=== PATIENT | female | born 1945 | race Caucasian/White ===

== ENCOUNTER → 2017-12-06 12:39 | Outpatient (CLI) | payer MEDICARE, SELFPAY ==
--- NOTE | 2017-12-06 | IMM_PTH ---
PATIENT: JIMMIE WEATHERS LOC: [facility] U#:[id number] AGE/SX: 79/F ROOM: RE12/06/[address]: Dr. Jean-Paul Perea MD : 1945 BED: DIS: SPEC #: [id number] RECD: 12/09/17 16:28 STATUS: RALPH REFlip #: [id number] ROYA: 12/06/17 00:[address]: Jean-Paul Perea DEPT: IMMUNOHISTOCHEMISTRY RECD BY: Ijeoma Robb ENTERED: 12/12/17 16:30 SP TYPE: IMMUNO OTHR DR: Dr. Magaly Jimenez MD Tissues: A - Right breast, NOS Procedures: CALPONIN-1 (add) CK5-6 (add) E-CAD (add) HER2 JAZZ (add) P53 (add) OR (add) IN SITU HYBRIDIZATION P40 (add) ER (initial) PHYSICIAN & INSTITUTION [place] [id number] SPECIMEN INFORMATION: Tissue Source: A ? Right breast biopsy Clinical Info: Abnormal mammogram Specimen Number: [id number] CPT code: 09550, 19975 x6, 09759 x3 METHODOLOGY: Deparaffinized sections of prefer/formalin-fixed tissue or PAP/DQ stained slides are incubated with monoclonal/polyclonal antibodies/oligonucleotide probes. Localization is made via biotin free immunoperoxidase method. Appropriate controls are performed and reacted as expected. Results on target cell population are indicated in the following table: RESULTS: ANTIBODY / CLONE RESULT Block A P53 (DO-7) negative Ki-67 (30-9) positive, low CK8 (52zllzB71) positive CK5-6 (D5 & 1684) negative Calponin-1 (FG951C) negative P40 (BC28) negative E-Cad (ECH-6) positive MORPHOMETRIC ANALYSIS ER (clone 6F11) >95% OR (clone 16/1E2) >95% Her-2Neu (clone CB11) 1-2+ The prognostic test for HER2 is performed on formalin-fixed paraffin embedded tissue. A 3+ (positive) staining pattern is defined as intense, homogeneous, complete, circumferential membranous staining in >10% of contiguous tumor cells. A similar weak (2+) staining pattern is interpreted as equivocal. LENY follow-up testing is recommended for all equivocal cases. Positivity/negativity for ER/OR is reported if > or < 1% of the tumor cells are immuno- reactive, respectively. The ASCO/CAP criteria is used for scoring. Reference: Journal of Clinical Oncology, 2013; 31:0676-4181 & 2010; 16:4818-0570. Duration of fixation: 58 Hrs; Sample Adequate: Yes. These assays have not been validated on decalcified tissues. Results should be interpreted with caution given the likelihood of false negativity on decalcified specimens. These tests were developed and their performance characteristics determined by [facility]. They may not have been cleared or approved by the U.S. Food and Drug Administration. The FDA has determined that such clearance or approval is not necessary. INTERPRETATION: Right breast, ultrasound-guided needle core biopsy: Invasive ductal carcinoma. Positive for estrogen receptors (favorable prognostic indicator). Positive for progesterone receptors (favorable prognostic indicator). Equivocal for overexpression of AVW6smf. AM:bernard 12/14/17 Case has been reviewed in consultation with Dr. Hernandez who concurs with the above diagnosis. IDC:SJ ADDENDUM ADDENDUM ADDENDUM ADDENDUM ADDENDUM ADDENDUM ADDENDUM ADDENDUM ADDENDUM ADDENDUM ADDENDUM ADDENDUM ADDENDUM ADDENDUM ADDENDUM ADDENDUM ADDENDUM ADDENDUM ADDENDUM ADDENDUM ADDENDUM 12/18/2017 13:26 ADDENDUM 12/18/2017 13:26 ADDENDUM 12/18/2017 13:26 ADDENDUM 12/18/2017 13:26 ADDENDUM 12/18/2017 13:26 IN SITU HYBRIDIZATION (LENY) FOR HER2 Interpretation: Not Amplified HER2 : CEP-17 Ratio: 1.13 Average HER2 Signal: 2.05 Average CEP-17 Signal: 1.8 Number of Tumor Cells Scanned: 50 Interpretative Information: The INFORM HER2 Dual LENY DNA Probe Cocktail assay is performed on formalin-fixed paraffin embedded tissue and determines HER2 gene status by detecting HER2 copies via silver in situ hybridization (SISH) and Chromosome 17 copies via chromogenic red in situ hybridization on tumor cells. A minimum of 20 cells representing > 10% of contiguous and homogeneous invasive tumor cells were analyzed. HER2 gene status is classified as Non-amplified (HER2/Chr17 ratio < 2.0) or Amplified (HER2/Chr17 ratio greater than or equal to 2.0). If the resulting HER2/Chr17 ratio falls within 1.8 - 2.2 (Borderline), retesting by FISH is recommended. Reference: Eleuterio AC, Tito REYNOSO, Martinez DG, et al: Recommendations for Human Epidermal Growth Factor Receptor 2 Testing in Breast Cancer: [place] [employer] of Clinical Oncology / College of [place] [employer] Clinical Practice Guideline Update. J Clin Oncol 31:3759-1970, 2013. / AM:bernard 12/18/17
--- NOTE | 2017-12-06 09:30 | BRBX_PTH ---
PATIENT: JIMMIE WEATHERS LOC: [facility] U#:[id number] AGE/SX: 79/F ROOM: RE12/06/[address]: Dr. Jean-Paul Perea MD : 1945 BED: DIS: SPEC #: [id number] RECD: 12/06/17 12:33 STATUS: RALPH YESSICA #: [id number] ROYA: 12/06/17 09:[address]: Jean-Paul Perea DEPT: SURGICAL PATHOLOGY RECD BY: Patrick Le ENTERED: 12/06/17 14:16 SP TYPE: BREAST BX OTHR DR: Dr. Magaly Jimenez MD Tissues: A - Right breast, NOS B - Skin of leg, NOS Procedures: Surgery Specimen Level IV HEADER OPERATION: Ultrasound-guided needle core biopsy right breast and punch biopsy skin lesion left leg PRE-OP DIAGNOSIS: Abnormal mammogram, skin lesion LLE TISSUE SUBMITTED: A ? Right breast biopsy, B ? Punch biopsy skin lesion left lower extremity ISCHEMIC TIME: <30 seconds FIXATION TIME: 58 hours MICROSCOPIC DIAGNOSIS A. Right breast, core biopsy: Invasive carcinoma: Nuclear grade ? /3 Maximal length ? 4.5 mm B. Skin of left lower extremity, punch biopsy: No evidence of malignancy. AM:bernard 12/13/17 COMMENT The findings were discussed with Dr. Perea at 9:30 a.m. on 12/09/[address] Golden. MICROSCOPIC DESCRIPTION Slides are reviewed. GROSS DESCRIPTION A - Received in fixative is one container labeled with the patient's name and designated right breast biopsy. The specimen consists of two cores of yellow-white soft tissue. Each core has an average length of 1 cm and a maximal diameter of 0.1 cm. The specimen is totally submitted in one cassette. B - Received in fixative is one container labeled with the patient's name and designated punch biopsy. The specimen consists of a cylindrical fragment of light ontiveros soft tissue measuring 0.8 cm in length and 0.1 cm in average diameter. The specimen is totally submitted in one cassette. / AM:bernard 12/06/17 TC:0 CPT: 20305 x2 ADDENDUM ADDENDUM ADDENDUM ADDENDUM ADDENDUM ADDENDUM ADDENDUM 12/17/2017 14:06 ADDENDUM 12/17/2017 14:06 ADDENDUM 12/17/2017 14:06 ADDENDUM 12/17/2017 14:06 ADDENDUM 12/17/2017 14:06 B ? Comment ? Specimen B consists of an unremarkable skin punch biopsy. The squamous epithelium does not contain any dysplasia or inflammation. The reticular dermis, mid dermis and deep dermis show no pathologic change. The subcutaneous tissue contains occasional benign blood vessels and rare nerves and adnexal glandular epithelium. AM:bernard 12/17/17
== END ==
PROVIDERS: Family Provider Family Medicine; PCP Family Medicine; Visit Provider Surgery
DX: R92.8 Other abnormal and inconclusive findings on diagnostic imaging of breast (principal); L98.9 Disorder of the skin and subcutaneous tissue, unspecified
CPT/HCPCS: 88305; 88341; 88342; 88368

== ENCOUNTER → 2017-12-20 06:19 | Outpatient (CLI) | payer MEDICARE, SELFPAY ==
--- NOTE | 2017-12-20 06:33 | MRI_ITS ---
STUDY: BILATERAL BREAST MR WITHOUT AND WITH CONTRAST REASON FOR EXAM: Female, 72 years old. Newly diagnosed right breast cancer from biopsy performed November 05, 2017. Presurgical workup. TECHNIQUE: Multi-sequence multi-echo imaging of both breasts was performed with a dedicated breast coil. T1-weighted and T2-weighted images were performed before the administration of contrast. T1-weighted images were also performed after the administration of 6 mL of Gadavist contrast intravenously without complications. COMPARISON: Bilateral mammograms dated June 15, 2010 and unilateral left mammogram dated July 10, 2010. Bilateral screening mammograms dated November 19, 2017 and right breast ultrasound dated November 21, 2017. FINDINGS: RIGHT BREAST: The breast tissue is fatty with no background enhancement. There is an irregular enhancing mass measuring 2.3 cm x 9 mm x 7 mm at the 11:00 to 12:00 position of the right breast. There is a tissue clip artifact within the right breast anterior to the mass. LEFT BREAST: The breast tissue is fatty with no background enhancement. There are no abnormal enhancing masses or areas of non-mass enhancement in the left breast. There are no enlarged or abnormal lymph nodes. There is no abnormality in the visualized regions of the chest or liver. MRI/Breast w/o and/or W Cont Bilat IMPRESSION: Irregular enhancing mass at the 11:00 to 12:00 position of the right breast measuring 2.3 cm x 9 mm x 7 mm representing the index lesion. No other significant abnormality identified. CATEGORY: BIRADS Category 6: Known Biopsy-Proven Malignancy - Appropriate Action Should Be Taken. A letter regarding these results will be sent to the patient by the facility within 30 days. Electronically Signed: Isaiah Nguyen MD at 10:28 EDT , Service support ,
[2017-12-20 07:31] LABS: CREATININE FINGERSTICK 0.7 mg/dL (0.55-1.02); EGFR FINGERSTICK > 60.0000 mL/min (>60)
== END ==
PROVIDERS: Family Provider Family Medicine; PCP Family Medicine; Visit Provider Surgery
DX: C50.411 Malignant neoplasm of upper-outer quadrant of right female breast (principal)
CPT/HCPCS: 77059; A9585; A4216; C8908

== ENCOUNTER 2017-12-25 08:17 | Day surgery (SDC) | payer MEDICARE, SELFPAY ==
--- NOTE | 2017-12-25 | IMM_PTH ---
PATIENT: JIMMIE WEATHERS LOC: [facility] [place] U#:[id number] AGE/SX: 72/F ROOM: RE12/25/[address]: Dr. Mp Hernandez MD : 1945 BED: DIS: 12/25/2017 SPEC #: [id number] RECD: 12/30/17 13:33 STATUS: RALPH REQ #: [id number] ROYA: 12/25/17 00:[address]: Mp Hernandez DEPT: IMMUNOHISTOCHEMISTRY RECD BY: Ijeoma Robb ENTERED: 12/30/17 13:34 SP TYPE: IMMUNO OTHR DR: Dr. Mp Argueta MD Tissues: A - Axillary lymph node, NOS Procedures: CK7 (add) Pankeratin (initial) Pankeratin (add) PHYSICIAN & INSTITUTION [place] [id number] SPECIMEN INFORMATION: Tissue Source: A ? Right axillary sentinel lymph node tissue Clinical Info: Malignant neoplasm upper outer quadrant right breast Specimen Number: [id number] A1-A4 CPT code: 70650, 37924 x7 METHODOLOGY: Deparaffinized sections of prefer/formalin-fixed tissue or PAP/DQ stained slides are incubated with monoclonal/polyclonal antibodies/oligonucleotide probes. Localization is made via biotin free immunoperoxidase method. Appropriate controls are performed and reacted as expected. Results on target cell population are indicated in the following table: RESULTS: ANTIBODY / CLONE RESULT Block A1 AE1-3 (AE1/AE3/PCK26) negative CK7 (OV-TL12/30) negative Block A2 AE1-3 (AE1/AE3/PCK26) negative CK7 (OV-TL12/30) negative Block A3 AE1-3 (AE1/AE3/PCK26) negative CK7 (OV-TL12/30) negative Block A4 AE1-3 (AE1/AE3/PCK26) negative CK7 (OV-TL12/30) negative These tests were developed and their performance characteristics determined by [facility]. They may not have been cleared or approved by the U.S. Food and Drug Administration. The FDA has determined that such clearance or approval is not necessary. INTERPRETATION: A. Right axillary sentinel lymph node tissue, biopsy: Six out of six lymph nodes negative for metastatic carcinoma SJ:vibha 12/31/17
--- NOTE | 2017-12-25 | AXNB_PTH ---
PATIENT: JIMMIE WEATHERS LOC: [facility] [place] U#:[id number] AGE/SX: 72/F ROOM: RE12/25/[address]: Dr. Mp Hernandez MD : 1945 BED: DIS: 12/25/2017 SPEC #: [id number] RECD: 12/25/17 11:18 STATUS: RALPH YESSICA #: [id number] ROYA: 12/25/17 00:[address]: Mp Hernandez DEPT: SURGICAL PATHOLOGY RECD BY: Ijeoma Robb ENTERED: 12/25/17 12:31 SP TYPE: AX NODE BX OTHR DR: Dr. Mp Argueta MD Tissues: A - Axillary lymph node, NOS B - Right breast, NOS Procedures: Frozen Section (charge) Frozen Section Add'l ([facility]) Surgery Specimen Level V Frozen (no charge) HEADER OPERATION: Wire localized lumpectomy and blue dye right axillary sentinel lymph node PRE-OP DIAGNOSIS: Malignant neoplasm upper outer quadrant right breast; ER positive TISSUE SUBMITTED: A ? Right axillary sentinel lymph node tissue to lab at 1115 for FS, B ? Right breast lumpectomy tissue to mammo at 1132, short suture ? superior, long suture ? lateral, single suture ? anterior FROZEN SECTION DIAGNOSIS A. Right axillary sentinel lymph node tissue, biopsy: Six out of six lymph nodes, negative for metastatic carcinoma. SJ:bernard 12/25/17 MICROSCOPIC DIAGNOSIS A. Right axillary sentinel lymph node tissue, biopsy: Six out of six lymph nodes, negative for metastatic carcinoma. See comment. B. Right breast, lumpectomy with needle localization: Invasive ductal carcinoma. Focal ductal carcinoma in situ. See cancer summary below. INVASIVE BREAST CANCER SUMMARY: Specimen ? partial breast Procedure ? excision with wire-guided localization Lymph node sampling ? sentinel lymph nodes Specimen integrity ? single, intact specimen Specimen size ? 6 x 6 x 3.5 cm Specimen laterality - right Tumor site ? upper outer quadrant, as per clinical information Tumor size ? 0.5 x 0.5 cm. See comment. Tumor focality ? single focus of invasive carcinoma Macroscopic and Microscopic extent of tumor: Skin ? skin is not present. Nipple ? not applicable Skeletal muscle ? no skeletal muscle present. 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 Extensive intraductal component (EIC) - negative Estimated size (extent) of DCIS - Ductal carcinoma in situ comprise about <5% of the tumor volume. Number of blocks with DCIS - 1 Number of blocks examined - 12 Architectural patterns ? cribriform Nuclear grade ? grade 2 (intermediate) Necrosis ? not identified Lobular carcinoma in situ (LCIS) ? not identified Histologic type of invasive carcinoma ? invasive ductal carcinoma with focal cribriform features. Histologic Grade (Duc grade): Glandular/tubular differentiation - score 3 Nuclear pleomorphism - score 2 Mitotic count ? score 1 Overall grade - 2 (score of 6) Margins - Margins uninvolved by invasive carcinoma and ductal carcinoma in situ. The invasive carcinoma and ductal carcinoma in situ are 0.7 cm away from the superior and posterior margins of the specimen. Treatment effect: Response to presurgical (neoadjuvant) therapy - no known presurgical therapy. Lymph-Vascular invasion ? not identified Dermal lymph-vascular invasion ? not applicable Lymph nodes: Number of sentinel lymph nodes examined - 6 Total number of lymph nodes examined (sentinel and nonsentinel) - 6 Number of lymph nodes with macrometastases, micrometastases and isolated tumor cells - 0 Method of evaluation of sentinel lymph nodes - H & E, multiple levels and IHC. Distance metastasis ? not applicable Additional pathologic findings ? changes consistent with previous biopsy site. - Fibrocystic changes. - Vascular calcification. Ancillary studies - previously performed on section of tumor ([id number] / [id number]). ER ? positive (>95%) IL - positive (>95%) Her2 ramón ? equivocal (1-2+) Her2 by dual LENY ? negative/not amplified HER2:CEP-17 ratio ? 1.13 Average HER2 signal ? 2.05 Average CEP-17 signal ? 1.8 Microcalcifications ? present both in carcinoma and non-neoplastic tissue Clinical history - Please make reference to previous specimen ([id number]) right breast, core biopsy with diagnosis of invasive carcinoma. PATHOLOGIC STAGE: pT1a pN0 Mx The above summary is in compliance with [employer] of [place] [employer] (CAP) Cancer Protocols Checklist and [place] [employer] Committee on Cancer (AJCC), Staging Manual, 8th Ed. SJ:rg 12/30/17 COMMENT A. The lymph nodes are negative for metastatic carcinoma on multiple H & E levels and immuno-histochemical stains for cytokeratins ([id number]). B. The tumor is measured microscopically, it is smaller than grossly measured size. Most of the grossly measured tumor consists of changes consistent with previous biopsy site. Case has been reviewed in consultation with Dr. Golden who concurs with the above diagnosis. IDC:AM MICROSCOPIC DESCRIPTION Slides are reviewed. GROSS DESCRIPTION A - Received fresh for frozen section diagnosis labeled with the patient's name is a specimen designated right axillary sentinel lymph node tissue. The specimen consists of a piece of yellow adipose tissue containing multiple nodules consistent with lymph nodes measuring 4 x 4.5 x 1 cm. Six lymph nodes are identified and submitted entirely for frozen section diagnosis. Dental Professional tissue is submitted in four cassettes as follows: 1 ? frozen section, one bisected lymph node, 2 - frozen section, one lymph node, 3? frozen section, two lymph nodes, one lymph node inked black, 4 - frozen section, two lymph nodes, one lymph node inked black. / SJ:rg 12/25/17 B - Received fresh for intraoperative consultation labeled with the patient's name is a specimen designated right breast lumpectomy tissue. The specimen consists of a piece of yellow adipose tissue with wire localization x2 and measures 6 x 6 x 3.5 cm. The specimen is oriented as follows: short suture ? superior, long suture ? lateral, single suture ? anterior. The specimen is inked as follows: anterior ? yellow, posterior ? black, superior ? blue, inferior ? green, medial ? red and lateral ? orange. Serial sections reveal a ontiveros, indurated mass measuring 1.5 x 1 x 1cm. This mass is 0.5 cm away from the closest posterior and superior margin of the specimen. This information is conveyed to the surgeon intraoperatively. Sections of the rest of the specimen reveal ontiveros-yellow adipose cut surfaces mixed with ontiveros-white fibrous area. Dental Professional sections are submitted in 12 cassettes as follows: 1 ? medial and lateral margins, 2 ? inferior and anterior margins, 3 & 4 ? tumor with closest posterior and superior margin, 5 & 6 ? rest of the tumor, 7 & 8 - solar sales representative and assessor sections adjacent to the tumor, 9-12 - solar sales representative and assessor sections away from the tumor. Sections will be submitted after infusion cycle. / SJ:rg 12/26/17 TC:0 CPT: 47395 x2, 82814, 48304 x3, 57970
--- NOTE | 2017-12-25 08:30 | RAD_ITS ---
STUDY: X-RAY CHEST REASON FOR EXAM: Female, 72 years old. History of breast cancer. TECHNIQUE: PA and lateral views of the chest. COMPARISON: None. FINDINGS: Hyperinflation. The lungs are clear. There is no demonstrated pleural abnormality. Normal size heart. Normal mediastinum and alvarado. Normal visualized pulmonary arteries. Normal visualized aortic arch and descending thoracic aorta. There is a levoscoliosis of the thoracic spine. Normal visualized ribs, clavicles, and shoulders. There is no demonstrated abnormality of the visualized soft tissue structures of the upper abdomen. RAD/Chest PA and Lateral IMPRESSION: Hyperinflation. The lungs are clear. Electronically Signed: Rafael Barry MD at 9:47 EDT Tel [phone], Service support ,
--- NOTE | 2017-12-25 08:42 | EKG12_ITS ---
Test Reason : PREOP Blood Pressure : / mmHG Vent. Rate : 058 BPM Atrial Rate : 058 BPM P-R Int : 154 ms QRS Dur : 074 ms QT Int : 456 ms P-R-T Axes : 054 047 037 degrees QTc Int : 447 ms Sinus bradycardia Otherwise normal ECG No previous ECGs available Confirmed by ROBE LYN, BEN ([id number]), non linear editor ELDER DOWNEY ([id number]) on 12/26/2017 11:17:32 AM Referred By: Mp Hernandez Confirmed By:BEN NAGEL MD
[2017-12-25 08:58] LABS: Hematocrit 43.3 % (37-47); Hemoglobin 14.4 g/dl (12.0-15.0); Mean Corp Hgb Conc 33.3 g/gl (32-36); Mean Corpuscular Hgb 31.2 pg (27.0-32.0); Mean Corpuscular Volume 93.9 fL (81-99); Mean Platelet Vol. 10.2 fl (6.2-12.0); Platelet Count 167 K/mm3 (150-450); RBC Distribution Width CV 12.3 % (11.6-14.6); Red Blood Count 4.61 M/mm3 (4.2-5.4); White Blood Count 6.6 K/mm3 (4.4-11.0)
[2017-12-25 08:59] VITALS: BP 118/69; PULSE 57; RESP 16; TEMP 36.5; O2SAT 100; BMI 22.1
[2017-12-25 08:59] LABS: Scan Indicated on CBC? Y/N NO
[2017-12-25 09:09] LABS: Anion Gap 6 (5-15); BUN 20 mg/dL (7-18); BUN/Creat Ratio 21.3 RATIO (10-20); Calcium,Total 9.6 mg/dL (8.5-10.1); Chloride 103 mmol/L (98-107); Creatinine, Serum 0.94 mg/dL (0.55-1.02); EST Glomerular Filtration Rate 63 mL/min (>60); Est Glom Filt Rate - Afr Amer 76 mL/min (>60); Glucose 90 mg/dL (74-106); Potassium 3.9 mmol/L (3.5-5.1); Sodium Level 139 mmol/L (136-145)
--- NOTE | 2017-12-25 09:12 | BI_ITS ---
SURGICAL BREAST SPECIMEN RADIOGRAPH CLINICAL: Document presence of tissue clip marker in biopsy specimen. FINDINGS: Specimen shows presence of tissue clip marker. Electronically Signed: Rafael Barry MD at 15:03 EDT Tel [phone], Service support , BI/Breast Biopsy Specimen
--- NOTE | 2017-12-25 10:23 | OP.PCM_ITS ---
Problem List (1) Breast cancer Status: Acute Qualifiers: Breast location: upper outer quadrant of breast Estrogen receptor status: positive Patient sex: female Laterality: right Qualified Code(s): C50.411 - Malignant neoplasm of upper-outer quadrant of right female breast; Z17.0 - Estrogen receptor positive status [ER+] Report of Operation Date of Procedure: 12/25/17 Pre-Operative Diagnosis: Upper outer quadrant right breast cancer Post-Operative Diagnosis: Same Surgery/Procedure Performed:: Stereotactic wire localization upper outer quadrant right breast. Right axillary blue dye sentinel lymph node biopsy with wire localized upper outer quadrant right breast lumpectomy Description of Surgical Findings:: Timeout and informed consent was obtained. 72-year-old female was taken to the stereotactic unit. She was placed prone on the table. The right breast was placed in the cc view. The marking clip in question was identified. Stereotactic images were obtained. Digital information was obtained on a single target site. The breast was prepped with Betadine. 1% lidocaine was used as a local anesthetic. A total of 1/2 cc was used. A 20-gauge Kopans needle was advanced to depth +15 mm. The wire was displaced. On fast view demonstrated good localization. She tolerated the procedure well sterile dressings were applied and she was subsequently taken to the operating for definitive resection. The patient was subsequently taken to the operating room. Placed upon the table. She underwent general anesthesia. The right arm was carefully wrapped with soft roll and placed to right angles to the table. The right breast was prepped with alcohol. 2 cc of 1% isosulfan blue dye was injected in the upper outer right retroareolar breast. Massage was performed for 3 minutes. Then the right breast and axilla were sterilely prepped and draped. Under ultrasound guidance I reinspected the lesion and I added a secondary Kopan's needle to the area of density. Under ultrasound guidance I inserted the needle to place the wire. Then I made a oblique incision of the right axilla sharp and blunt dissection was instituted down through the subcutaneous tissue the blue dye lymphatic tracking was identified to a conglomerate this was dissected free hemostasis obtained with electrocautery 3-0 Vicryl suture ligatures and hemoclips were indicated. Specimen was submitted. Hemostasis was further assured with FloSeal. The wound is then closed with a deep layer of interrupted 3-0 Vicryl and then running septic or 4 Monocryl. The graft a curvilinear incision was made in the upper outer quadrant right breast. Sharp dissection carried down through the substance tissue circumferential dissection was performed. Based upon the stereotactic wire localization as well as the ultrasound-guided wire localization mass lesion was identified circumferential dissection was achieved. The mass was subsequently completely excised. A short suture was placed superiorly at long suture laterally and a single suture anteriorly. Inspection failed to reveal any residual suspicious tissue. Hemostasis was assured. The cavity was irrigated. 0.5% Marcaine was used as local anesthetic and 30 cc was instilled in both the axilla and the breast lumpectomy site. The breast site was closed with a deep layer of interrupted 3- 0 Vicryl and then a running septic or 4-0 Monocryl. Strips Telfa OpSite bulky dry dressings were applied. Sponge and instrument and needle counts were reported to the surgeon to be correct. Blood loss was minimal. She tolerated the procedure well was taken to the recovery area in satisfactory condition without apparent complication. Pathology reported 6 sentinel nodes negative. Pathology reported the mass lesion with the closest margin 0.5 cm. Drains none. Blood loss minimal. Mp Hernandez M.D., F.A.C.S. Type of Anesthesia:: General Anesthesiologist: Helio Strickland
--- NOTE | 2017-12-25 10:24 | PCM.DC.BS ---
Discharge Diet: No Restrictions Discharge Activity: May Not Drive - for 2-3 days or while taking narcotic pain meds. May shower in (days): 1 Lifting Restrictions: 10 pounds for 1 week. Call your doctor if your incision/area has: Continuous Slow Oozing, Sudden Increased Bleeding Call your doctor if you observe: Fever of 101 or Higher Suture Line Care: Avoid Pulling/Pushing, Avoid Pinching/Bending Remove Dressing in (days):: 1 - Remove bulky dressing tomorrow. May leave any opsite dressing for 3-4 days. Keep dressing in place until your follow-up appointment. Additional Dressing/Incision Instructions:: Remove bulky dressing tomorrow. May leave any opsite dressing for 3-4 days. Steri-Strips may be left in place for 1 week Allergies/Adverse Reactions: Allergies No Known Allergies Allergy (Verified 12/17/17 14:35) Medications to take at Discharge cholecalciferol (vitamin D3) 2,000 unit capsule 2,000 unit PO QDAY 12/03/17 hydrochlorothiazide 25 mg tablet 25 mg PO QDAY 12/03/17 levothyroxine 88 mcg tablet 50 mcg PO QDAY 12/03/17 multivitamin tablet 1 tab PO QDAY 12/03/17 sennosides 8.6 mg tablet 8.6 mg PO BID PRN 12/03/17 Calcium Carb/Vitamin D3/Vit K1 [Viactiv Soft Chew Tablet] 1 each PO DAILY 12/24/17 Lansoprazole [Prevacid] 15 mg PO DAILY 12/24/17 Primary Care Physician: Mp Argueta MD [Primary Care Provider] - Please Follow Up With: Mp Hernandez MD When: Office appt. in approximately 7-10 days please [phone]
[2017-12-25] MEDS: Bupivacaine Mpf 0.5% 30 ML VIAL (11:47)
[2017-12-25 12:01] VITALS: BP 118/69; BP 138/72; PULSE 63; RESP 18; TEMP 36.3; O2SAT 95
[2017-12-25 12:15] VITALS: BP 118/69; BP 137/69; PULSE 55; RESP 18; O2SAT 98
[2017-12-25 12:30] VITALS: BP 118/69; BP 127/80; PULSE 54; RESP 18; TEMP 36.1; O2SAT 98
[2017-12-25] MEDS: HYDROcodone Bitartrate/Apap 5/325 Tablet PO (13:12)
[2017-12-25 14:27] VITALS: BP 118/69; BP 127/65; PULSE 64; RESP 16; TEMP 36.4; O2SAT 100
== END 2017-12-25 14:37 | disposition home or self-care (01) ==
LOC: SDC 08:18 → AC 08:19
PROVIDERS: Specialist; Family Provider Family Medicine; PCP Family Medicine; Visit Provider Surgery
PROC: (CPT 19301; principal; 2017-12-25 10:15)
DX: C50.411 Malignant neoplasm of upper-outer quadrant of right female breast (principal); Z17.0 Estrogen receptor positive status [ER+]; I10 Essential (primary) hypertension; E03.9 Hypothyroidism, unspecified; M19.90 Unspecified osteoarthritis, unspecified site; K21.9 Gastro-esophageal reflux disease without esophagitis; Z78.0 Asymptomatic menopausal state; Z79.899 Other long term (current) drug therapy
CPT/HCPCS: 19301; 38525; 38900; 19281; 36415; 71046; 76098; 80048; 85027; 88305; 88307; 88331; 88332; 88341; 88342; 93005; J7120; A4216; Q9968

== ENCOUNTER → 2018-01-14 10:49 | Outpatient (CLI) | payer MEDICARE, SELFPAY ==
--- NOTE | 2018-01-14 10:55 | BD_ITS ---
STUDY: DUAL ENERGY X-RAY ABSORPTIOMETRY / DXA REASON FOR EXAM: Female, 72 years old. The patient is postmenopausal. Loss of height. History of breast cancer. TECHNIQUE: Bone Mineral Density (BMD) measurements of lumbar spine and right forearm were obtained. The patient is status post bilateral hip replacement. COMPARISON: None. FINDINGS: Lumbar Spine (L1-L4): g/cm2 (0.943) / T-score (-2.0) / Z-score (-0.3) Findings are suggestive of osteopenia with a moderate fracture risk. Right Forearm: g/cm2 (0.642) / T-score (-2.7) / Z-score (-0.7) BD/Dexa Bone Density Study IMPRESSION: The patient is considered osteoporotic as outlined below according to World [place] Organization (WHO) criteria with a high fracture risk. Reference Information: The T-score is the number of standard deviations above or below the standard which is normal for young adults at their peak bone mineral density. The World Health Organization (WHO) interprets the T-scores as follows: Above -1 Normal bone density Between -1 and -2.5 Osteopenia Equal to / or below -2.5 Osteoporosis As a practical clinical guideline, osteopenia may be graded as follows: Mild -1 through -1.5 Moderate -1.6 through -2.0 Severe -2.1 through -2.4 The Z-score is the number of standard deviations above or below age-matched controls. A Z-score of less than -1.5 would be considered abnormal. References: 1. NIH Osteoporosis and Related Bone Diseases http://www.osteo.org 2. International Society for Clinical Densitometry http://www.iscd.org 3. National Osteoporosis Foundation http://www.nof.org Electronically Signed: Rafael Barry MD at 9:21 EDT Tel [phone], Service support ,
== END ==
PROVIDERS: Family Provider Family Medicine; PCP Family Medicine; Visit Provider Internal Medicine Hematology & Oncology
DX: Z78.0 Asymptomatic menopausal state (principal); M81.0 Age-related osteoporosis without current pathological fracture; Z85.3 Personal history of malignant neoplasm of breast
CPT/HCPCS: 77080

== ENCOUNTER 2018-01-22 15:57 | Outpatient (RCR) | payer MEDICARE, SELFPAY ==
[2018-01-20 10:17] VITALS: BMI 22.6
--- NOTE | 2018-01-23 07:27 | HP.OTEVAL_ITS ---
Patient's Visit Information JIMMIE WEATHERS is a 72 year old F, referred to Occupational Therapy by Bisi Manley, with a diagnosis of malignant neoplasma of unspec. site. Date of Evaluation: 01/22/18 Occupational Therapist: Cassandra Bernal, OTR/L, CHT - Subjective Subjective: pt states she was dx. with left breast cancer and had sx on December 25. pt states she will be undergoing 16 radiation tx. pt states she is feeling better sorness under her right arm is getting less- sx only about 4 weeks ago. pt states she is doing all her BADLS and IADLS as her is having back sx next week. pt states she feels good right now but is worried how her next treatment path will make her feel. - ROM ROM Comments: pt demo full ROM of bilateral UE - Strength Shoulder: R/L 4+/5 Elbow: R/L 4+/5 Forearm: R/L 4+/5 Autom[employer] Teacher: right 65# left 60# - Lymphedema (Circumferential Measure) MCP: right 18cm left 18cm Wrist: right 15cm left 15cm Lower forearm: right 15.5cm left 15cm Largest forearm: right 22cm left 22cm Elbow: right 24cm left 24cm Largest humerus: right 25.5cm left 25cm Axcillary: right 29.5cm left 27.5cm - DASH-Disabilities of Arm, Shoulder& Hand DASH Sum: 36 - Goals Demonstrate adequate knowledge of self-massage by 2nd week: Yes Demonstrate adequate knowledge skin care/prec by 2nd week: Yes Demonstrate adequate knowledge therapeutic exercises by d/c: Yes Goal:: pt demo understanding of using compression garment with flights-no blood draw/BP from right UE. - Rehabilitation General Assessment: Pt s/p lump ectomy of right breast with 6 lyph nodes removed all neg. pt to undergo radiation for 16 sessions. pt currently demo full functional ROM of bilateral UE. no edema. touch tenderness at axillary of right side- but states it is feeling better- Today pt ed. on ROM ex., lymph system and manual lymph drainage. pt ed on skin care and scar mtg along with use of compression garment with flights as precaution. Pt demo understanding of todays ed. on HEP. Pt states she will initiate a silver sneakers program to assist in her general health. At this time pt is to call with questions/ concerns otherwise pt to cont with HEP. no further OT sessions needed unless swelling or scar adhesions arise. Pt agrees with POC. Rehabilitation Potential: Excellent - Anticipated Interventions Anticipated Interventions: Education re Diagnosis, Education re Skin Care and Precautions, Education re Self Massage Techniques, Home Program Other Interventions: lymphedmea signs.symptoms. Exercise - Visit Plan TEXT: Thank you for the opportunity to evaluate your patient. For Medicare and Medicare HMO plans, please review the plan of care and approve it. It will need to be FAXED BACK to us at [phone] for Medicare purposes. Please let me know if there are questions or concerns regarding this plan of care. Physician Signature: Date:
--- NOTE | 2018-03-05 16:09 | HP.OT.NRP ---
HP - Discharge Summary - Patient Information JIMMIE WEATHERS was seen in my office for initial evaluation on 01/22/18. The following Plan of Care was established for this patient: - Anticipated Interventions Anticipated Interventions: Education re Diagnosis, Education re Skin Care and Precautions, Education re Self Massage Techniques, Home Program Other Interventions: lymphedmea signs.symptoms. Exercise This patient was last seen in our office 01/22/18. Pertinent comments regarding their Occupational therapy will appear below: PT was seen for inital OT eval and given HEP. pt was to call if she had questions or concerns. pt has not done so at this time. pt d/c due to lapse in tx time. At this point I will be discontinuing this patient from occupational therapy. I would be happy to see this patient again in the future if found appropriate by the physician. Thank you! Cassandra Bernal, OTR/L, CHT
== END 2018-01-22 19:00 | disposition home or self-care (01) ==
LOC: OT 15:57
PROVIDERS: Family Provider Family Medicine; PCP Family Medicine; Visit Provider Nurse Practitioner Family
DX: C50.919 Malignant neoplasm of unspecified site of unspecified female breast (principal); Z98.890 Other specified postprocedural states
CPT/HCPCS: 97166

== ENCOUNTER → 2018-01-24 10:41 | Outpatient (CLI) | payer MEDICARE, SELFPAY ==
[2018-01-20 10:17] VITALS: BMI 22.6
[2018-01-24 10:47] LABS: Bacteria 0 SEEN /hpf (None Seen); Mucous, Urine 0 SEEN /hpf (<or=2+)
[2018-01-24 12:06] LABS: Absolute Lymphocyte Count 1.35 X10^3/ul (0.83-4.51); Absolute Neutrophil Count 3.4 X10^3/uL (2.0-7.7); Basophil# 0.02 X10^3/uL; Basophil% 0.4 % (0-1); Eosinophil# 0.16 X10^3/uL; Eosinophils% 2.9 % (0-5); Hematocrit 42.2 % (37-47); Hemoglobin 13.8 g/dl (12.0-15.0); Lymphocyte # 1.35 X10^3/ul (4.0); Lymphocyte % 24.7 % (19-41); Mean Corp Hgb Conc 32.7 g/gl (32-36); Mean Corpuscular Hgb 31.1 pg (27.0-32.0); Mean Platelet Vol. 10.6 fl (6.2-12.0); Monocyte# 0.58 X10^3/uL; Monocyte% 10.6 % (0-10); Neutrophil # 3.35 X10^3/uL (2.7-7.7); Neutrophil % 61.2 % (47-70); Platelet Count 152 K/mm3 (150-450); RBC Distribution Width CV 12.2 % (11.6-14.6); Red Blood Count 4.44 M/mm3 (4.2-5.4); White Blood Count 5.5 K/mm3 (4.4-11.0)
[2018-01-24 12:07] LABS: POSITIVE COUNT NO; POSITIVE DIFFERENTIAL NO; POSITIVE MORPHOLOGY NO
[2018-01-24 12:22] LABS: Color, Urine Straw (Yellow); Glucose, Dipstick Normal (Normal); Ketone-Dipstick Negative (Negative); Leukocyte Esterase-Dipstick 25 /ul (Negative); Nitrite-Dipstick Negative (Negative); Occult Blood-Urine Negative /ul (Negative); Protein-Dipstick Negative (Negative); Specific Gravity, Urine 1.005 (1.002-1.030); Urine Bilirubin Dipstick Negative (Negative); Urine Clarity Clear (Clear); Urine Urobilinogen Normal (Normal); Urine pH 6.5 (5.0 - 8.0)
[2018-01-24 12:26] LABS: Hemoglobin A1c 5.2 % (4.2-6.3)
[2018-01-24 12:33] LABS: Red Blood Cells-Urine 0-5 SEEN /hpf (0-5); Squamous Epithelial Cells - UA 0-5 SEEN /hpf (5-10); White Blood Cells 0-5 SEEN /hpf (0-5)
[2018-01-24 12:44] LABS: Anion Gap 8 (5-15); BUN 14 mg/dL (7-18); BUN/Creat Ratio 17.1 RATIO (10-20); Calcium,Total 9.1 mg/dL (8.5-10.1); Chloride 101 mmol/L (98-107); Cholesterol 222 mg/dL (200); Creatinine, Serum 0.82 mg/dL (0.55-1.02); EST Glomerular Filtration Rate 73 mL/min (>60); Est Glom Filt Rate - Afr Amer 88 mL/min (>60); Glucose 75 mg/dL (74-106); High Density Lipoprotein 51 mg/dL; Phosphorus 2.9 mg/dL (2.5-4.9); Potassium 2.9 mmol/L (3.5-5.1); Sodium Level 139 mmol/L (136-145); T4 Free Direct 1.25 ng/dL (0.76-1.46); Thyroid Stim Hormone (TSH) 1.33 uIU/mL (0.358-3.74); Triglycerides 232 mg/dL; Very Low Density Lipoprotein 46 mg/dL (5-40)
[2018-01-28 15:27] LABS: Anti-Thyroglobulin AB < 1.0 IU/mL (0.0-0.9); Thyroglobulin, Serum Qt. 5.3 ng/mL (1.5-38.5); Thyroid Peroxidase AB 17 IU/mL (0-34)
== END ==
PROVIDERS: Family Provider Family Medicine; PCP Family Medicine; Visit Provider Family Medicine
DX: E03.9 Hypothyroidism, unspecified (principal); I10 Essential (primary) hypertension; R73.09 Other abnormal glucose; M81.0 Age-related osteoporosis without current pathological fracture
CPT/HCPCS: 36415; 80048; 80061; 81001; 82306; 83036; 84100; 84432; 84439; 84443; 85025; 86376; 86800

== ENCOUNTER → 2018-02-26 12:26 | Outpatient (CLI) | payer MEDICARE, SELFPAY ==
[2018-01-20 10:17] VITALS: BMI 22.6
[2018-02-26 14:25] LABS: Potassium 3.4 mmol/L (3.5-5.1)
== END ==
PROVIDERS: Family Provider Family Medicine; PCP Family Medicine; Visit Provider Family Medicine
DX: E87.6 Hypokalemia (principal)
CPT/HCPCS: 36415; 84132

== ENCOUNTER 2018-03-20 14:00 | Outpatient (RCR) | payer MEDICARE, SELFPAY ==
[2018-01-20 10:17] VITALS: BMI 22.6
--- NOTE | 2018-03-12 08:49 | HP.OTEVAL ---
Patient's Visit Information JIMMIE WEATHERS is a 72 year old F, referred to Occupational Therapy by Mp Hernandez, with a diagnosis of Breast cancer. Date of Evaluation: 03/11/18 Occupational Therapist: Cassandra Bernal, IVONE/Jessica, CHT - Subjective Subjective: This pt was seen for inital OT eval following 16 radiation tx to left breast. HX pt underwent lumpectomy on 12-25-17 with sentinel node biopsy 6 removed with all negative. pt states she is feeling tired, but more concerned with tight band under her arm. pt states band is better but she contines to worry about senior living limitations. - Pain left Axilary 2 Pain Intensity Range: 0, 2 - ROM ROM Comments: pt demo ROM WNL - DASH-Disabilities of Arm, Shoulder& Hand DASH Sum: 34 - Goals Demonstrate adequate knowledge skin care/prec by 2nd week: Yes Demonstrate adequate knowledge therapeutic exercises by d/c: Yes Goal:: pt will demo full ROM of left UE with no C/O of pain greater than 1/10 duirng task by d/c. Goal:: pt will demo understanding of scar desensitization by end of 3rd session. Goal:: pt asya demo understanding of Axillary node syndrom and mtg by d/c - Rehabilitation General Assessment: pt is now S/p 11 weeks following left lumpectomy, and sentinel node biopsy, post radiation. pt demo with UB ROM WNL, but inital cording under left axillary.Positive for axillary node syndrom. This has made her axilary region more tender at times. pt ed. to cont with ROM of left UE to stretch, manual Lymph drainage and sink/scar care. Pt would benefit from skilled OT services 1x week for 4 weeks to address the above limitations and ed. pt on HEP Rehabilitation Potential: Good - Anticipated Interventions Anticipated Interventions: Triggerpoint Release, Desensitization, Education re Diagnosis, Education re Self Massage Techniques - Visit Plan Frequency: 1x/Week Duration: 4 Weeks TEXT: Thank you for the opportunity to evaluate your patient. For Medicare and Medicare HMO plans, please review the plan of care and approve it. It will need to be FAXED BACK to us at [phone] for Medicare purposes. Please let me know if there are questions or concerns regarding this plan of care. Physician Signature: Date:
--- NOTE | 2018-05-06 11:37 | HP.OT.NRP ---
HP - Discharge Summary - Patient Information JIMMIE WEATHERS was seen in my office for initial evaluation on 03/11/18. The following Plan of Care was established for this patient: Initial Frequency: 1x/Week Initial Duration: 4 Weeks Plan: pt to follow up in APR - Anticipated Interventions Anticipated Interventions: Triggerpoint Release, Desensitization, Education re Diagnosis, Education re Self Massage Techniques This patient was last seen in our office 04/03/18. Pertinent comments regarding their Occupational therapy will appear below: Pt was seen for 2 visits with two cancellations- pt has not rescheduled apts and is D/C due to timelapse in therapy services. At this point I will be discontinuing this patient from occupational therapy. I would be happy to see this patient again in the future if found appropriate by the physician. Thank you! Cassandra Bernal, OTR/L, CHT
== END 2018-03-20 19:00 | disposition home or self-care (01) ==
LOC: OT 14:00
PROVIDERS: Family Provider Family Medicine; PCP Family Medicine; Visit Provider Surgery
DX: I89.0 Lymphedema, not elsewhere classified (principal)
CPT/HCPCS: 97140; 97166

== ENCOUNTER → 2018-05-09 12:51 | Outpatient (CLI) | payer MEDICARE, SELFPAY ==
[2018-01-20 10:17] VITALS: BMI 22.6
[2018-05-09 16:16] LABS: Absolute Lymphocyte Count 0.93 X10^3/ul (0.83-4.51); Absolute Neutrophil Count 4.2 X10^3/uL (2.0-7.7); Basophil# 0.04 X10^3/uL; Basophil% 0.7 % (0-1); Eosinophil# 0.13 X10^3/uL; Eosinophils% 2.2 % (0-5); Hematocrit 41.3 % (37-47); Hemoglobin 13.6 g/dl (12.0-15.0); Lymphocyte # 0.93 X10^3/ul (4.0); Lymphocyte % 15.5 % (19-41); Mean Corp Hgb Conc 32.9 g/gl (32-36); Mean Corpuscular Hgb 31.2 pg (27.0-32.0); Mean Corpuscular Volume 94.7 fL (81-99); Mean Platelet Vol. 10.5 fl (6.2-12.0); Monocyte# 0.65 X10^3/uL; Monocyte% 10.9 % (0-10); Neutrophil # 4.23 X10^3/uL (2.7-7.7); Neutrophil % 70.5 % (47-70); Platelet Count 152 K/mm3 (150-450); RBC Distribution Width CV 12.3 % (11.6-14.6); RBC Distribution Width SD 41.5 fl (35.1-43.9); Red Blood Count 4.36 M/mm3 (4.2-5.4)
[2018-05-09 16:17] LABS: POSITIVE COUNT NO; POSITIVE DIFFERENTIAL NO; POSITIVE MORPHOLOGY NO
[2018-05-09 16:42] LABS: AST(SGOT) 24 U/L (15-37); Alanine Aminotransfer ALT/SGPT 25 U/L (13-56); Albumin, Serum 3.7 g/dL (3.2-5.0); Alkaline Phosphatase 83 U/L (45-117); Anion Gap 7 (5-15); BUN 13 mg/dL (7-18); BUN/Creat Ratio 15.6 RATIO (10-20); Calcium,Total 8.2 mg/dL (8.5-10.1); Chloride 99 mmol/L (98-107); Cholesterol 222 mg/dL (200); Creatinine, Serum 0.84 mg/dL (0.55-1.02); EST Glomerular Filtration Rate 71 mL/min (>60); Est Glom Filt Rate - Afr Amer 86 mL/min (>60); Globulin 3.7 g/dL (2.2-4.2); Glucose 77 mg/dL (74-106); High Density Lipoprotein 45 mg/dL; Potassium 3.7 mmol/L (3.5-5.1); Protein, Total 7.4 g/dL (6.4-8.2); Sodium Level 136 mmol/L (136-145); Thyroid Stim Hormone (TSH) 1.61 uIU/mL (0.358-3.74); Triglycerides 258 mg/dL; Very Low Density Lipoprotein 52 mg/dL (5-40)
== END ==
PROVIDERS: Family Provider Family Medicine; PCP Family Medicine; Referring Provider Family Medicine; Visit Provider Family Medicine
DX: I10 Essential (primary) hypertension (principal); E03.9 Hypothyroidism, unspecified; E78.5 Hyperlipidemia, unspecified
CPT/HCPCS: 36415; 80053; 80061; 84443; 85025

== ENCOUNTER 2018-06-03 05:25 | Day surgery (SDC) | payer MEDICARE, SELFPAY ==
[2018-01-20 10:17] VITALS: BMI 22.6
[2018-05-26 13:42] VITALS: BMI 23.1
--- NOTE | 2018-06-03 | IMM_PTH ---
PATIENT: JIMMIE WEATHERS LOC: EN U#:[id number] AGE/SX: 72/F ROOM: RE06/03/[address]: Dr. Mp Hernandez MD : 1945 BED: DIS: 06/03/2018 SPEC #: [id number] RECD: 06/04/18 13:10 STATUS: RALPH REFlip #: [id number] ROYA: 06/03/18 00:[address]: Mp Hernandez DEPT: IMMUNOHISTOCHEMISTRY RECD BY: Ijeoma Robb ENTERED: 06/04/18 13:10 SP TYPE: IMMUNO OTHR DR: Dr. Kan Vargas MD Tissues: B - Stomach, NOS Procedures: H Pylori (initial) PHYSICIAN & INSTITUTION [place] [id number] SPECIMEN INFORMATION: Tissue Source: B - Antral biopsy Clinical Info: GERD Specimen Number: [id number] CPT code: 71145 METHODOLOGY: Deparaffinized sections of prefer/formalin-fixed tissue or PAP/DQ stained slides are incubated with monoclonal/polyclonal antibodies/oligonucleotide probes. Localization is made via biotin free immunoperoxidase method. Appropriate controls are performed and reacted as expected. Results on target cell population are indicated in the following table: RESULTS: ANTIBODY / CLONE RESULT Block B H Pylori (polyclonal) negative These tests were developed and their performance characteristics determined by [facility]. They may not have been cleared or approved by the U.S. Food and Drug Administration. The FDA has determined that such clearance or approval is not necessary. INTERPRETATION: B. Antral biopsy: Negative for Helicobacter pylori organisms. SJ:bernard 06/05/18
[2018-06-03 05:45] VITALS: BP 133/75; PULSE 62; RESP 16; TEMP 36.5; O2SAT 99; BMI 23.6
--- NOTE | 2018-06-03 06:30 | EGD_PTH ---
PATIENT: JIMMIE WEATHERS LOC: [facility] U#:[id number] AGE/SX: 72/F ROOM: RE06/03/[address]: Dr. Mp Hernandez MD : 1945 BED: DIS: 06/03/2018 SPEC #: [id number] RECD: 06/03/18 09:40 STATUS: RALPH YESSICA #: [id number] ROYA: 06/03/18 06:[address]: Mp Hernandez DEPT: SURGICAL PATHOLOGY RECD BY: Tea Gusman ENTERED: 06/03/18 11:29 SP TYPE: EGD BIOPSY OT DR: Dr. Kan Vargas MD Tissues: A - Duodenum, NOS B - Gastric mucous membrane C - Esophagus, NOS Procedures: Special Stain Group II Special Stain Group I Surgery Specimen Level IV GMS Stain (control) Alcian Blue/PAS (control) HEADER OPERATION: EGD ([facility]) PRE-OP DIAGNOSIS: GERD TISSUE SUBMITTED: A. Duodenal biopsy, B. Antral biopsy, C. Distal esophageal biopsy MICROSCOPIC DIAGNOSIS A. 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 B. Antral biopsy: Mild gastritis. Focal Intestinal metaplasia (goblet cell metaplasia) is present. See microscopic description and comment. C. Distal esophagus, biopsy: Fragments of squamous mucosa with focal ulceration, associated acute and chronic inflammation and changes consistent with gastroesophageal reflux disease. Special stain for fungi is negative for organisms; matched control is appropriate. SJ:bernard 06/04/18 COMMENT B. The results of immunohistochemistry for Helicobacter pylori will be reported separately ([id number]). Alcian blue/PAS stain with matched control is used in the evaluation of the specimen. MICROSCOPIC DESCRIPTION Slides are reviewed. A. The specimen shows fragments of gastric mucosa with chronic inflammatory cell infiltrates in the lamina propria consisting of lymphocytes and plasma cells, consistent with mild chronic gastritis. GROSS DESCRIPTION A - Received in fixative is one container labeled with the patient's name and designated biopsy duodenum. The specimen consists of one irregular fragment of light ontiveros soft tissue that measures 0.3 x 0.2 x 0.1 cm. The specimen is totally submitted in one cassette. B - Received in fixative is one container labeled with the patient's name and designated antral biopsy. The specimen consists of one irregular fragment of light ontiveros soft tissue that measures 0.3 x 0.2 x 0.1 cm. The specimen is totally submitted in one cassette. C - Received in fixative is one container labeled with the patient's name and designated distal esophagus biopsy. The specimen consists of multiple irregular fragments of light ontiveros soft tissue that in aggregate measure 1.5 x 0.5 x 0.1 cm. The specimen is totally submitted in one cassette. / SJ:rg 06/03/18 TC:3 CPT: 73598 x3, 59806, 78668
[2018-06-03 06:54] VITALS: BP 124/73; BP 133/75; PULSE 68; RESP 16; TEMP 36; O2SAT 96
--- NOTE | 2018-06-03 06:58 | OP.ENDO_ITS ---
Patient Name: Brielle Wood Procedure Date: 06/03/2018 6:10 AM Date of : 1945 Age: 72 Procedure: Upper GI endoscopy Indications: Heartburn Providers: Mp Hernandez MD Referring MD: Mp Hernandez MD Medicines: See the Anesthesia note for documentation of the administered medications Complications: No immediate complications. Procedure: Pre-Anesthesia Assessment: - Prior to the procedure, a History and Physical was performed, and patient medications and allergies were reviewed. The patient's tolerance of previous anesthesia was also reviewed. The risks and benefits of the procedure and the sedation options and risks were discussed with the patient. All questions were answered, and informed consent was obtained. Prior Anticoagulants: The patient has taken Eliquis (apixaban), last dose was day of procedure. ASA Grade Assessment: II - A patient with mild systemic disease. After reviewing the risks and benefits, the patient was deemed in satisfactory condition to undergo the procedure. After obtaining informed consent, the endoscope was passed under direct vision. Throughout the procedure, the patient's blood pressure, pulse, and oxygen saturations were monitored continuously. The gastroscope was introduced through the mouth, and advanced to the second part of duodenum. The upper GI endoscopy was accomplished without difficulty. The patient tolerated the procedure well. 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 Mucosa was biopsied with a cold forceps for histology. A total of 5 specimen bottles were sent to pathology. The Z-line was irregular and was found 35 cm from the incisors. A large hiatal hernia was present. Diffuse mildly erythematous mucosa without bleeding was found in the gastric antrum. Biopsies were taken with a cold forceps for histology. Diffuse mildly erythematous mucosa without active bleeding and with no stigmata of bleeding was found in the first portion of the duodenum. Biopsies were taken with a cold forceps for histology. A large hiatal hernia was present. The PHILLIPS capsule with delivery system was introduced through the mouth and advanced into the esophagus, such that the PHILLIPS pH capsule was positioned 29 cm from the incisors, which was 6 cm proximal to the GE junction. The PHILLIPS pH capsule was then deployed and attached to the esophageal mucosa. The delivery system was then withdrawn. Endoscopy was utilized for probe placement and diagnostic evaluation. The scope was reinserted to evaluate placement of the PHILLIPS capsule. Visualization showed the PHILLIPS capsule to be close to the EG junction. Pt had significant coughing during MAC. 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 Biopsied. - Z-line irregular, 35 cm from the incisors. - Large hiatal hernia. - Erythematous mucosa in the antrum. Biopsied. - Erythematous duodenopathy. Biopsied. Recommendation: - Discharge patient to home. - Resume previous diet. - Resume Eliquis (apixaban) at prior dose today. - Return to my office in 1 week. Procedure Code(s): --- Professional --- 00385, Esophagogastroduodenoscopy, flexible, transoral; with biopsy, single or multiple Diagnosis Code(s): --- Professional --- K22.8, Other specified diseases of esophagus K44.9, Diaphragmatic hernia without obstruction or gangrene K31.89, Other diseases of stomach and duodenum R12, Heartburn CPT copyright 2017 [employer]. All rights reserved. The codes documented in this report are preliminary and upon sea foam kiss maker review may be revised to meet current compliance requirements. Mp Hernandez MD 06/03/2018 6:57:51 AM This report has been signed electronically. Number of Addenda: 0 Note Initiated On: 06/03/2018 6:10 AM
[2018-06-03 06:59] VITALS: BP 126/73; BP 133/75; PULSE 66; RESP 16; O2SAT 97
[2018-06-03 07:04] VITALS: BP 133/75; BP 142/83; PULSE 64; RESP 16; O2SAT 99
[2018-06-03 07:09] VITALS: BP 133/75; BP 136/85; PULSE 67; RESP 16; TEMP 35.8; O2SAT 100
[2018-06-03 07:27] VITALS: BP 133/75
--- OUTSIDE RECORDS SUMMARY | 2018-07-15 19:08 | XMS RPT_ITS ---
:1945 Author Organization OHIP Support Name Relationship Address Phone R Unavailable Unavailable Unavailable CATHIE WEATHERS Unavailable [address] + [place] [address] R Unavailable Unavailable Unavailable CATHIE WEATHERS Unavailable [address] + [place] [address] R Unavailable Unavailable Unavailable CATHIE WEATHERS Unavailable [address] + [place] [address] R Unavailable Unavailable Unavailable CATHIE WEATHERS Unavailable [address] + [place] [address] R Unavailable Unavailable Unavailable CATHIE WEATHERS Unavailable [address] + [place] [address] R Unavailable Unavailable Unavailable CATHIE WEATHERS Unavailable [address] + [place] [address] R Unavailable Unavailable Unavailable CATHIE WEATHERS Unavailable [address] + [place] [address] R Unavailable Unavailable Unavailable CATHIE WEATHERS Unavailable [address] + [place] [address] R Unavailable Unavailable Unavailable CATHIE WEATHERS Unavailable [address] + [place] [address] R Unavailable Unavailable Unavailable CATHIE WEATHERS Unavailable [address] + [place] [address] R Unavailable Unavailable Unavailable CATHIE WEATHERS Unavailable [address] + [place] [address] R Unavailable Unavailable Unavailable CATHIE WEATHERS Unavailable [address] + [place] [address] R Unavailable Unavailable Unavailable CATHIE WEATHERS Unavailable [address] + [place] [address] R Unavailable Unavailable Unavailable CATHIE WEATHERS Unavailable [address] + [place] [address] R Unavailable Unavailable Unavailable CATHIE WEATHERS Unavailable [address] + [place] [address] R Unavailable Unavailable Unavailable CATHIE WEATHERS Unavailable [address] + [place] [address] R Unavailable Unavailable Unavailable CATHIE WEATHERS Unavailable [address] + [place] [address] R Unavailable Unavailable Unavailable CATHIE WEATHERS Unavailable [address] + [place] [address] R Unavailable Unavailable Unavailable CATHIE WEATHERS Unavailable [address] + [place] [address] R Unavailable Unavailable Unavailable CATHIE WEATHERS Unavailable [address] + [place] [address] R Unavailable Unavailable Unavailable CATHIE WEATHERS Unavailable [address] + [place] [address] R Unavailable Unavailable Unavailable CATHIE WEATHERS Unavailable [address] + [place] [address] R Unavailable Unavailable Unavailable CATHIE WEATHERS Unavailable [address] + [place] [address] R Unavailable Unavailable Unavailable CATHIE WEATHERS Unavailable [address] + [place] [address] R Unavailable Unavailable Unavailable CATHIE WEATHERS Unavailable [address] + [place] [address] R Unavailable Unavailable Unavailable CATHIE WEATHERS Unavailable [address] + [place] [address] R Unavailable Unavailable Unavailable CATHIE WEATHERS Unavailable [address] [phone] [place] [address] R Unavailable Unavailable Unavailable CATHIE WEATHERS Unavailable [address] [phone] [place] [address] R Unavailable Unavailable Unavailable CATHIE WEATHERS Unavailable [address] [phone] [place] [address] R Unavailable Unavailable Unavailable CATHIE WEATHERS Unavailable [address] + [place] [address] R Unavailable Unavailable Unavailable ELVISJessica CATHIE Unavailable [address] [phone] [place] [address] R Unavailable Unavailable Unavailable SARAHY CATHIE Unavailable [address] [phone] [place] [address] R Unavailable Unavailable Unavailable SARAHY CATHIE Unavailable [address] [phone] [place] [address] NOT GIVEN Unavailable Unavailable Unavailable ELVISJessica CATHIE Unavailable [address] + [place], [place] [phone] RAYCATHIE Torres Unavailable [address] Unavailable [place], [place] [phone] NOT GIVEN Unavailable Unavailable Unavailable ELVISJessica CATHIE Unavailable [address] + [place], [place] [phone] SARAHYCATHIE Unavailable [address] Unavailable [place], [place] [phone] NOT GIVEN Unavailable Unavailable Unavailable SARAHY CATHIE Unavailable [address] + [place], [place] [phone] CATHIE WEATHERS Unavailable [address] Unavailable [place], [place] [phone] Care Team Providers Name Role Phone SKYE AMARILIS A Admitting Unavailable CHEUNG AMARILIS A Attending Unavailable CHEUNG, AMARILIS A Primary Care Unavailable CHEUNG, AMARILIS A Consulting Unavailable PROVIDER, UNKNOWN Consulting Unavailable PROVIDER, UNKNOWN Consulting Unavailable PROVIDER, UNKNOWN Consulting Unavailable URRUTIANOREEN J Admitting Unavailable URRUTIA, NOREEN J Attending Unavailable URRUTIA, NOREEN J Primary Care Unavailable CHEUNG, AMARILIS A Consulting Unavailable PROVIDER, UNKNOWN Consulting Unavailable PROVIDER, UNKNOWN Consulting Unavailable PROVIDER, UNKNOWN Consulting Unavailable CHEUNG, AMARILIS A Consulting Unavailable URRUTIA, NOREEN J Admitting Unavailable URRUTIA, NOREEN J Attending Unavailable URRUTIA, NOREEN J Primary Care Unavailable PROVIDER, UNKNOWN Consulting Unavailable PROVIDER, UNKNOWN Consulting Unavailable PROVIDER, UNKNOWN Consulting Unavailable Jean-Paul Perea Attending Unavailable URRUTIA, NOREEN Referring Unavailable Jimenez, Magaly Primary Care Unavailable Jean-Paul Perea Attending Unavailable Jimenez, Magaly Referring Unavailable Jimenez, Magaly Primary Care Unavailable Jean-Paul Perea Attending Unavailable Jimenez, Magaly Primary Care Unavailable Jean-Paul Perea Referring Unavailable Amarilis Hernandez Attending Unavailable Jimenez, Magaly Referring Unavailable Jimenez, Magaly Primary Care Unavailable Aleksandra Mcelroy Attending Unavailable Cebul, Amarilis Attending Unavailable Cebul, Amarilis Referring Unavailable Cheung, Amarilis Primary Care Unavailable Cebul, Amarilis Attending Unavailable Cebul, Amarilis Referring Unavailable Cheung, Amarilis Primary Care Unavailable Ann John PA-C Attending Unavailable Magaly Jimenez Referring Unavailable Cheung, Amarilis Primary Care Unavailable Cebul, Amarilis Attending Unavailable Cheung, Amarilis Referring Unavailable Cheung, Amarilis Primary Care Unavailable Isckarus, Cherelle Attending Unavailable Cebul, Amarilis Referring Unavailable Cheung, Amarilis Primary Care Unavailable Isckarus, Bryantour Attending Unavailable Cebul, Amarilis Referring Unavailable Cheung, Amarilis Primary Care Unavailable Isckarus, Mansour Consulting Unavailable Isckarus, Mansour Attending Unavailable Cheung, Amarilis Primary Care Unavailable Sindhu, Bisi Attending Unavailable Cebul, Amarilis Referring Unavailable Cheung, Amarilis Primary Care Unavailable Isckarus, Mansour Consulting Unavailable Sindhu, Bisi Attending Unavailable Sindhu, Tyra Referring Unavailable Kan Vargas Primary Care Unavailable Man Morgan Attending Unavailable Cebul, Amarilis Referring Unavailable Cheung, Amarilis Primary Care Unavailable Isckarus, Mansour Consulting Unavailable Kan Vargas Attending Unavailable Kan Vargas Primary Care Unavailable Cebul, Amarilis Attending Unavailable Troy Bernardo Attending Unavailable Cebul, Amarilis Referring Unavailable Cebul, Amarilis Attending Unavailable Cheung, Amarilis Referring Unavailable Cheung, Amarilis Primary Care Unavailable Man Morgan Attending Unavailable Cebul, Amarilis Referring Unavailable Cheung, Amarilis Primary Care Unavailable Isckarus, Mansour Consulting Unavailable Kan Vargas Attending Unavailable Kan Vargas Referring Unavailable Kan Vargas Primary Care Unavailable Man Morgan Attending Unavailable Cebul, Amarilis Referring Unavailable Cheung, Amarilis Primary Care Unavailable Isckarus, Mansour Consulting Unavailable Man Morgan Attending Unavailable Man Morgan Referring Unavailable Man Morgan Attending Unavailable Man Morgan Referring Unavailable Man Morgan Attending Unavailable Man Morgan Referring Unavailable Man Morgan Attending Unavailable Cebul, Amarilis Referring Unavailable Cheung, Amarilis Primary Care Unavailable Isckarus, Mansour Consulting Unavailable Cebul, Amarilis Attending Unavailable Cebul, Amarilis Referring Unavailable Kan Vargas Primary Care Unavailable Man Morgan Attending Unavailable Cebul, Amarilis Referring Unavailable Cheung, Amarilis Primary Care Unavailable Isckarus, Mansour Consulting Unavailable Isckarus, Bryantour Attending Unavailable Cebul, Amarilis Referring Unavailable Cheung, Amarilis Primary Care Unavailable Isckarus, Mansour Consulting Unavailable Kan Vargas Attending Unavailable Kan Vargas Referring Unavailable Kan Vargas Primary Care Unavailable Amarilis Hernandez Attending Unavailable Kan Vargas Referring Unavailable Amarilis Hernandez Attending Unavailable Amarilis Hernandez Referring Unavailable Kan Vargas Primary Care Unavailable David, Amarilis Attending Unavailable Kan Vargas Referring Unavailable PROBLEMS PROBLEMS DATE TYPE CONDITION / CODE ATTENDING STATUS SOURCE 06/11/2018 Unknown K21.9 - Amarilis Hernandez Active [facility] reflux disease Hospital without esophagitis Repository / K21.9(ICD-10) 06/11/2018 Unknown K44.9 - Amarilis Hernandez Active [facility] Diaphragmatic hernia Community without obstruction Hospital or gangrene / Repository K44.9(ICD-10) 06/11/2018 Unknown K21.0 - HayAmarilis torres Active [facility] reflux disease with Hospital esophagitis / Repository K21.0(ICD-10) 06/17/2018 Unknown C50.919 - Malignant Isckarus, Active [facility] neoplasm of [facility] unspecified site of Hospital unspecified female Repository breast / C50.919(ICD-10) 06/17/2018 Unknown C50.411 - Malignant Isckarus, Active [facility] neoplasm of [facility] upper-outer quadrant Hospital of right female Repository breast / C50.411(ICD-10) 06/17/2018 Unknown Z17.0 - Estrogen Isckarus, Active [facility] receptor positive [facility] status [ER+] / Hospital Z17.0(ICD-10) Repository 05/06/2018 Unknown I89.0 - Lymphedema, Amarilis Hernandez Active [facility] not elsewhere Community classified / Hospital I89.0(ICD-10) Repository 02/26/2018 Unknown E87.6 - Hypokalemia Kan Vargas / E87.6(ICD-10) E [facility] Hospital Repository 02/18/2018 Unknown Z12.31 - Encounter HayAmarilis torres Active [facility] for screening Community mammogram for Hospital malignant neoplasm Repository of breast / Z12.31(ICD-10) 01/14/2018 Unknown Z98.890 - Other Sindhu, Bisi Active [facility] specified Community postprocedural Hospital states / Repository Z98.890(ICD-10) 01/27/2018 Unknown C50.911 - Malignant Amarilis Hernandez Active [facility] neoplasm of Community unspecified site of Hospital right female breast Repository / C50.911(ICD-10) 02/12/2018 Unknown R00.1 - Bradycardia, AzNik sextonril Active [facility] unspecified / Community R00.1(ICD-10) Hospital Repository 02/12/2018 Unknown I10 - Essential Az, Troy Active [facility] (primary) Community hypertension / Hospital I10(ICD-10) Repository 12/07/2017 Unknown R92.8 - Other KinderhookJean-Paul Active [facility] abnormal and Community inconclusive Hospital findings on Repository diagnostic imaging of breast / R92.8(ICD-10) PROCEDURES PROCEDURES No Procedure Records FoundRESULTS RESULTS SURGERY VISIT REPORT Observed: 06/10/2018 Status: F Source: [facility] 4:35 PM [facility] HOSPITAL REPOSITORY [facility] [address] [place] [address]. [address] [place] [address] OFFICE VISIT Date of Service: 06/10/18 MR#: [id number] Acct: [id number] Name: JIMMIE WEATHERS Rep #: [id number] : 1945 Provider: Amarilis Hernandez MD Age/Sex: 72/F Location: [facility] Status: Signed Intake Intake Visit Reasons: F/U EGD 06/03/18 Chief Complaint: Breast cancer follow-up Soubrette Required: No Is patient in pain?: No Allergies No Known Allergies Allergy (Verified 06/10/18 14:57) Medications cholecalciferol (vitamin D3) 2,000 unit capsule 2,000 unit PO QDAY 12/03/17 [History Confirmed 06/10/18] hydrochlorothiazide 25 mg tablet 25 mg PO QDAY 12/03/17 [History Confirmed 06/10/18] levothyroxine 88 mcg tablet 50 mcg PO QDAY 12/03/17 [History Confirmed 06/10/18] multivitamin tablet 1 tab PO QDAY 12/03/17 [History Confirmed 06/10/18] sennosides 8.6 mg tablet 8.6 mg PO BID PRN 12/03/17 [History Confirmed 06/10/18] Calcium Carb/Vitamin D3/Vit K1 [Viactiv Soft Chew] 1 ea PO DAILY 12/24/17 [History Confirmed 06/10/18] Lansoprazole [Prevacid] 15 mg PO QHS 12/24/17 [History Confirmed 06/10/18] Inulin/Chromium Picolinate [Fiber Gummies] 1 ea PO DAILY 04/03/18 [History Confirmed 06/10/18] Anastrozole [Arimidex] 1 mg PO DAILY 90 Days #90 tab 04/10/18 [Rx Confirmed 06/10/18] Subjective Details: 72-year-old female. She recently underwent a esophagogastroduodenoscopy with biopsy and Newman pH probe placement. She returns to discuss those results. My previous findings detected the following. MR#:[id number]:[id number] Name: JIMMIE WEATHERS [facility] #:[id number] : 1945 Provider:Amarilis Hernandez MD Age/Sex: 72/F Location:[facility] Status:Signed Intake Vital Signs 05/26/18 Height 5 ft 4 in 05/26/18 Weight: 135 lb 05/26/18 Body Mass Index (BMI) 23.1 05/26/18 Blood Pressure 153/83 H 05/26/18 Blood Pressure Location Lt brachial 05/26/18 Blood Pressure Position Sitting 05/26/18 Respiratory Rate 14 05/26/18 Pulse Rate 60 05/26/18 Pulse Source Monitor 05/26/18 Temperature 98.2 F 05/26/18 Temperature Source Oral 05/26/18 Pulse Ox 99 05/26/18 Oxygen Delivery Method room air Intake Visit Reasons: GERD - Upper Scope consult Chief Complaint: Breast cancer follow-up Soubrette Required: No Is patient in pain?: No Allergies No Known Allergies Allergy (Verified 05/26/18 13:42) Medications cholecalciferol (vitamin D3) 2,000 unit capsule 2,000 unit PO QDAY 12/03/17 [History Confirmed 05/26/18] hydrochlorothiazide 25 mg tablet 25 mg PO QDAY 12/03/17 [History Confirmed 05/26/18] levothyroxine 88 mcg tablet 50 mcg PO QDAY 12/03/17 [History Confirmed 05/26/18] multivitamin tablet 1 tab PO QDAY 12/03/17 [History Confirmed 05/26/18] sennosides 8.6 mg tablet 8.6 mg PO BID PRN 12/03/17 [History Confirmed 05/26/18] Calcium Carb/Vitamin D3/Vit K1 [Viactiv Soft Chew] 1 ea PO DAILY 12/24/17 [History Confirmed 05/26/18] Lansoprazole [Prevacid] 15 mg PO DAILY 12/24/17 [History Confirmed 05/26/18] Inulin/Chromium Picolinate [Fiber Gummies] 1 ea PO DAILY 04/03/18 [History Confirmed 05/26/18] Anastrozole [Arimidex] 1 mg PO DAILY 90 Days #90 tab 04/10/18 [Rx Confirmed 05/26/18] PFSH Medical History Breast cancer in female (Acute) Breast cancer (Acute 12/2017) GERD (gastroesophageal reflux disease) (Acute) Hemorrhoids (Acute) Hypothyroidism (Acute) Osteoarthritis (Acute) S/P tubal ligation (Acute) HTN (hypertension) (Chronic) Surgical History History of lumpectomy (Acute) S/P breast biopsy (Acute) S/P breast biopsy (Acute) S/P colonoscopy (Acute) S/P dilation and curettage (Acute) Status post left hip replacement (Acute) Status post right hip replacement (Acute) Family History Father CAD (coronary artery disease) Hypertension Mother Bleeding disorder Sister Bleeding disorder Social History Smoking Status: Never smoker HPI HPI HPI: JIMMIE WEATHERS, is a 72 F who presents to the office today for surgical consultation regarding severe heartburn. Symptoms started multiple years ago dating back to at least 2009. At that point she took Tums on such a frequent basis that she increased her serum calcium level. Since that time she has been on lansoprazole. She intermittently tries to stop but has recurrent burning sensation. Recently I have assisted her with upper outer quadrant right breast cancer for which we perform breast conservation surgery December 25, 2017. On May 09, 2018 her white blood cell count was 6 with a hemoglobin of 13.6 hematocrit 41.3 and a platelet count of 152,000. BUN is 13 and creatinine 0.84. Liver function tests were normal. Cholesterol 222. She is being referred by Dr Kan Vargas for surgical consultation regarding her gastroesophageal reflux disease and a written copy of my surgical consult and recommendations will be returned to him. The patient also shared that she has increased stress in her life. Her is currently undergoing evaluation for hematuria and the diagnosis may be 1 of malignancy. ROS General General: No weight change HEENT HEENT: No difficulty swallowing, eye injury, eye surgery, swollen glands or hoarseness Endo Endocrine: Yes thyroid disease Skin Skin: Yes changing moles Additional Details: Left medial calf Breast Additional Details: No palpable breast masses except after right breast biopsy Musc Musculoskeletal: No back problems Cardio Cardiovascular: No murmur, pacemaker, heart disease, atrial fibrillation, high blood pressure, heart attack, heart stent, palpitations, shortness of breat with exertion or chest pain Psych Psychiatric: No depression, anxiety or hearing voices Resp Respiratory: No shortness of breath, No sleep apnea, No cough, No COPD, No asthma, No emphysema, No wheezing Gastro Gastrointestinal: Yes acid reflux, No abdominal pain, No nausea or vomiting, No diarrhea, No constipation, No blood in stool, No hemorrhoids, No ulcers, No gallbladder problem, No black,tarry stools Eyad Hematologic: No blood thinners, No blood disorders, No bleeding, No anemia, No blood clots Neuro Neurologic: No system reviewed and no additional complaints, except as docu Exam Const General: cooperative, healthy appearing, comfortable, no acute distress Nutritional Appearance: average body habitus Orientation: alert, awake, oriented x3 HENMT Head: normal to inspection Chest Chest palpation AND inspection: normal inspection of the chest Resp Effort AND Inspection: normal respiratory effort Auscultation: clear to auscultation bilaterally Cardio Rate: regular rate Rhythm: regular rhythm Heart Sounds: no murmurs GI Palpation: soft, no hepatosplenomegaly Auscultation: normal bowel sounds Neuro Cranial Nerves: CN's II-XI intact bilaterally Extrem General: no clubbing, cyanosis or edema Psych Affect: normal affect Assessment AND Plan Problems 1. Gastroesophageal reflux disease, esophagitis presence not specified K21.9 Plan 72-year-old female with a very long history of gastroesophageal reflux disease without endoscopic inspection. She is currently being treated with proton pump inhibitor. I had an extensive discussion with the patient. She has the recent history of breast cancer diagnosis on the right. I believe that it is very much in her interest to undergo a esophagogastroduodenoscopy with possible biopsy. Upon further discussion with the patient I also believe that at least initiating a potential surgical workup would be of value by placing a pH probe. The patient states that she knows a neighbor who went to [place] to have similar surgery and has had nothing but a bad outcome. I tried to encourage her that that would less likely occur locally. After extensive discussion the patient is interested in pursuing at least EGD with pH probe placement. Pending the ongoing care and treatment of her in the pending the patient's ongoing findings and symptoms she might make further considerations. At this time she is not interested in definitive surgery if it can be avoided. I very much appreciate the ongoing opportunity of assisting with her surgical care CC: Dr Kan Hernandez M.D., F.A.C.S. Assessment AND Plan Problems 1. Gastroesophageal reflux disease, esophagitis presence not specified K21.9 2. Hiatal hernia with gastroesophageal reflux disease and esophagitis K44.9; K21.0 Plan Today's appointment was a 25-minute unwo-ne-ursn consultative appointment with the patient and her . On June 03, 2018 I performed a esophagogastroduodenoscopy with biopsy and Newman pH probe placement. At that time findings were consistent with a large hiatal hernia reflux esophagitis and erythematous antrum and duodenum. Biopsies were negative for H. pylori. Fragments of the distal esophagus showed focal ulceration associated with acute chronic inflammation consistent with gastroesophageal reflux disease. Fungal stains were negative. Mild gastritis was present. Unremarkable duodenal mucosa. The pH probe study was quite remarkable with a average DeMeester score of 54.0 with day 1 score of 52.6 and day 2 score 53.4. Both were quite abnormal. The patient has had the following recent history as well: Patient is a 72-year-old female who presented after an abnormal screening mammogram and a biopsy confirming an invasive ductal cancer of the left breast. On December 25, 2017 she underwent a left partial mastectomy with sentinel lymph node sampling. Pathologic examination revealed a single focus of invasive ductal cancer 0.5 cm in maximum diameter with an overall grade 2 (score of 6), no lymphovascular invasion was identified, DCIS was present compromising less than 5% of tumor volume and margin was -0.7 cm. Tumor is ER positive (95%), HI positive (95%) and HER-2 equivocal by IHC, negative by FISH. Patient has recovered well from her recent surgery I have discussed the current clinical findings with the patient. The patient is present with her today. He has a recent diagnosis of prostate cancer which is weighing on her mind. I do believe however that she would be a good surgical candidate. She has significant reflux symptoms. She is chronically medicine dependent. I have discussed the technical aspects of a laparoscopic Erika fundoplication and the benefits risk complications and alternatives. She has had an opportunity to ask and have questions answered. I definitively recommended the patient that we pursue esophageal manometry to see if surgical treatment option would be viable. We will then have her return to the office to further discuss how she might like to proceed. CC: Dr Kan Vargas and Dr. Miguel Hernandez M.D., F.A.C.S. Coding Level of Care Code Off vis,est,level 2 Diagnoses Gastroesophageal reflux disease, esophagitis presence not specified K21.9 Esophagitis presence: esophagitis presence not specified Hiatal hernia with gastroesophageal reflux disease and esophagitis K44.9; K21.0 06/10/18 1635 <Electronically signed by Amarilis Hernandez MD> Date Amarilis Hernandez MD Cosigner Signature: Date (if applicable) CC: Kan Vargas MD; Miguel Ruiz DO OPERATIVE REPORT - Observed: 06/03/2018 Status: F Source: [facility] 6:58 AM [facility] REPOSITORY [facility] Medical Records Department [address] [place] [address] Operative Report - Endoscopy MR#: [id number] Acct: [id number] Name: JIMMIE WEATHERS Rep #: [id number] : 1945 72 From: Amarilis Hernandez MD PCP: Kan Vargas MD Status: [facility] Patient Name: Jimmie Weathers Procedure Date: 06/03/2018 6:10 AM Date of : 1945 Age: 72 Procedure: Upper GI endoscopy Indications: Heartburn Providers: Amarilis Hernandez MD Referring MD: Amarilis Hernandez MD Medicines: See the Anesthesia note for documentation of the administered medications Complications: No immediate complications. Procedure: Pre-Anesthesia Assessment: - Prior to the procedure, a History and Physical was performed, and patient medications and allergies were reviewed. The patient's tolerance of previous anesthesia was also reviewed. The risks and benefits of the procedure and the sedation options and risks were discussed with the patient. All questions were answered, and informed consent was obtained. Prior Anticoagulants: The patient has taken Eliquis (apixaban), last dose was day of procedure. ASA Grade Assessment: II - A patient with mild systemic disease. After reviewing the risks and benefits, the patient was deemed in satisfactory condition to undergo the procedure. After obtaining informed consent, the endoscope was passed under direct vision. Throughout the procedure, the patient's blood pressure, pulse, and oxygen saturations were monitored continuously. The gastroscope was introduced through the mouth, and advanced to the second part of duodenum. The upper GI endoscopy was accomplished without difficulty. The patient tolerated the procedure well. 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 Mucosa was biopsied with a cold forceps for histology. A total of 5 specimen bottles were sent to pathology. The Z-line was irregular and was found 35 cm from the incisors. A large hiatal hernia was present. Diffuse mildly erythematous mucosa without bleeding was found in the gastric antrum. Biopsies were taken with a cold forceps for histology. Diffuse mildly erythematous mucosa without active bleeding and with no stigmata of bleeding was found in the first portion of the duodenum. Biopsies were taken with a cold forceps for histology. A large hiatal hernia was present. The NEWMAN capsule with delivery system was introduced through the mouth and advanced into the esophagus, such that the NEWMAN pH capsule was positioned 29 cm from the incisors, which was 6 cm proximal to the GE junction. The NEWMAN pH capsule was then deployed and attached to the esophageal mucosa. The delivery system was then withdrawn. Endoscopy was utilized for probe placement and diagnostic evaluation. The scope was reinserted to evaluate placement of the NEWMAN capsule. Visualization showed the NEWMAN capsule to be close to the EG junction. Pt had significant coughing during MAC. 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 Biopsied. - Z-line irregular, 35 cm from the incisors. - Large hiatal hernia. - Erythematous mucosa in the antrum. Biopsied. - Erythematous duodenopathy. Biopsied. Recommendation: - Discharge patient to home. - Resume previous diet. - Resume Eliquis (apixaban) at prior dose today. - Return to my office in 1 week. Procedure Code(s): --- Professional --- 71302, Esophagogastroduodenoscopy, flexible, transoral; with biopsy, single or multiple Diagnosis Code(s): --- Professional --- K22.8, Other specified diseases of esophagus K44.9, Diaphragmatic hernia without obstruction or gangrene K31.89, Other diseases of stomach and duodenum R12, Heartburn CPT copyright 2017 [employer]. All rights reserved. The codes documented in this report are preliminary and upon wig dresser review may be revised to meet current compliance requirements. Amarilis Hernandez MD 06/03/2018 6:57:51 AM This report has been signed electronically. Number of Addenda: 0 Note Initiated On: 06/03/2018 6:10 AM 06/03/18 0658 Date Amarilis Hernandez MD Cosigner Signature: Date (if indicated) CC: Kan Vargas MD; Amarilis Hernandez MD Date Dictated: 06/03/18 0610 Date Transcribed: Certified Legal Secretary Specialist: YOLETTE Signed EGD (PICK SITE) Observed: 06/03/2018 Status: F Source: [place] 6:30 AM [facility] REPOSITORY Patient: JIMMIE WEATHERS : 1945 (72/F) Acct Num: [id number] Phys: David LNY,Amarilis Unit Num: [id number] Loc: EN Specimen: [id number] Received: 06/03/18 - 0940 Spec Type: EGD BIOPSY TISSUES 1 TISSUES: A. Duodenum, NOS B. Gastric mucous membrane C. Esophagus, NOS COMMENT B. The results of immunohistochemistry for Helicobacter pylori will be reported separately ([id number]). Alcian blue/PAS stain with matched control is used in the evaluation of the specimen. GROSS DESCRIPTION A - Received in fixative is one container labeled with the patient's name and designated biopsy duodenum. The specimen consists of one irregular fragment of light ontiveros soft tissue that measures 0.3 x 0.2 x 0.1 cm. The specimen is totally submitted in one cassette. B - Received in fixative is one container labeled with the patient's name and designated antral biopsy. The specimen consists of one irregular fragment of light ontiveros soft tissue that measures 0.3 x 0.2 x 0.1 cm. The specimen is totally submitted in one cassette. C - Received in fixative is one container labeled with the patient's name and designated distal esophagus biopsy. The specimen consists of multiple irregular fragments of light ontiveros soft tissue that in aggregate measure 1.5 x 0.5 x 0.1 cm. The specimen is totally submitted in one cassette. / Earl 06/03/18 TC:3 CPT: 85539 x3, 81143, 47751 HEADER OPERATION: EGD ([facility]) PRE-OP DIAGNOSIS: GERD TISSUE SUBMITTED: A. Duodenal biopsy, B. Antral biopsy, C. Distal esophageal biopsy MICROSCOPIC DESCRIPTION Slides are reviewed. A. The specimen shows fragments of gastric mucosa with chronic inflammatory cell infiltrates in the lamina propria consisting of lymphocytes and plasma cells, consistent with mild chronic gastritis. MICROSCOPIC DIAGNOSIS A. 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 B. Antral biopsy: Mild gastritis. Focal Intestinal metaplasia (goblet cell metaplasia) is present. See microscopic description and comment. C. Distal esophagus, biopsy: Fragments of squamous mucosa with focal ulceration, associated acute and chronic inflammation and changes consistent with gastroesophageal reflux disease. Special stain for fungi is negative for organisms; matched control is appropriate. SJ:bernard 06/04/18 Signed Ciro Hernandez 06/04/18 <signature on file> Performed By: #### PEGD #### [facility] [address] [place] [address]. [place], [address] IMMUNOHISTOCHEMISTRY Observed: 06/03/2018 Status: F Source: [place] 12:00 AM [facility] REPOSITORY Patient: JIMMIE WEATHERS : 1945 (72/F) Acct Num: [id number] Phys: David LYN,Amarilis Unit Num: [id number] Loc: EN Specimen: [id number] Received: 06/04/18 - 0 Spec Type: IMMUNO TISSUES 1 TISSUES: B. Stomach, NOS SPECIMEN INFORMATION: Tissue Source: B - Antral biopsy Clinical Info: GERD Specimen Number: [id number] CPT code: 25322 METHODOLOGY: Deparaffinized sections of prefer/formalin-fixed tissue or PAP/DQ stained slides are incubated with monoclonal/polyclonal antibodies/oligonucleotide probes. Localization is made via biotin free immunoperoxidase method. Appropriate controls are performed and reacted as expected. Results on target cell population are indicated in the following table: RESULTS: ANTIBODY / CLONE RESULT Block B H Pylori (polyclonal) negative These tests were developed and their performance characteristics determined by [facility]. They may not have been cleared or approved by the U.S. Food and Drug Administration. The FDA has determined that such clearance or approval is not necessary. INTERPRETATION: B. Antral biopsy: Negative for Helicobacter pylori organisms. SJ:bernard 06/05/18 PHYS[facility]IAN [facility]STIT[facility] [address] [address] Signed Ciro Hernandez 06/05/18 <signature on file> Performed By: #### PIMM #### [facility] [address] [place] [address]. [place], [place], [phone] SURGERY VISIT REPORT Observed: 05/26/2018 Status: F Source: [place] 5:48 PM [facility] REPOSITORY [facility] [address] [place] [address] OFFICE VISIT Date of Service: 05/26/18 MR#: [id number] Acct: [id number] Name: JIMMIE WEATHERS Rep #: [id number] : 1945 Provider: Amarilis Hernandez MD Age/Sex: 72/F Location: [facility] Status: Signed Intake Vital Signs05/26/18 Height 5 ft 4 in 05/26/18 Weight: 135 lb Intake Visit Reasons: GERD - Upper Scope consult Chief Complaint: Breast cancer follow-up Soubrette Required: No Is patient in pain?: No Allergies No Known Allergies Allergy (Verified 05/26/18 13:42) Medications cholecalciferol (vitamin D3) 2,000 unit capsule 2,000 unit PO QDAY 12/03/17 [History Confirmed 05/26/18] hydrochlorothiazide 25 mg tablet 25 mg PO QDAY 12/03/17 [History Confirmed 05/26/18] levothyroxine 88 mcg tablet 50 mcg PO QDAY 12/03/17 [History Confirmed 05/26/18] multivitamin tablet 1 tab PO QDAY 12/03/17 [History Confirmed 05/26/18] sennosides 8.6 mg tablet 8.6 mg PO BID PRN 12/03/17 [History Confirmed 05/26/18] Calcium Carb/Vitamin D3/Vit K1 [Viactiv Soft Chew] 1 ea PO DAILY 12/24/17 [History Confirmed 05/26/18] Lansoprazole [Prevacid] 15 mg PO DAILY 12/24/17 [History Confirmed 05/26/18] Inulin/Chromium Picolinate [Fiber Gummies] 1 ea PO DAILY 04/03/18 [History Confirmed 05/26/18] Anastrozole [Arimidex] 1 mg PO DAILY 90 Days #90 tab 04/10/18 [Rx Confirmed 05/26/18] PFSH Medical History Breast cancer in female (Acute) Breast cancer (Acute 12/2017) GERD (gastroesophageal reflux disease) (Acute) Hemorrhoids (Acute) Hypothyroidism (Acute) Osteoarthritis (Acute) S/P tubal ligation (Acute) HTN (hypertension) (Chronic) Surgical History History of lumpectomy (Acute) S/P breast biopsy (Acute) S/P breast biopsy (Acute) S/P colonoscopy (Acute) S/P dilation and curettage (Acute) Status post left hip replacement (Acute) Status post right hip replacement (Acute) Family History Father CAD (coronary artery disease) Hypertension Mother Bleeding disorder Sister Bleeding disorder Social History Smoking Status: Never smoker HPI HPI HPI: JIMMIE WEATHERS, is a 72 F who presents to the office today for surgical consultation regarding severe heartburn. Symptoms started multiple years ago dating back to at least 2009. At that point she took Tums on such a frequent basis that she increased her serum calcium level. Since that time she has been on lansoprazole. She intermittently tries to stop but has recurrent burning sensation. Recently I have assisted her with upper outer quadrant right breast cancer for which we perform breast conservation surgery December 25, 2017. On May 09, 2018 her white blood cell count was 6 with a hemoglobin of 13.6 hematocrit 41.3 and a platelet count of 152,000. BUN is 13 and creatinine 0.84. Liver function tests were normal. Cholesterol 222. She is being referred by Dr Kan Vargas for surgical consultation regarding her gastroesophageal reflux disease and a written copy of my surgical consult and recommendations will be returned to him. The patient also shared that she has increased stress in her life. Her is currently undergoing evaluation for hematuria and the diagnosis may be 1 of malignancy. ROS General General: No weight change HEENT HEENT: No difficulty swallowing, eye injury, eye surgery, swollen glands or hoarseness Endo Endocrine: Yes thyroid disease Skin Skin: Yes changing moles Additional Details: Left medial calf Breast Additional Details: No palpable breast masses except after right breast biopsy Musc Musculoskeletal: No back problems Cardio Cardiovascular: No murmur, pacemaker, heart disease, atrial fibrillation, high blood pressure, heart attack, heart stent, palpitations, shortness of breat with exertion or chest pain Psych Psychiatric: No depression, anxiety or hearing voices Resp Respiratory: No shortness of breath, No sleep apnea, No cough, No COPD, No asthma, No emphysema, No wheezing Gastro Gastrointestinal: Yes acid reflux, No abdominal pain, No nausea or vomiting, No diarrhea, No constipation, No blood in stool, No hemorrhoids, No ulcers, No gallbladder problem, No black,tarry stools Eyad Hematologic: No blood thinners, No blood disorders, No bleeding, No anemia, No blood clots Neuro Neurologic: No system reviewed and no additional complaints, except as docu Exam Const General: cooperative, healthy appearing, comfortable, no acute distress Nutritional Appearance: average body habitus Orientation: alert, awake, oriented x3 HENMT Head: normal to inspection Chest Chest palpation AND inspection: normal inspection of the chest Resp Effort AND Inspection: normal respiratory effort Auscultation: clear to auscultation bilaterally Cardio Rate: regular rate Rhythm: regular rhythm Heart Sounds: no murmurs GI Palpation: soft, no hepatosplenomegaly Auscultation: normal bowel sounds Neuro Cranial Nerves: CN's II-XI intact bilaterally Extrem General: no clubbing, cyanosis or edema Psych Affect: normal affect Assessment AND Plan Problems 1. Gastroesophageal reflux disease, esophagitis presence not specified K21.9 Plan 72-year-old female with a very long history of gastroesophageal reflux disease without endoscopic inspection. She is currently being treated with proton pump inhibitor. I had an extensive discussion with the patient. She has the recent history of breast cancer diagnosis on the right. I believe that it is very much in her interest to undergo a esophagogastroduodenoscopy with possible biopsy. Upon further discussion with the patient I also believe that at least initiating a potential surgical workup would be of value by placing a pH probe. The patient states that she knows a neighbor who went to [place] to have similar surgery and has had nothing but a bad outcome. I tried to encourage her that that would less likely occur locally. After extensive discussion the patient is interested in pursuing at least EGD with pH probe placement. Pending the ongoing care and treatment of her in the pending the patient's ongoing findings and symptoms she might make further considerations. At this time she is not interested in definitive surgery if it can be avoided. I very much appreciate the ongoing opportunity of assisting with her surgical care CC: Dr Kan Hernandez M.D., F.A.C.S. Coding Level of Care Code Exp prob focused,strt fwd Diagnoses Gastroesophageal reflux disease, esophagitis presence not specified K21.9 Esophagitis presence: esophagitis presence not specified 05/26/18 7838 <Electronically signed by Amarilis Hernandez MD> Date Amarilis Hernandez MD Cosigner Signature: Date (if applicable) CC: Kan Vargas MD CBC W/DIFF, AUTOMATED Collected: 05/09/2018 Status: F Source: [place] 1:00 PM [facility] REPOSITORY TYPE CODE TESTS RESULT OUT OF RANGE REFERENCE UNITS LAB L100.1000 4.4-11.0 K/mm3 Normal WBC 6.0 LAB L100.1200 4.2-5.4 M/mm3 Normal RBC 4.36 LAB L100.1300 12.0-15.0 g/dl Normal HGB 13.6 LAB L100.1400 37-47 % Normal HCT 41.3 LAB L100.1500 81-99 fL Normal MCV 94.7 LAB L100.1600 27.0-32.0 pg Normal MCH 31.2 LAB L100.1700 32-36 g/gl Normal MCHC 32.9 LAB L100.1810 11.6-14.6 % Normal RDW CV 12.3 LAB L100.1820 35.1-43.9 fl Normal RDW SD 41.5 LAB L100.1900 150-450 K/mm3 Normal PLT 152 LAB L100.2000 6.2-12.0 fl Normal MPV 10.5 LAB L100.2100 47-70 % High NEUT% 70.5 LAB L100.2200 19-41 % Low LY% 15.5 LAB L100.2300 0-10 % High MONO% 10.9 LAB L100.2400 0-5 % Normal EO% 2.2 LAB L100.2500 0-1 % Normal BASO% 0.7 LAB L100.2550 0.0-0.9 % Normal IM GRAN % 0.200 Result Comment: IG% - Immature Granulocytes (promyelocytes, myelocytes and metamyelocytes) > 1% indicates that a LEFT SHIFT is Present. LAB L100.2620 2.0-7.7 X10 3/uL Normal Absolute Neut 4.2 LAB L100.2720 0.83-4.51 X10 3/ul Normal Absolute Lymph 0.93 Performed By: #### L100.0100 #### [facility] [address] [place], [address] COMPREHENSIVE METABOLIC Collected: 05/09/2018 Status: F Source: [facility] 1:00 PM [facility] REPOSITORY TYPE CODE TESTS RESULT OUT OF RANGE REFERENCE UNITS LAB L501.0100 74-106 mg/dL Normal GLU 77 Result Comment: Please note revised GLUCOSE reference range effective 2017. LAB L501.1000 7-18 mg/dL Normal BUN 13 LAB L501.1100 0.55-1.02 mg/dL Normal CREAT,SERUM 0.84 Result Comment: The validity of the calculated GFR AND GFRAA in patients over 70 years has not been determined. Clinical correlation is essential. LAB L501.1110 >60 mL/min Normal EST GFR 71 Result Comment: Non- GFR Calc LAB L501.1115 >60 mL/min Normal EST GFR - AA 86 Result Comment: GFR Calc LAB L501.1300 10-20 RATIO Normal BUN/CRE 15.6 LAB L501.1500 6.4-8.2 g/dL T Normal PROT 7.4 LAB L501.1800 3.2-5.0 g/dL Normal ALB 3.7 LAB L501.1950 2.2-4.2 g/dL Normal GLOB 3.7 LAB L501.2000 0.9-2.4 RATIO Normal A/G 1.0 LAB L501.2200 8.5-10.1 mg/dL Low CA 8.2 LAB L501.4100 15-37 U/L Normal AST 24 LAB L501.4305 45-117 U/L Normal ALK P 83 LAB L501.4405 13-56 U/L Normal ALT 25 LAB L501.4600 0.20-1.00 mg/dL T Normal BILI 0.50 LAB L501.5300 136-145 mmol/L NA Normal 136 LAB L501.5600 3.5-5.1 mmol/L K Normal 3.7 LAB L501.5900 98-107 mmol/L CL Normal 99 LAB L501.6100 21.0-32.0 mmol/L Normal CO2 30.0 LAB L501.6200 5-15 Normal GAP 7 Performed By: #### L500.4050, L500.4100, L501.9520 #### [facility] [address] [place], [place], [id number] LIPID PROFILE Collected: 05/09/2018 Status: F Source: [place] 1:00 PM [facility] REPOSITORY TYPE CODE TESTS RESULT OUT OF RANGE REFERENCE UNITS LAB L501.4900 200 mg/dL High CHOL 222 Result Comment: <200 mg/dL Desirable 200-240 mg/dL Borderline >240 mg/dL High Risk LAB L501.5000 mg/dL High TRIG 258 Result Comment: The drugs N-Acetylcysteine and Metamizole may falsely depress this assay. Serum Triglycerides Reference Interval Normal <150 mg/dL Borderline high 150 - 199 mg/dL High 200 - 499 mg/dL Very High > or = 500 mg/dL LAB L501.6400 mg/dL Normal HDL 45 Result Comment: The drugs N-Acetylcysteine and Metamizole may falsely depress this assay. Reference Range HDL <40 mg/dL Low HDL Cholesterol HDL >or= 60 mg/dL High HDL Cholesterol LAB L501.6500 0-130 mg/dL Normal LDL 125 LAB L501.6600 5-40 mg/dL High VLDL 52 Performed By: #### L500.4050, L500.4100, L501.9520 #### [facility] [address] [place], [place], [id number] THYROID STIM HORMONE Collected: 05/09/2018 Status: F Source: [place] (T[facility]) 1:00 PM [facility] REPOSITORY TYPE CODE TESTS RESULT OUT OF RANGE REFERENCE UNITS LAB L501.9520 0.358-3.74 uIU/mL Normal TSH 1.61 Performed By: #### L500.4050, L500.4100, L501.9520 #### [facility] [address] [place], [address] OT D/C OF NON Observed: 05/06/2018 Status: F Source: [place] RETURNING PT 11:41 AM [facility] REPOSITORY [facility] [address] [place] [address] Fax REHABILITATION SERVICES DISCHARGE SUMMARY MR#: [id number] Acct: [id number] Name: JIMMIE WEATHERS Rep #: [id number] : 1945 72 From: Cassandra Bernal OTR/Jessica, CHT Referring Dr.: Amarilis Hernandez MD Status: REG RCR Eval Date: Discharge Date: HP - Discharge Summary - Patient Information JIMMIE WEATHERS was seen in my office for initial evaluation on 03/11/18. The following Plan of Care was established for this patient: Initial Frequency: 1x/Week Initial Duration: 4 Weeks Plan: pt to follow up in APR - Anticipated Interventions Anticipated Interventions: Triggerpoint Release, Desensitization, Education re Diagnosis, Education re Self Massage Techniques This patient was last seen in our office 04/03/18. Pertinent comments regarding their Occupational therapy will appear below: Pt was seen for 2 visits with two cancellations- pt has not rescheduled apts and is D/C due to timelapse in therapy services. At this point I will be discontinuing this patient from occupational therapy. I would be happy to see this patient again in the future if found appropriate by the physician. Thank you! IVONE Waddell/Jessica, CHT <Electronically signed by Cassandra WISEMAN/Jessica, CHT> 05/06/18 1141 CC: Kan Vargas MD; Amarilis Hernandez MD MK Signed ONCOLOGY VISIT REPORT Observed: 04/08/2018 Status: F Source: [place] 1:33 PM [facility] REPOSITORY [facility] [address] [place] [address] OFFICE VISIT Date of Service: 04/08/18 1309 MR#: [id number] Acct: [id number] Name: JIMMIE WEATHERS Rep #: [id number] : 1945 From: Cherelle Patton MD Age/Sex: 72/F Location: OMD Status: Signed - Problem List (1) Breast cancer in female Status: Acute Qualifiers: Breast location: upper outer quadrant of breast Estrogen receptor status: positive Laterality: right Qualified Code(s): C50.411 - Malignant neoplasm of upper-outer quadrant of right female breast; Z17.0 - Estrogen receptor positive status [ER+] - Date of Service Date of Service:: 04/08/18 - Chief Complaint Breast cancer follow-up - History of Present Illness Patient is a 72-year-old female who presented after an abnormal screening mammogram and a biopsy confirming an invasive ductal cancer of the left breast. On December 25, 2017 she underwent a left partial mastectomy with sentinel lymph node sampling. Pathologic examination revealed a single focus of invasive ductal cancer 0.5 cm in maximum diameter with an overall grade 2 (score of 6), no lymphovascular invasion was identified, DCIS was present compromising less than 5% of tumor volume and margin was -0.7 cm. Tumor is ER positive (95%), HI positive (95%) and HER-2 equivocal by IHC, negative by FISH. Treatment: left partial mastectomy with sentinel lymph node sampling December 25, 2017 Arimidex January 2018 02/13/18 - 03/06/18: Received adjuvant radiation therapy to the right breast consisting of 4256 cGy in 16 fractions. - Past Medical/Social History Past Medical History Cancer: Breast cancer Social History Social History: No changes Smoking Status Never smoker Review of Systems Constitutional:: Reports: - - Infrequent tolerable hot flashes. Denies: Fever, Sweats, Weight loss, Appetite change, Chills Cardiovascular:: Denies: Chest pain, Palpitations, Dyspnea on exertion, Orthopnea, PND, Shortness of breath Respiratory: Denies: Cough, Hemoptysis, Shortness of Breath, Wheezing Gastrointestinal:: Denies: Abdominal pain, Nausea, Vomiting, Diarrhea, Constipation, Hematochezia Genitourinary: Denies: Dysuria, Hematuria, 15, Flank pain Musculoskeletal:: Reports: - - Height loss of approximately 2 inches over the past few years. Denies: Back pain, Myalgia, Arthralgia Skin: Denies: Rash, Skin Changes, Wounds Neurological:: Denies: Headache, Dizziness, Visual changes, Tinnitus, Hearing loss Psychiatric: Denies: Anxiety, Depression, Homicidal Ideations, Suicidal Ideations Vital Signs Height 5 ft 4 in Weight: 61.054 kg Weight in Pounds 134.6 lbs BMI 22.6 Pulse Ox 98 - Physical Exam General: Alert, Oriented x3, No apparent distress, - - Kyphosis HEENT: Atraumatic, PERRLA, EOMI, Normocephalic Oropharynx:: Dry mucosa Neck:: Supple, Trachea midline. Negative for: JVD, bilateral Cardiac:: Regular rate, Regular rhythm, Normal S1, Normal S2. Negative for: Murmur Lungs: Clear to auscultation, Excusion symmetrical. Negative for: Rhonchi, Wheezes Abdomen:: Soft, Non-tender, Non-distended. Negative for: Hepatosplenomegaly Extremities:: Negative for: Cyanosis, Edema Neurological: Neuro grossly intact Skin:: Negative for: Lesions, Rash, Petechiae, Ecchymosis Psychiatric:: Appropriate affect, Euthymic Lymphatics:: Negative for: Cervical lymphadenopathy, Supraclavicular lymphadenopathy, Axillary lymphadenopathy Diagnostic Data: Bone density January 2018: IMPRESSION: The patient is considered osteoporotic as outlined below according to [employer] (WHO) criteria with a high fracture risk. Assessment and Plan 72-year-old female with stage I (T1a, N0, M0) invasive ductal cancer of the left breast, primary tumor 0.5 cm, overall grade 2, ER positive, HI positive, HER-2 not amplified. Patient is status post partial mastectomy and sentinel lymph node biopsy December 25, 2017. Started systemic adjuvant hormonal therapy with an aromatase inhibitor January 2018 for at least 5 years. Completed adjuvant radiation therapy March 2018. Patient has progressive postmenopausal bone loss with osteoporosis by bone scan January 2018 despite calcium and vitamin D supplementation. She also reports height loss of 2 inches over the course of the past few years. 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 She was instructed to continue with her vitamin D and calcium supplements. Comorbid conditions: Osteoporosis, dyslipidemia, hypertension, hypothyroidism and DJD Medications: Prescriptions This Visit Medication Instructions Recorded Anastrozole [Arimidex] 1 mg PO DAILY 90 Days #90 tab 01/14/18 Inulin/Chromium Picolinate [Fiber 1 each PO DAILY 04/03/18 [facility]] Primary Care Provider: Amarilis Cheung Referring Provider: Amarilis Hernandez 04/08/18 1333 <Electronically signed by Cherelle Patton MD> Date Cherelle Patton MD Cosigner Signature: Date (if applicable) CC: Amarilis Cheung MD ONCOLOGY FOLLOW-UP Observed: 04/03/2018 Status: F Source: [place] VISIT 4:32 PM [facility] REPOSITORY [facility] Medical Records Department [address] [place] [address] Oncology Follow-Up Visit 04/03/18 1623 MR#: [id number] Acct: [id number] Name: JIMMIE WEATHERS Rep #: [id number] : 1945 72 From: Man Morgan DO PCP: Amarilis Cheung MD Status: REG RCR Y Location: [facility] Date of Service: 04/03/18 Last Clinic Visit: 03/06/18 Diagnosis: Jimmie Weathers is a 72-year-old postmenopausal female diagnosed with pathologic stage I (pT1a pN0 (sn) M0) 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 From 02/13/18 - 03/06/18: Received adjuvant radiation therapy to the right breast consisting of 4256 cGy in 16 fractions. History of Present Illness: 11/19/2017: Patient underwent bilateral screening mammography which demonstrated a focal asymmetry in the upper outer quadrant of the right breast measuring 0.6 x 0.7 x 0.7 cm, this appears unchanged in size however the margins appear to have spiculations. A biopsy marker is noted in the right upper outer quadrant. No significant suspicious findings are noted in the left breast. BI-RADS Category 0 recommend ultrasound. 11/21/2017: Ultrasound of the right breast was performed which demonstrated a solid-appearing mass with likely benign morphology at the mid breast depth 11 o'clock position measuring 5.5 mm. Possible spiculations noted on the mammogram are not present on the ultrasound, there is mild shadowing which is not present on the prior study and there is a biopsy marker that is separate from the lesion. BI-RADS Category 2. 12/06/2017: Ultrasound-guided needle core biopsy of the right breast and punch biopsy of skin lesion on the left leg were performed. Right breast core biopsy showed evidence for grade 1 invasive carcinoma (ER >95%, HI >95%, Her2 1-2+ not amplified on FISH). 12/20/2017: MRI breast was performed. Within the right breast there is an irregular enhancing mass measuring 2.3 x 9 x 7 millimeters at the 11 to 12 o'clock position. There is a tissue clip artifact within the right breast anterior to this mass. There are no abnormal enhancing masses or areas of non-mass enhancement in the left breast and there are no enlarged or abnormal lymph nodes noted. BI-RADS Category 6 12/25/2017: Patient underwent right breast lumpectomy with sentinel lymph node biopsy. Pathology demonstrated 0.5 x 0.5 cm grade 2 invasive ductal carcinoma with focal cribriform features (ER >95%, HI >95%, Her2 1-2+ not amplified on FISH), LVSI not identified, margins negative (closest is 0.7 cm from superior and posterior margin, 0/6 sentinel LNs contained metastatic carcinoma. pT1a pN0 (sn). From 02/13/18 - 03/06/18: Received adjuvant radiation therapy to the right breast consisting of 4256 cGy in 16 fractions. Radiation Treatment History: 1) From 02/13/18 - 03/06/18: Received adjuvant radiation therapy to the right breast consisting of 4256 cGy in 16 fractions. Interval History: Patient returns for a one-month follow-up after completing adjuvant radiation therapy to the right breast. She reports that her skin became more erythematous and did have some peeling after radiation completed but this has completely healed at this time. She continues to use lotion once per day. She also reports having some itchiness around the nipple area which is also resolved, she used hydrocortisone for help with itchiness. She has occasional soreness in the right breast which is very mild. During radiation therapy she developed 2 areas of cording under her arm and through stretching and massage this has resolved at this time. She reports normal energy level. She initiated hormone therapy and is getting occasional hot flashes with increasing emotional lability but otherwise denies other toxicities. She denies having chest pain, shortness of breath, cough, hemoptysis, headache, vision changes, nausea/vomiting, bone pain, or unexpected weight loss/change in appetite. She denies having other problems or concerns this time. I have reviewed the medical, surgical, and other pertinent history in details and have updated medication and allergy information in the electronic medical record. Review of Systems: A 12-point review of systems was completed and was negative except for what is noted in the HPI/Interval History and by the nurse. Height/Weight/BMI: Height: 5 ft 4 in Weight: 60.963 kg BMI: 22.6 Vital Signs Temperature 97.9 F 04/03/18 14:39 Temperature Source Oral 04/03/18 14:39 Physical Exam: ECO KARNOFSKY SCORE: 100% CONSTITUTIONAL: Well-developed, well-nourished, and in no apparent distress. HEENT: Mucous membranes moist. No evidence of thrush or lesions within the visualized oropharynx or oral cavity. No trismus. Pupils are equal, round, and reactive to light and accommodation. Extraocular movements are intact. Sclerae are anicteric. NECK: Supple,with no thyromegaly, and non-tender. Trachea midline. No cervical or supraclavicular adenopathy noted. CARDIAC: Regular rate and rhythm. Normal S1, S2. No murmurs, rubs, or gallops. PULMONARY/CHEST: Lungs are clear to auscultation and percussion bilaterally. No wheezes, rhonchi, or crackles noted. No increased work of breathing. ABDOMINAL: Abdomen soft, non-tender, non-distended. No hepatomegaly. Normoactive bowel sounds in all four quadrants. No guarding, rebound. BREAST: The bilateral breasts are examined in the seated and supine position. Right breast appears very well-healed without evidence of any skin erythema or desquamation. Scars well-healed and intact. There is no evidence of any lesions or masses in either breast or axilla. BACK: Straight and aligned. No CVA tenderness. Axial skeleton non-tender to percussion. EXTREMITIES: Full range of motion in all four extremities, with normal strength equally and symmetrically. No evidence of edema. No clubbing. NEUROLOGICAL EXAM: Alert and oriented x 3. Cranial nerves II through XII are grossly intact. No focal neurological deficit. Speech is fluent. There is no upper or lower extremity sensory deficit or motor deficit. Muscle strength is 5/5 in all muscle groups. Gait and posture are steady. PSYCHIATRIC: Appropriate mood and affect for the clinical situation. Imaging: As per HPI Laboratory Data: No new labs to review. 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 From 02/13/18 - 03/06/18: Received adjuvant radiation therapy to the right breast consisting of 4256 cGy in 16 fractions. Clinically the patient is doing very well and is healed from radiation associated toxicities. She is tolerating hormone therapy fairly well. There is no evidence for disease recurrence on exam. Plan: I reviewed with the patient my recommendations for disease follow-up which would include breast exam every 3-4 months during the first year and mammography one year from her previous mammography which would be November 2018. She is planning to see her surgeon 1 year from her surgery. I discussed my recommendation for continuing hormone therapy for 5-10 years. I recommended pursuing a healthy well-balanced plant based diet as well as persistent cardiovascular exercise program to maintain healthy weight and maximally reduce risk of disease recurrence. I will have her return to clinic in 3 months and I recommend that she follow-up with her PCP for other medical conditions. She was instructed to call with any further questions or concerns in the interim. Man Morgan DO, Mottle Lay Up Operator, Department of Radiation Oncology [facility] 04/03/18 3069 <Electronically signed by Man Morgan DO> Date Man Morgan DO CC: Cherelle Patton MD; Amarilis Hernandez MD Signed OT GENERAL EVALUATION Observed: 03/12/2018 Status: F Source: [place] 9:21 AM [facility] Occupational Therapy [facility] [address] [place] [address] Fax REHABILITATION SERVICES INITIAL EVALUATION MR#: [id number] Acct: [id number] Name: JIMMIE WEATHERS Rep #: [id number] : 1945 72 From: Cassandra WISEMAN/Jessica, CHT Referring Dr.: Amarilis Hernandez MD Status: REG RCR Insurance: [employer] MEDICARE PPO Eval Date: SELF PAY INSURANCE Patient's Visit Information JIMMIE WEATHERS is a 72 year old F, referred to Occupational Therapy by Amarilis Hernandez, with a diagnosis of Breast cancer. Date of Evaluation: 03/11/18 Occupational Therapist: IVONE Waddell/Jessica, CHT - Subjective Subjective: This pt was seen for inital OT eval following 16 radiation tx to left breast. HX pt underwent lumpectomy on 12-25-17 with sentinel node biopsy 6 removed with all negative. pt states she is feeling tired, but more concerned with tight band under her arm. 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 - Pain left Axilary 2 Pain Intensity Range: 0, 2 - ROM ROM Comments: pt demo ROM WNL - DASH-Disabilities of Arm, Shoulder AND Hand DASH Sum: 34 - Goals Demonstrate adequate knowledge skin care/prec by 2nd week: Yes Demonstrate adequate knowledge therapeutic exercises by d/c: Yes Goal:: pt will demo full ROM of left UE with no C/O of pain greater than 1/10 duirng task by d/c. Goal:: pt will demo understanding of scar desensitization by end of 3rd session. Goal:: pt asya demo understanding of Axillary node syndrom and mtg by d/c - Rehabilitation General Assessment: pt is now S/p 11 weeks following left lumpectomy, and sentinel node biopsy, post radiation. pt demo with UB ROM WNL, but inital cording under left axillary.Positive for axillary node syndrom. This has made her axilary region more tender at times. pt ed. to cont with ROM of left UE to stretch, manual Lymph drainage and sink/scar care. Pt would benefit from skilled OT services 1x week for 4 weeks to address the above limitations and ed. pt on HEP Rehabilitation Potential: Good - Anticipated Interventions Anticipated Interventions: Triggerpoint Release, Desensitization, Education re Diagnosis, Education re Self Massage Techniques - Visit Plan Frequency: 1x/Week Duration: 4 Weeks TEXT: Thank you for the opportunity to evaluate your patient. For Medicare and Medicare HMO plans, please review the plan of care and approve it. It will need to be FAXED BACK to us at [phone] for Medicare purposes. Please let me know if there are questions or concerns regarding this plan of care. Physician Signature: Date: <Electronically signed by Cassandra WISEMAN/GUCCI TorresT> 03/12/18 0921 CC: Kan Vargas MD; Amarilis Hernandez MD MK Signed For Medicare only, by signing this I certify the plan of care. Physicians Signature Date END OF TREATMENT Observed: 03/11/2018 Status: F Source: [place] SUMMARY 2:41 PM [facility] REPOSITORY [facility] [address] [place] [address] End of Treatment Summary Date of Service: 03/11/18 1434 MR#: [id number] Acct: [id number] Name: JIMMIE WEATHERS Rep #: [id number] : 1945 From: Man Morgan DO Age/Sex: 72/F Location: [facility] Status: Signed End of Treatment Summary: Diagnosis: Jimmie Weathers is a 72-year-old postmenopausal female diagnosed with pathologic stage I (pT1a pN0 (sn) M0) 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 Oncologic History: 11/19/2017: Patient underwent bilateral screening mammography which demonstrated a focal asymmetry in the upper outer quadrant of the right breast measuring 0.6 x 0.7 x 0.7 cm, this appears unchanged in size however the margins appear to have spiculations. A biopsy marker is noted in the right upper outer quadrant. No significant suspicious findings are noted in the left breast. BI-RADS Category 0 recommend ultrasound. 11/21/2017: Ultrasound of the right breast was performed which demonstrated a solid-appearing mass with likely benign morphology at the mid breast depth 11 o'clock position measuring 5.5 mm. Possible spiculations noted on the mammogram are not present on the ultrasound, there is mild shadowing which is not present on the prior study and there is a biopsy marker that is separate from the lesion. BI-RADS Category 2. 12/06/2017: Ultrasound-guided needle core biopsy of the right breast and punch biopsy of skin lesion on the left leg were performed. Right breast core biopsy showed evidence for grade 1 invasive carcinoma (ER >95%, HI >95%, Her2 1-2+ not amplified on FISH). 12/20/2017: MRI breast was performed. Within the right breast there is an irregular enhancing mass measuring 2.3 x 9 x 7 millimeters at the 11 to 12 o'clock position. There is a tissue clip artifact within the right breast anterior to this mass. There are no abnormal enhancing masses or areas of non-mass enhancement in the left breast and there are no enlarged or abnormal lymph nodes noted. BI-RADS Category 6 12/25/2017: Patient underwent right breast lumpectomy with sentinel lymph node biopsy. Pathology demonstrated 0.5 x 0.5 cm grade 2 invasive ductal carcinoma with focal cribriform features (ER >95%, HI >95%, Her2 1-2+ not amplified on FISH), LVSI not identified, margins negative (closest is 0.7 cm from superior and posterior margin, 0/6 sentinel LNs contained metastatic carcinoma. pT1a pN0 (sn). The patient completed a course of external beam radiotherapy in our department. This treatment was delivered for curative intent. Treatment was given according to the following parameters: JIMMIE WEATHERS received 4256 cGy of mixed 10 and 15 MV photons in 16 fractions to the right breast with a 3D conformal technique consisting of ST HELENIAN and RPO vazquez and field in field for improved dose homogeneity. The patient did not receive concurrent chemotherapy. Date of First Treatment: 02/13/18 Date of Last Treatment: 03/06/18 Total Elapsed Days (including weekend and holidays): 21 Missed Treatments: 0 Response and Tolerance: The patient tolerated this course of radiotherapy well overall. The following radiation related toxicities developed during the course of radiation therapy: * Grade 1 skin erythema without desquamation which was treated with Remedy * Grade 1 fatigue Disposition: The patient tolerated the planned course of radiation therapy well without unexpected toxicity in an appropriate time course. I will have the patient follow- up in 4 weeks for a routine visit to assess resolution of radiation toxicity. The patient will maintain scheduled follow-up visits with the other providers. If we can provide any further information on this patient's course of care, please do not hesitate to ask. We would like to thank you very much for allowing us to participate in the care of this patient. Sincerely, Man Morgan DO, MS Mottle Lay Up Operator, Department of Radiation Oncology [facility] 03/11/18 1786 <Electronically signed by Man Morgan DO> Date Man Morgan DO Cosigner Signature: Date (if applicable) CC: Cherelle Patton MD; Amarilis Hernandez MD; Amarilis Cheung MD OT D/C OF NON Observed: 03/06/2018 Status: F Source: [place] RETURNING PT 8:42 AM [facility] Occupational Therapy [address] [place] [address] Fax REHABILITATION SERVICES DISCHARGE SUMMARY MR#: [id number] Acct: [id number] Name: JIMMIE WEATHERS Rep #: [id number] : 1945 72 From: Cassandra WISEMAN/Jessica, GUCCIT Referring Dr.: Bisi Manley AEROSPACE STRESS ENGINEER Status: REG RCR Eval Date: Discharge Date: HP - Discharge Summary - Patient Information JIMMIE WEATHERS was seen in my office for initial evaluation on 01/22/18. The following Plan of Care was established for this patient: - Anticipated Interventions Anticipated Interventions: Education re Diagnosis, Education re Skin Care and Precautions, Education re Self Massage Techniques, Home Program Other Interventions: lymphedmea signs.symptoms. Exercise This patient was last seen in our office 01/22/18. Pertinent comments regarding their Occupational therapy will appear below: PT was seen for inital OT eval and given HEP. pt was to call if she had questions or concerns. pt has not done so at this time. pt d/c due to lapse in tx time. At this point I will be discontinuing this patient from occupational therapy. I would be happy to see this patient again in the future if found appropriate by the physician. Thank you! IVONE Waddell/Jessica, GUCCIT <Electronically signed by Cassanrda REYNAGA CHT> 03/06/18 0842 CC: Kan Vargas MD; Bisi Manley AEROSPACE STRESS ENGINEER MK Signed RADIATION ONCOLOGY Observed: 03/05/2018 Status: F Source: [place] VISIT 3:03 PM [facility] REPOSITORY [facility] [address] [place] [address] OFFICE VISIT Date of Service: 03/05/18 1500 MR#: [id number] Acct: [id number] Name: JIMMIE WEATHERS Rep #: [id number] : 1945 From: Man Morgan DO Age/Sex: 72/F Location: [facility] Status: Signed Date of Service: 03/05/18 Diagnosis: Jimmie Weathers is a 72-year-old postmenopausal female diagnosed with pathologic stage I (pT1a pN0 (sn) M0) 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 Plan was made to complete adjuvant radiation therapy consisting of 4256 cGy in 16 fractions to the right breast. Treatment Data: Treatment Site: Right Breast Current total dose/Total dose planned: 3990 cGy / 4256 cGy Fraction number: Chemotherapy: None Subjective: Doing well overall. Cording much improved with massage and stretching. Pain: 0/10 Skin: grade 1 erythema. no rash Breast: no heaviness or swelling, occasional twinges Energy: normal Vital Signs Temperature 98.5 F 02/26/18 14:47 Temperature Source Oral 02/26/18 14:47 Objective: Gen: NAD Skin: erythema present, no rash or desquamation. Cording present in the axilla in two distinct areas is much improved Assessment: Tolerating therapy well overall. All treatment imaging reviewed and approved. grade 1 skin erythema Cording Plan: Reviewed potential toxicity and timing Reviewed skin care and avoidance of UV exposure Will have patient continue stretches for cording. Continue treatment as planned Follow up in one month or sooner if needed. Thank you for allowing me to participate in the management and care of your patient. If I may answer any questions in the interim, please do not hesitate to contact me at any time. Man Morgan DO, MS Mottle Lay Up Operator, Department of Radiation Oncology [facility] 03/05/18 3155 <Electronically signed by Man Morgan DO> Date Man Morgan DO Cosigner Signature: Date (if applicable) CC: RADIATION ONCOLOGY Observed: 02/26/2018 Status: F Source: [place] VISIT 3:26 PM [facility] REPOSIT[facility] [place] [address] OFFICE VISIT Date of Service: 02/26/18 1523 MR#: [id number] Acct: [id number] Name: JIMMIE WEATHERS Rep #: [id number] : 1945 From: Man Morgan DO Age/Sex: 72/F Location: [facility] Status: Signed Date of Service: 02/26/18 Diagnosis: Jimmie Weathers is a 72-year-old postmenopausal female diagnosed with pathologic stage I (pT1a pN0 (sn) M0) 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 Plan was made to complete adjuvant radiation therapy consisting of 4256 cGy in 16 fractions to the right breast. Treatment Data: Treatment Site: Right Breast Current total dose/Total dose planned: 2660 cGy / 4256 cGy Fraction number: Chemotherapy: None Subjective: Doing well overall. Did develop cording in the axilla 2 days ago, mild tenderness Pain: 0/10 Skin: faint erythema. no rash Breast: no heaviness or swelling, occasional twinges Energy: normal Vital Signs Temperature 98.5 F 02/26/18 14:47 Temperature Source Oral 02/26/18 14:47 Objective: Gen: NAD Skin: faint erythema, no rash or desquamation. Cording present in the axilla in two distinct areas Assessment: Tolerating therapy well overall. All treatment imaging reviewed and approved. grade 1 skin erythema Cording Plan: Reviewed potential toxicity and timing Reviewed skin care and avoidance of UV exposure Will have patient begin stretches for cording, may have PT, will discuss with her surgeon. Continue treatment as planned Follow up next week or sooner if needed. Thank you for allowing me to participate in the management and care of your patient. If I may answer any questions in the interim, please do not hesitate to contact me at any time. Man Morgan DO, MS Mottle Lay Up Operator, Department of Radiation Oncology [facility] 02/26/18 0464 <Electronically signed by Man Morgan DO> Date Man Cathy STANTON Cosigner Signature: Date (if applicable) CC: POTASSIUM Collected: 02/26/2018 Status: F Source: [place] 12:38 PM [facility] REPOSITORY Order Comment: Order Date: 02/26/18 Order Info: 2823-3 - K TYPE CODE TESTS RESULT OUT OF RANGE REFERENCE UNITS LAB L501.5600 3.5-5.1 mmol/L Low K 3.4 Performed By: #### [id number] #### [facility] [address] [place], [address] RADIATION ONCOLOGY Observed: 02/19/2018 Status: F Source: [place] VISIT 1:53 PM [facility] REPOSITORY [facility] [address] [facility] [place] [address] OFFICE VISIT Date of Service: 02/19/18 1348 MR#: [id number] Acct: [id number] Name: JIMMIE WEATHERS Rep #: [id number] : 1945 From: Man Morgan DO Age/Sex: 72/F Location: [facility] Status: Signed Date of Service: 02/19/18 Diagnosis: Jimmie Weathers is a 72-year-old postmenopausal female diagnosed with pathologic stage I (pT1a pN0 (sn) M0) 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 Plan was made to complete adjuvant radiation therapy consisting of 4256 cGy in 16 fractions to the right breast. Treatment Data: Treatment Site: Right Breast Current total dose/Total dose planned: 1330 cGy / 4256 cGy Fraction number: Chemotherapy: None Subjective: Doing well overall. Pain: 0/10 Skin: no erythema or rash Breast: no heaviness or swelling, occasional twinges Energy: normal Height/Weight/BMI: Height: 5 ft 4 in Weight: 60.146 kg Previous/Normal Weight: BMI: 22.6 % Weight Gain/Loss: Vital Signs Temperature 97.7 F L 02/19/18 13:15 Temperature Source Oral 02/19/18 13:15 Objective: Gen: NAD Skin: no erythema Assessment: Tolerating therapy well overall. All treatment imaging reviewed and approved. No radiation toxicity at this time. Plan: Reviewed potential toxicity and timing Reviewed skin care and avoidance of UV exposure Continue treatment as planned Follow up next week or sooner if needed. Thank you for allowing me to participate in the management and care of your patient. If I may answer any questions in the interim, please do not hesitate to contact me at any time. Man Morgan DO, MS Mottle Lay Up Operator, Department of Radiation Oncology [facility] 02/19/18 1355 <Electronically signed by Man Morgan DO> Date Man Morgan DO Cosigner Signature: Date (if applicable) CC: SURGERY VISIT REPORT Observed: 02/18/2018 Status: F Source: [place] 4:04 PM [facility] REPOSITORY [facility] [address] [place] [address]. [address] [place] [address] OFFICE VISIT Date of Service: 02/18/18 MR#: [id number] Acct: [id number] Name: JIMMIE WEATHERS Rep #: [id number] : 1945 Provider: Amarilis Hernandez MD Age/Sex: 72/F Location: [facility] Status: Signed Intake Intake Visit Reasons: Lumpectomy 12/26 Chief Complaint: Endocrine therapy education Soubrette Required: No Is patient in pain?: No Allergies No Known Allergies Allergy (Verified 01/20/18 10:17) Medications cholecalciferol (vitamin D3) 2,000 unit capsule 2,000 unit PO QDAY 12/03/17 [History Confirmed 01/20/18] hydrochlorothiazide 25 mg tablet 25 mg PO QDAY 12/03/17 [History Confirmed 01/20/18] levothyroxine 88 mcg tablet 50 mcg PO QDAY 12/03/17 [History Confirmed 01/20/18] multivitamin tablet 1 tab PO QDAY 12/03/17 [History Confirmed 01/20/18] sennosides 8.6 mg tablet 8.6 mg PO BID PRN 12/03/17 [History Confirmed 01/20/18] Calcium Carb/Vitamin D3/Vit K1 [Viactiv Soft Chew] 1 ea PO DAILY 12/24/17 [History Confirmed 01/20/18] Lansoprazole [Prevacid] 15 mg PO DAILY 12/24/17 [History Confirmed 01/20/18] Acetaminophen [Tylenol Extra Strength] 500 mg PO BID 01/07/18 [History Confirmed 01/20/18] Anastrozole [Arimidex] 1 mg PO DAILY 90 Days #90 tab 01/14/18 [Rx] PFS Medical History Breast cancer in female (Acute) Breast cancer (Acute 12/2017) GERD (gastroesophageal reflux disease) (Acute) Hemorrhoids (Acute) Hypothyroidism (Acute) Osteoarthritis (Acute) HTN (hypertension) (Chronic) Surgical History History of lumpectomy (Acute) S/P breast biopsy (Acute) S/P breast biopsy (Acute) S/P colonoscopy (Acute) S/P dilation and curettage (Acute) S/P tubal ligation (Acute) Status post left hip replacement (Acute) Status post right hip replacement (Acute) Family History Father CAD (coronary artery disease) Hypertension Mother Bleeding disorder Sister Bleeding disorder Social History Smoking Status: Never smoker HPI HPI HPI: JIMMIE WEATHERS, is a 72 F who presents to the office today for surgical follow-up status post breast conservation surgery upper outer quadrant right breast. 72-year-old female. Postmenopausal. Stage I. PT 1 a pN0 (SN) M0. Grade 2 invasive ductal carcinoma with focal cribriform features. Estrogen receptor greater than 95%. Progesterone receptor greater than 95%. HER-2/ramón 1-2+ not amplified on FISH. Breast conservation surgery with lumpectomy and blue dye sentinel lymph node biopsy performed on December 25. Today the patient is having less concerns about her surgical site. She had concerns that there was numbness and tingling the triceps area of her right upper arm. She still notes some tenderness in the right breast. Her primary concern today is feeling of wooziness. She has just initiated her radiation treatment and wonders whether it correlates. Exam Chest Other: Right breast: Nicely healing incision curvilinear upper outer right breast and right axilla. No focal mass. No nipple discharge. No axillary or clavicular adenopathy. No edema no seroma. Not detecting any particular focal tenderness of the upper arm. Assessment AND Plan Problems 1. Malignant neoplasm of upper-outer quadrant of right breast in female, estrogen receptor positive C50.411; Z17.0 Plan I reassured the patient that her current postoperative findings really appear to be quite unremarkable. She is aware where that fatigue is certainly a potential postradiation problem. Regarding wooziness that is less clear. The patient does have some chronic anxiety which I think is contributing. She has had an opportunity to ask and have questions answered. She will follow-up with Dr. Morgan. I anticipate seeing the patient after her bilateral mammograms December 2018. Amarilis Hernandez M.D., F.A.C.S. Orders Orders: Coding Level of Care Code Global Post Op Diagnoses Malignant neoplasm of upper-outer quadrant of right breast in female, estrogen receptor positive C50.411; Z17.0 Breast location: upper outer quadrant of breast Estrogen receptor status: positive Laterality: right 02/18/18 2144 <Electronically signed by Amarilis Hernandez MD> Date Amarilis Hernandez MD Cosigner Signature: Date (if applicable) CC: Cherelle Patton MD; Amarilis Cheung MD; Man Morgan DO URINALYSIS, COMPLETE Collected: 01/24/2018 Status: F Source: [place] 10:45 AM [facility] REPOSITORY Order Comment: How was Urine Obtained? CLEAN CATCH TYPE CODE TESTS RESULT OUT OF RANGE REFERENCE UNITS LAB L400.3000 Yellow COLOR Normal Straw LAB L400.3050 Clear Normal CLARITY Clear LAB L400.3200 Normal mg/dl Normal GLUCOSE, UR Normal LAB L400.3300 Negative mg/dL Normal BILIRUBIN URINE Negative LAB L400.3400 Negative mg/dl Normal KETONE UR Negative LAB L400.3465 1.002-1.030 Normal SP.GR. DIPSTX 1.005 LAB L400.3550 5.0 - 8.0 pH UR Normal 6.5 LAB L400.3600 Negative mg/dl PROT Normal DIPSTX Negative LAB L400.3700 Normal mg/dl Normal UROBILI Normal LAB L400.3750 Negative Normal NITRITE UR Negative LAB L400.3780 Negative /ul Normal OCCULT BLOOD-UR Negative LAB L400.3800 Negative /ul High LEUK 25 ESTERASE LAB L400.4050 0-5 /hpf WBC Normal 0-5 SEEN LAB L400.4100 0-5 /hpf Normal RBC-UA 0-5 SEEN LAB L400.4150 5-10 /hpf SQUAM Normal EPI 0-5 SEEN LAB L400.4300 None Seen /hpf 0 Normal BACTERIA SEEN LAB L400.4350 <or=2+ /hpf 0 Normal MUCUS, URINE SEEN Performed By: #### L400.0001 #### [facility] [address] [place], [address] THYROGLOBULIN W/ANTI-TG Collected: 01/24/2018 Status: F Source: MAL[place]SA AB 10:45 AM [facility] REPOSITORY TYPE CODE TESTS RESULT OUT OF RANGE REFERENCE UNITS LAB L3300.7025 0.0-0.9 IU/mL Normal ANTI-TG < 1.0 AB Result Comment: Thyroglobulin Antibody measured by Erika Trin[facility] [employer] LAB L3400.1030 1.5-38.5 ng/mL Normal THYROGLOB 5.3 Result Comment: According to the National Academy of Clinical Biochemistry, the reference interval for Thyroglobulin (TG) should be related to euthyroid patients and not for patients who underwent thyroidectomy. TG reference intervals for these patients depend on the residual mass of the thyroid tissue left after surgery. Establishing a post-operative baseline is recommended. The assay limit of quantitation is 0.1 ng/mL Thyroglobulin measured by Erika Trinidad Immunometric Assay Performed By: #### L3300.6820, L3300.6900 #### [facility] (refer to report for specific site) refer to report for address and phone number THYROID PEROXIDASE AB Collected: 01/24/2018 Status: F Source: [place] 10:45 AM [facility] REPOSITORY TYPE CODE TESTS RESULT OUT OF RANGE REFERENCE UNITS LAB L3300.6900 0-34 IU/mL Normal TPO AB 17 [id number] Result Comment: Performed at: [address] [id number] [place]: Paul Soni PhD, Phone: [phone] Performed By: #### L3300.6820, L3300.6900 #### [facility] (refer to report for specific site) refer to report for address and phone number CBC W/DIFF, AUTOMATED Collected: 01/24/2018 Status: F Source: [place] 10:42 AM [facility] REPOSITORY Order Comment: Order Date: 01/24/18 Order Info: [id number] - CBCD TYPE CODE TESTS RESULT OUT OF RANGE REFERENCE UNITS LAB L100.1000 4.4-11.0 K/mm3 Normal WBC 5.5 LAB L100.1200 4.2-5.4 M/mm3 Normal RBC 4.44 LAB L100.1300 12.0-15.0 g/dl Normal HGB 13.8 LAB L100.1400 37-47 % Normal HCT 42.2 LAB L100.1500 81-99 fL Normal MCV 95.0 LAB L100.1600 27.0-32.0 pg Normal MCH 31.1 LAB L100.1700 32-36 g/gl Normal MCHC 32.7 LAB L100.1810 11.6-14.6 % Normal RDW CV 12.2 LAB L100.1820 35.1-43.9 fl Normal RDW SD 42.0 LAB L100.1900 150-450 K/mm3 Normal PLT 152 LAB L100.2000 6.2-12.0 fl Normal MPV 10.6 LAB L100.2100 47-70 % Normal NEUT% 61.2 LAB L100.2200 19-41 % Normal LY% 24.7 LAB L100.2300 0-10 % High MONO% 10.6 LAB L100.2400 0-5 % Normal EO% 2.9 LAB L100.2500 0-1 % Normal BASO% 0.4 LAB L100.2550 0.0-0.9 % Normal IM GRAN % 0.200 Result Comment: IG% - Immature Granulocytes (promyelocytes, myelocytes and metamyelocytes) > 1% indicates that a LEFT SHIFT is Present. LAB L100.2620 2.0-7.7 X10 3/uL Normal Absolute Neut 3.4 LAB L100.2720 0.83-4.51 X10 3/ul Normal Absolute Lymph 1.35 Performed By: #### L100.0100, L501.9985, L506.1000, L500.2500, L500.4100, L501.2300, L501.9520, L506.0400 #### [facility] [address] [place], [place], [address] HEMOGLOBIN A1C Collected: 01/24/2018 Status: F Source: [place] 10:42 [facility] REPOSITORY Order Comment: Order Date: 01/24/18 Order Info: [id number] - A1C TYPE CODE TESTS RESULT OUT OF RANGE REFERENCE UNITS LAB L501.9985 4.2-6.3 % Normal HGB A1C 5.2 Performed By: #### L100.0100, L501.9985, L506.1000, L500.2500, L500.4100, L501.2300, L501.9520, L506.0400 #### [facility] [address] [place], [place], [address] VITAMIN D,25 HYDROXY Collected: 01/24/2018 Status: F Source: [place] 10:42 AM [facility] REPOSITORY Order Comment: Order Date: 01/24/18 Order Info: [id number] - VITD25 TYPE CODE TESTS RESULT OUT OF RANGE REFERENCE UNITS LAB L506.1000 29.95-100.01 ng/mL Normal Vitamin D 45.0 25-OH Result Comment: Vitamin D 25(OH) Status Range Deficiency <20 ng/mL (50nmol/L) Insuffciency 20 - 30 ng/mL (50 - 75 nmol/L) Sufficiency 30 - 100 ng/mL (75 - 250 nmol/L) Toxicity >100 ng/mL (>250 nmol/L) Performed By: #### L100.0100, L501.9985, L506.1000, L500.2500, L500.4100, L501.2300, L501.9520, L506.0400 #### [facility] [address] [place], [address] BASIC METABOLIC Collected: 01/24/2018 Status: F Source: [place] PROFILE (BMP) 10:42 AM [facility] REPOSITORY Order Comment: Order Date: 01/24/18 Order Info: [id number] - BMP Order Info: [id number] - LIPID Order Info: [id number] - PHOS Order Info: 3016-3 - TSH Order Info: 3024-7 - T4F TYPE CODE TESTS RESULT OUT OF RANGE REFERENCE UNITS LAB L501.0100 74-106 mg/dL Normal GLU 75 Result Comment: Please note revised GLUCOSE reference range effective 2017. LAB L501.1000 7-18 mg/dL Normal BUN 14 LAB L501.1100 0.55-1.02 mg/dL Normal CREAT,SERUM 0.82 Result Comment: The validity of the calculated GFR AND GFRAA in patients over 70 years has not been determined. Clinical correlation is essential. LAB L501.1110 >60 mL/min Normal EST GFR 73 Result Comment: Non- GFR Calc LAB L501.1115 >60 mL/min Normal EST GFR - AA 88 Result Comment: GFR Calc LAB L501.1300 10-20 RATIO Normal BUN/CRE 17.1 LAB L501.2200 8.5-10.1 mg/dL CA Normal 9.1 LAB L501.5300 136-145 mmol/L NA Normal 139 LAB L501.5600 3.5-5.1 mmol/L Low K 2.9 LAB L501.5900 98-107 mmol/L CL Normal 101 LAB L501.6100 21.0-32.0 mmol/L Normal CO2 30.0 LAB L501.6200 5-15 Normal GAP 8 Performed By: #### L100.0100, L501.9985, L506.1000, L500.2500, L500.4100, L501.2300, L501.9520, L506.0400 #### [facility] [address] [place], [place], [address] LIPID PROFILE Collected: 01/24/2018 Status: F Source: [place] 10:42 AM [facility] REPOSITORY Order Comment: Order Date: 01/24/18 Order Info: [id number] - BMP Order Info: [id number] - LIPID Order Info: [id number] - PHOS Order Info: 3016-3 - TSH Order Info: 3024-7 - T4F TYPE CODE TESTS RESULT OUT OF RANGE REFERENCE UNITS LAB L501.4900 200 mg/dL High CHOL 222 Result Comment: <200 mg/dL Desirable 200-240 mg/dL Borderline >240 mg/dL High Risk LAB L501.5000 mg/dL High TRIG 232 Result Comment: The drugs N-Acetylcysteine and Metamizole may falsely depress this assay. Serum Triglycerides Reference Interval Normal <150 mg/dL Borderline high 150 - 199 mg/dL High 200 - 499 mg/dL Very High > or = 500 mg/dL LAB L501.6400 mg/dL Normal HDL 51 Result Comment: The drugs N-Acetylcysteine and Metamizole may falsely depress this assay. Reference Range HDL <40 mg/dL Low HDL Cholesterol HDL >or= 60 mg/dL High HDL Cholesterol LAB L501.6500 0-130 mg/dL Normal LDL 125 LAB L501.6600 5-40 mg/dL High VLDL 46 Performed By: #### L100.0100, L501.9985, L506.1000, L500.2500, L500.4100, L501.2300, L501.9520, L506.0400 #### [facility] [address] [place], [address] PHOSPHORUS Collected: 01/24/2018 Status: F Source: [place] 10:42 AM [facility] REPOSITORY Order Comment: Order Date: 01/24/18 Order Info: [id number] - BMP Order Info: - LIPID Order Info: [id number] - PHOS Order Info: 3 - TSH Order Info: 3023-7 - T4F TYPE CODE TESTS RESULT OUT OF RANGE REFERENCE UNITS LAB L501.2300 2.5-4.9 mg/dL Normal PHOS 2.9 Performed By: #### L100.0100, L501.9985, L506.1000, L500.2500, L500.4100, L501.2300, L501.9520, L506.0400 #### [facility] [address] [place], [address] THYROID STIM HORMONE Collected: 01/24/2018 Status: F Source: MAL[place] (TSH) 10:42 AM [facility] REPOSITORY Order Comment: Order Date: 01/24/18 Order Info: [id number] - BMP Order Info: - LIPID Order Info: [id number] - PHOS Order Info: 3 - TSH Order Info: 7 - T4F TYPE CODE TESTS RESULT OUT OF RANGE REFERENCE UNITS LAB L501.9520 0.358-3.74 uIU/mL Normal TSH 1.33 Performed By: #### L100.0100, L501.9985, L506.1000, L500.2500, L500.4100, L501.2300, L501.9520, L506.0400 #### [facility] [address] [place], [address] T4 FREE DIRECT Collected: 01/24/2018 Status: F Source: [place] 10:42 AM [facility] REPOSITORY Order Comment: Order Date: 01/24/18 Order Info: [id number] - BMP Order Info: - LIPID Order Info: [id number] - PHOS Order Info: 3 - TSH Order Info: 302-7 - T4F TYPE CODE TESTS RESULT OUT OF RANGE REFERENCE UNITS LAB L506.0400 0.76-1.46 ng/dL Normal T4 FREE 1.25 DIRECT Performed By: #### L100.0100, L501.9985, L506.1000, L500.2500, L500.4100, L501.2300, L501.9520, L506.0400 #### [facility] [address] [place], [address] OT GENERAL EVALUATION Observed: 01/23/2018 Status: F Source: [place] 2:59 PM [facility] REPOSITORY [facility] Occupational Therapy [facility] [address] [place] [address] Fax REHABILITATION SERVICES INITIAL EVALUATION MR#: [id number] Acct: [id number] Name: JIMMIE WEATHERS Rep #: [id number] : 1945 72 From: Cassandra REYNAGA, GUCCIT Referring Dr.: Bisi Manley AEROSPACE STRESS ENGINEER Status: REG RCR Insurance: [employer] MEDICARE PPO Eval Date: SELF PAY INSURANCE Patient's Visit Information JIMMIE WEATHERS is a 72 year old F, referred to Occupational Therapy by Bisi Manley, with a diagnosis of malignant neoplasma of unspec. site. Date of Evaluation: 01/22/18 Occupational Therapist: IVONE Waddell/Jessica, CHT - Subjective Subjective: pt states she was dx. with left breast cancer and had sx on December 25. pt states she will be undergoing 16 radiation tx. pt states she is feeling better sorness under her right arm is getting less- sx only about 4 weeks ago. pt states she is doing all her BADLS and IADLS as her is having back sx next week. pt states she feels good right now but is worried how her next treatment path will make her feel. - ROM ROM Comments: pt demo full ROM of bilateral UE - Strength Shoulder: R/L 4+/5 Elbow: R/L 4+/5 Forearm: R/L 4+/5 Interventional Neuroradiologist: right 65# left 60# - Lymphedema (Circumferential Measure) MCP: right 18cm left 18cm Wrist: right 15cm left 15cm Lower forearm: right 15.5cm left 15cm Largest forearm: right 22cm left 22cm Elbow: right 24cm left 24cm Largest humerus: right 25.5cm left 25cm Axcillary: right 29.5cm left 27.5cm - DASH-Disabilities of Arm, Shoulder AND Hand DASH Sum: 36 - Goals Demonstrate adequate knowledge of self-massage by 2nd week: Yes Demonstrate adequate knowledge skin care/prec by 2nd week: Yes Demonstrate adequate knowledge therapeutic exercises by d/c: Yes Goal:: pt demo understanding of using compression garment with flights-no blood draw/BP from right UE. - Rehabilitation General Assessment: Pt s/p lump ectomy of right breast with 6 lyph nodes removed all neg. pt to undergo radiation for 16 sessions. pt currently demo full functional ROM of bilateral UE. no edema. touch tenderness at axillary of right side- but states it is feeling better- Today pt ed. on ROM ex., lymph system and manual lymph drainage. pt ed on skin care and scar mtg along with use of compression garment with flights as precaution. Pt demo understanding of todays ed. on HEP. Pt states she will initiate a silver sneakers program to assist in her general health. At this time pt is to call with questions/concerns otherwise pt to cont with HEP. no further OT sessions needed unless swelling or scar adhesions arise. Pt agrees with POC. Rehabilitation Potential: Excellent - Anticipated Interventions Anticipated Interventions: Education re Diagnosis, Education re Skin Care and Precautions, Education re Self Massage Techniques, Home Program Other Interventions: lymphedmea signs.symptoms. Exercise - Visit Plan TEXT: Thank you for the opportunity to evaluate your patient. For Medicare and Medicare HMO plans, please review the plan of care and approve it. It will need to be FAXED BACK to us at [phone] for Medicare purposes. Please let me know if there are questions or concerns regarding this plan of care. Physician Signature: Date: <Electronically signed by Cassandra WISEMAN/Jessica, CHT> 01/23/18 6568 CC: Kan Vargas MD; Bisi Manley NP MK Signed For Medicare only, by signing this I certify the plan of care. Physicians Signature Date CONSULTATION Observed: 01/20/2018 Status: F Source: [place] 2:00 PM [facility] REPOSITORY [facility] Medical Records Department [address] [place] [address] Consultation 01/20/18 1344 MR#: [id number] Acct: [id number] Name: JIMMIE WEATHERS Rep #: [id number] : 1945 72 From: Man Morgan DO PCP: Amarilis Cheung MD Status: REG RCR Y Location: [facility] Date of Service: 01/20/18 Referring Provider: Amarilis Hernandez Diagnosis: Jimmie Weathers is a 72-year-old postmenopausal female diagnosed with pathologic stage I (pT1a pN0 (sn) M0) 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 History of Present Illness: Breast biopsy 2015, fibrocystic change with no evidence of malignancy. Screening mammography in 2017 was not completed. 11/19/2017: Patient underwent bilateral screening mammography which demonstrated a focal asymmetry in the upper outer quadrant of the right breast measuring 0.6 x 0.7 x 0.7 cm, this appears unchanged in size however the margins appear to have spiculations. A biopsy marker is noted in the right upper outer quadrant. No significant suspicious findings are noted in the left breast. BI-RADS Category 0 recommend ultrasound. 11/21/2017: Ultrasound of the right breast was performed which demonstrated a solid-appearing mass with likely benign morphology at the mid breast depth 11 o'clock position measuring 5.5 mm. Possible spiculations noted on the mammogram are not present on the ultrasound, there is mild shadowing which is not present on the prior study and there is a biopsy marker that is separate from the lesion. BI-RADS Category 2. 12/06/2017: Ultrasound-guided needle core biopsy of the right breast and punch biopsy of skin lesion on the left leg were performed. Right breast core biopsy showed evidence for grade 1 invasive carcinoma (ER >95%, HI >95%, Her2 1-2+ not amplified on FISH). 12/20/2017: MRI breast was performed. Within the right breast there is an irregular enhancing mass measuring 2.3 x 9 x 7 millimeters at the 11 to 12 o'clock position. There is a tissue clip artifact within the right breast anterior to this mass. There are no abnormal enhancing masses or areas of non-mass enhancement in the left breast and there are no enlarged or abnormal lymph nodes noted. BI-RADS Category 6 12/25/2017: Patient underwent right breast lumpectomy with sentinel lymph node biopsy. Pathology demonstrated 0.5 x 0.5 cm grade 2 invasive ductal carcinoma with focal cribriform features (ER >95%, HI >95%, Her2 1-2+ not amplified on FISH), LVSI not identified, margins negative (closest is 0.7 cm from superior and posterior margin, 0/6 sentinel LNs contained metastatic carcinoma. pT1a pN0 (sn). Radiation Treatment History: None. Denies history of collagen vascular disease. Does not have a pacemaker. Interval History: Patient presents for initial consultation. She reports that she did not have any notable symptoms prior to completing screening mammography in November. In particular she denies having any skin irritation/redness, palpable masses/lesions, nipple inversion/discharge, or other changes to her breast. She also denies having any unexpected weight loss or increase in fatigue. She reports healing well from surgery but does still have some occasional tenderness involving the right breast lumpectomy region as well as the right underarm. She also complains of some pulling/tightness when she raises her arm over her head but does report having full range of motion. She denies any swelling in her breast or arm. She remains active and has no problems with completing activities of daily living. She denies any shortness of breath, chest pain, cough, bone pain, headaches, vision changes, or other problems at this time. Family History (Last Reviewed 01/20/18 @ 10:16 by Crystal Singh) Father CAD (coronary artery disease) Hypertension Mother Bleeding disorder Sister Bleeding disorder Medical History (Last Reviewed 01/20/18 @ 10:15 by Crystal Singh) Breast cancer in female (Acute) Breast cancer (Acute 12/2017) GERD (gastroesophageal reflux disease) (Acute) Hemorrhoids (Acute) Hypothyroidism (Acute) Osteoarthritis (Acute) HTN (hypertension) (Chronic) Surgical History (Last Reviewed 01/20/18 @ 10:15 by Crystal Singh) History of lumpectomy (Acute) S/P breast biopsy (Acute) S/P breast biopsy (Acute) S/P colonoscopy (Acute) S/P dilation and curettage (Acute) S/P tubal ligation (Acute) Status post left hip replacement (Acute) Status post right hip replacement (Acute) Social History - Tobacco Smoking Status Never smoker Smokeless tobacco usage: Never Passive smoke exposure: No Social History - Substance Drug use: No Caffeine use [drinks/day]: 0 Alcohol use: No Social History - Living Arrangements Patients Living Arrangements With Significant Other Gynecological History Age at first period: 15 Hx Age of Menopause 42 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 Hx Control Yes: briefly Hx Hormone Therapy Yes Obstetrical History Number of pregnancies: 3 Number of children: 3 Have you ever breastfed in the No past? Breast Health Monthly breast self-exams No performed? Do you have regular clinical Yes breast examinations? Date of last mammogram: 10/21/17 Have you ever had an abnormal Yes, biopsy 2016 was benign. reports screening annually for many years, missed 2017. mammogram? Home Medications Medication Instructions Recorded cholecalciferol (vitamin D3) 2,000 2,000 unit PO QDAY 12/03/17 unit capsule hydrochlorothiazide 25 mg tablet 25 mg PO QDAY 12/03/17 levothyroxine 88 mcg tablet 50 mcg PO QDAY 12/03/17 Allergy/AdvReac Type Severity Reaction Status Date / Time No Known Allergies Allergy Verified 01/20/18 10:17 Health Maintenance Do you regularly see your Yes primary care physician? Have you ever had a Yes colonoscopy? Date of last colonoscopy: 07/08/15 I have reviewed the medical, surgical, and other pertinent history in details and have updated medication and allergy information in the electronic medical record. Review of Systems: A 12-point review of systems was completed and was negative except for what is noted in the HPI/Interval History and by the nurse. Height/Weight/BMI: Height: 5 ft 4 in Weight: 59.874 kg BMI: 22.6 Vital Signs Temperature 97.9 F 01/20/18 10:17 Temperature Source Oral 01/20/18 10:17 Physical Exam: ECO KARNOFSKY SCORE: 100% CONSTITUTIONAL: Well-developed, well-nourished, and in no apparent distress. HEENT: Mucous membranes moist. No evidence of thrush or lesions within the visualized oropharynx or oral cavity. No trismus. Pupils are equal, round, and reactive to light and accommodation. Extraocular movements are intact. Sclerae are anicteric. NECK: Supple,with no thyromegaly, and non-tender. Trachea midline. No cervical or supraclavicular adenopathy noted. CARDIAC: Regular rate and rhythm. Normal S1, S2. No murmurs, rubs, or gallops. PULMONARY/CHEST: Lungs are clear to auscultation and percussion bilaterally. No wheezes, rhonchi, or crackles noted. No increased work of breathing. BREAST: The bilateral breasts are examined in the seated and supine position. Breasts appear symmetrical. There is a 3-4 cm upper outer quadrant right breast lumpectomy incision that is well-healed without evidence of dehiscence or oozing. There is also a small incision involving the right axilla which is well-healed. There are no palpable masses in either breast or axilla. ABDOMINAL: Abdomen soft, non-tender, non-distended. No hepatomegaly. Normoactive bowel sounds in all four quadrants. No guarding, rebound. BACK: Straight and aligned. No CVA tenderness. Axial skeleton non-tender to percussion. EXTREMITIES: Full range of motion in all four extremities, with normal strength equally and symmetrically. No evidence of edema. No clubbing. NEUROLOGICAL EXAM: Alert and oriented x 3. Cranial nerves II through XII are grossly intact. No focal neurological deficit. Speech is fluent. There is no upper or lower extremity sensory deficit or motor deficit. Imaging: As per HPI Laboratory Data: CBC completed 12/25/2017 and CMP completed 01/07/2018 are unremarkable. 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 Plan: I had a detailed discussion with the patient regarding diagnosis and treatment options for stage I breast cancer. I discussed with her multiple randomized trials that demonstrate that the addition of radiation therapy after lumpectomy can reduce the risk of local recurrence within the breast by 60% and can provide improvement in overall survival. I explained to her that in general, based on meta-analysis data, the general 5-yr risk of a local recurrence is on the order of 26% and that radiation reduces this risk to around 7%. I also explained to her that the magnitude of this risk reduction translates into an overall survival benefit at 15 yrs. I discussed that while these benefits were shown in higher risk patient populations with outdated chemotherapy, that the relative benefit from radiation therapy in terms of improvement of disease control same even if the effect on absolute benefit is lower. I discussed with her that there have been attempts to limit radiation in more elderly low risk patients. The CALGB 9343 study randomized women 70 yrs or older with clinical T1 tumors and clinically negative axilla to lumpectomy alone versus lumpectomy+radiation (the majority of women received anti-endocrine therapy in that group). Risks of local recurrence at 10 yrs were approximately 2% in the radiation group and 8% in the lumpectomy alone group. More recently, the (PRIME-2) examined the exact same question in women that were 65 years or older with pathologic stage I-II (up to 3 cm), ER+, pathologically node negative (on SLNBx) invasive breast cancers. This study has shorter follow-up (5 yrs), but shows that the risk of local recurrence is 1.3% with radiation and 4.1% with lumpectomy alone this data is very similar to the 5 yr data from the CALGB 9343 study. In both studies, there was no difference in overall survival between the two groups. Therefore, while radiation significantly reduces the risk of a local recurrence, the absolute risk of recurrence in this population of women (older women, smaller tumors, ER+) is much lower than the general risk for younger women or those with higher risk features, and there is no survival advantage. I believe that because she is a 72-year-old female with very low risk disease that hypofractionated radiation therapy with hormone therapy or hormone therapy alone would both be reasonable options depending on the patient's comfort with excepting a higher risk of recurrence within the ipsilateral breast. However, because she is a very healthy an active 72-year-old, I do believe she may derive benefit from radiation therapy and I have recommended this treatment for her. I also explained that some patients may find that they do not tolerate hormone therapy well several months after starting it, for radiation therapy we will want to initiate treatment no later than 12 weeks postop. She is planning to start hormone therapy and has diagnosis of mild osteoporosis, she is taking VitD/Calcium and is being cleared by her dentist in the near future for Prolia injections. I explained what a course of breast radiation entails. Radiation proceeds over several week times and is delivered Saturday through Saturday, 5 days per week. The process for planning a radiation course including the need for CT simulation, placement of tattoos, generation of a virtual 3D conformal radiation therapy plan from the acquired CT images, and the need for verification of the computer generated plan prior to beginning treatment was explained. I discussed the rationale, risks and benefits of radiation therapy with the patient. The acute risks include, but are not limited to: Fatigue, skin irritation including desquamation particularly along skin folds, breast pain or discomfort, and breast swelling. The long-term risks include, but are not limited to: residual hyperpigmentation or hypopigmentation (10%); skin telangectasias; radiation pneumonitis (<0.5%); lung scarring/fibrosis; breast fibrosis and change in breast contour with a 15-20% risk of poor cosmetic outcome; radiation-induced heart disease, particularly for left-sided breast cancers; shoulder stiffness or reduced ROM; lymphedema (1-2% increased risk above surgical risk); rib fracture (<1%); remote-risk of radiation-induced malignancy. At the end of the discussion, the patient had many questions all of which were thoroughly answered. I explained that with or without radiation therapy I would strongly recommend that she pursue hormone therapy and continue vigilant screening with mammography in the future. Patient is tentatively planning to return for CT simulation for treatment planning on 02/03/2018 and will call in the interim if she has any questions or concerns. Thank you for allowing me to participate in the management and care of your patient. If I may answer any questions in the interim, please do not hesitate to contact me at any time. Man Morgan DO, MS Mottle Lay Up Operator, Department of Radiation Oncology [facility] 01/20/18 1400 <Electronically signed by Man Morgan DO> Date Man Morgan DO Cosigner Signature (if applicable): Date CC: Cherelle Patton MD; Amarilis Hernandez MD; Amarilis Cheung MD Signed ONCOLOGY VISIT REPORT Observed: 01/14/2018 Status: F Source: [place] 2:54 PM [facility] [address] [place] [id number] OFFICE VISIT Date of Service: 01/14/18 1313 MR#: [id number] Acct: [id number] Name: JIMMIE WEATHERS Devon Rep #: [id number] : 1945 From: Bisi MYERS Age/Sex: 72/F Location: [facility] Status: Signed Subjective - Date of Service Date of Service:: 01/14/18 - Chief Complaint Endocrine therapy education - History of Present Illness Patient is a 72-year-old female who presented after an abnormal screening mammogram and a biopsy confirming an invasive ductal cancer of the right breast. On December 25, 2017 she underwent a right partial mastectomy with sentinel lymph node sampling. Pathologic examination revealed a single focus of invasive ductal cancer 0.5 cm in maximum diameter with an overall grade 2 (score of 6), no lymphovascular invasion was identified, DCIS was present compromising less than 5% of tumor volume and margin was -0.7 cm. Tumor is ER positive (95%), HI positive (95%) and HER-2 equivocal by IHC, negative by FISH. Post operative course uncomplicated. - Interval History The patient is presenting to clinic accompanied by spouse for endocrine therapy education. Although she reports she is adjusting well to her ca diagnosis, she voices concern about the fear of recurrence stating everyone she's known diagnosed with breast cancer in her life has now passed. Denies debilitating fear or interference with her ADLs. Reports improving ROM of RUE, although some limitation d/t tightness and discomfort. C/o vaginal dryness at baseline, utilizing water based lubricant with modest improvement. Underwent DEXA scan today. Has an appointment with dental provider next week. - Past Medical/Social History Past Medical History Cancer: Breast cancer Social History Smoking Status Never smoker Review of Systems Constitutional:: Denies: Fever, Sweats, Weight loss, Appetite change, Chills Cardiovascular:: Denies: Chest pain, Palpitations, Dyspnea on exertion, Orthopnea, PND, Shortness of breath Respiratory: Denies: Cough, Hemoptysis, Shortness of Breath, Wheezing Gastrointestinal:: Denies: Abdominal pain, Nausea, Vomiting, Diarrhea, Constipation, Hematochezia Genitourinary: Denies: Dysuria, Hematuria, 15, Flank pain Musculoskeletal:: Denies: Back pain, Myalgia, Arthralgia Skin: Denies: Rash, Skin Changes, Wounds Neurological:: Denies: Headache, Dizziness, Numbness, Tingling, Visual changes, Tinnitus, Hearing loss Psychiatric: Denies: Anxiety, Depression, Homicidal Ideations, Suicidal Ideations Vital Signs Height 5 ft 4 in Weight: 130 lb 9.6 oz Weight in Pounds 130.6 lbs Pulse Ox 99 - Physical Exam General: Alert, Oriented x3, No apparent distress HEENT: Atraumatic, Normocephalic Psychiatric:: Appropriate affect, Euthymic Breast:: - - Deferred today Assessment and Plan 72-year-old female with stage I (T1a, N0, M0) invasive ductal cancer of the right breast, primary tumor 0.5 cm, overall grade 2, ER positive, HI positive, HER-2 not amplified. Patient is status post partial mastectomy and sentinel lymph node biopsy December 25, 2017. 1. Stage I breast ca- Systemic adjuvant hormonal therapy with an aromatase inhibitor for at least 5 years has been proposed. A formal radiation oncology consultation to discuss the pros and cons of adjuvant radiation therapy has been scheduled with Dr. Morgan 01/20/18. The patient has been thoroughly educated to risks/benefits associated with anastrozole. Specifically, she has been educated to potential side effects, recommendations for symptom management, and circumstances in which she should contact provider prior to planned follow up, such as myalgias, hot flashes causing interference with ADLs. She has been provided written educational information regarding aromatase inhibitor therapy and lists of estrogenic herbs/supplements to avoid. I reviewed recommendations for calcium and vitamin D supplementation and the importance of weight bearing activity. A significant amount of time was allotted for questions. All the patient's concerns were addressed to her satisfaction and she is agreeable to proceed. Rx for anastrozole provided. Referral placed to occupational therapy for post lumpectomy stretching and ?lymphedema massage education. 2. Osteopenia- Patient has a history of osteopenia and reported that left her last bone density study was over 2 years ago. 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 She was instructed to continue with her vitamin D and calcium supplements. Bisi Manley, MSN, NARROW FABRIC CALENDERER, AOCNP Medications: Prescriptions This Visit Medication Instructions Recorded Acetaminophen [Tylenol Extra 500 mg PO BID 01/07/18 Strength] Primary Care Provider: Amarilis Cheung Referring Provider: Amarilis Hernandez - Problem List (1) Breast cancer in female Status: Acute Qualifiers: Estrogen receptor status: positive Laterality: right (2) Educational circumstance Status: Acute 01/14/18 1454 <Electronically signed by Bisi MYERS> Date Bisi MYERS Cosigner Signature: Date (if applicable) CC: DEXA BONE DENSITY Observed: 01/14/2018 Status: F Source: [place] STUDY 10:52 AM [facility] REPOSIT[facility] Imaging Services [address] [place] [address] Dexa Bone Density Study MR#: [id number] Acct: [id number] Name: JIMMIE WEATHERS #: [id number] : 1945 F 72 From: Rafael Barry MD PCP: Amarilis Cheung MD Status: REG CLI Study: Dexa Bone Density Study Date of Exam: 01/14/18 Exam# [id number] Ordering Dr: Cherelle Patton MD STUDY: DUAL ENERGY X-RAY ABSORPTIOMETRY / DXA REASON FOR EXAM: Female, 72 years old. The patient is postmenopausal. Loss of height. History of breast cancer. TECHNIQUE: Bone Mineral Density (BMD) measurements of lumbar spine and right forearm were obtained. The patient is status post bilateral hip replacement. COMPARISON: None. FINDINGS: Lumbar Spine (L1-L4): g/cm2 (0.943) / T-score (-2.0) / Z-score (-0.3) Findings are suggestive of osteopenia with a moderate fracture risk. Right Forearm: g/cm2 (0.642) / T-score (-2.7) / Z-score (-0.7) BD/Dexa Bone Density Study IMPRESSION: The patient is considered osteoporotic as outlined below according to World Yassine Organization (WHO) criteria with a high fracture risk. Reference Information: The T-score is the number of standard deviations above or below the standard which is normal for young adults at their peak bone mineral density. The World Health Organization (WHO) interprets the T-scores as follows: Above -1 Normal bone density Between -1 and -2.5 Osteopenia Equal to / or below -2.5 Osteoporosis As a practical clinical guideline, osteopenia may be graded as follows: Mild -1 through -1.5 Moderate -1.6 through -2.0 Severe -2.1 through -2.4 The Z-score is the number of standard deviations above or below age-matched controls. A Z-score of less than -1.5 would be considered abnormal. References: 1. NIH Osteoporosis and Related Bone Diseases http://www.osteo.org 2. International Society for Clinical Densitometry http://www.iscd.org 3. National Osteoporosis Foundation http://www.nof.org Electronically Signed: Rafael Barry MD at 9:21 EDT Tel [phone], Service support , CC: Cherelle Patton MD; Amarilis Cheung MD Certified Legal Secretary Specialist: Signed SURGERY VISIT REPORT Observed: 01/13/2018 Status: F Source: [place] 11:51 AM [facility] REPOS[facility] [address] [place] [address] [address] [place] [address] OFFICE VISIT Date of Service: 12/03/17 MR#: [id number] Acct: [id number] Name: ELVISANISHA TorresENA Osorio Rep #: [id number] : 1945 Provider: Jean-Paul Perea MD Age/Sex: 72/F Location: [facility] Status: Signed Intake Vital Signs12/03/17 Height 5 ft 3.5 in 12/03/17 Weight: 128 lb 2 oz 12/03/17 Body Mass Index (BMI) 22.3 12/03/17 Blood Pressure 134/73 Intake Visit Reasons: ABN MAMMO RIGHT BREAST Chief Complaint: abn mammo right--hx biopsy Soubrette Required: No Is patient in pain?: No Allergies No Known Allergies Allergy (Verified 01/07/18 13:28) Medications cholecalciferol (vitamin D3) 2,000 unit capsule 2,000 unit PO QDAY 12/03/17 [History Confirmed 01/07/18] hydrochlorothiazide 25 mg tablet 25 mg PO QDAY 12/03/17 [History Confirmed 01/07/18] levothyroxine 88 mcg tablet 50 mcg PO QDAY 12/03/17 [History Confirmed 01/07/18] multivitamin tablet 1 tab PO QDAY 12/03/17 [History Confirmed 01/07/18] sennosides 8.6 mg tablet 8.6 mg PO BID PRN 12/03/17 [History Confirmed 01/07/18] Calcium Carb/Vitamin D3/Vit K1 [Viactiv Soft Chew] 1 ea PO DAILY 12/24/17 [History Confirmed 01/07/18] Lansoprazole [Prevacid] 15 mg PO DAILY 12/24/17 [History Confirmed 01/07/18] Acetaminophen [Tylenol Extra Strength] 500 mg PO BID 01/07/18 [History Confirmed 01/07/18] Is last menstrual period known: No Post menopausal: Yes Patient : No PFSH Medical History Breast cancer in female (Acute) Breast cancer (Acute 12/2017) GERD (gastroesophageal reflux disease) (Acute) Hemorrhoids (Acute) Hypothyroidism (Acute) Osteoarthritis (Acute) HTN (hypertension) (Chronic) Surgical History History of lumpectomy (Acute) S/P breast biopsy (Acute) S/P breast biopsy (Acute) S/P colonoscopy (Acute) S/P dilation and curettage (Acute) S/P tubal ligation (Acute) Status post left hip replacement (Acute) Status post right hip replacement (Acute) Family History Father CAD (coronary artery disease) Hypertension Mother Bleeding disorder Social History Smoking Status: Never smoker HPI HPI HPI: JIMMIE WEATHERS, is a 72 F who presents to the office today for evaluation of an abnormal mammogram and ultrasound to her right breast. Her mammogram and ultrasound were completed in [facility] on 11/19/2017 and 11/21/2017. The ultrasound showed a solid-appearing mass with likely benign morphology and hypoechoic echotexture mid depth at the 11 o'clock position approximately 5 x 5 mm in size on her mammogram there was a focal asymmetry in the upper outer quadrant measuring 7 mm in greatest diameter the margins they thought might have spiculations and I gave her a BI-RADS Category 2 benign findings. ROS General General: No weight change, appetite, fatigue, colon cancer, breast cancer or weakness HEENT HEENT: No difficulty swallowing, eye injury, eye surgery, swollen glands or hoarseness Endo Endocrine: Yes thyroid disease; no diabetes mellitus, thyroid cancer, Hair loss, heat intolerance or cold intolerance Breast Breast: Yes abnormal US; no left breast lump, right breast lump, nipple discharge, breast pain, abnormal mammogram or breast enlargement Musc Musculoskeletal: Yes arthritis; no back problems, rheumatoid arthritis, gout or joint pain Cardio Cardiovascular: Yes high blood pressure; no murmur, pacemaker, heart disease, atrial fibrillation, heart attack, heart stent, palpitations, shortness of breat with exertion or chest pain Psych Psychiatric: No depression, anxiety or hearing voices Resp Respiratory: No shortness of breath, No sleep apnea, No cough, No COPD, No asthma, No emphysema, No wheezing Gastro Gastrointestinal: No abdominal pain, No nausea or vomiting, No diarrhea, Yes constipation, No blood in stool, Yes acid reflux, Yes hemorrhoids, No ulcers, No gallbladder problem, No black,tarry stools Eyad Hematologic: No blood thinners, No blood disorders, No bleeding, No anemia, No blood clots Neuro Neurologic: No weakness Exam [facility] Head: normal to inspection, normocephalic, atraumatic Mouth: moist mucous membranes, oropharynx normal Eyes General: appearance normal, both eyes and all related structures Sclera: sclerae normal Neck Neck: no lymphadenopathy noted, trachea midline Neck mass: No Thyroid: thyroid normal Lymphatic: no lymphadenopathy noted Chest Breast inspection: normal inspection of the breasts Breast Palpation: No nipple discharge Resp Other: Respiratory Exam: Deferred Cardio Heart Sounds: no murmurs Other: Cardiac Exam: Deferred GI Other: GI Exam: Deferred Other: Rectal Exam: Deferred Extrem Other: Extremity Exam: Deferred Assessment AND Plan Problems 1. Abnormal mammogram of right breast R92.8 Plan I have discussed above with the patient. I have recommended ultrasound guided needle core breast biopsy with vacuum assistance. I have described the procedure to the patient. I have discussed with the patient that sometimes the ultrasound lesion may be artifact and is user dependent and therefore prior to undergoing the procedure, the patient will have a definitive US to ensure that the lesion is truly present and is not artifact. A marker clip will be placed to identify the location. Patient has been counseled to the risks/benefits of the procedure. I have explained the risks of the surgery, including but not limited to: infection, bleeding, injury to any blood vessels/nerves, scar tissue, missing the lesion, further surgery, etc. - the patient understands and agrees to proceed. I have answered all of the patient's questions to her satisfaction and she has no further questions. Coding Level of Care Code Off vis,new,level 3 Diagnoses Abnormal mammogram of right breast R92.8 01/13/18 1151 <Electronically signed by Jean-Paul Perea MD> Date Jean-Paul Perea MD Cosigner Signature: Date (if applicable) CC: HANNA URRUTIA CBC W/DIFF, AUTOMATED Collected: 01/07/2018 Status: F Source: [place] 3:14 PM [facility] REPOSITORY Order Comment: Reason for Laboratory Test . TYPE CODE TESTS RESULT OUT OF RANGE REFERENCE UNITS LAB L100.1000 4.4-11.0 K/mm3 Normal WBC 7.8 LAB L100.1200 4.2-5.4 M/mm3 Normal RBC 4.52 LAB L100.1300 12.0-15.0 g/dl Normal HGB 14.0 LAB L100.1400 37-47 % Normal HCT 42.5 LAB L100.1500 81-99 fL Normal MCV 94.0 LAB L100.1600 27.0-32.0 pg Normal MCH 31.0 LAB L100.1700 32-36 g/gl Normal MCHC 32.9 LAB L100.1810 11.6-14.6 % Normal RDW CV 12.1 LAB L100.1820 35.1-43.9 fl Normal RDW SD 41.0 LAB L100.1900 150-450 K/mm3 Normal PLT 215 LAB L100.2000 6.2-12.0 fl Normal MPV 10.2 LAB L100.2100 47-70 % Normal NEUT% 68.9 LAB L100.2200 19-41 % Normal LY% 20.7 LAB L100.2300 0-10 % Normal MONO% 7.3 LAB L100.2400 0-5 % Normal EO% 2.2 LAB L100.2500 0-1 % Normal BASO% 0.8 LAB L100.2550 0.0-0.9 % Normal IM GRAN % 0.100 Result Comment: IG% - Immature Granulocytes (promyelocytes, myelocytes and metamyelocytes) > 1% indicates that a LEFT SHIFT is Present. LAB L100.2620 2.0-7.7 X10 3/uL Normal Absolute Neut 5.4 LAB L100.2720 0.83-4.51 X10 3/ul Normal Absolute Lymph 1.62 Performed By: #### L100.0100 #### [facility] [address] [place], [address] COMPREHENSIVE METABOLIC Collected: 01/07/2018 Status: F Source: MAL[place]SA IBARRA 3:14 PM [facility] REPOSITORY Order Comment: Reason for Laboratory Test . TYPE CODE TESTS RESULT OUT OF RANGE REFERENCE UNITS LAB L501.0100 74-106 mg/dL High GLU 112 Result Comment: Fasting Glucose result from 100 to 125 mg/dL suggests IMPAIRED HOMEOSTASIS per A.D.A. criteria. Please note revised GLUCOSE reference range effective 2017. LAB L501.1000 7-18 mg/dL Normal BUN 14 LAB L501.1100 0.55-1.02 mg/dL Normal CREAT,SERUM 0.95 Result Comment: The validity of the calculated GFR AND GFRAA in patients over 70 years has not been determined. Clinical correlation is essential. LAB L501.1110 >60 mL/min Normal EST GFR 62 Result Comment: Non- GFR Calc LAB L501.1115 >60 mL/min Normal EST GFR - AA 75 Result Comment: GFR Calc LAB L501.1255 ml/min Normal Estimated CRCL 46.90 LAB L501.1300 10-20 RATIO Normal BUN/CRE 14.8 LAB L501.1500 6.4-8. g/dL Normal 2 T PROT 7.7 LAB L501.1800 3.2-5. g/dL Normal 0 ALB 3.9 LAB L501.1950 2.2-4. g/dL Normal 2 GLOB 3.8 LAB L501.2000 0.9-2. RATIO Normal 4 A/G 1.0 LAB L501.2200 8.5-10 mg/dL Normal .1 CA 8.9 LAB L501.4100 15-37 U/L Normal AST 25 Result Comment: Slight Hemolysis, Result may be falsely increased. LAB L501.4305 45-117 U/L Normal ALK P 88 LAB L501.4405 13-56 U/L Normal ALT 33 LAB L501.4600 0.20-1.00 mg/dL Normal T BILI 0.40 LAB L501.5300 136-145 mmol/L Normal NA 141 LAB L501.5600 3.5-5.1 mmol/L Normal K 3.7 Result Comment: Slight Hemolysis, Result may be falsely increased. LAB L501.5900 98-107 mmol/L Normal CL 102 LAB L501.6100 21.0-32.0 mmol/L High CO2 33.0 LAB L501.6200 5-15 Normal 6 GAP Performed By: #### L500.4050 #### [facility] [address] [place], [address] ONCOLOGY HISTORY AND Observed: 01/07/2018 Status: F Source: [place] PHYSICAL 2:38 PM [facility] REPOSITORY [facility] Medical Records Department [address] [place] [address] History and Physical 01/07/18 1424 MR#: [id number] Acct: [id number] Name: JIMMIE WEATHERS Rep #: [id number] : 1945 72 From: Cherelle Patton MD PCP: Amarilis Cheung MD Status: REG RCR Y Location: OMD - Problem List (1) Breast cancer in female Status: Acute Qualifiers: Subjective Date of Service:: 01/07/18 Chief Complaint: Breast cancer History of Present Illness: Patient is a 72-year-old female who presented after an abnormal screening mammogram and a biopsy confirming an invasive ductal cancer of the left breast. On December 25, 2017 she underwent a left partial mastectomy with sentinel lymph node sampling. Pathologic examination revealed a single focus of invasive ductal cancer 0.5 cm in maximum diameter with an overall grade 2 (score of 6), no lymphovascular invasion was identified, DCIS was present compromising less than 5% of tumor volume and margin was -0.7 cm. Tumor is ER positive (95%), HI positive (95%) and HER-2 equivocal by IHC, negative by FISH. Patient has recovered well from her recent surgery Health History: Past Medical History Cancer: Breast cancer Past Medical History (Last Reviewed 01/07/18 @ 13:47 by Olesya Donis) Breast cancer in female (Acute) Breast cancer (Acute 12/2017) GERD (gastroesophageal reflux disease) (Acute) Hemorrhoids (Acute) Hypothyroidism (Acute) Osteoarthritis (Acute) HTN (hypertension) (Chronic) Past Surgical History (Last Reviewed 01/07/18 @ 13:27 by Olesya Donis) History of lumpectomy (Acute) S/P breast biopsy (Acute) S/P breast biopsy (Acute) S/P colonoscopy (Acute) S/P dilation and curettage (Acute) S/P tubal ligation (Acute) Status post left hip replacement (Acute) Status post right hip replacement (Acute) Family History (Last Updated 01/07/18 @ 13:27 by Olesya Donis) Father CAD (coronary artery disease) Hypertension Mother Bleeding disorder Sister Bleeding disorder Allergies/Adverse Reactions: Allergy/AdvReac Type Severity Reaction Status Date / Time No Known Allergies Allergy Verified 01/07/18 13:28 Risk Factors Social History Smoking Status Never smoker Tobacco Risk Data: Tobacco Risk Smoking Status Never smoker Type of tobacco: Smokeless tobacco usage: Items/Day: Year started: Years used: Counseled to quit/cut down: Reason for no counseling performed: Reason for no pharmacotherapy: Tobacco use comments: Passive smoke exposure: No Substance Risk Drug use: No Caffeine use [drinks/day]: 0 Alcohol use: No Type of alcohol: Drinks per day: Has patient felt the need to cut down: Has the patient been annoyed by complaints: Has the patient felt guilty about drinking: Has the patient needed an eye group insurance specialist in the mornings: Comments: Date of last colonoscopy:: 07/08/15 Date of last mammogram:: 10/21/17 Review of Systems Constitutional:: Denies: Fever, Sweats, Weight loss, Appetite change, Chills Cardiovascular:: Denies: Chest pain, Palpitations, Dyspnea on exertion, Orthopnea, PND, Shortness of breath Respiratory: Denies: Cough, Hemoptysis, Shortness of Breath, Wheezing Gastrointestinal:: Denies: Abdominal pain, Nausea, Vomiting, Diarrhea, Constipation, Hematochezia Genitourinary: Denies: Dysuria, Hematuria, 15, Flank pain Musculoskeletal:: Reports: Arthritis - Degenerative joint disease, Arthralgia. Denies: Back pain, Myalgia Skin: Denies: Rash, Skin Changes, Wounds Neurological:: Denies: Headache, Dizziness, Visual changes, Tinnitus, Hearing loss Psychiatric: Denies: Anxiety, Depression, Homicidal Ideations, Suicidal Ideations Vital Signs Height 5 ft 4 in Weight: 60.6 kg Weight in Pounds 133.6 lbs Pulse Ox 100 - Physical Exam General: Alert, Oriented x3, No apparent distress, - HEENT: Atraumatic, PERRLA, EOMI, Normocephalic Oropharynx:: Dry mucosa Neck:: Supple, Trachea midline. Negative for: JVD, bilateral Cardiac:: Regular rate, Regular rhythm, Normal S1, Normal S2. Negative for: Murmur Lungs: Clear to auscultation, Excusion symmetrical. Negative for: Rhonchi, Wheezes Abdomen:: Soft, Non-tender, Non-distended. Negative for: Hepatosplenomegaly Extremities:: Varicosities - DJD. Negative for: Cyanosis, Edema Neurological: Neuro grossly intact Skin:: Negative for: Lesions, Rash, Petechiae, Ecchymosis Psychiatric:: Appropriate affect, Euthymic Lymphatics:: Negative for: Cervical lymphadenopathy, Supraclavicular lymphadenopathy, Axillary lymphadenopathy Assessment and Plan 72-year-old female with stage I (T1a, N0, M0) invasive ductal cancer of the left breast, primary tumor 0.5 cm, overall grade 2, ER positive, HI positive, HER-2 not amplified. Patient is status post partial mastectomy and sentinel lymph node biopsy December 25, 2017. I reviewed the most recent NCCN guidelines for adjuvant therapy and recommend: 1. Systemic adjuvant hormonal therapy with an aromatase inhibitor for at least 5 years. Pros and cons of therapy discussed with patient and a formal teaching session with AEROSPACE STRESS ENGINEER to be scheduled. 2. A formal radiation oncology consultation to discuss the pros and cons of adjuvant radiation therapy. For women 65 years old with node-negative, hormone receptor-positive primary tumors up to 3 cm for whom endocrine therapy is planned, RT may reasonably be excluded. 3. Patient has a history of osteopenia and reported that left her last bone density study was over 2 years ago. 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 She was instructed to continue with her vitamin D and calcium supplements. Comorbid conditions: Osteopenia, dyslipidemia, hypertension, hypothyroidism and DJD Medications: Prescriptions This Visit Medication Instructions Recorded Acetaminophen [Tylenol Extra 500 mg PO BID 01/07/18 Strength] Primary Care Provider: Amarilis Cheung Referring Provider: Amarilis Hernandez 01/07/18 1438 <Electronically signed by Cherelle Patton MD> Date Cherelle Patton MD Cosigner Signature: Date (if applicable) CC: Cherelle Patton MD; Amarilis Hernandez MD; Amarilis Cheung MD Signed SURGERY VISIT REPORT Observed: 01/02/2018 Status: F Source: [place] 1:21 PM [facility] REPOSITORY [facility] [address] [place] [address] [address] [place] [address] OFFICE VISIT Date of Service: 01/02/18 MR#: [id number] Acct: [id number] Name: JIMMIE WEATHERS Rep #: [id number] : 1945 Provider: Amarilis Hernandez MD Age/Sex: 72/F Location: [facility] Status: Signed Intake Intake Visit Reasons: Lumpectomy 12/26 Chief Complaint: abn mammo right--hx biopsy Soubrette Required: No Is patient in pain?: No Allergies No Known Allergies Allergy (Verified 01/02/18 13:13) Medications cholecalciferol (vitamin D3) 2,000 unit capsule 2,000 unit PO QDAY 12/03/17 [History Confirmed 01/02/18] hydrochlorothiazide 25 mg tablet 25 mg PO QDAY 12/03/17 [History Confirmed 01/02/18] levothyroxine 88 mcg tablet 50 mcg PO QDAY 12/03/17 [History Confirmed 01/02/18] multivitamin tablet 1 tab PO QDAY 12/03/17 [History Confirmed 01/02/18] sennosides 8.6 mg tablet 8.6 mg PO BID PRN 12/03/17 [History Confirmed 01/02/18] Calcium Carb/Vitamin D3/Vit K1 [Viactiv Soft Chew] 1 ea PO DAILY 12/24/17 [History Confirmed 01/02/18] Lansoprazole [Prevacid] 15 mg PO DAILY 12/24/17 [History Confirmed 01/02/18] Hydrocodone Bitart/Apap 5-325 [[place] 5MG-325MG] 1 tab PO Q6H PRN PRN 3 Days #8 tab 12/25/17 [Rx Confirmed 01/02/18] PFSH Medical History Breast cancer (Acute 12/2017) GERD (gastroesophageal reflux disease) (Acute) Hemorrhoids (Acute) Hypothyroidism (Acute) Osteoarthritis (Acute) HTN (hypertension) (Chronic) Surgical History S/P breast biopsy (Acute) S/P breast biopsy (Acute) S/P colonoscopy (Acute) S/P dilation and curettage (Acute) S/P tubal ligation (Acute) Status post left hip replacement (Acute) Status post right hip replacement (Acute) Family History Father CAD (coronary artery disease) Hypertension Mother Bleeding disorder Social History Smoking Status: Never smoker HPI HPI HPI: JIMMIE WEATHERS, is a 72 F who presents to the office today for surgical follow-up status post upper outer right breast lumpectomy. December 25, 2017 I perform breast conservation surgery utilizing isosulfan due blue dye. Her final pathology demonstrates invasive ductal carcinoma with a less than 5% focus of ductal carcinoma in situ. Tumor size was 0.5 x 0.5 cm. Margins were 0.7 cm. 6 sentinel lymph nodes were negative. Nuclear grade 2. Lymph vascular invasion was not identified. Estrogen receptor was positive at greater than 95%. Progesterone receptor was positive at greater than 95%. HER-2/ramón was equivocal. HER-2/ramón by dual LENY was negative pT1a pN0 Mx She notes some pruritus of the right breast. She notes some soreness in the triceps area of the right upper arm. Exam Chest Other: Right breast: Nicely healing incision upper outer right breast and right axilla. Minimal amount of ecchymosis. No significant fluid. No particular tenderness. No discoloration. No seroma Assessment AND Plan Problems 1. Malignant neoplasm of upper-outer quadrant of right breast in female, estrogen receptor positive C50.411; Z17.0 Plan 72-year-old female with favorable pathology on breast conservation surgery upper outer quadrant right breast. She has had an opportunity to ask and have questions answered. We will arrange for hematology oncology consultation. The patient is also aware that she will need future radiation oncology treatment. We discussed gentle stretching exercises. We discussed activity limitations. At this point she is very pleased with her progress. I anticipate seeing her back at 6 weeks to assure ongoing resolution. I appreciate the ongoing opportunity to assist with her surgical care Cc: Dr. Amarilis Hernandez M.D., F.A.C.S. Orders Referrals: Coding Level of Care Code Global Post Op Diagnoses Malignant neoplasm of upper-outer quadrant of right breast in female, estrogen receptor positive C50.411; Z17.0 Breast location: upper outer quadrant of breast Estrogen receptor status: positive Laterality: right 01/02/18 1321 <Electronically signed by Amarilis Hernandez MD> Date Amarilis Hernandez MD Cosigner Signature: Date (if applicable) CC: Amarilis Cheung MD OPERATIVE REPORT Observed: 12/26/2017 Status: F Source: [place] 1:03 PM [facility] REPOSITORY [facility] Medical Records Department [address] [place] [address] Operative Report 12/25/17 1021 MR#: [id number] Acct: [id number] Name: JIMMIE WEATHERS Rep #: [id number] : 1945 72 From: Amarilis Hernandez MD PCP: Amarilis Cheung MD Status: [facility] Y Location: [facility] Problem List (1) Breast cancer Status: Acute Qualifiers: Breast location: upper outer quadrant of breast Estrogen receptor status: positive Patient sex: female Laterality: right Qualified Code(s): C50.411 - Malignant neoplasm of upper-outer quadrant of right female breast; Z17.0 - Estrogen receptor positive status [ER+] Report of Operation Date of Procedure: 12/25/17 Pre-Operative Diagnosis: Upper outer quadrant right breast cancer Post-Operative Diagnosis: Same Surgery/Procedure Performed:: Stereotactic wire localization upper outer quadrant right breast. Right axillary blue dye sentinel lymph node biopsy with wire localized upper outer quadrant right breast lumpectomy Description of Surgical Findings:: Timeout and informed consent was obtained. 72-year-old female was taken to the stereotactic unit. She was placed prone on the table. The right breast was placed in the cc view. The marking clip in question was identified. Stereotactic images were obtained. Digital information was obtained on a single target site. The breast was prepped with Betadine. 1% lidocaine was used as a local anesthetic. A total of 1/2 cc was used. A 20-gauge Kopans needle was advanced to depth +15 mm. The wire was displaced. On fast view demonstrated good localization. She tolerated the procedure well sterile dressings were applied and she was subsequently taken to the operating for definitive resection. The patient was subsequently taken to the operating room. Placed upon the table. She underwent general anesthesia. The right arm was carefully wrapped with soft roll and placed to right angles to the table. The right breast was prepped with alcohol. 2 cc of 1% isosulfan blue dye was injected in the upper outer right retroareolar breast. Massage was performed for 3 minutes. Then the right breast and axilla were sterilely prepped and draped. Under ultrasound guidance I reinspected the lesion and I added a secondary Kopan's needle to the area of density. Under ultrasound guidance I inserted the needle to place the wire. Then I made a oblique incision of the right axilla sharp and blunt dissection was instituted down through the subcutaneous tissue the blue dye lymphatic tracking was identified to a conglomerate this was dissected free hemostasis obtained with electrocautery 3-0 Vicryl suture ligatures and hemoclips were indicated. Specimen was submitted. Hemostasis was further assured with FloSeal. The wound is then closed with a deep layer of interrupted 3-0 Vicryl and then running septic or 4 Monocryl. The graft a curvilinear incision was made in the upper outer quadrant right breast. Sharp dissection carried down through the substance tissue circumferential dissection was performed. Based upon the stereotactic wire localization as well as the ultrasound-guided wire localization mass lesion was identified circumferential dissection was achieved. The mass was subsequently completely excised. A short suture was placed superiorly at long suture laterally and a single suture anteriorly. Inspection failed to reveal any residual suspicious tissue. Hemostasis was assured. The cavity was irrigated. 0.5% Marcaine was used as local anesthetic and 30 cc was instilled in both the axilla and the breast lumpectomy site. The breast site was closed with a deep layer of interrupted 3-0 Vicryl and then a running septic or 4-0 Monocryl. Strips Telfa OpSite bulky dry dressings were applied. Sponge and instrument and needle counts were reported to the surgeon to be correct. Blood loss was minimal. She tolerated the procedure well was taken to the recovery area in satisfactory condition without apparent complication. Pathology reported 6 sentinel nodes negative. Pathology reported the mass lesion with the closest margin 0.5 cm. Drains none. Blood loss minimal. Amarilis Hernandez M.D., F.A.C.S. Type of Anesthesia:: General Anesthesiologist: Helio Strickland 12/26/17 1303 <Electronically signed by Amarilis Hernandez MD> Date Amarilis Hernandez MD CC: Amarilis Hernandez MD; Amarilis Cheung MD Signed DISCHARGE INSTRUCTION Observed: 12/26/2017 Status: F Source: [place] 1:03 PM [facility] REPOSITORY [facility] Medical Records Department [address] [place] [address] Instructions for Home/Discharge Instructions 12/25/17 1024 MR#: [id number] Acct: [id number] Name: JIMMIE WEATHERS Rep #: [id number] : 1945 72 From: Amarilis Hernandez MD PCP: Amarilis Cheung MD Status: DEP [facility] Discharge Diet: No Restrictions Discharge Activity: May Not Drive - for 2-3 days or while taking narcotic pain meds. May shower in (days): 1 Lifting Restrictions: 10 pounds for 1 week. Call your doctor if your incision/area has: Continuous Slow Oozing, Sudden Increased Bleeding Call your doctor if you observe: Fever of 101 or Higher Suture Line Care: Avoid Pulling/Pushing, Avoid Pinching/Bending Remove Dressing in (days):: 1 - Remove bulky dressing tomorrow. May leave any opsite dressing for 3-4 days. Keep dressing in place until your follow-up appointment. Additional Dressing/Incision Instructions:: Remove bulky dressing tomorrow. May leave any opsite dressing for 3-4 days. Steri-Strips may be left in place for 1 week Allergies/Adverse Reactions: Allergies No Known Allergies Allergy (Verified 12/17/17 14:35) Medications to take at Discharge cholecalciferol (vitamin D3) 2,000 unit capsule 2,000 unit PO QDAY 12/03/17 hydrochlorothiazide 25 mg tablet 25 mg PO QDAY 12/03/17 levothyroxine 88 mcg tablet 50 mcg PO QDAY 12/03/17 multivitamin tablet 1 tab PO QDAY 12/03/17 sennosides 8.6 mg tablet 8.6 mg PO BID PRN 12/03/17 Calcium Carb/Vitamin D3/Vit K1 [Viactiv Soft Chew Tablet] 1 each PO DAILY 12/24/17 Lansoprazole [Prevacid] 15 mg PO DAILY 12/24/17 Primary Care Physician: Amarilis Cheung MD [Primary Care Provider] - Please Follow Up With: Amarilis Hernandez MD When: Office appt. in approximately 7-10 days please [phone] 12/26/17 1303 <Electronically signed by Amarilis Hernandez MD> Date Amarilis Hernandez MD CC: Amarilis Cheung MD 12 LEAD ELECTROCARDIOGRAM Observed: 12/26/2017 Status: F Source: [place] 11:18 AM [facility] REPOSITORY [facility] Cardiovascular Services [address] [place] [address] 12 Lead EKG 12/25/17 0853 MR#: [id number] Acct: [id number] Name: JIMMIE WEATHERS Devon Rep #: [id number] : 1945 72 From: Troy Bernardo MD Attending Dr: Amarilis Hernandez MD Status: DEP SDC Ordering Dr: Fox Hermosillo MD Date: 12/25/17 Location: [facility] Sex: F C Admitted: Test Reason : PREOP Blood Pressure : / mmHG Vent. Rate : 058 BPM Atrial Rate : 058 BPM P-R Int : 154 ms QRS Dur : 074 ms QT Int : 456 ms P-R-T Axes : 054 047 037 degrees QTc Int : 447 ms Sinus bradycardia Otherwise normal ECG No previous ECGs available Confirmed by TROY BERNARDO MD ([id number]), editorial project manager ELDER DOWNEY ([id number]) on 12/26/2017 11:17:32 AM Referred By: Amarilis Hernandez Confirmed By:TROY BERNARDO MD 12/26/17 1117 Date Troy Bernardo MD CC: Fox Hermosillo; Amarilis Hernandez MD; Amarilis Cheung MD Signed BREAST BIOPSY Observed: 12/25/2017 Status: F Source: [place] SPECIMEN 9:12 AM [facility] REPOSITORY [facility] Imaging Services [address] [place] [address] Breast Biopsy Specimen MR#: [id number] Acct: [id number] Name: JIMMIE WEATHERS Rep #: [id number] : 1945 F 72 From: Rafael Barry MD PCP: Amarilis Cheung MD Status: [facility] Study: Breast Biopsy Specimen Date of Exam: 12/25/17 Exam# [id number] Ordering Dr: Amarilis Hernandez MD SURGICAL BREAST SPECIMEN RADIOGRAPH CLINICAL: Document presence of tissue clip marker in biopsy specimen. FINDINGS: Specimen shows presence of tissue clip marker. Electronically Signed: Rafael Barry MD at 15:03 EDT Tel [phone], Service support , BI/Breast Biopsy Specimen CC: Amarilis Hernandez MD; Amarilis Cheung MD Certified Legal Secretary Specialist: Signed CBC-COMPLETE BLOOD CNT Collected: 12/25/2017 Status: F Source: [place] NO DIFF 8:50 AM [facility] REPOSITORY TYPE CODE TESTS RESULT OUT OF RANGE REFERENCE UNITS LAB L100.1000 4.4-11.0 K/mm3 Normal WBC 6.6 LAB L100.1200 4.2-5.4 M/mm3 Normal RBC 4.61 LAB L100.1300 12.0-15.0 g/dl Normal HGB 14.4 LAB L100.1400 37-47 % Normal HCT 43.3 LAB L100.1500 81-99 fL Normal MCV 93.9 LAB L100.1600 27.0-32.0 pg Normal MCH 31.2 LAB L100.1700 32-36 g/gl Normal MCHC 33.3 LAB L100.1810 11.6-14.6 % Normal RDW CV 12.3 LAB L100.1820 35.1-43.9 fl Normal RDW SD 42.0 LAB L100.1900 150-450 K/mm3 Normal PLT 167 LAB L100.2000 6.2-12.0 fl Normal MPV 10.2 Performed By: #### L100.0500 #### [facility] [place], [address] BASIC METABOLIC Collected: 12/25/2017 Status: F Source: [place] PROFILE (BMP) 8:50 AM [facility] REPOSITORY TYPE CODE TESTS RESULT OUT OF RANGE REFERENCE UNITS LAB L501.0100 74-106 mg/dL Normal GLU 90 Result Comment: Please note revised GLUCOSE reference range effective 2017. LAB L501.1000 7-18 mg/dL High BUN 20 LAB L501.1100 0.55-1.02 mg/dL Normal CREAT,SERUM 0.94 Result Comment: The validity of the calculated GFR AND GFRAA in patients over 70 years has not been determined. Clinical correlation is essential. LAB L501.1110 >60 mL/min Normal EST GFR 63 Result Comment: Non- GFR Calc LAB L501.1115 >60 mL/min Normal EST GFR - AA 76 Result Comment: GFR Calc LAB L501.1300 10-20 RATIO High BUN/CRE 21.3 LAB L501.2200 8.5-10.1 mg/dL CA Normal 9.6 LAB L501.5300 136-145 mmol/L NA Normal 139 LAB L501.5600 3.5-5.1 mmol/L K Normal 3.9 LAB L501.5900 98-107 mmol/L CL Normal 103 LAB L501.6100 21.0-32.0 mmol/L Normal CO2 30.0 LAB L501.6200 5-15 Normal GAP 6 Performed By: #### L500.2500 #### [facility] [address] [place], [address] CHEST PA AND LATERAL Observed: 12/25/2017 Status: F Source: [place] 12:00 AM [facility] REPOSITORY [facility] Imaging Services [address] [place] [address] Chest PA and Lateral MR#: [id number] Acct: [id number] Name: JIMMIE WEATHERS Rep #: [id number] : 1945 F 72 From: Rafael Barry MD PCP: Amarilis Cheung MD Status: REG [facility] Study: Chest PA and Lateral Date of Exam: 12/25/17 Exam# [id number] Ordering Dr: Amarilis Hernandez MD STUDY: X-RAY CHEST REASON FOR EXAM: Female, 72 years old. History of breast cancer. TECHNIQUE: PA and lateral views of the chest. COMPARISON: None. FINDINGS: Hyperinflation. The lungs are clear. There is no demonstrated pleural abnormality. Normal size heart. Normal mediastinum and alvarado. Normal visualized pulmonary arteries. Normal visualized aortic arch and descending thoracic aorta. There is a levoscoliosis of the thoracic spine. Normal visualized ribs, clavicles, and shoulders. There is no demonstrated abnormality of the visualized soft tissue structures of the upper abdomen. RAD/Chest PA and Lateral IMPRESSION: Hyperinflation. The lungs are clear. Electronically Signed: Rafael Barry MD at 9:47 EDT Tel [phone], Service support , CC: Amarilis Hernandez MD; Amarilis Cheung MD Certified Legal Secretary Specialist: Signed IMMUNOHISTOCHEMISTRY Observed: 12/25/2017 Status: F Source: [place] 12:00 AM [facility] REPOSITORY Patient: JIMMIE WEATHERS : 1945 (72/F) Acct Num: [id number] Phys: David LYN,Amarilis Unit Num: [id number] Loc: [facility] Specimen: [id number] Received: 12/30/171332 Spec Type: IMMUNO TISSUES TISSUES: A. Axillary lymph node, NOS - A1-4 SPECIMEN INFORMATION: Tissue Source: A Right axillary sentinel lymph node tissue Clinical Info: Malignant neoplasm upper outer quadrant right breast Specimen Number: [id number] A1-A4 CPT code: 37810, 15334 x7 METHODOLOGY: Deparaffinized sections of prefer/formalin-fixed tissue or PAP/DQ stained slides are incubated with monoclonal/polyclonal antibodies/oligonucleotide probes. Localization is made via biotin free immunoperoxidase method. Appropriate controls are performed and reacted as expected. Results on target cell population are indicated in the following table: RESULTS: ANTIBODY / CLONE RESULT Block A1 AE1-3 (AE1/AE3/PCK26) negative CK7 (OV-TL12/30) negative Block A2 AE1-3 (AE1/AE3/PCK26) negative CK7 (OV-TL12/30) negative Block A3 AE1-3 (AE1/AE3/PCK26) negative CK7 (OV-TL12/30) negative Block A4 AE1-3 (AE1/AE3/PCK26) negative CK7 (OV-TL12/30) negative These tests were developed and their performance characteristics determined by [facility]. They may not have been cleared or approved by the U.S. Food and Drug Administration. The FDA has determined that such clearance or approval is not necessary. INTERPRETATION: A. Right axillary sentinel lymph node tissue, biopsy: Six out of six lymph nodes negative for metastatic carcinoma SJ:vibha 12/31/17 PHYSICIAN AND INSTITUTION [place] [address] Signed Ciro Hernandez 12/31/17 <signature on file> Performed By: #### PIMM #### [facility] [place], [address] AXILLARY NODE BIOPSY Observed: 12/25/2017 Status: F Source: [place] 12:00 AM [facility] REPOSITORY Patient: JIMMIE WEATHERS : 1945 (72/F) Acct Num: [id number] Phys: David LYN,Amarilis Unit Num: [id number] Loc: [facility] Specimen: [id number] Received: 12/25/17 - 1118 Spec Type: AX NODE BX TISSUES TISSUES: A. Axillary lymph node, NOS B. Right breast, NOS COMMENT A. The lymph nodes are negative for metastatic carcinoma on multiple H AND E levels and immuno-histochemical stains for cytokeratins ([id number]). B. The tumor is measured microscopically, it is smaller than grossly measured size. Most of the grossly measured tumor consists of changes consistent with previous biopsy site. Case has been reviewed in consultation with Dr. Golden who concurs with the above diagnosis. IDC:AM FROZEN SECTION DIAGNOSIS A. Right axillary sentinel lymph node tissue, biopsy: Six out of six lymph nodes, negative for metastatic carcinoma. SJ:bernard 12/25/17 GROSS DESCRIPTION A - Received fresh for frozen section diagnosis labeled with the patient's name is a specimen designated right axillary sentinel lymph node tissue. The specimen consists of a piece of yellow adipose tissue containing multiple nodules consistent with lymph nodes measuring 4 x 4.5 x 1 cm. Six lymph nodes are identified and submitted entirely for frozen section diagnosis. Dot Net [employer] tissue is submitted in four cassettes as follows: 1 frozen section, one bisected lymph node, 2 - frozen section, one lymph node, 3 frozen section, two lymph nodes, one lymph node inked black, 4 - frozen section, two lymph nodes, one lymph node inked black. / JUAN MANUEL:bernard 12/25/17 B - Received fresh for intraoperative consultation labeled with the patient's name is a specimen designated right breast lumpectomy tissue. The specimen consists of a piece of yellow adipose tissue with wire localization x2 and measures 6 x 6 x 3.5 cm. The specimen is oriented as follows: short suture superior, long suture lateral, single suture anterior. The specimen is inked as follows: anterior yellow, posterior black, superior blue, inferior green, medial red and lateral orange. Serial sections reveal a ontiveros, indurated mass measuring 1.5 x 1 x 1cm. This mass is 0.5 cm away from the closest posterior and superior margin of the specimen. This information is conveyed to the surgeon intraoperatively. Sections of the rest of the specimen reveal ontiveros-yellow adipose cut surfaces mixed with ontiveros-white fibrous area. Dot Net Architect sections are submitted in 12 cassettes as follows: 1 medial and lateral margins, 2 inferior and anterior margins, 3 AND 4 tumor with closest posterior and superior margin, 5 AND 6 rest of the tumor, 7 AND 8 - motor vehicle field representative sections adjacent to the tumor, 9-12 - motor vehicle field representative sections away from the tumor. Sections will be submitted after infusion cycle. / SJ:rg 12/26/17 TC:0 CPT: 78982 x2, 13218, 60595 x3, 70041 HEADER OPERATION: Wire localized lumpectomy and blue dye right axillary sentinel lymph node PRE-OP DIAGNOSIS: Malignant neoplasm upper outer quadrant right breast; ER positive TISSUE SUBMITTED: A Right axillary sentinel lymph node tissue to lab at 1115 for FS, B Right breast lumpectomy tissue to mammo at 1132, short suture superior, long suture lateral, single suture anterior MICROSCOPIC DESCRIPTION Slides are reviewed. MICROSCOPIC DIAGNOSIS A. Right axillary sentinel lymph node tissue, biopsy: Six out of six lymph nodes, negative for metastatic carcinoma. See comment. B. Right breast, lumpectomy with needle localization: Invasive ductal carcinoma. Focal ductal carcinoma in situ. See cancer summary below. INVASIVE BREAST CANCER SUMMARY: Specimen partial breast Procedure excision with wire-guided localization Lymph node sampling sentinel lymph nodes Specimen integrity single, intact specimen Specimen size 6 x 6 x 3.5 cm Specimen laterality - right Tumor site upper outer quadrant, as per clinical information Tumor size 0.5 x 0.5 cm. See comment. Tumor focality single focus of invasive carcinoma Macroscopic and Microscopic extent of tumor: Skin skin is not present. Nipple not applicable Skeletal muscle no skeletal muscle present. 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 Extensive intraductal component (EIC) - negative Estimated size (extent) of DCIS - Ductal carcinoma in situ comprise about <5% of the tumor volume. Number of blocks with DCIS - 1 Number of blocks examined - 12 Architectural patterns cribriform Nuclear grade grade 2 (intermediate) Necrosis not identified Lobular carcinoma in situ (LCIS) not identified Histologic type of invasive carcinoma invasive ductal carcinoma with focal cribriform features. Histologic Grade (Duc grade): Glandular/tubular differentiation - score 3 Nuclear pleomorphism - score 2 Mitotic count score 1 Overall grade - 2 (score of 6) Margins - Margins uninvolved by invasive carcinoma and ductal carcinoma in situ. The invasive carcinoma and ductal carcinoma in situ are 0.7 cm away from the superior and posterior margins of the specimen. Treatment effect: Response to presurgical (neoadjuvant) therapy - no known presurgical therapy. Lymph-Vascular invasion not identified Dermal lymph-vascular invasion not applicable Lymph nodes: Number of sentinel lymph nodes examined - 6 Total number of lymph nodes examined (sentinel and nonsentinel) - 6 Number of lymph nodes with macrometastases, micrometastases and isolated tumor cells - 0 Method of evaluation of sentinel lymph nodes - H AND E, multiple levels and IHC. Distance metastasis not applicable Additional pathologic findings changes consistent with previous biopsy site. - Fibrocystic changes. - Vascular calcification. Ancillary studies - previously performed on section of tumor ([id number] / [id number]). ER positive (>95%) HI - positive (>95%) Her2 ramón equivocal (1-2+) Her2 by dual LENY negative/not amplified HER2:CEP-17 ratio 1.13 Average HER2 signal 2.05 Average CEP-17 signal 1.8 Microcalcifications present both in carcinoma and non- neoplastic tissue Clinical history - Please make reference to previous specimen ([id number]) right breast, core biopsy with diagnosis of invasive carcinoma. PATHOLOGIC STAGE: pT1a pN0 Mx The above summary is in compliance with [employer] (CAP) Cancer Protocols Checklist and [place] Joint Committee on Cancer (AJCC), Staging Manual, 8th Ed. JUAN MANUEL:bernard 12/30/17 Signed Ciro Hernandez 12/31/17 <signature on file> Performed By: #### PAXNB #### [facility] [address] [place], [address] CREATININE FINGERSTICK Collected: 12/20/2017 Status: F Source: [place] 6:54 AM [facility] REPOSITORY TYPE CODE TESTS RESULT OUT OF RANGE REFERENCE UNITS LAB L9100.0210 0.55-1.02 mg/dL Normal CREATININE WB 0.7 LAB L9100.0220 >60 mL/min EGFR WB Normal > 60.0000 Performed By: #### L9100.0200 #### [facility] Point of Care [address] [place] [address] BREAST W/O AND/OR W Observed: 12/20/2017 Status: F Source: [place] CONT BILAT 6:36 AM [facility] REPOSITORY [facility] Imaging Services [address] [place] [address] Breast w/o and/or W Cont Bilat MR#: [id number] Acct: [id number] Name: JIMMIE WEATHERS Rep #: [id number] : 1945 F 72 From: Isaiah Nguyen MD PCP: Amarilis Cheung MD Status: REG CLI Study: Breast w/o and/or W Cont Bilat Date of Exam: 12/20/17 Exam# [id number] Ordering Dr: Amarilis Hernandez MD STUDY: BILATERAL BREAST MR WITHOUT AND WITH CONTRAST REASON FOR EXAM: Female, 72 years old. Newly diagnosed right breast cancer from biopsy performed November 05, 2017. Presurgical workup. TECHNIQUE: Multi-sequence multi-echo imaging of both breasts was performed with a dedicated breast coil. T1-weighted and T2- weighted images were performed before the administration of contrast. T1- weighted images were also performed after the administration of 6 mL of Gadavist contrast intravenously without complications. COMPARISON: Bilateral mammograms dated June 15, 2010 and unilateral left mammogram dated July 10, 2010. Bilateral screening mammograms dated November 19, 2017 and right breast ultrasound dated November 21, 2017. FINDINGS: RIGHT BREAST: The breast tissue is fatty with no background enhancement. There is an irregular enhancing mass measuring 2.3 cm x 9 mm x 7 mm at the 11:00 to 12:00 position of the right breast. There is a tissue clip artifact within the right breast anterior to the mass. LEFT BREAST: The breast tissue is fatty with no background enhancement. There are no abnormal enhancing masses or areas of non-mass enhancement in the left breast. There are no enlarged or abnormal lymph nodes. There is no abnormality in the visualized regions of the chest or liver. MRI/Breast w/o and/or W Cont Bilat IMPRESSION: Irregular enhancing mass at the 11:00 to 12:00 position of the right breast measuring 2.3 cm x 9 mm x 7 mm representing the index lesion. No other significant abnormality identified. CATEGORY: BIRADS Category 6: Known Biopsy-Proven Malignancy - Appropriate Action Should Be Taken. A letter regarding these results will be sent to the patient by the facility within 30 days. Electronically Signed: Isaiah Nguyen MD at 10:28 EDT , Service support , CC: Amarilis Hernandez MD; Amarilis Cheung MD Certified Legal Secretary Specialist: Signed SURGERY VISIT REPORT Observed: 12/18/2017 Status: F Source: [place] 1:11 PM [facility] REPOSITORY [facility] [address] [place] [address] [address] [place] [address] OFFICE VISIT Date of Service: 12/17/17 MR#: [id number] Acct: [id number] Name: JIMMIE WEATHERS Devon Rep #: [id number] : 1945 Provider: Amarilis Hernandez MD Age/Sex: 72/F Location: [facility] Status: Signed with Addenda ADDENDUM by Amarilis Hernandez MD on 12/18/17 at 1311 Addendum entered and electronically signed by Amarilis Hernandez MD 06/13/18 13:11: It is of note that I have obtained records from December 30, 2015. Dr. Perea in the department of radiology performed an ultrasound-guided mammotome biopsy upper outer quadrant right breast 11 o'clock position. Final pathology was nonproliferative fibrocystic change no evidence of malignancy. At that time a small titanium clip was placed. My understanding is that the more recent biopsy was performed in the office with a Monopty needle. Either a ribbon or a coil was placed Amarilis Hernandez M.D., F.A.C.S. Intake Chief Complaint: abn mammo right--hx biopsy Allergies No Known Allergies Allergy (Verified 12/17/17 14:35) Medications calcium-vitamin D3-vitamin K 500 mg-500 unit-40 mcg chewable tablet tab PO 12/03/17 [History Confirmed 12/17/17] cholecalciferol (vitamin D3) 2,000 unit capsule 2,000 unit PO QDAY 12/03/17 [History Confirmed 12/17/17] hydrochlorothiazide 25 mg tablet 25 mg PO QDAY 12/03/17 [History Confirmed 12/17/17] levothyroxine 88 mcg tablet 88 mcg PO QDAY 12/03/17 [History Confirmed 12/17/17] multivitamin tablet 1 tab PO QDAY 12/03/17 [History Confirmed 12/17/17] sennosides 8.6 mg tablet 8.6 mg PO BID PRN 12/03/17 [History Confirmed 12/17/17] Assessment AND Plan Problems 1. Malignant neoplasm of upper-outer quadrant of right breast in female, estrogen receptor positive C50.411; Z17.0 Plan - Amarilis Hernandez MD Upper outer quadrant right breast cancer in the as of carcinoma nuclear grade 1-3. Estrogen receptors greater than 95%. Progesterone receptor greater than 95%. HER-2/ramón is 1-2+. Today's appointment was a 60 minute appointment. In detail I discussed treatment options. She does have a small hematoma in the upper outer quadrant right breast. I will want to assure as she has had a previous biopsy of the right breast that correct localization is achieved. I am proposing for her breast conservation surgery right breast. I would propose a stereotactic wire localization upper quadrant right breast with subsequent wire localized lumpectomy and right axillary blue dye sentinel lymph node biopsy. In great detail I discussed the technique, benefits, risks, alternatives and contrasted this with mastectomy. I am recommending a bilateral breast MRI preintervention. The patient is aware that we will want to involve medical oncology and radiation oncology. She has had an extensive opportunity to ask and have questions answered. We will request of pathology a more detailed review of the pathology of the skin lesion punch biopsy of left lower extremity. If there is additional change in this lesion in the future then consideration for complete elliptical excision will be entertained. Currently it has a benign appearance. I very much appreciate the kind opportunity of assisting with her surgical care. 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 We will notify Dr. Amarilis Cheung of our surgical plans and look toward assistance in maximizing her 's care to remedy his situation. I very much appreciate the kind opportunity of assisting with her surgical care. Cc: Dr. Amarilis Cheung and Dr Baltazar Hernandez M.D., F.A.C.S. 12/18/17 1311 <Electronically signed by Amarilis Hernandez MD> Date Amarilis Hernandez MD cc: Jean-Paul Perea MD; Amarilis Cheung MD * Signed Intake Intake Visit Reasons: breast cancer Chief Complaint: abn mammo right--hx biopsy Allergies No Known Allergies Allergy (Verified 12/17/17 14:35) Medications calcium-vitamin D3-vitamin K 500 mg-500 unit-40 mcg chewable tablet tab PO 12/03/17 [History Confirmed 12/17/17] cholecalciferol (vitamin D3) 2,000 unit capsule 2,000 unit PO QDAY 12/03/17 [History Confirmed 12/17/17] hydrochlorothiazide 25 mg tablet 25 mg PO QDAY 12/03/17 [History Confirmed 12/17/17] levothyroxine 88 mcg tablet 88 mcg PO QDAY 12/03/17 [History Confirmed 12/17/17] multivitamin tablet 1 tab PO QDAY 12/03/17 [History Confirmed 12/17/17] sennosides 8.6 mg tablet 8.6 mg PO BID PRN 12/03/17 [History Confirmed 12/17/17] [facility] Medical History Breast cancer (Acute 12/2017) GERD (gastroesophageal reflux disease) (Acute) Hemorrhoids (Acute) Hypothyroidism (Acute) Osteoarthritis (Acute) HTN (hypertension) (Chronic) Surgical History S/P breast biopsy (Acute) S/P breast biopsy (Acute) S/P colonoscopy (Acute) S/P dilation and curettage (Acute) S/P tubal ligation (Acute) Status post left hip replacement (Acute) Status post right hip replacement (Acute) Family History Father CAD (coronary artery disease) Hypertension Mother Bleeding disorder Social History Smoking Status: Never smoker HPI HPI HPI: JIMMIE WEATHERS, is a 72 F who presents to the office today for ongoing surgical consultation. This patient was seen by Dr. Jean-Paul Perea on December 06, 2017 and he performed an ultrasound-guided needle core right breast biopsy. Dr. Perea is currently out and I will be assuming care. 72-year-old female. A0. Menarche at age 15. First child was born when she was 20. She did not breast-feed. Menopause occurred at age 43. Because of some vaginal bleeding she had a D AND C and tubal ligation at age 44. She has not been on any estrogen replacement. Family history is negative for breast cancer. The patient reports that [address] Perea had performed an ultrasound-guided biopsy of the right breast with material being benign. It is of additional note on the patient's office visit that she had a right breast abnormality as well as a unusual skin lesion of the left distal medial calf. A punch biopsy was performed the skin lesion and ultrasound-guided biopsy of the right breast. Information reviewed demonstrates that at [facility] in [facility] on November 19 the patient had bilateral digital mammography. There was a focal asymmetry in the upper outer quadrant of the right breast measuring 0.6 x 0.7 x 0.7 cm. Unchanged in size however margins appear to have spiculations. A biopsy marker is noted in the right upper outer quadrant. An ultrasound was performed. This demonstrates a solid-appearing mass with likely benign morphology. 11 o'clock position mid depth. 5 x 5 mm. The lesion is similar in contour prior. Spiculations are not identified currently. A biopsy marker is separate from this lesion. On the patient's current right breast core biopsy pathology shows invasive carcinoma nuclear grade 1 of 3. Maximal length 4.5 mm. The skin biopsy of the left lower extremity is simply described as no evidence of malignancy The patient's past medical history is most pertinent for hypothyroidism hypertension. Only previous surgeries been wisdom teeth extraction. It is of additional note that in August after course of antibiotics her developed C. difficile colitis. This was treated apparently with several courses of metronidazole without result. The patient eventually had to be placed on vancomycin. That did help resolve the diarrhea. Then the patient had recurrent dental surgery was replaced on antibiotics and just as of yesterday has developed recurrent C. difficile colitis. He has been initially started on metronidazole. Primary care physician Dr. Cheung. The patient herself does not describe any diarrheal symptoms or abdominal pain. He generally feels to be in stable health ROS General General: No weight change HEENT HEENT: No difficulty swallowing Endo Endocrine: Yes thyroid disease Skin Skin: Yes changing moles Additional Details: Left medial calf Breast Additional Details: No palpable breast masses except after right breast biopsy Musc Musculoskeletal: No back problems Cardio Cardiovascular: No murmur Psych Psychiatric: No depression Resp Respiratory: No shortness of breath Gastro Gastrointestinal: No abdominal pain Eyad Hematologic: No blood thinners Neuro Neurologic: No system reviewed and no additional complaints, except as docu Exam Const General: healthy appearing, comfortable, no acute distress, cooperative [facility] Head: normal to inspection Eyes General: appearance normal, both eyes and all related structures Neck Neck: normal visual inspection Neck mass: No Carotids: normal carotid upstroke, no bruits Lymphatic: no lymphadenopathy noted Chest Chest palpation AND inspection: normal inspection of the chest Other: Ecchymosis upper outer quadrant right breast 11 o'clock position with palpable hematoma. Clean incision. No right axillary or clavicular adenopathy. Mild diffuse fibrous change left breast. No focal mass. Discharge. No axillary or clavicular adenopathy Resp Effort AND Inspection: normal respiratory effort Auscultation: clear to auscultation bilaterally Cardio Rate: regular rate Rhythm: regular rhythm Heart Sounds: no murmurs GI Inspection: normal to inspection Palpation: soft, no hepatosplenomegaly Musc Cervical Spine: normal cervical lordosis Skin Other: Suture in the left medial calf at the site of a 8 mm area of slight erythema slightly palpable Neuro General: CN's II-XI intact bilaterally Extrem Other: No adenopathy bilateral axilla or clavicular Psych Affect: normal affect Assessment AND Plan Problems 1. Malignant neoplasm of upper-outer quadrant of right breast in female, estrogen receptor positive C50.411; Z17.0 Plan Upper outer quadrant right breast cancer in the as of carcinoma nuclear grade 1-3. Estrogen receptors greater than 95%. Progesterone receptor greater than 95%. HER-2/ramón is 1-2+. Today's appointment was a 60 minute appointment. In detail I discussed treatment options. She does have a small hematoma in the upper outer quadrant right breast. I will want to assure as she has had a previous biopsy of the right breast that correct localization is achieved. I am proposing for her breast conservation surgery right breast. I would propose a stereotactic wire localization upper quadrant right breast with subsequent wire localized lumpectomy and right axillary blue dye sentinel lymph node biopsy. In great detail I discussed the technique, benefits, risks, alternatives and contrasted this with mastectomy. I am recommending a bilateral breast MRI preintervention. The patient is aware that we will want to involve medical oncology and radiation oncology. She has had an extensive opportunity to ask and have questions answered. We will request of pathology a more detailed review of the pathology of the skin lesion punch biopsy of left lower extremity. If there is additional change in this lesion in the future then consideration for complete elliptical excision will be entertained. Currently it has a benign appearance. I very much appreciate the kind opportunity of assisting with her surgical care. 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 We will notify Dr. Amarilis Cheung of our surgical plans and look toward assistance in maximizing her 's care to remedy his situation. I very much appreciate the kind opportunity of assisting with her surgical care. Cc: Dr. Amarilis Cheung and Dr Baltazar Hernandez M.D., F.A.C.S. Coding Level of Care Code Off vis,est,level 4 Diagnoses Malignant neoplasm of upper-outer quadrant of right breast in female, estrogen receptor positive C50.411; Z17.0 Breast location: upper outer quadrant of breast Estrogen receptor status: positive Patient sex: female Time Spent (min) 60 12/17/171919 <Electronically signed by Amarilis Hernandez MD> Date Amarilis Hernandez MD [facility] Signature: Date (if applicable) CC: Jean-Paul Perea MD; Amarilis Cheung MD SURGERY VISIT REPORT Observed: 12/08/2017 Status: F Source: [place] 11:04 AM [facility] REPOSITORY [facility] [address] [place] [address] OFFICE VISIT Date of Service: 12/06/17 MR#: [id number] Acct: [id number] Name: JIMMIE WEATHERS Rep #: [id number] : 1945 Provider: Jean-Paul Perea MD Age/Sex: 72/F Location: [facility] Status: Signed Intake Intake Visit Reasons: R Breast core biopsy AND L leg 3mm punch bx Chief Complaint: abn mammo right--hx biopsy Allergies No Known Allergies Allergy (Verified 12/03/17 08:57) Medications calcium-vitamin D3-vitamin K 500 mg-500 unit-40 mcg chewable tablet tab PO 12/03/17 [History Confirmed 12/03/17] cholecalciferol (vitamin D3) 2,000 unit capsule 2,000 unit PO QDAY 12/03/17 [History Confirmed 12/03/17] hydrochlorothiazide 25 mg tablet 25 mg PO QDAY 12/03/17 [History Confirmed 12/03/17] levothyroxine 88 mcg tablet 88 mcg PO QDAY 12/03/17 [History Confirmed 12/03/17] multivitamin tablet 1 tab PO QDAY 12/03/17 [History Confirmed 12/03/17] sennosides 8.6 mg tablet 8.6 mg PO BID PRN 12/03/17 [History Confirmed 12/03/17] PFSH Medical History GERD (gastroesophageal reflux disease) (Acute) Hemorrhoids (Acute) Osteoarthritis (Acute) HTN (hypertension) (Chronic) Surgical History S/P breast biopsy (Acute) S/P colonoscopy (Acute) S/P dilation and curettage (Acute) S/P tubal ligation (Acute) Status post left hip replacement (Acute) Status post right hip replacement (Acute) Family History Father CAD (coronary artery disease) Hypertension Mother Bleeding disorder Social History Smoking Status: Never smoker HPI HPI HPI: JIMMIE WEATHERS, is a 72 F who presents to the office today for Office Procedures Biopsy Provider Documentation Preoperative diagnosis: Abnormal lesion to right breast on mammogram/ultrasound Postoperative diagnosis: The same Procedure: Ultrasound-guided needle core biopsy of abnormal mammogram to right breast Surgeon: Eliazar Procedure: Ultrasound of the right breast revealed the lesion in question. It was at 11 o'clock position. I prepped the skin with Betadine. 1% lidocaine plain was injected. Using ultrasound I injected local down to the lesion. A skin alan was made. Under ultrasound guidance 3 needle core biopsies were obtained. Under ultrasound guidance I placed a small titanium clip in the biopsy cavity. Steri-Strips are applied sterile dressings were applied and the patient tolerated the procedure well. Alert Alisia Yes Biopsy Breast Biopsy: [id number] [place] Guidance [facility] [place] Procedure Performed By: Procedure performed by: Jean-Paul Perea Details Preoperative diagnosis: Abnormal skin lesion to right lower leg Postoperative diagnosis: The same Procedure: 3 mm punch biopsy of abnormal skin lesion to right lower leg Surgical Eliazar Procedure: Right lower leg was sterilely prepped and draped in usual fashion. 1% lidocaine plain was injected. 3 mm punch biopsy was obtained of both the lesion and normal tissue. I used a 5-0 nylon I brought the skin together. Sterile dressings were applied. Patient tolerated the [place] well[place] [address] Assessment AND Plan Orders Orders: Coding Level of Care Code No Charge Additional Codes Biopsy - Breast Biopsy: 88648 US Guidance (16549) Comment Please code for the ultrasound-guided biopsy [place] [address] 12/08/17 1104 <Electronically signed by Jean-Paul Perea MD> Date Jean-Paul Perea MD Cosigner Signature: Date (if applicable) CC: BREAST BIOPSY Observed: 12/06/2017 Status: F Source: [place] (CHOOSE SITE) 9:30 AM [facility] REPOSITORY Patient: JIMMIE WEATHERS : 1945 (72/F) Acct Num: [id number] Phys: Eliazar LYN,Jean-Paul Unit Num: [id number] Loc: LABSPEC Specimen: [id number] Received: 12/06/17 - 1233 Spec Type: BREAST BX TISSUES TISSUES: A. Right breast, NOS B. Skin of leg, NOS COMMENT The findings were discussed with Dr. Perea at 9:30 a.m. on 12/09/[address] Golden. GROSS DESCRIPTION A - Received in fixative is one container labeled with the patient's name and designated right breast biopsy. The specimen consists of two cores of yellow- white soft tissue. Each core has an average length of 1 cm and a maximal diameter of 0.1 cm. The specimen is totally submitted in one cassette. B - Received in fixative is one container labeled with the patient's name and designated punch biopsy. The specimen consists of a cylindrical fragment of light ontiveros soft tissue measuring 0.8 cm in length and 0.1 cm in average diameter. The specimen is totally submitted in one cassette. / AM:bernard 12/06/17 TC:0 CPT: 66506 x2 HEADER OPERATION: Ultrasound-guided needle core biopsy right breast and punch biopsy skin lesion left leg PRE-OP DIAGNOSIS: Abnormal mammogram, skin lesion LLE TISSUE SUBMITTED: A Right breast biopsy, B Punch biopsy skin lesion left lower extremity ISCHEMIC TIME: <30 seconds FIXATION TIME: 58 hours MICROSCOPIC DESCRIPTION Slides are reviewed. MICROSCOPIC DIAGNOSIS A. Right breast, core biopsy: Invasive carcinoma: Nuclear grade 1/3 Maximal length 4.5 mm B. Skin of left lower extremity, punch biopsy: No evidence of malignancy. AM:bernard 12/13/17 Signed Asaf Golden 12/15/17 <signature on file> Performed By: #### PBRBX #### [facility] [place], [address] IMMUNOHISTOCHEMISTRY Observed: 12/06/2017 Status: F Source: [place] 12:00 AM [facility] REPOSITORY Patient: JIMMIE WEATHERS : 1945 (72/F) Acct Num: [id number] Phys: Eliazar LYN,Jean-Paul Unit Num: [id number] Loc: LABSPEC Specimen: [id number] Received: 12/09/171627 Spec Type: IMMUNO TISSUES TISSUES: A. Right breast, NOS SPECIMEN INFORMATION: Tissue Source: A Right breast biopsy Clinical Info: Abnormal mammogram Specimen Number: [id number] CPT code: 51871, 77514 x6, 76265 x3 METHODOLOGY: Deparaffinized sections of prefer/formalin-fixed tissue or PAP/DQ stained slides are incubated with monoclonal/polyclonal antibodies/oligonucleotide probes. Localization is made via biotin free immunoperoxidase method. Appropriate controls are performed and reacted as expected. Results on target cell population are indicated in the following table: RESULTS: ANTIBODY / CLONE RESULT Block A P53 (DO-7) negative Ki-67 (30-9) positive, low CK8 (85cdfiL20) positive CK5-6 (D5 AND 1684) negative Calponin-1 (ZB647E) negative P40 (BC28) negative E-Cad (ECH-6) positive MORPHOMETRIC ANALYSIS ER (clone 6F11) >95% HI (clone 16/1E2) >95% Her-2Neu (clone CB11) 1-2+ The prognostic test for HER2 is performed on formalin-fixed paraffin embedded tissue. A 3+ (positive) staining pattern is defined as intense, homogeneous, complete, circumferential membranous staining in >10% of contiguous tumor cells. A similar weak (2+) staining pattern is interpreted as equivocal. LENY follow- up testing is recommended for all equivocal cases. Positivity/negativity for ER/ HI is reported if > or < 1% of the tumor cells are immuno- reactive, respectively. The ASCO/CAP criteria is used for scoring. Reference: Journal of Clinical Oncology, 2013; 31:7368-6556 AND 2009; 16:2784- 2795. Duration of fixation : 58 Hrs; Sample Adequate: Yes. These assays have not been validated on decalcified tissues. Results should be interpreted with caution given the likelihood of false negativity on decalcified specimens. These tests were developed and their performance characteristics determined by [facility]. They may not have been cleared or approved by the U.S. Food and Drug Administration. The FDA has determined that such clearance or approval is not necessary. INTERPRETATION: Right breast, ultrasound-guided needle core biopsy: Invasive ductal carcinoma. Positive for estrogen receptors (favorable prognostic indicator). Positive for progesterone receptors (favorable prognostic indicator). Equivocal for overexpression of HZG1udz. AM:bernard 12/14/17 Case has been reviewed in consultation with Dr. Hernandez who concurs with the above diagnosis. IDC:[facility] [place] [address] Signed Asaf [place] 12/15/17 <signature on file> Performed By: #### PIMM #### [facility] [address] [place] [address]. [place], [place], [id number] US BREAST RT Observed: 11/21/2017 Status: F Source: [facility] UNILATERAL COMPLETE 9:55 AM [place] [address] Patient: JIMMIE WEATHERS Phone#: : 1945 Age: 72 Gender: F Pt. Type: Out Account: [id number] Location: [facility] Ordering: NOREEN URRUTIA Exam Date: 11/21/2017/9:20 Family Phys: AMARILIS CHEUNG Charge Code: 957846 Physician: Sharkey Order #: [id number] DLP Dose#: PROCEDURE: ULTRASOUND BREAST RT COMPARISON: [facility], BREAST RT COMPLETE, 12/09/2015, 11:57. INDICATIONS: Right Breast Lesion TECHNIQUE: Breast ultrasound was performed, with evaluation focusing on all four quadrants. FINDINGS: DIAGNOSTIC CATEGORY 2--BENIGN FINDING: RIGHT BREAST: Solid appearing mass with likely benign morphology, hypoechoic echotexture, mid-breast depth, 11 o'clock position, and 5x5 mm size. The lesion is similar in contour prior. The possible spiculations noted on the mammogram are not present on the ultrasound. There is mild shadowing which is not present on the prior study. Biopsy marker in separate from the lesion. RECOMMENDATIONS: ROUTINE MAMMOGRAM AND CLINICAL EVALUATION. PLEASE NOTE: A NORMAL MAMMOGRAM DOES NOT EXCLUDE THE POSSIBILITY OF BREAST CANCER. A CLINICALLY SUSPICIOUS PALPABLE LUMP SHOULD BE BIOPSIED. Dictated by: Piper Eli MD on 11/21/2017 at 18:08 Approved by: Piper Eli MD on 11/21/2017 at 18:08 MAMM DIGITAL BILAT Observed: 11/19/2017 Status: F Source: [facility] SCREEN 2:18 PM [place] [address] Patient: JIMMIE WEATHERS Phone#: : 1945 Age: 72 Gender: F Pt. Type: Out Account: [id number] Location: [facility] Ordering: NOREEN URRUTIA Exam Date: 11/19/2017/14:17 Family Phys: AMARILIS CHEUNG Charge Code: [id number] Physician: Sharkey Order #: [id number] DLP Dose#: PROCEDURE: MAMM BILAT DIGITAL SCREENING WITH CAD COMPARISON: [facility], BREAST RT COMPLETE, 12/09/2015, 11:57. [facility], BILAT SCREENING, 10/20/2013, 11:46. [facility], BILAT SCREENING, 11/02/2014, 13:56. [facility], BILAT SCREENING, 12/09/2015, 11:05. [facility], RT SPOT/MAG DIGITAL, 12/09/2015, 11:44. INDICATIONS: Screening BREAST COMPOSITION: Scattered fibroglandular densities (25-50% glandular). FINDINGS: DIAGNOSTIC CATEGORY 0--INCOMPLETE ASSESSMENT: NEED ADDITIONAL IMAGING EVALUATION. RIGHT BREAST: Focal asymmetry in the upper-outer quadrant measuring 0.6 x 0.7 x 0.7 cm, unchanged in size however the margins appear to have spiculations. Biopsy marker is noted in the right upper outer quadrant. No significant change has occurred. LEFT BREAST: No significant suspicious finding. No significant change has occurred. RECOMMENDATIONS: ULTRASOUND: RIGHT BREAST. We will call the patient back for an ultrasound and provide an additional report. PLEASE NOTE: A NORMAL MAMMOGRAM DOES NOT EXCLUDE THE POSSIBILITY OF BREAST CANCER. A CLINICALLY SUSPICIOUS PALPABLE LUMP SHOULD BE BIOPSIED. THIS FACILITY UTILIZES A REMINDER SYSTEM TO ENSURE THAT ALL PATIENTS RECEIVE REMINDER LETTERS FOR APPOINTMENTS. THIS INCLUDES REMINDERS FOR ROUTINE MAMMOGRAMS, DIAGNOSITC MAMMOGRAMS, OR OTHER BREAST IMAGING INTERVENTIONS WHEN APPROPRIATE. THIS PATIENT WILL BE PLACED IN THE APPROPRIATE REMINDER SYSTEM. Continued Report - Page 2 of 2 Patient: JIMMIE WEATHERS Phone#: : 1945 Age: 72 Gender: F Pt. Type: Out Account: [id number] Location: 052 Ordering: [facility] Exam Date: 11/19/2017/14:17 Family Phys: AMARILIS CHEUNG Charge Code: [id number] Physician: Sharkey Order #: [id number] DLP Dose#: Dictated by: Piper Eli MD on 11/19/2017 at 14:41 Approved by: Piper Eli MD on 11/19/2017 at 14:41 BONE DENSITY STUDY Observed: 07/04/2017 Status: F [facility] [place] [address] Patient: JIMMIE WEATHERS Phone#: : 1945 Age: 71 Gender: F Pt. Type: Out Account: [id number] Location: 052 Ordering: AMARILIS CHEUNG Exam Date: 07/04/2017/13:30 Family Phys: Charge Code: [id number] Physician: Sharkey Order #: [id number] DLP Dose#: PROCEDURE: BONE DENSITY STUDY TECHNIQUE: Lumbar vertebral and wrist dual-energy X-ray absorptiometry (DXA) was performed on a central Staples device. SPINE ANALYSIS RESULTS: Average lumbar bone mineral density (BMD) (g/cm2): 0.932 Lumbar T-score (standard deviation relative to young adult mean BMD): -2.1 Lumbar Z-score (standard deviation relative to age matched control group): -0.1 SPINE CLASSIFICATION: Osteopenia (T-score -1.0 to -2.5). WRIST ANALYSIS RESULTS: Average wrist bone mineral density (BMD) (g/cm2): 0.667 Wrist T-score (standard deviation relative to young adult mean BMD): -2.5 Wrist Z-score (standard deviation relative to age matched control group): Measures 0.5 WRIST CLASSIFICATION: Note: The 2007 International Society for Clinical Densitometry (ISCD) Official Positions state that osteoporosis in reyna-menopausal and post-menopausal women and in men age 50 and older may be diagnosed if the T-score of the lumbar spine, total hip, or femoral neck is -2.5 or less. Hip BMD is reported from the femoral neck or total proximal femur whichever is lowest. In pre-menopausal women and in men younger than age 50, T-scores may be used but Z-scores are preferred. In this patient group, a Z-score of -2.0 or lower is defined as below the expected range for age. FRAX is a computer-based algorithm which uses easily obtained clinical risk factors combined with femoral neck BMD or T-score to estimate an individual 10-year fracture probability. FRAX with BMD predicts fracture risk better than clinical risk factors or BMD alone. It is not appropriate to use FRAX to monitor treatment response. Continued Report - Page 2 of 2 Patient: JIMMIE WEATHERS Phone#: : 1945 Age: 71 Gender: F Pt. Type: Out Account: [id number] Location: 052 Ordering: AMARILIS CHEUNG Exam Date: 07/04/2017/13:30 Family Phys: Charge Code: [id number] Physician: Sharkey Order #: [id number] DLP Dose#: ADDITIONAL FINDINGS: No significant additional findings. Dictated by: Ananya Hogan MD on 07/04/2017 at 10:56 Approved by: Ananya Hogan MD on 07/04/2017 at 10:56 ALLERGIES ALLERGIES DATE TYPE / CODE NAME / CODE REACTION SEVERITY SOURCE 06/10/2018 Drug No Known Unknown [facility] Allergy/4160 Allergies/F00 Hospital 28067(SNOMED 8404929(RXNOR Repository CT) M) Drug NKA - NO Moderate Dontae Pomerene Allergy/4160 KNOWN ([facility] 44941(SNOMED ALLERGIES/000 Modifier) Repository CT) 25603(RXNORM) (Qualifier Value) ENCOUNTERS ENCOUNTERS ADMIT/DISCHARGE ACCOUNT ADMITTING ENCOUNTER LOCATION SOURCE NUMBER CLASS 06/10/2018/ [id number] Ambulatory BMSBuilding:B [place] 8 9 [facility] Repository 06/03/2018/ [id number] Ambulatory [place] [address] [facility] ing:ENRoom: Repository AC10 05/26/2018/ [id number] Ambulatory BMSBuilding:B [place] 8 1 [facility] Repository 05/09/2018 [id number] Amb[place] [facility] ing:MTLAB Repository 04/15/2018 [id number] Ambulatory [place] 6 [facility] Hospital ing:ONC Repository 04/08/2018 [id number] Ambulatory BMSBuilding:B [place] 5 MS.[facility] Repository 04/03/2018 [id number] Ambulatory BMSBuilding:B [place] 7 [facility] Repository 03/20/2018/ [id number] Ambulatory [place] 8 5 [facility] Hospital ing:OT Repository 03/05/2018 [id number] Ambulatory BMSBuilding:B [place] 2 [facility] Repository 02/26/2018 [id number] Ambulatory BMSBuilding:B [place] 8 [facility] Repository 02/26/2018 [id number] Ambulatory [place] 3 [facility] Hospital ing:MTLAB Repository 02/19/2018 [id number] Ambulatory BMSBuilding:B [place] 9 MS.CF.[facility] Repository 02/18/2018/ [id number] Ambulatory BMSBuilding:B [place] 8 5 [facility] Repository 02/12/2018 [id number] Ambulatory BMSBuilding:W [place] 6 [facility] Repository 02/04/2018 [id number] Ambulatory BMSBuilding:W [place] 2 [facility] Repository 02/03/2018 [id number] Ambulatory BMSBuilding:W [place] 6 [facility] Repository 01/24/2018 [id number] Ambulatory [place] 9 [facility] ing:MFPLAB Repository 01/22/2018/ [id number] Ambulatory [place] 8 4 [facility] Hospital ing:OT Repository 01/20/2018 [id number] Ambulatory BMSBuilding:B [place] 9 MS.[facility] Repository 01/14/2018 [id number] Ambulatory BMSBuilding:B [place] 7 [facility] Repository 01/14/2018 [id number] Ambulatory [place] 3 [facility]OPBD Repository 01/07/2018 [id number] Ambulatory BMSBuilding:B [place] 2 [facility] Repository 01/02/2018/ [id number] Ambulatory BMSBuilding:B [place] 8 0 MS.[facility] Repository 12/25/2017/ [id number] Ambulatory [place] 8 3 [facility] ing:SDC Repository 12/25/2017 [id number] Ambulatory BMSBuilding:B [place] 3 MS.[facility] Repository 12/25/2017 [id number] Ambulatory BMSBuilding:W [place] 0 [facility] Repository 12/20/2017 [id number] Ambulatory [place] 7 [facility] ing:MRI Repository 12/17/2017 [id number] Ambulatory BMSBuilding:B [place] 3 [facility] Repository 12/17/2017/ [id number] Ambulatory BMSBuilding:B [place] 8 7 [facility] Hospital Repository 12/17/2017/ [id number] Ambulatory BMSBuilding:B [place] 8 0 MS.[facility] Hospital Repository 12/06/2017 [id number] Ambulatory [place] 8 [facility] ing:LABSPEC Repository 12/06/2017/ [id number] Ambulatory BMSBuilding:B [place] 8 2 [facility] Repository 12/03/2017/ [id number] Ambulatory BMSBuilding:Jamey Leonardo 8 1 MS.[facility] Repository 11/21/2017/ [id number] URRUTIA, Ambulatory Dontae Pomerene 8 [facility] Repository 11/19/2017/ [id number] URRUTIA, Ambulatory Dontae Pomerene 8 [facility] Repository 07/04/2017/ [id number] AMARILIS CHEUNG Ambulatory Dontae Pome[place] 7 [facility] Repository PAYERS PAYERS ENCOUNTER GUARANTOR PAYER SUBSCRIBER SOURCE 06/10/2018 JIMMIE WEATHERS7665 Primary JIMMIE CARROB: [place] Insurance:[facility] [id number] [place] [facility] [place] [id number]: Number: Repository [id number] (HP) Date:6431-97-96YD [address] [address]MF: 06/10/2018 Secondary NOT GIVENUNK [place] Insurance:SELF PAY [facility] Number: Effective Repository Date:2018-06-10 06/03/2018 JIMMIE LEALL7665 Primary JIMMIE CARROB: [place] Insurance:[facility] [id number] [place] [facility] [place] [address]Oss: Number: Repository [id number] (HP) Date:1203-69-36EY [address]WW, [place] [address]AM: 06/03/2018 Secondary NOT GIVENUNK [place] Insurance:SELF PAY [facility] Number: Effective Repository Date:2018-05-26 05/26/2018 JIMMIE LEALL7665 Primary JIMMIE Devon BRUNOOB: [place] Insurance:[facility] [id number] Community [place] [place] [address]Dfg: Number: Repository [id number] (HP) Date:1269-54-71FP [address]LJBKQSQ, [place] [address]YN: 05/26/2018 Secondary NOT GIVENUNK [place] Insurance:SELF PAY [facility] Number: Effective Repository Date:2018-05-26 05/09/2018 JIMMIE LEALL7665 Primary JIMMIE CARROB: [place] Insurance:[employer] [id number] Community [place] [address]Xnl: Number: Repository [id number] (HP) Date:2798-89-09DM [address] [place] [address]NR: 05/09/2018 Secondary NOT GIVENUNK [place] Insurance:SELF PAY [facility] Number: Effective Repository Date:2018-05-09 04/15/2018 JIMMIE LEALL7665 Primary JIMMIE LEALMANUELOB: [place] Insurance:[employer] [id number] Community [place] [place] [address]Spz: Number: Repository [id number] (HP) Date:1313-05-72AG [address] [place] [address]CS: 04/15/2018 Secondary NOT GIVENUNK [place] Insurance:SELF PAY [facility] Number: Effective Repository Date:2018-01-07 04/08/2018 JIMMIE [id number] Primary JIMMIE LEALMANUELOB: [place] Insurance:[employer] [id number] Community [place] [place] [address]Qcj: Number: Repository [id number] (HP) Date:1886-03-36PS [address] [place] [address]HA: 04/08/2018 Secondary NOT GIVENUNK [place] Insurance:SELF PAY [facility] Number: Effective Repository Date:2018-04-08 04/03/2018 JIMMIE LEALL7665 Primary JIMMIE LEALMANUELOB: [place] Insurance:[employer] [id number] Community [place] [facility] [place] [address]Gbe: Number: Repository [id number] (HP) Date:2961-77-06MJ [address]ONRBLDY, [place] [address]UP: 04/03/2018 Secondary NOT GIVENUNK [place] Insurance:SELF PAY [facility] Number: Effective Repository Date:2018-04-03 03/20/2018 JIMMIE [id number] Primary JIMMIE Osorio BRUNOOB: [place] Insurance:[employer] [id number] Community [place] [place] [address]Rsa: Number: Repository [id number] (HP) Date:8936-83-54CS [address]IMQGLRP, [place] [address]QQ: 03/20/2018 Secondary NOT GIVENUNK [place] Insurance:SELF PAY [facility] Number: Effective Repository Date:2018-03-07 03/05/2018 JIMMIE [id number] Primary JIMMIE M BRUNOOB: [place] Insurance:[employer] [id number] Community [place] [facility] [place] [address]Bsz: Number: Repository [id number] (HP) Date:3751-40-83LH [address]YWXEYBK [place] [address]RH: 03/05/2018 Secondary NOT GIVENUNK [place] Insurance:SELF PAY [facility] Number: Effective Repository Date:2018-03-05 02/26/2018 JIMMIE LEALL7665 Primary JIMMIE M BRUNOOB: [place] Insurance:[employer] [id number] Community [address] [place] [address]Uyg: Number: Repository [id number] (HP) Date:4690-81-50DB [address]JHVYMR, [place] [address]ZS: 02/26/2018 Secondary NOT GIVENUNK [place] Insurance:SELF PAY [facility] Number: Effective Repository Date:2018-02-26 02/26/2018 JIMMIE LEALL7665 Primary JIMMIE CARROB: [place] Insurance:[employer] [id number] Community [address] [facility] [place] [address]Hxv: Number: Repository [id number] (HP) Date:2760-52-14XN [address] [place] [address]J: 02/26/2018 Secondary NOT GIVENUNK [place] Insurance:SELF PAY [facility] Number: Effective Repository Date:2018-02-26 02/19/2018 JIMMIE LEALL7665 Primary JIMMIE LEALMANUELOB: [place] Insurance:ANTH [id number] Community [address] [place] [address]Zah: Number: Repository [id number] (HP) Date:3666-39-05KR [address] [place] [address]YI: 02/19/2018 Secondary NOT GIVENUNK [place] Insurance:SELF PAY [facility] Number: Effective Repository Date:2018-02-19 02/18/2018 JIMMIE LEALL7665 Primary JIMMIE LEALMANUELOB: [place] Insurance:[employer] [id number] Community [address] [place] [address]Gpc: Number: Repository [id number] (HP) Date:6544-64-17YS [address] [place] [address]AJ: 02/18/2018 Secondary NOT GIVENUNK [place] Insurance:SELF PAY [facility] Number: Effective Repository Date:2018-01-02 02/12/2018 JIMMIE LEALL7665 Primary IJMMIE LEALMANUELOB: [place] Insurance:[employer] [id number] Community [address] [place] [address]Zco: Number: Repository [id number] (HP) Date:5781-63-24MM [address]LZVLLTF [place] [address]EE: 02/12/2018 Secondary NOT GIVENUNK [place] Insurance:SELF PAY [facility] Number: Effective Repository Date:2018-02-12 02/04/2018 JIMMIE LEALL7665 Primary JIMMIE CARROB: [place] Insurance:[employer] [id number] Community [address] [facility] [place] [address]Tel: Number: Repository [id number] (HP) Date:0480-01-52WV [address]VPHQGAO, [place] [address]DU: 02/04/2018 Secondary NOT GIVENUNK [place] Insurance:SELF PAY [facility] Number: Effective Repository Date:2018-02-04 02/03/2018 JIMMIE LEALL7665 Primary JIMMIE CARROB: [place] Insurance:[employer] [id number] Community [address] [facility] [place] [address]Tel: Number: Repository [id number] (HP) Date:5365-31-07LK [address]CRQHDKX, [place] [address]BN: 02/03/2018 Secondary NOT GIVENUNK [place] Insurance:SELF PAY [facility] Number: Effective Repository Date:2018-02-03 01/24/2018 JIMMIE LEALL7665 Primary JIMMIE CARROB: [place] Insurance:[employer] [id number] Community [address] [facility] [place] [address]Tel: Number: Repository [id number] (HP) Date:8241-83-61SV [address]CCCHQXW, [place] [address]FJ: 01/24/2018 Secondary NOT GIVENUNK [place] Insurance:SELF PAY [facility] Number: Effective Repository Date:2018-01-24 01/22/2018 JIMMIE LEALL7665 Primary JIMMIE LEALMANUELOB: [place] Insurance:[employer] [id number] Community [address] [facility] [place] [address]Tek: Number: Repository [id number] (HP) Date:9989-94-10GD [address]QZRXFVM, [place] [address]XB: 01/22/2018 Secondary NOT GIVENUNK [place] Insurance:SELF PAY [facility] Number: Effective Repository Date:2018-01-16 01/20/2018 JIMMIE M [id number] Primary JIMMIE LEALLDOB: [place] Insurance:ANTH [id number] [place] [address] [place] [address]Crm: Number: Repository [id number] (HP) Date:3798-94-01UE [address]PZQXJXA, [place] [address]LB: 01/20/2018 Secondary NOT GIVENUNK [place] Insurance:SELF PAY [facility] Number: Effective Repository Date:2018-01-20 01/14/2018 JIMMIE LEALL7665 Primary JIMMIE LEALLDOB: [place] Insurance:ANTH [id number] Community [address] [facility] [place] [id number]: Number: Repository [id number] (HP) Date:9762-34-71MI [address]FTQXVUR, [place] [address]GP: 01/14/2018 Secondary NOT GIVENUNK [place] Insurance:SELF PAY [facility] Number: Effective Repository Date:2018-01-14 01/14/2018 JIMMIE [id number] Primary JIMMIE LEALMANUELOB: [place] TR Insurance:ANTH [id number] [place] [facility] [place] [address]Hnj: Number: Repository [id number] (HP) Date:7576-85-09FX [address]GIWPGKH, [place] [address]ZP: 01/14/2018 Secondary NOT GIVENUNK [place] Insurance:SELF PAY [facility] Number: Effective Repository Date:2018-01-07 01/07/2018 JIMMIE [id number] Primary JIMMIE CARROB: [place] TR Insurance:ANTHEM [id number] [place] [address] [facility] [place] [address]Vgu: Number: Repository [id number] (HP) Date:5135-83-32CJ [address] [place] [address]FH: 01/07/2018 Secondary NOT GIVENUNK [place] Insurance:SELF PAY [facility] Number: Effective Repository Date:2018-01-07 01/02/2018 JIMMIE [id number] Primary JIMMIE CARROB: [place] TR Insurance:ANTHEM [id number] [place] [address] [facility] [place] [id number]: Number: Repository [id number] (HP) Date:2902-69-75WX [id number] [place] [address]QX: 01/02/2018 Secondary NOT GIVENUNK [place] Insurance:SELF PAY [facility] Number: Effective Repository Date:2017-12-27 12/25/2017 JIMMIE [id number] Primary JIMMIE CARROB: [place] Insurance:ANTHEM [id number] [place] [address] [facility] [place] [id number]: Number: Repository [id number] (HP) Date:7851-58-15JQ [address]DBMXFLF, [place] [address]TR: 12/25/2017 Secondary NOT GIVENUNK [place] Insurance:SELF PAY [facility] Number: Effective Repository Date:2017-12-18 12/25/2017 JIMMIE [id number] Primary JIMMIE CARROB: [place] Insurance:ANTHEM [id number] [place] [address] [facility] [place] [id number]: Number: Repository [id number] (HP) Date:6575-81-36VJ [id number] [place] [address] 24493LT: 12/25/2017 Secondary NOT GIVENUNK [place] Insurance:SELF PAY [facility] Number: Effective Repository Date:2017-12-25 12/25/2017 JIMMIE Osorio [id number] Primary JIMMIE CARROB: [place] TR Insurance:ANTHEM [id number] [place] [address] [facility] [place] [address]Xyl: Number: Repository [id number] (HP) Date:7617-08-16VY [id number] [place] [address]12[address]XH: 12/25/2017 Secondary NOT GIVENUNK [place] Insurance:SELF PAY [facility] Number: Effective Repository Date:2017-12-25 12/20/2017 JIMMIE M [id number] Primary JIMMIE CARROB: [place] Insurance:ANTHEM [id number] [place] [address] [facility] [place] [address]Qoi: Number: Repository [phone] [id number] 0-4 (HP) Date:3772-21-21TE [address] [place] [address] 96266EL: 12/20/2017 Secondary NOT GIVENUNK [place] Insurance:SELF PAY [facility] Number: Effective Repository Date:2017-12-17 12/17/2017 JIMMIE M [id number] Primary JIMMIE CARROB: [place] TR Insurance:ANTHEM [id number] [place] [address] [facility] [place] [id number]: Number: Repository [phone] [id number] 0-4 (HP) Date:1543-20-01NI [id number] [place] [address] 629[address]TZ: 12/17/2017 Secondary NOT GIVENUNK [place] Insurance:SELF PAY [facility] Number: Effective Repository Date:2017-12-17 12/17/2017 JIMMIE [id number] Primary JIMMIE LEALMANUELOB: [place] TR Insurance:ANTHEM [id number] [place] [address] [facility] [place] [id number]: Number: Repository [phone] [id number] [id number] (HP) Date:9576-77-45EP [address] [place] [address] 342[address]WI: 12/17/2017 Secondary NOT GIVENUNK [place] Insurance:SELF PAY [facility] Number: Effective Repository Date:2017-12-17 12/17/2017 JIMMIE [id number] Primary JIMMIE Osorio BRUNOOB: [place] TR Insurance:ANTHEM [id number] [place] [address] [facility] [place] [id number]: Number: Repository [id number] (HP) Date:1807-42-70NM [address] [place] [address]45[address]FX: 12/17/2017 Secondary NOT GIVENUNK [place] Insurance:SELF PAY [facility] Number: Effective Repository Date:2017-12-06 12/06/2017 JIMMIE [id number] Primary JIMMIE M BRUNOOB: [place] Insurance:ANTHEM [id number] [place] [address] [facility] [place] [address]Fbf: Number: Repository [phone] [id number] [id number] (HP) Date:2332-22-58RD [id number] [place] [address] 377[address]BP: 12/06/2017 Secondary NOT GIVENUNK [place] Insurance:SELF PAY [facility] Number: Effective Repository Date:2017-12-06 12/06/2017 JIMMIE [id number] Primary JIMMIE LEALMANUELOB: [place] [address] Insurance:ANTHEM [id number] [place] [address] [facility] [place] [address]Hrd: Number: Repository [phone] [id number] 0-4 (HP) Date:5650-69-22TB [id number] [place] [address] 547[address]DG: 12/06/2017 Secondary NOT GIVENUNK [place] Insurance:SELF PAY [facility] Number: Effective Repository Date:2017-12-06 12/03/2017 JIMMIE M [id number] Primary JIMMIE Osorio BRUNOOB: [place] [address] Insurance:ANTHEM [id number] [place] [address] [facility] [place] [address]Epj: Number: Repository [phone] [id number] 0-4 (HP) Date:4021-67-40LY [address] [place] [address] 77[address]CT: 12/03/2017 Secondary NOT GIVENUNK [place] Insurance:SELF PAY [facility] Number: Effective Repository Date:2017-11-27 11/21/2017 JIMMIE HOLDEN: Primary Insurance:FRANKIE JIMMIE Osorio BRUNOOB: Dontae Langford [address] [facility] [id number] [facility] [address], Number: [address] [place] [address], [place]ository [place] [id number] [place] [id number]: Date:Plan Name:B3P O [address] () [place] [id number]: 11/19/2017 JIMMIE CARROB: Primary Insurance:FRANKIE LEALMANUELOB: Dontae Langford [facility] [id number] [facility] [address], Number: [address] [place] [address], [place]ository [place] [id number] [place] [id number]: Date:Plan Name:B3P O [address], () [place] [id number]: 07/04/2017 JIMMIE HOLDEN: Primary Insurance:FRANKIE HOLDEN: Dontae Langford [id number] [facility] [id number] [facility] [address]PAT[address], Number: [address], [facility] [id number] [place] [id number]: Date:Plan Name:P [address], () [place] [id number]:
== END 2018-06-03 08:24 | disposition home or self-care (01) ==
LOC: EN 05:26 → AC 05:26
PROVIDERS: Family Provider Family Medicine; PCP Family Medicine; Referring Provider Surgery; Visit Provider Surgery
PROC: 0DJ08ZZ Inspection of Upper Intestinal Tract, Via Natural or Artificial Opening Endoscopic (ICD-10-PCS; CPT 43235; principal; 2018-06-03 06:00)
DX: K21.9 Gastro-esophageal reflux disease without esophagitis (principal); K29.70 Gastritis, unspecified, without bleeding; K22.8 Other specified diseases of esophagus; K31.89 Other diseases of stomach and duodenum; K44.9 Diaphragmatic hernia without obstruction or gangrene; C50.919 Malignant neoplasm of unspecified site of unspecified female breast; I10 Essential (primary) hypertension; E03.9 Hypothyroidism, unspecified; M19.90 Unspecified osteoarthritis, unspecified site; Z79.899 Other long term (current) drug therapy; Z78.0 Asymptomatic menopausal state; Z96.643 Presence of artificial hip joint, bilateral
CPT/HCPCS: 43239; 88305; 88312; 88313; 88342; J7120

== ENCOUNTER 2018-07-17 07:42 | Day surgery (SDC) | payer MEDICARE, SELFPAY ==
[2018-01-20 10:17] VITALS: BMI 22.6
[2018-07-16 13:11] VITALS: BMI 23.1
[2018-07-17 09:01] VITALS: BP 140/74; PULSE 74; RESP 16; TEMP 36.3; O2SAT 99
== END 2018-07-17 09:01 | disposition home or self-care (01) ==
PROVIDERS: Family Provider Family Medicine; PCP Family Medicine; Referring Provider Surgery; Visit Provider Surgery
PROC: F00ZJWZ Instrumental Swallowing and Oral Function Assessment using Swallowing Equipment (ICD-10-PCS; CPT 43235; principal; 2018-07-17 07:55)
DX: K21.9 Gastro-esophageal reflux disease without esophagitis (principal)
CPT/HCPCS: 91010

== ENCOUNTER → 2018-09-12 14:01 | Outpatient (CLI) | payer MEDICARE, SELFPAY ==
[2018-01-20 10:17] VITALS: BMI 22.6
[2018-07-16 13:11] VITALS: BMI 23.1
[2018-09-12 14:04] LABS: Bacteria 0 SEEN /hpf (None Seen); Mucous, Urine 0 SEEN /hpf (<or=2+); Red Blood Cells-Urine 0 SEEN /hpf (0-5); Squamous Epithelial Cells - UA 0 SEEN /hpf (5-10)
[2018-09-12 15:33] LABS: Absolute Lymphocyte Count 1.24 X10^3/ul (0.83-4.51); Absolute Neutrophil Count 3.5 X10^3/uL (2.0-7.7); Basophil# 0.06 X10^3/uL; Basophil% 1.1 % (0-1); Color, Urine Yellow (Yellow); Eosinophil# 0.14 X10^3/uL; Eosinophils% 2.5 % (0-5); Glucose, Dipstick Normal (Normal); Hematocrit 43.2 % (37-47); Hemoglobin 14.3 g/dl (12.0-15.0); Ketone-Dipstick Negative (Negative); Leukocyte Esterase-Dipstick 25 /ul (Negative); Lymphocyte # 1.24 X10^3/ul (4.0); Lymphocyte % 22.3 % (19-41); Mean Corp Hgb Conc 33.1 g/gl (32-36); Mean Corpuscular Hgb 31.4 pg (27.0-32.0); Mean Corpuscular Volume 94.9 fL (81-99); Monocyte# 0.67 X10^3/uL; Neutrophil # 3.45 X10^3/uL (2.7-7.7); Neutrophil % 61.9 % (47-70); Nitrite-Dipstick Negative (Negative); Occult Blood-Urine Negative /ul (Negative); Platelet Count 156 K/mm3 (150-450); Protein-Dipstick Negative (Negative); Red Blood Count 4.55 M/mm3 (4.2-5.4); Specific Gravity, Urine 1.005 (1.002-1.030); Urine Bilirubin Dipstick Negative (Negative); Urine Clarity Clear (Clear); Urine Urobilinogen Normal (Normal); White Blood Count 5.6 K/mm3 (4.4-11.0)
[2018-09-12 15:44] LABS: POSITIVE COUNT NO; POSITIVE DIFFERENTIAL NO; POSITIVE MORPHOLOGY NO
[2018-09-12 15:53] LABS: ALB/GLOB Ratio 1.3 RATIO (0.9-2.4); AST(SGOT) 22 U/L (15-37); Alanine Aminotransfer ALT/SGPT 18 U/L (13-56); Albumin, Serum 4.1 g/dL (3.2-5.0); Alkaline Phosphatase 62 U/L (45-117); Anion Gap 9 (5-15); BUN 14 mg/dL (7-18); BUN/Creat Ratio 15.5 RATIO (10-20); Calcium,Total 9.6 mg/dL (8.5-10.1); Chloride 101 mmol/L (98-107); EST Glomerular Filtration Rate 65 mL/min (>60); Est Glom Filt Rate - Afr Amer 79 mL/min (>60); Globulin 3.1 g/dL (2.2-4.2); Glucose 82 mg/dL (74-106); Potassium 3.1 mmol/L (3.5-5.1); Protein, Total 7.2 g/dL (6.4-8.2); Sodium Level 139 mmol/L (136-145); Thyroid Stim Hormone (TSH) 2.36 uIU/mL (0.358-3.74)
[2018-09-12 16:15] LABS: White Blood Cells 0-5 SEEN /hpf (0-5)
== END ==
PROVIDERS: Family Provider Family Medicine; PCP Family Medicine; Referring Provider Family Medicine; Visit Provider Family Medicine
DX: I10 Essential (primary) hypertension (principal); E03.9 Hypothyroidism, unspecified
CPT/HCPCS: 36415; 80053; 81001; 84443; 85025

== ENCOUNTER → 2018-09-24 15:56 | Outpatient (CLI) | payer MEDICARE, SELFPAY ==
[2018-01-20 10:17] VITALS: BMI 22.6
[2018-07-16 13:11] VITALS: BMI 23.1
[2018-09-24 17:38] LABS: Potassium 3.6 mmol/L (3.5-5.1)
== END ==
PROVIDERS: Family Provider Family Medicine; PCP Family Medicine; Referring Provider Family Medicine; Visit Provider Family Medicine
DX: E87.6 Hypokalemia (principal)
CPT/HCPCS: 36415; 84132

== ENCOUNTER → 2018-10-06 13:06 | Outpatient (CLI) | payer MEDICARE, SELFPAY ==
[2018-01-20 10:17] VITALS: BMI 22.6
[2018-07-16 13:11] VITALS: BMI 23.1
[2018-10-06 14:24] LABS: Potassium 3.9 mmol/L (3.5-5.1)
== END ==
PROVIDERS: Family Provider Family Medicine; PCP Family Medicine; Referring Provider Family Medicine; Visit Provider Family Medicine
DX: E87.6 Hypokalemia (principal)
CPT/HCPCS: 36415; 84132

== ENCOUNTER → 2018-11-19 10:23 | Outpatient (CLI) | payer MEDICARE, SELFPAY ==
[2018-01-20 10:17] VITALS: BMI 22.6
[2018-10-16 09:50] VITALS: BMI 23.3
--- NOTE | 2018-11-19 10:25 | BI_ITS ---
MAMMOGRAPHY - BILATERAL SCREENING REASON FOR EXAM: Female, 73 years old. Routine annual screening examination. PERTINENT HISTORY: Personal history of breast cancer. Prior lumpectomy and radiation treatment. TECHNIQUE: Digital bilateral breast lei (3D mammographic acquisition) in the CC and MLO projections. 2-D mediolateral oblique (MLO) and craniocaudad (CC) views of both breasts were obtained. CAD: Full Field Digital Mammography with Computer Added Detection was performed. COMPARISON: Comparison is made with prior axial examination dated November 19, 2017. FINDINGS: Breast Composition: There are scattered areas of fibroglandular density. There are no dominant masses or suspicious calcifications. Since prior study, the patient underwent a lumpectomy of a nodular density in the upper lateral portion of the right breast. Postoperative deformity is seen. Surgical clips are seen in the right axillary region. No other significant abnormalities are identified. BI/SCREENING MAMM (CAD), BILAT IMPRESSION: Status post lumpectomy in the upper outer quadrant of the right breast with evidence of axillary surgery. Yearly follow-up mammogram recommended. (A) ASSESSMENT CATEGORY: BIRADS Category 2: Benign. A letter regarding these results will be sent to the patient by the facility within 30 days. Approximately 10% of breast cancers are not detected by mammography. A normal mammogram should not delay biopsy of a clinically suspicious abnormality. [id number] Electronically Signed: Rafael Barry, at 8:22 EDT , Service support ,
== END ==
PROVIDERS: Family Provider Family Medicine; PCP Family Medicine; Referring Provider Surgery; Visit Provider Surgery
DX: Z12.31 Encounter for screening mammogram for malignant neoplasm of breast (principal)
CPT/HCPCS: 77063; 77067

== ENCOUNTER 2019-01-19 11:32 | Observation (INO) | payer MEDICARE, SELFPAY ==
[2018-01-20 10:17] VITALS: BMI 22.6
[2018-12-03 13:05] VITALS: BMI 23.3
--- NOTE | 2019-01-07 04:59 | HP_ITS ---
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 Equipment Operator Required: No Is patient in pain?: No Allergies No Known Allergies Allergy (Verified 01/07/19 10:35) Medications cholecalciferol (vitamin D3) 2,000 unit capsule 2,000 unit PO QDAY 12/03/17 [History Confirmed 01/07/19] hydrochlorothiazide 25 mg tablet 25 mg PO QDAY 12/03/17 [History Confirmed 01/07/19] levothyroxine 88 mcg tablet 50 mcg PO QDAY 12/03/17 [History Confirmed 01/07/19] multivitamin tablet 1 tab PO QDAY 12/03/17 [History Confirmed 01/07/19] sennosides 8.6 mg tablet 8.6 mg PO BID PRN 12/03/17 [History Confirmed 01/07/19] Calcium Carb/Vitamin D3/Vit K1 [Viactiv Soft Chew] 1 ea PO DAILY 12/24/17 [History Confirmed 01/07/19] Lansoprazole [Prevacid] 15 mg PO QHS 12/24/17 [History Confirmed 01/07/19] Inulin/Chromium Picolinate [Fiber Gummies] 1 ea PO DAILY 04/03/18 [History Confirmed 01/07/19] Anastrozole [Arimidex] 1 mg PO DAILY 90 Days #90 tab 04/10/18 [Rx Confirmed 01/07/19] Is last menstrual period known: No Post menopausal: Yes Patient : No PFSH Medical History Skin lesion (Acute) Hiatal hernia with gastroesophageal reflux disease and esophagitis (Acute) GERD (gastroesophageal reflux disease) (Acute) Breast cancer in female (Chronic) Breast cancer (Acute ~12/2017) GERD (gastroesophageal reflux disease) (Acute) Hemorrhoids (Acute) Hypothyroidism (Acute) Osteoarthritis (Acute) S/P tubal ligation (Acute) HTN (hypertension) (Chronic) Surgical History History of lumpectomy (Acute) S/P breast biopsy (Acute) S/P breast biopsy (Acute) S/P colonoscopy (Acute) S/P dilation and curettage (Acute) Status post left hip replacement (Acute) Status post right hip replacement (Acute) s/p EGD with PH probe (Acute ~06/03/18) Family History Father CAD (coronary artery disease) Hypertension Mother Bleeding disorder Sister Bleeding disorder Social History (Updated 01/07/19 @ 17:03 by Mp Hernandez MD) Smoking Status: Never smoker HPI HPI HPI: JIMMIE WEATHERS, is a 73 F who presents to the office today for HPI HPI Surgical H&P: Yes HPI: JIMMIE WEATHERS, is a 73 F who presents to the office today for JIMMIE SARAHY, is a 73 F who presents to the office today for surgical consultation regarding severe heartburn. Symptoms started multiple years ago dating back to at least 2009. At that point she took Tums on such a frequent basis that she increased her serum calcium level. Since that time she has been on lansoprazole. She intermittently tries to stop but has recurrent burning sensation. Recently I have assisted her with upper outer quadrant right breast cancer for which we perform breast conservation surgery December 25, 2017. Based presentation she claims that over the past month she has had 4 episodes of significant reflux and chest pain. She is on chronic Prevacid therapy. Because of the severe pain she had to add Tums as a means of treatment in addition We today had an ongoing discussion regarding her sizable hiatal hernia previous evidence of ulcerative reflux esophagitis. Her esophageal manometry demonstrated generally weak swallows throughout however I suspect that she clinically performs better than this as she does not typically describe swallowing difficulties other than when she overeats a piece of steak she has some difficulty in getting that to advance. Nonetheless I believe that she would be a candidate for laparoscopic repair of her hiatal hernia and likely a toupet or partial posterior wrap. Extensive discussion was again had with the patient regarding this option. We discussed her ongoing chronic need for proton pump inhibitor therapy. 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 H. Pylori was negative. [facility] Medical Records Department [address] [place] [address] Operative Report - Endoscopy MR#: [id number] Name: JIMMIE WEATHERS [facility] #:[id number] : [id number]: Mp Hernandez MD PCP:Kan Vargas MD Status:[facility] Patient Name: Jimmie Weathers Procedure Date: 06/03/2018 6:10 AM Date of : 1945 Age: 72 Procedure: Upper GI endoscopy Indications: Heartburn Providers: Mp Hernandez MD Referring MD: Mp Hernandez MD Medicines: See the Anesthesia note for documentation of the administered medications Complications: No immediate complications. Procedure: Pre-Anesthesia Assessment: - Prior to the procedure, a History and Physical was performed, and patient medications and allergies were reviewed. The patient's tolerance of previous anesthesia was also reviewed. The risks and benefits of the procedure and the sedation options and risks were discussed with the patient. All questions were answered, and informed consent was obtained. Prior Anticoagulants: The patient has taken Eliquis (apixaban), last dose was day of procedure. ASA Grade Assessment: II - A patient with mild systemic disease. After reviewing the risks and benefits, the patient was deemed in satisfactory condition to undergo the procedure. After obtaining informed consent, the endoscope was passed under direct vision. Throughout the procedure, the patient's blood pressure, pulse, and oxygen saturations were monitored continuously. The gastroscope was introduced through the mouth, and advanced to the second part of duodenum. The upper GI endoscopy was accomplished without difficulty. The patient tolerated the procedure well. 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 Mucosa was biopsied with a cold forceps for histology. A total of 5 specimen bottles were sent to pathology. The Z-line was irregular and was found 35 cm from the incisors. A large hiatal hernia was present. Diffuse mildly erythematous mucosa without bleeding was found in the gastric antrum. Biopsies were taken with a cold forceps for histology. Diffuse mildly erythematous mucosa without active bleeding and with no stigmata of bleeding was found in the first portion of the duodenum. Biopsies were taken with a cold forceps for histology. A large hiatal hernia was present. The PHILLIPS capsule with delivery system was introduced through the mouth and advanced into the esophagus, such that the PHILLIPS pH capsule was positioned 29 cm from the incisors, which was 6 cm proximal to the GE junction. The PHILLIPS pH capsule was then deployed and attached to the esophageal mucosa. The delivery system was then withdrawn. Endoscopy was utilized for probe placement and diagnostic evaluation. The scope was reinserted to evaluate placement of the PHILLIPS capsule. Visualization showed the PHILLIPS capsule to be close to the EG junction. Pt had significant coughing during MAC. 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 Biopsied. - Z-line irregular, 35 cm from the incisors. - Large hiatal hernia. - Erythematous mucosa in the antrum. Biopsied. - Erythematous duodenopathy. Biopsied. Recommendation: - Discharge patient to home. - Resume previous diet. - Resume Eliquis (apixaban) at prior dose today. - Return to my office in 1 week. Procedure Code(s): --- Professional --- 38554, Esophagogastroduodenoscopy, flexible, transoral; with biopsy, single or multiple Diagnosis Code(s): --- Professional --- K22.8, Other specified diseases of esophagus K44.9, Diaphragmatic hernia without obstruction or gangrene K31.89, Other diseases of stomach and duodenum R12, Heartburn CPT copyright 2017 [employer]. All rights reserved. The codes documented in this report are preliminary and upon machine applicator cementer review may be revised to meet current compliance requirements. Mp Hernandez MD 06/03/2018 6:57:51 AM This report has been signed electronically. Number of Addenda: 0 Note Initiated On: 06/03/2018 6:10 AM 06/03/18 0658 Date Mp Hernandez MD [facility] Signature:Date (if indicated) ROS General General: No weight change HEENT HEENT: No difficulty swallowing, eye injury, eye surgery, swollen glands or hoarseness Endo Endocrine: Yes thyroid disease Skin Skin: Yes changing moles Additional Details: Left medial calf Breast Additional Details: No palpable breast masses except after right breast biopsy Musc Musculoskeletal: No back problems Cardio Cardiovascular: No murmur, pacemaker, heart disease, atrial fibrillation, high blood pressure, heart attack, heart stent, palpitations, shortness of breat with exertion or chest pain Psych Psychiatric: No depression, anxiety or hearing voices Resp Respiratory: No shortness of breath, No sleep apnea, No cough, No COPD, No asthma, No emphysema, No wheezing Gastro Gastrointestinal: No abdominal pain, No nausea or vomiting, No diarrhea, No constipation, No blood in stool, Yes acid reflux, No hemorrhoids, No ulcers, No gallbladder problem, No black,tarry stools Eyad Hematologic: No blood thinners, No blood disorders, No bleeding, No anemia, No blood clots Neuro Neurologic: No system reviewed and no additional complaints, except as docu Exam Const General: cooperative, healthy appearing, comfortable, no acute distress Nutritional Appearance: average body habitus Orientation: alert, awake, oriented x3 HENMT Head: normal to inspection Eyes General: appearance normal, both eyes and all related structures Resp Effort & Inspection: normal respiratory effort Auscultation: clear to auscultation bilaterally Cardio Rate: regular rate Rhythm: regular rhythm Heart Sounds: no murmurs GI Palpation: soft, no hepatosplenomegaly Auscultation: normal bowel sounds Neuro Cognition: normal cognition Extrem General: no calf tenderness bilaterally Psych Affect: normal affect Assessment & Plan Problems 1. Hiatal hernia with gastroesophageal reflux disease and esophagitis K44.9; K21.0 2. Gastroesophageal reflux disease, esophagitis presence not specified K21.9 Plan Today was a 30-minute [id number] consultative appointment with the patient. She has a moderately large hiatal hernia with erosive esophagitis. She is proton pump inhibitor dependent. Despite that she has had aggravated symptoms at least 4 times over the past month requiring the urgent addition of an acid to relieve her retrosternal chest pain and heartburn. In detail with her present I have discussed the technique, benefit, risk and alternatives of a laparoscopic repair of her diaphragm and a Toupet posterior wrap. We discussed potential for gastric bloating or addition of vomiting. We discussed potential risk for esophageal gastric injury or bleeding. We compared and contrasted that to her ongoing utilization of proton pump inhibitors and ongoing requirement of an acids as well as retrosternal pain in addition to the findings of the erosive esophagitis and early segment Archer's. I believe that she would be a good candidate for surgical care. She does not have perfect esophageal motility so I believe a posterior wrap would be for preferred. She has had an opportunity to ask and have questions answered. I suggested to her that she needed to be 100% committed to this is a procedure which she feels would offer her benefit. She has decided to schedule and proceed as noted. She has not had any previous abdominal surgery Mp Hernandez M.D., F.A.C.S. Coding Level of Care Code Off vis,est,level 3 Diagnoses Hiatal hernia with gastroesophageal reflux disease and esophagitis K44.9; K21.0 Gastroesophageal reflux disease, esophagitis presence not specified K21.9 ??Esophagitis presence: esophagitis presence not specified 01/07/19 2573 <Electronically signed by Mp torres MD> Date _ Mp Hernandez MD I have re-examined the patient. There are no clinical changes since date of exam.
[2019-01-07 16:50] VITALS: BMI 23.3
--- NOTE | 2019-01-12 13:22 | EKG12_ITS ---
Test Reason : PRE OP Blood Pressure : / mmHG Vent. Rate : 067 BPM Atrial Rate : 067 BPM P-R Int : 144 ms QRS Dur : 080 ms QT Int : 414 ms P-R-T Axes : 066 068 044 degrees QTc Int : 437 ms Normal sinus rhythm Normal ECG Confirmed by ROBE LYN, BEN ([id number]), editorial cartoonist DAX JEFFERSON ([id number]) on 01/13/2019 1:33:36 PM Referred By: Mp Hernandez Confirmed By:BEN NAGEL MD
[2019-01-12 14:50] LABS: Hematocrit 41.3 % (37-47); Mean Corp Hgb Conc 33.9 g/gl (32-36); Mean Corpuscular Hgb 32.3 pg (27.0-32.0); Mean Corpuscular Volume 95.2 fL (81-99); Mean Platelet Vol. 10.7 fl (6.2-12.0); Platelet Count 157 K/mm3 (150-450); RBC Distribution Width CV 12.3 % (11.6-14.6); RBC Distribution Width SD 41.8 fl (35.1-43.9); Red Blood Count 4.34 M/mm3 (4.2-5.4)
[2019-01-12 14:56] LABS: Scan Indicated on CBC? Y/N NO
[2019-01-12 15:23] LABS: Anion Gap 7 (5-15); BUN 11 mg/dL (7-18); Calcium,Total 8.8 mg/dL (8.5-10.1); Chloride 98 mmol/L (98-107); Creatinine, Serum 0.85 mg/dL (0.55-1.02); EST Glomerular Filtration Rate 70 mL/min (>60); Est Glom Filt Rate - Afr Amer 85 mL/min (>60); Glucose 103 mg/dL (74-106); Potassium 3.8 mmol/L (3.5-5.1); Sodium Level 137 mmol/L (136-145); Thyroid Stim Hormone (TSH) 2.11 uIU/mL (0.358-3.74)
[2019-01-19] VITALS (13 sets, daily range): BP systolic 129–164; BP diastolic 65–90; PULSE 43–75; RESP 14–18; TEMP 35.7–37; O2SAT 90–100; BMI 23.0
[2019-01-19] MEDS: Cefazolin 2 GM in 0.9% Normal Saline 100 ML IV (07:08)
--- NOTE | 2019-01-19 07:15 | DCINST_ITS ---
Discharge Diet: Light diet - advance as tolerated - Liquid diet, anything which at body temperature will dissolve. Any type of soup would be appropriate. Start this for the first couple days then if well tolerated you may advance to pasta, rice and very soft foods. Discharge Activity: May Not Drive - for 1 week or while taking narcotic pain medicine. May shower in (days): 1 Lifting Restrictions: 10 pounds Call your doctor if your incision/area has: Continuous Slow Oozing, Sudden Increased Bleeding, Increased Pain/ Swelling, Increased Redness, Foul Smelling Discharge Call your doctor if you observe: Fever of 101 or Higher Suture Line Care: Avoid Pulling/Pushing, Avoid Pinching/Bending Additional Dressing/Incision Instructions:: Change or remove dressing in 3 days. Leave steri-strips in place for 1 week. Allergies/Adverse Reactions: Allergies No Known Allergies Allergy (Verified 01/07/19 10:35) Medications to take at Discharge cholecalciferol (vitamin D3) 2,000 unit capsule 2,000 unit PO QDAY 12/03/17 hydrochlorothiazide 25 mg tablet 25 mg PO QDAY 12/03/17 levothyroxine 88 mcg tablet 50 mcg PO QDAY 12/03/17 multivitamin tablet 1 tab PO QDAY 12/03/17 sennosides 8.6 mg tablet 8.6 mg PO BID PRN 12/03/17 Calcium Carb/Vitamin D3/Vit K1 [Viactiv Soft Chew] 1 ea PO DAILY 12/24/17 Lansoprazole [Prevacid] 15 mg PO QHS 12/24/17 Inulin/Chromium Picolinate [Fiber Gummies] 1 ea PO DAILY 04/03/18 Anastrozole [Arimidex] 1 mg PO DAILY 90 Days #90 tab 04/10/18 Aspirin [Aspirin, Baby] 162 mg PO DAILY@0800 01/12/19 Denosumab [Prolia] 60 mg SQ Q6M 01/12/19 Primary Care Physician: Mp Argueta MD [Primary Care Provider] - Test Results: Test results from this visit will be discussed in further detail at your follow- up appointment, if applicable. Please Follow Up With: Mp Hernandez MD - [phone] When: Call to make an appointment to be seen in about 10 days.
[2019-01-19] MEDS: Bupivacaine Mpf 0.5% 30 ML VIAL (11:28)
--- NOTE | 2019-01-19 11:36 | PCM.OPRPT ---
Problem List (1) Hiatal hernia with gastroesophageal reflux disease and esophagitis Status: Acute Report of Operation Date of Procedure: 01/19/19 Pre-Operative Diagnosis: Large hiatal hernia with gastroesophageal reflux disease and erosive esophagitis and Archer's esophagus Post-Operative Diagnosis: Same Surgery/Procedure Performed:: Laparoscopic repair of hiatal hernia with laparoscopic toupet procedure Description of Surgical Findings:: Timeout and informed consent was obtained. 73-year-old female taken from placement table underwent general endotracheal intubation anesthesia. Ancef 2 g given intravenous properly. They have sterilely prepped draped. Ioban drape was used old drapes in place. Superior to the right umbilicus 0.5% Marcaine was instilled as local 5 mm transverse incision was made using Kallik technology access was gained the abdomen. The abdomen was inflated with CO2 to a pressure of 10 mmHg pressure. 5-minute trocar was placed in the epigastric area telemeter trocar to the to the right of the umbilicus and 2 more from a trochars in the right subcostal area. Abdomen is inspected there is no evidence of superficial abnormalities. The left lobe of the liver was adherent I released that with harmonic scalpel then made a 500 Joan retractors incision in the epigastric area I try to medium a large and finally settled upon a small knife since retractor to help hold the liver. The level of the liver was very floppy and very fragile. It was elevated. The epiphrenic ligament was identified the peritoneum was incised was able to free both the right and left gaby patient had a moderately large hiatal hernia so I did an extensive amount of circumferential dissection. Once I had the posterior dissection I placed 1/4 inch Warwick drain and use that to help manipulate this I then continued my complete circumferential dissection approximately 8 cm proximally in the esophagus. I had very nice mobilization. I then approximated the crura with 0 Ethibond sutures that were pledgeted. 3 sutures were wired. I used a 46 Hungarian bougie to assure correct sizing. I then I had previously taken down the short gastrics with harmonic scalpel at this allowed for better visualization allowed me to get the posterior wrap behind the retroesophageal area. I secured that wrapped into the crura with the interrupted 0 Ethibond. Very nice position was achieved. I performed a toupet by using a 2-0 Ethibond suture and approximating the apical suture to the esophagus epiphrenic ligament into the wrap portion of the crura and in a running fashion I approximated that to the anterior lateral wall of the esophagus. I then fashioned the left portion of the wrap that to I secured to the epiphrenic ligament esophagus into the stomach very nice position was achieved and secured that to the anterolateral wall the stomach with a running 2-0 Ethibond. Very nice positioning was felt to been achieved. I then performed upper endoscopy sliding the gastroscope down took a look at the Archer's the erosive esophagitis had been healed EG junction appears to be in good position significant amount of work had been done to try to get the EG junction back into the abdomen. Did not see any deficit in the stomach scope was advanced through the pylorus duodenum was unremarkable scope was retroflexed photographs were obtained. She tolerated that procedure well the scope was removed there has been no air leak. Excess fluid and air was aspirated free. I then there is been a small sliver tear from the retractor I treated that with argon beam assured that was hemostatic which it was. Blood loss from that actually was fairly minimal it may be tender 20 cc. I then placed fibular at that site that was nicely hemostatic I reinspected the wrap that was good the liver edge was good to carefully remove the Joan retractor excess fluid naris aspirated free. The telemeter trocar site in the right epigastrium was secured to the right of the umbilicus and superiorly was secured with a 2 simple sutures of 0 Vicryl using a GraNee needle. All skin edges were approximate interrupted 4-0 Monocryl subdermal stitches. Steri-Strips Telfa and OpSite dressings applied. Sponge and instrument and needle counts were reported to surgically correct. Blood loss 50 cc. She tolerated the procedure well was taken to the recovery area in satisfactory condition without apparent convocation. Specimens none. Drains none. Blood loss 50 cc Mp Hernandez M.D., F.A.C.S. Type of Anesthesia:: General Anesthesiologist: Helio Strickland
[2019-01-19] MEDS: Ketorolac 15 MG/ML Vial IV (18:29)
[2019-01-19] MEDS: Pantoprazole Sodium 20 MG Tablet PO (22:26)
[2019-01-20] MEDS: Ketorolac 15 MG/ML Vial IV (00:51)
[2019-01-20] MEDS: Lactated Ringers 1,000 ML 30 ML IV (01:01)
[2019-01-20 02:00] VITALS: BP 136/67; PULSE 72; RESP 18; TEMP 36.8; O2SAT 98
--- NOTE | 2019-01-20 05:44 | PCM.PN.SRG ---
Subjective: Pt doing well, comfortable, some burps past the wrap - Physical Exam Lungs: Clear to auscultation Abdomen: Soft, Non Tender Vital Signs Temp Pulse Resp BP Pulse Ox 98.3 F 72 18 136/67 H 98 01/20/19 02:00 01/20/19 02:00 01/20/19 02:00 01/20/19 02:00 01/20/19 02:00 Oxygen Flow Rate (L/min) 3.5 Oxygen Delivery Method Room Air Weight: 134 lb Body Mass Index (BMI) 23.0 Intake and Output for Last 24 Hours 01/18/19 01/19/19 01/20/19 23:59 23:59 23:59 Intake Total 2740 / 3146 406 / 406 Balance 2740 / 3146 406 / 406 Medical Necessity - Tobacco Use Smoking Status: Never smoker Assessment/Plan All Active Problems (Last Reviewed 01/07/19 @ 10:34 by Aleksandra Mcelroy) Skin lesion (Acute) Hiatal hernia with gastroesophageal reflux disease and esophagitis (Acute) Educational circumstance (Acute) GERD (gastroesophageal reflux disease) (Acute) Will advance diet and discharge today
[2019-01-20] MEDS: Levothyroxine 50 MCG Tablet PO (05:52)
[2019-01-20] MEDS: 0.9% NaCl Peripheral Flush Adult/Peds IV (05:55)
[2019-01-20 08:03] VITALS: O2SAT 98
[2019-01-20 08:56] VITALS: BP 153/77; PULSE 81; RESP 18; TEMP 36.9; O2SAT 98
[2019-01-20] MEDS: Acetaminophen 325 MG Tablet 650 MG PO (08:59)
[2019-01-20] MEDS: hydroCHLOROthiazide 25 MG Tablet PO (08:59)
== END 2019-01-20 12:30 | disposition home or self-care (01) ==
LOC: SDC 12:58
PROVIDERS: Admitting Provider Surgery; Family Provider Family Medicine; PCP Family Medicine; Referring Provider Surgery; Visit Provider Surgery
PROC: (CPT 43325; principal; 2019-01-19 06:55)
DX: K44.9 Diaphragmatic hernia without obstruction or gangrene (principal); K21.0 Gastro-esophageal reflux disease with esophagitis; I10 Essential (primary) hypertension; E03.9 Hypothyroidism, unspecified; M19.90 Unspecified osteoarthritis, unspecified site; K22.70 Barrett's esophagus without dysplasia; E78.00 Pure hypercholesterolemia, unspecified; Z85.3 Personal history of malignant neoplasm of breast; Z79.899 Other long term (current) drug therapy
CPT/HCPCS: 43281; 36415; 80048; 84443; 85027; 93005; 96374; 96376; 99218; J7120; A4216; G0378; G0379; J2405

== ENCOUNTER → 2019-03-11 10:34 | Outpatient (CLI) | payer MEDICARE, SELFPAY ==
[2018-01-20 10:17] VITALS: BMI 22.6
[2019-01-19 13:58] VITALS: BMI 23.0
[2019-03-11 12:36] LABS: Absolute Neutrophil Count 5.6 X10^3/uL (2.0-7.7); Basophil# 0.07 X10^3/uL; Basophil% 0.9 % (0-1); Eosinophil# 0.17 X10^3/uL; Eosinophils% 2.2 % (0-5); Hematocrit 41.3 % (37-47); Hemoglobin 13.5 g/dL (12.0-15.0); Lymphocyte % 16.9 % (19-41); Mean Corp Hgb Conc 32.7 g/dL (32-36); Mean Corpuscular Hgb 31.2 pg (27.0-32.0); Mean Corpuscular Volume 95.4 fL (81-99); Mean Platelet Vol. 10.7 fl (6.2-12.0); Monocyte# 0.57 X10^3/uL; Monocyte% 7.4 % (0-10); NRBC Flagged by Analyzer 0 % (0-5); Neutrophil # 5.58 X10^3/uL (2.7-7.7); Neutrophil % 72.3 % (47-70); Platelet Count 143 K/mm3 (150-450); RBC Distribution Width CV 11.7 % (11.6-14.6); RBC Distribution Width SD 40.7 fl (35.1-43.9); Red Blood Count 4.33 M/mm3 (4.2-5.4); White Blood Count 7.7 K/mm3 (4.4-11.0)
[2019-03-11 13:05] LABS: ALB/GLOB Ratio 1.1 RATIO (0.9-2.4); AST(SGOT) 19 U/L (15-37); Alanine Aminotransfer ALT/SGPT 22 U/L (13-56); Albumin, Serum 3.8 g/dL (3.2-5.0); Alkaline Phosphatase 57 U/L (45-117); Anion Gap 8 (5-15); BUN 11 mg/dL (7-18); BUN/Creat Ratio 13.4 RATIO (10-20); Calcium,Total 10.6 mg/dL (8.5-10.1); Chloride 102 mmol/L (98-107); Creatinine, Serum 0.82 mg/dL (0.55-1.02); EST Glomerular Filtration Rate 73 mL/min (>60); Est Glom Filt Rate - Afr Amer 88 mL/min (>60); Globulin 3.5 g/dL (2.2-4.2); Glucose 89 mg/dL (74-106); Phosphorus 3.8 mg/dL (2.5-4.9); Potassium 3.3 mmol/L (3.5-5.1); Protein, Total 7.3 g/dL (6.4-8.2); Sodium Level 140 mmol/L (136-145); Thyroid Stim Hormone (TSH) 1.54 uIU/mL (0.358-3.74)
[2019-03-16 10:39] LABS: Vitamin D,25 Hydroxy 48.5 ng/mL (29.95-100.01)
== END ==
PROVIDERS: Family Provider Family Medicine; PCP Family Medicine; Referring Provider Family Medicine; Visit Provider Family Medicine
DX: I10 Essential (primary) hypertension (principal); E03.9 Hypothyroidism, unspecified; E55.9 Vitamin D deficiency, unspecified; M81.0 Age-related osteoporosis without current pathological fracture
CPT/HCPCS: 36415; 80053; 82306; 84100; 84443; 85025

== ENCOUNTER → 2019-03-17 11:08 | Outpatient (CLI) | payer MEDICARE, SELFPAY ==
[2018-01-20 10:17] VITALS: BMI 22.6
[2019-01-19 13:58] VITALS: BMI 23.0
[2019-03-17 13:04] LABS: Calcium,Total 9.8 mg/dL (8.5-10.1)
[2019-03-17 13:22] LABS: PTHIN 42.9 pg/mL (18.4-80.1)
== END ==
PROVIDERS: Family Provider Family Medicine; PCP Family Medicine; Referring Provider Family Medicine; Visit Provider Family Medicine
DX: E83.52 Hypercalcemia (principal)
CPT/HCPCS: 36415; 82310; 82330; 83970

== ENCOUNTER → 2019-07-18 08:47 | Outpatient (CLI) | payer MEDICARE, SELFPAY ==
[2018-01-20 10:17] VITALS: BMI 22.6
--- NOTE | 2019-07-18 07:50 | LES_PTH ---
PATIENT: JIMMIE WEATHERS LOC: [facility] U#:[id number] AGE/SX: 79/F ROOM: RE07/18/[address]: Dr. Mp Hernandez MD : 1945 BED: DIS: SPEC #: [id number] RECD: 07/20/19 07:36 STATUS: RALPH BHAGATFlip #: [id number] ROYA: 07/18/19 07:[address]: Mp Hernandez DEPT: SURGICAL PATHOLOGY RECD BY: Caleb Arellano ENTERED: 07/20/19 08:56 SP TYPE: Lesion OTHR DR: Dr. Mp Argueta MD Tissues: Skin of leg, NOS Procedures: Surgery Specimen Level IV HEADER OPERATION: Excision left lower leg lesion PRE-OP DIAGNOSIS: Neoplasm TISSUE SUBMITTED: Left lower leg lesion, vertical ellipse, suture in distal aspect MICROSCOPIC DIAGNOSIS Left lower leg lesion, excisional biopsy: Dermal fibrosis and reactive changes consistent with scar. Negative for residual carcinoma. See comment. JUAN MANUEL:bernard 07/21/19 COMMENT Please make reference [facility] with left medial distal pretibial region, shave removal with diagnosis of squamous cell carcinoma in situ. MICROSCOPIC DESCRIPTION Slides are reviewed. GROSS DESCRIPTION Received in fixative is one container labeled with the patient's name and designated left lower leg. The specimen consists of a ontiveros-white skin ellipse measuring 3.5 x 1.2 cm and up to 0.5 cm in thickness. The specimen is oriented by a suture marking the distal aspect. The specimen is inked as follows: proximal half - black and distal half - blue. The specimen is serially sectioned and submitted entirely in three cassettes as follows: 1 - tip, 2 - proximal half, 3 - distal half. / JUAN MANUEL:bernard 07/20/19 TC:5 CPT: 89468
[2019-07-18 07:57] VITALS: BMI 22.4
== END ==
PROVIDERS: Family Provider Family Medicine; PCP Family Medicine; Referring Provider Surgery; Visit Provider Surgery
DX: L98.8 Other specified disorders of the skin and subcutaneous tissue (principal)
CPT/HCPCS: 88305

== ENCOUNTER → 2019-09-09 09:10 | Outpatient (CLI) | payer MEDICARE, SELFPAY ==
[2018-01-20 10:17] VITALS: BMI 22.6
[2019-07-18 07:57] VITALS: BMI 22.4
[2019-09-09 10:07] LABS: Absolute Lymphocyte Count 0.97 X10^3/uL (0.83-4.51); Absolute Neutrophil Count 3.9 X10^3/uL (2.0-7.7); Basophil# 0.05 X10^3/uL; Basophil% 0.9 % (0-1); Eosinophil# 0.13 X10^3/uL; Eosinophils% 2.3 % (0-5); Hematocrit 42.8 % (37-47); Hemoglobin 14.2 g/dL (12.0-15.0); Lymphocyte # 0.97 X10^3/ul (4.0); Lymphocyte % 17.4 % (19-41); Mean Corp Hgb Conc 33.2 g/dL (32-36); Mean Corpuscular Hgb 31.4 pg (27.0-32.0); Mean Corpuscular Volume 94.7 fL (81-99); Mean Platelet Vol. 10.9 fl (6.2-12.0); Monocyte# 0.52 X10^3/uL; Monocyte% 9.3 % (0-10); NRBC Flagged by Analyzer 0 % (0-5); Neutrophil # 3.89 X10^3/uL (2.7-7.7); Neutrophil % 69.7 % (47-70); Platelet Count 134 K/mm3 (150-450); RBC Distribution Width CV 11.8 % (11.6-14.6); RBC Distribution Width SD 40.5 fl (35.1-43.9); Red Blood Count 4.52 M/mm3 (4.2-5.4); White Blood Count 5.6 K/mm3 (4.4-11.0)
[2019-09-09 10:24] LABS: ALB/GLOB Ratio 1.1 RATIO (0.9-2.4); AST(SGOT) 16 U/L (15-37); Alanine Aminotransfer ALT/SGPT 19 U/L (13-56); Albumin, Serum 3.8 g/dL (3.2-5.0); Alkaline Phosphatase 56 U/L (45-117); Anion Gap 6 (5-15); BUN 14 mg/dL (7-18); BUN/Creat Ratio 15.7 RATIO (10-20); Calcium,Total 9.2 mg/dL (8.5-10.1); Chloride 102 mmol/L (98-107); Cholesterol 217 mg/dL (200); Creatinine, Serum 0.89 mg/dL (0.55-1.02); EST Glomerular Filtration Rate 66 mL/min (>60); Est Glom Filt Rate - Afr Amer 80 mL/min (>60); Globulin 3.6 g/dL (2.2-4.2); Glucose 90 mg/dL (74-106); High Density Lipoprotein 51 mg/dL; Phosphorus 3.1 mg/dL (2.5-4.9); Potassium 3.8 mmol/L (3.5-5.1); Protein, Total 7.4 g/dL (6.4-8.2); Sodium Level 137 mmol/L (136-145); T4 Free Direct 1.34 ng/dL (0.76-1.46); Thyroid Stim Hormone (TSH) 2.16 uIU/mL (0.358-3.74); Triglycerides 255 mg/dL; Very Low Density Lipoprotein 51 mg/dL (5-40)
[2019-09-09 10:44] LABS: Vitamin D,25 Hydroxy 49.4 ng/mL
== END ==
PROVIDERS: PCP Family Medicine; Referring Provider Family Medicine; Visit Provider Family Medicine
DX: E03.9 Hypothyroidism, unspecified (principal); I10 Essential (primary) hypertension; M81.0 Age-related osteoporosis without current pathological fracture; E55.9 Vitamin D deficiency, unspecified
CPT/HCPCS: 36415; 80053; 80061; 82306; 84100; 84439; 84443; 85025

== ENCOUNTER → 2019-09-29 13:53 | Outpatient (CLI) | payer MEDICARE, SELFPAY ==
[2018-01-20 10:17] VITALS: BMI 22.6
[2019-07-18 07:57] VITALS: BMI 22.4
--- NOTE | 2019-09-29 14:01 | ECHOD_ITS ---
Reason For Study: MURMUR Procedure This was a 2D Doppler, Color Flow transthoracic echocardiogram. Exam performed in department. Left Ventricle Normal LV size. Left ventricular systolic function is normal. The estimated ejection fraction is 65 %. Stage 1 diastolic dysfunction. No regional wall motion abnormalities noted. Right Ventricle Normal RV size. Normal systolic function. Atria Normal left atrium. Normal right atrium. Mitral Valve Normal mitral valve. Mild (1+) eccentric mitral valve insufficiency. Tricuspid Valve Normal tricuspid valve. Mild (1+) tricuspid valve insufficiency. Pulmonary artery systolic pressure is 24 mmHg. Aortic Valve Normal aortic valve. Trisinus/trileaflet aortic valve. Mild (1+) eccentric aortic valve insufficiency. Pulmonic Valve Normal pulmonic valve. Great Vessels Normal aortic root. The pulmonary artery is normal size. Normal inferior vena cava. Pericardium/Pleural No pericardial effusion. MMode/2D Measurements & Calculations LVIDd: 3.7 cm IVSd: 0.96 cm Ao root diam: 3.1 cm LVIDs: 2.3 cm LVPWd: 0.95 cm RVDd: 2.8 cm FS: 37.5 % LAV(MOD-bp): 37.3 ml LA A4 area: 12.9 cm2 LA dimension(2D): 3.1 cm LAV(MOD-bp) Indexed: 23.2 ml/m2 LAV(MOD-sp2): 42.0 ml LAV(MOD-sp4): 33.2 ml RA A4 area: 9.8 cm2 Time Measurements MV dec time: 0.22 sec Doppler Measurements & Calculations MV E max leon: 82.4 cm/sec Lat Peak E' Leon: 7.7 cm/sec Med Peak E' Leon: 4.7 cm/sec MV A max leon: 94.8 cm/sec E/E' lat: 10.7 E/E' med: 17.5 MV E/A: 0.87 Ao V2 max: 117.3 cm/sec LV V1 max: 107.1 cm/sec PA V2 max: 100.0 cm/sec Ao max P.5 mmHg LV V1 max P.6 mmHg Ao V2 mean: 81.6 cm/sec LV V1 mean P.8 mmHg Ao mean P.0 mmHg LV V1 mean: 80.2 cm/sec Ao V2 VTI: 22.4 cm LV V1 VTI: 24.5 cm TR max leon: 231.8 cm/sec TR max P.5 mmHg Interpretation Summary Normal LV size. Left ventricular systolic function is normal. The estimated ejection fraction is 65 %. Stage 1 diastolic dysfunction. Mild (1+) eccentric aortic valve insufficiency. Mild (1+) eccentric mitral valve insufficiency. Ordering Physician: Kan Vargas Referring Physician: Kan Vargas Performed By: Kenya Bill, MARELY, RVT
== END ==
PROVIDERS: PCP Family Medicine; Referring Provider Family Medicine; Visit Provider Family Medicine
DX: R01.1 Cardiac murmur, unspecified (principal)
CPT/HCPCS: 93306

== ENCOUNTER → 2020-01-20 11:15 | Outpatient (CLI) | payer MEDICARE, SELFPAY ==
[2018-01-20 10:17] VITALS: BMI 22.6
[2019-10-14 11:30] VITALS: BMI 22.3
[2019-10-14 11:58] VITALS: BMI 22.3
--- NOTE | 2020-01-20 11:16 | BI_ITS ---
MAMMOGRAPHY - BILATERAL SCREENING REASON FOR EXAM: Female, 74 years old. Routine annual screening examination. PERTINENT HISTORY: Personal history of breast cancer. Prior right lumpectomy. TECHNIQUE: Digital bilateral breast ron (3D mammographic acquisition) in the CC and MLO projections. 2-D mediolateral oblique (MLO) and craniocaudad (CC) views of both breasts were obtained. CAD: Full Field Digital Mammography with Computer Added Detection was performed. COMPARISON: Comparison is made with prior study dated November 19, 2018 and December 25, 2017. FINDINGS: Breast Composition: There are scattered areas of fibroglandular density. There are no dominant masses or suspicious calcifications. Once again, the patient is status post right lumpectomy with resultant deformity of the right breast and skin thickening. Surgical clips are seen in the right axillary region. No other significant abnormalities are identified. There has been no significant change since the prior study. BI/SCREEN MAMM (CAD) W/RON BILAT IMPRESSION: Stable bilateral screening mammogram. Yearly follow-up mammogram recommended. (A) ASSESSMENT CATEGORY: BIRADS Category 2: Benign. A letter regarding these results will be sent to the patient by the facility within 30 days. Approximately 10% of breast cancers are not detected by mammography. A normal mammogram should not delay biopsy of a clinically suspicious abnormality. [id number] Electronically Signed: Rafael Barry, at 13:27 EDT , Service support ,
--- NOTE | 2020-01-20 11:22 | BD_ITS ---
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 COMPARISON: Comparison is made with prior study dated January 14, 2018. FINDINGS: Right Forearm: g/cm2 (0.669) / T-score (-2.5) / Z-score (-0.4) Left Forearm: g/cm2 (0.707) / T-score (-2.0) / Z-score (0.1) BD/Dexa Bone Density/Append Skel IMPRESSION: The patient is considered osteopenic as outlined below according to World Yassine Organization (WHO) criteria with a high fracture risk. There has been worsening of bone density since the previous examination. Reference Information: The T-score is the number of standard deviations above or below the standard which is normal for young adults at their peak bone mineral density. The World Health Organization (WHO) interprets the T-scores as follows: Above -1 Normal bone density Between -1 and -2.5 Osteopenia Equal to / or below -2.5 Osteoporosis As a practical clinical guideline, osteopenia may be graded as follows: Mild -1 through -1.5 Moderate -1.6 through -2.0 Severe -2.1 through -2.4 The Z-score is the number of standard deviations above or below age-matched controls. A Z-score of less than -1.5 would be considered abnormal. References: 1. NIH Osteoporosis and Related Bone Diseases http://www.osteo.org 2. International Society for Clinical Densitometry http://www.iscd.org 3. National Osteoporosis Foundation http://www.nof.org Electronically Signed: Rafael Barry, at 9:02 EDT , Service support ,
== END ==
PROVIDERS: PCP Family Medicine; Referring Provider Internal Medicine Hematology & Oncology; Visit Provider Internal Medicine Hematology & Oncology
DX: Z12.31 Encounter for screening mammogram for malignant neoplasm of breast (principal); C50.919 Malignant neoplasm of unspecified site of unspecified female breast; M81.0 Age-related osteoporosis without current pathological fracture
CPT/HCPCS: 77063; 77067; 77081

== ENCOUNTER → 2020-03-15 10:58 | Outpatient (CLI) | payer MEDICARE, SELFPAY ==
[2018-01-20 10:17] VITALS: BMI 22.6
[2020-01-27 10:35] VITALS: BMI 22.6
[2020-03-15 12:23] LABS: Absolute Lymphocyte Count 1.21 X10^3/uL (0.83-4.51); Absolute Neutrophil Count 3.8 X10^3/uL (2.0-7.7); Basophil# 0.07 X10^3/uL; Basophil% 1.2 % (0-1); Eosinophil# 0.13 X10^3/uL; Eosinophils% 2.2 % (0-5); Hematocrit 44.1 % (37-47); Hemoglobin 14.6 g/dL (12.0-15.0); Lymphocyte # 1.21 X10^3/ul (4.0); Lymphocyte % 20.5 % (19-41); Mean Corp Hgb Conc 33.1 g/dL (32-36); Mean Corpuscular Hgb 31.9 pg (27.0-32.0); Mean Corpuscular Volume 96.3 fL (81-99); Mean Platelet Vol. 10.6 fl (6.2-12.0); Monocyte# 0.64 X10^3/uL; Monocyte% 10.8 % (0-10); NRBC Flagged by Analyzer 0 % (0-5); Neutrophil # 3.83 X10^3/uL (2.7-7.7); Platelet Count 166 K/mm3 (150-450); RBC Distribution Width CV 11.8 % (11.6-14.6); RBC Distribution Width SD 41.5 fl (35.1-43.9); Red Blood Count 4.58 M/mm3 (4.2-5.4); White Blood Count 5.9 K/mm3 (4.4-11.0)
[2020-03-15 13:00] LABS: Vitamin D,25 Hydroxy 56.1 ng/mL
[2020-03-15 13:06] LABS: ALB/GLOB Ratio 1.1 RATIO (0.9-2.4); AST(SGOT) 18 U/L (15-37); Alanine Aminotransfer ALT/SGPT 18 U/L (13-56); Albumin, Serum 4.1 g/dL (3.2-5.0); Alkaline Phosphatase 54 U/L (45-117); Anion Gap 6 (5-15); BUN 18 mg/dL (7-18); BUN/Creat Ratio 19.4 RATIO (10-20); Calcium,Total 9.9 mg/dL (8.5-10.1); Chloride 102 mmol/L (98-107); Creatinine, Serum 0.93 mg/dL (0.55-1.02); EST Glomerular Filtration Rate 63 mL/min (>60); Est Glom Filt Rate - Afr Amer 76 mL/min (>60); Globulin 3.7 g/dL (2.2-4.2); Glucose 86 mg/dL (74-106); Potassium 3.7 mmol/L (3.5-5.1); Protein, Total 7.8 g/dL (6.4-8.2); Sodium Level 138 mmol/L (136-145); Thyroid Stim Hormone (TSH) 2.53 uIU/mL (0.358-3.74)
== END ==
PROVIDERS: PCP Family Medicine; Referring Provider Family Medicine; Visit Provider Family Medicine
DX: I10 Essential (primary) hypertension (principal); E03.9 Hypothyroidism, unspecified; E55.9 Vitamin D deficiency, unspecified
CPT/HCPCS: 36415; 80053; 82306; 84443; 85025

== ENCOUNTER → 2020-12-29 09:19 | Outpatient (CLI) | payer MEDICARE, SELFPAY ==
[2018-01-20 10:17] VITALS: BMI 22.6
[2020-11-07 12:36] VITALS: BMI 23.0
[2020-12-29 09:21] LABS: Bacteria 0 SEEN /hpf (None Seen); Mucous, Urine 0 SEEN /hpf (<or=2+); Red Blood Cells-Urine 0 SEEN /hpf (0-5); Squamous Epithelial Cells - UA 0 SEEN /hpf (5-10)
[2020-12-29 12:00] LABS: Absolute Lymphocyte Count 0.96 X10^3/uL (0.83-4.51); Absolute Neutrophil Count 3.7 X10^3/uL (2.0-7.7); Basophil# 0.07 X10^3/uL; Basophil% 1.3 % (0-1); Eosinophil# 0.17 X10^3/uL; Hematocrit 40.6 % (37-47); Hemoglobin 13.3 g/dL (12.0-15.0); Lymphocyte # 0.96 X10^3/ul (0.83-4.51); Lymphocyte % 17.2 % (19-41); Mean Corp Hgb Conc 32.8 g/dL (32-36); Mean Corpuscular Hgb 31.5 pg (27.0-32.0); Mean Corpuscular Volume 96.2 fL (81-99); Mean Platelet Vol. 10.8 fl (6.2-12.0); Monocyte# 0.68 X10^3/uL; Monocyte% 12.2 % (0-10); NRBC Flagged by Analyzer 0 % (0-5); Neutrophil # 3.69 X10^3/uL (2.7-7.7); Neutrophil % 65.9 % (47-70); Platelet Count 192 K/mm3 (150-450); RBC Distribution Width CV 11.9 % (11.6-14.6); RBC Distribution Width SD 41.4 fl (35.1-43.9); Red Blood Count 4.22 M/mm3 (4.2-5.4); White Blood Count 5.6 K/mm3 (4.4-11.0)
[2020-12-29 12:13] LABS: Vitamin D,25 Hydroxy 47.6 ng/mL
[2020-12-29 12:31] LABS: ALB/GLOB Ratio 1.1 RATIO (0.9-2.4); AST(SGOT) 20 U/L (15-37); Alanine Aminotransfer ALT/SGPT 18 U/L (13-56); Albumin, Serum 3.8 g/dL (3.2-5.0); Alkaline Phosphatase 64 U/L (45-117); Anion Gap 6 (5-15); BUN 15 mg/dL (7-18); BUN/Creat Ratio 16.9 RATIO (10-20); Calcium,Total 9.2 mg/dL (8.5-10.1); Chloride 100 mmol/L (98-107); Color, Urine Yellow (Yellow); Creatinine, Serum 0.89 mg/dL (0.55-1.02); EST Glomerular Filtration Rate 66 mL/min (>60); Est Glom Filt Rate - Afr Amer 80 mL/min (>60); Globulin 3.4 g/dL (2.2-4.2); Glucose 91 mg/dL (74-106); Glucose, Dipstick Normal (Normal); Ketone-Dipstick Negative (Negative); Leukocyte Esterase-Dipstick Negative /ul (Negative); Nitrite-Dipstick Negative (Negative); Occult Blood-Urine Negative /ul (Negative); Protein, Total 7.2 g/dL (6.4-8.2); Protein-Dipstick Negative (Negative); Sodium Level 137 mmol/L (136-145); T4 Free Direct 1.16 ng/dL (0.76-1.46); Thyroid Stim Hormone (TSH) 4.11 uIU/mL (0.358-3.74); Urine Bilirubin Dipstick Negative (Negative); Urine Clarity Clear (Clear); Urine Urobilinogen Normal (Normal)
[2020-12-29 12:39] LABS: White Blood Cells 0-5 SEEN /hpf (0-5)
== END ==
PROVIDERS: PCP Family Medicine; Referring Provider Family Medicine; Visit Provider Family Medicine
DX: I10 Essential (primary) hypertension (principal); E03.9 Hypothyroidism, unspecified; E55.9 Vitamin D deficiency, unspecified
CPT/HCPCS: 36415; 80053; 81001; 82306; 84439; 84443; 85025

== ENCOUNTER → 2021-01-20 10:14 | Outpatient (CLI) | payer MEDICARE, SELFPAY ==
[2018-01-20 10:17] VITALS: BMI 22.6
[2020-11-07 11:37] VITALS: BMI 23.0
[2020-11-07 12:36] VITALS: BMI 23.0
--- NOTE | 2021-01-20 10:39 | BI_ITS ---
MAMMOGRAPHY - BILATERAL SCREENING REASON FOR EXAM: Female, 75 years old. Routine annual screening examination. PERTINENT HISTORY: Personal history of breast cancer. Prior right lumpectomy and radiation treatment. TECHNIQUE: Digital bilateral breast ron (3D mammographic acquisition) in the CC and MLO projections. 2-D mediolateral oblique (MLO) and craniocaudad (CC) views of both breasts were obtained. CAD: Full Field Digital Mammography with Computer Added Detection was performed. COMPARISON: Comparison is made with prior study dated 01/20/2020 and 11/19/2018. FINDINGS: Breast Composition: There are scattered areas of fibroglandular density. There are no dominant masses or suspicious calcifications. The patient is status post lumpectomy in the upper slightly outer aspect of the right breast with resultant postoperative scarring and breast deformity. Surgical clips are seen in the right axillary region. No other significant abnormalities are identified. There has been no significant change since the prior study. BI/SCRN MAMM (CAD)W/RON BILAT IMPRESSION: Stable bilateral screening mammogram. Yearly follow-up mammogram recommended. (A) ASSESSMENT CATEGORY: BIRADS Category 2: Benign. A letter regarding these results will be sent to the patient by the facility within 30 days. Approximately 10% of breast cancers are not detected by mammography. A normal mammogram should not delay biopsy of a clinically suspicious abnormality. [id number] Electronically Signed: Rafael Barry MD at 11:49 EDT , Service support ,
== END ==
PROVIDERS: PCP Family Medicine; Referring Provider Internal Medicine Hematology & Oncology; Visit Provider Internal Medicine Hematology & Oncology
DX: Z12.31 Encounter for screening mammogram for malignant neoplasm of breast (principal); Z85.3 Personal history of malignant neoplasm of breast
CPT/HCPCS: 77063; 77067

== ENCOUNTER → 2021-04-05 12:32 | Outpatient (CLI) | payer MEDICARE, SELFPAY ==
[2018-01-20 10:17] VITALS: BMI 22.6
[2021-04-05 12:34] LABS: Bacteria 0 SEEN /hpf (None Seen); Mucous, Urine 0 SEEN /hpf (<or=2+); Red Blood Cells-Urine 0 SEEN /hpf (0-5); Squamous Epithelial Cells - UA 0 SEEN /hpf (5-10); White Blood Cells 0 SEEN /hpf (0-5)
[2021-04-05 15:15] LABS: Absolute Lymphocyte Count 1.16 X10^3/uL (0.83-4.51); Absolute Neutrophil Count 3.5 X10^3/uL (2.0-7.7); Basophil# 0.04 X10^3/uL; Basophil% 0.7 % (0-1); Color, Urine Yellow (Yellow); Eosinophil# 0.13 X10^3/uL; Eosinophils% 2.4 % (0-5); Glucose, Dipstick Normal (Normal); Hematocrit 42.3 % (37-47); Hemoglobin 13.6 g/dL (12.0-15.0); Ketone-Dipstick Negative (Negative); Leukocyte Esterase-Dipstick Negative /ul (Negative); Lymphocyte # 1.16 X10^3/ul (0.83-4.51); Lymphocyte % 21.5 % (19-41); Mean Corp Hgb Conc 32.2 g/dL (32-36); Mean Corpuscular Hgb 30.9 pg (27.0-32.0); Mean Corpuscular Volume 96.1 fL (81-99); Mean Platelet Vol. 10.7 fl (6.2-12.0); Monocyte# 0.58 X10^3/uL; Monocyte% 10.7 % (0-10); NRBC Flagged by Analyzer 0 % (0-5); Neutrophil # 3.48 X10^3/uL (2.7-7.7); Neutrophil % 64.5 % (47-70); Nitrite-Dipstick Negative (Negative); Occult Blood-Urine Negative /ul (Negative); Platelet Count 172 K/mm3 (150-450); Protein-Dipstick Negative (Negative); RBC Distribution Width CV 11.7 % (11.6-14.6); RBC Distribution Width SD 41.1 fl (35.1-43.9); Urine Bilirubin Dipstick Negative (Negative); Urine Clarity Clear (Clear); Urine Urobilinogen Normal (Normal); White Blood Count 5.4 K/mm3 (4.4-11.0)
[2021-04-05 15:53] LABS: ALB/GLOB Ratio 0.9 RATIO (0.9-2.4); AST(SGOT) 15 U/L (15-37); Alanine Aminotransfer ALT/SGPT 16 U/L (13-56); Albumin, Serum 3.6 g/dL (3.2-5.0); Alkaline Phosphatase 60 U/L (45-117); Anion Gap 8 (5-15); BUN 16 mg/dL (7-18); BUN/Creat Ratio 19.7 RATIO (10-20); Calcium,Total 9.1 mg/dL (8.5-10.1); Chloride 102 mmol/L (98-107); Cholesterol 238 mg/dL (200); Creatinine, Serum 0.81 mg/dL (0.55-1.02); EST Glomerular Filtration Rate 73 mL/min (>60); Est Glom Filt Rate - Afr Amer 89 mL/min (>60); Globulin 3.8 g/dL (2.2-4.2); Glucose 84 mg/dL (74-106); High Density Lipoprotein 58 mg/dL; Potassium 3.6 mmol/L (3.5-5.1); Protein, Total 7.4 g/dL (6.4-8.2); Sodium Level 139 mmol/L (136-145); T4 Free Direct 1.16 ng/dL (0.76-1.46); Triglycerides 172 mg/dL; Very Low Density Lipoprotein 34 mg/dL (5-40)
== END ==
PROVIDERS: PCP Family Medicine; Referring Provider Family Medicine; Visit Provider Family Medicine
DX: I10 Essential (primary) hypertension (principal); E03.9 Hypothyroidism, unspecified; E55.9 Vitamin D deficiency, unspecified
CPT/HCPCS: 36415; 80053; 80061; 81001; 82306; 84439; 84443; 85025

== ENCOUNTER 2021-07-11 11:15 | Outpatient (CLI) | payer MEDICARE, SELFPAY ==
[2018-01-20 10:17] VITALS: BMI 22.6
[2021-07-11 11:24] LABS: Bacteria 0 SEEN /hpf (None Seen); Mucous, Urine 0 SEEN /hpf (<or=2+); Red Blood Cells-Urine 0 SEEN /hpf (0-5); Squamous Epithelial Cells - UA 0 SEEN /hpf (5-10); White Blood Cells 0 SEEN /hpf (0-5)
[2021-07-11 14:57] LABS: Absolute Lymphocyte Count 1.16 X10^3/uL (0.83-4.51); Absolute Neutrophil Count 4.6 X10^3/uL (2.0-7.7); Basophil# 0.09 X10^3/uL; Basophil% 1.3 % (0-1); Eosinophil# 0.24 X10^3/uL; Eosinophils% 3.6 % (0-5); Hematocrit 41.7 % (37-47); Hemoglobin 13.5 g/dL (12.0-15.0); Lymphocyte # 1.16 X10^3/ul (0.83-4.51); Lymphocyte % 17.2 % (19-41); Mean Corp Hgb Conc 32.4 g/dL (32-36); Mean Corpuscular Hgb 30.5 pg (27.0-32.0); Mean Corpuscular Volume 94.3 fL (81-99); Mean Platelet Vol. 11.2 fl (6.2-12.0); Monocyte# 0.69 X10^3/uL; Monocyte% 10.2 % (0-10); NRBC Flagged by Analyzer 0 % (0-5); Neutrophil # 4.55 X10^3/uL (2.7-7.7); Neutrophil % 67.4 % (47-70); Platelet Count 203 K/mm3 (150-450); RBC Distribution Width CV 11.9 % (11.6-14.6); RBC Distribution Width SD 40.4 fl (35.1-43.9); Red Blood Count 4.42 M/mm3 (4.2-5.4); White Blood Count 6.8 K/mm3 (4.4-11.0)
[2021-07-11 14:59] LABS: Color, Urine Yellow (Yellow); Glucose, Dipstick Normal (Normal); Ketone-Dipstick Negative (Negative); Leukocyte Esterase-Dipstick Negative /ul (Negative); Nitrite-Dipstick Negative (Negative); Occult Blood-Urine Negative /ul (Negative); Protein-Dipstick Negative (Negative); Urine Bilirubin Dipstick Negative (Negative); Urine Clarity Clear (Clear); Urine Urobilinogen Normal (Normal)
[2021-07-11 15:25] LABS: AST(SGOT) 33 U/L (15-37); Alanine Aminotransfer ALT/SGPT 34 U/L (13-56); Albumin, Serum 3.8 g/dL (3.2-5.0); Alkaline Phosphatase 60 U/L (45-117); Anion Gap 8 (5-15); BUN 20 mg/dL (7-18); BUN/Creat Ratio 24.1 RATIO (10-20); Calcium,Total 9.7 mg/dL (8.5-10.1); Chloride 100 mmol/L (98-107); Cholesterol 127 mg/dL (200); Creatinine, Serum 0.83 mg/dL (0.55-1.02); EST Glomerular Filtration Rate 71 mL/min (>60); Est Glom Filt Rate - Afr Amer 86 mL/min (>60); Globulin 3.7 g/dL (2.2-4.2); Glucose 80 mg/dL (74-106); High Density Lipoprotein 47 mg/dL; Potassium 3.6 mmol/L (3.5-5.1); Protein, Total 7.5 g/dL (6.4-8.2); Sodium Level 140 mmol/L (136-145); Thyroid Stim Hormone (TSH) 1.05 uIU/mL (0.358-3.74); Triglycerides 188 mg/dL; Very Low Density Lipoprotein 38 mg/dL (5-40)
== END 2021-07-11 23:59 | disposition short-term general hospital (02) ==
LOC: MTLAB 11:18
PROVIDERS: PCP Family Medicine; Referring Provider Family Medicine; Visit Provider Family Medicine
DX: I10 Essential (primary) hypertension (principal); E78.5 Hyperlipidemia, unspecified; M81.0 Age-related osteoporosis without current pathological fracture; E03.9 Hypothyroidism, unspecified
CPT/HCPCS: 36415; 80053; 80061; 81001; 82306; 84443; 85025

== ENCOUNTER 2021-07-28 14:29 | Outpatient (CLI) | payer MEDICARE, SELFPAY ==
[2021-07-28 12:55] VITALS: BMI 22.6
== END 2021-07-28 23:59 | disposition short-term general hospital (02) ==
LOC: LABSPEC 14:30
PROVIDERS: PCP Family Medicine; Referring Provider Physician Assistant Surgical; Visit Provider Physician Assistant Surgical
DX: Z20.822 Contact with and (suspected) exposure to COVID-19 (principal)
CPT/HCPCS: 87635; U0003; U0005

== ENCOUNTER → 2022-01-23 | Outpatient (CLI) | payer MEDICARE, SELFPAY ==
--- NOTE | 2022-01-23 10:22 | BI_ITS ---
MAMMOGRAPHY - BILATERAL SCREENING REASON FOR EXAM: Female, 76 years old. Routine annual screening examination. PERTINENT HISTORY: Personal history of breast cancer. Prior right lumpectomy and radiation therapy. TECHNIQUE: Digital bilateral breast ron (3D mammographic acquisition) in the CC and MLO projections. 2-D mediolateral oblique (MLO) and craniocaudad (CC) views of both breasts were obtained. CAD: Full Field Digital Mammography with Computer Added Detection was performed. COMPARISON: Comparison is made with prior study dated 01/20/2021 and 01/20/2020. FINDINGS: Breast Composition: There are scattered areas of fibroglandular density. There are no dominant masses or suspicious calcifications. The patient is status post lumpectomy in the upper deep central portion of the right breast with resultant postoperative scarring and breast deformity. Surgical clips are also seen in the right axilla. No other significant abnormalities are identified. There has been no significant change since the prior study. BI/SCRN MAMM (CAD)W/RON BILAT IMPRESSION: Stable bilateral screening mammogram. Yearly follow-up mammogram recommended. (A) ASSESSMENT CATEGORY: BIRADS Category 2: Benign. A letter regarding these results will be sent to the patient by the facility within 30 days. Approximately 10% of breast cancers are not detected by mammography. A normal mammogram should not delay biopsy of a clinically suspicious abnormality. [id number] Electronically Signed: Rafael Barry MD at 11:16 EDT ,
--- NOTE | 2022-01-23 10:28 | BD_ITS ---
STUDY: DUAL ENERGY X-RAY ABSORPTIOMETRY / DXA REASON FOR EXAM: Female, 76 years old. SCREENING TECHNIQUE: Bone Mineral Density (BMD) measurements of lumbar spine and both forearms were obtained. COMPARISON: Comparison is made with prior study dated 01/20/2020. FINDINGS: Lumbar Spine (L1-L4): g/cm2 (0.820) / T-score (-2.1) / Z-score (0.4) Findings are suggestive of osteopenia with a high fracture risk. Right Forearm: g/cm2 (0.485) / T-score (-1.7) / Z-score (0.8) Left Forearm: g/cm2 (0.473) / T-score (-2.0) / Z-score (0.5) The T-Scores on the most recent prior examination were: Lumbar Spine (L1-L4): There has been worsening of bone density since the previous examination. BD/Dexa Bone Density Study IMPRESSION: The patient is considered osteopenic as outlined below according to World Yassine Organization (WHO) criteria with a high fracture risk. There has been worsening of bone density since the previous examination. Reference Information: The T-score is the number of standard deviations above or below the standard which is normal for young adults at their peak bone mineral density. The World Health Organization (WHO) interprets the T-scores as follows: Above -1 Normal bone density Between -1 and -2.5 Osteopenia Equal to / or below -2.5 Osteoporosis As a practical clinical guideline, osteopenia may be graded as follows: Mild -1 through -1.5 Moderate -1.6 through -2.0 Severe -2.1 through -2.4 The Z-score is the number of standard deviations above or below age-matched controls. A Z-score of less than -1.5 would be considered abnormal. References: 1. NIH Osteoporosis and Related Bone Diseases www osteo.org 2. International Society for Clinical Densitometry www iscd.org 3. National Osteoporosis Foundation www nof.org Electronically Signed: Rafael Barry MD at 12:22 EDT ,
== END | disposition home or self-care (01) ==
PROVIDERS: PCP Family Medicine; Visit Provider Internal Medicine Hematology & Oncology
DX: Z12.31 Encounter for screening mammogram for malignant neoplasm of breast (principal); N64.89 Other specified disorders of breast; Z13.820 Encounter for screening for osteoporosis; M85.89 Other specified disorders of bone density and structure, multiple sites
CPT/HCPCS: 77063; 77067; 77080

== ENCOUNTER 2022-02-13 07:12 | Day surgery (SDC) | payer MEDICARE, SELFPAY ==
[2022-02-13] VITALS (7 sets, daily range): BP systolic 108–136; BP diastolic 59–76; PULSE 63–80; RESP 15–18; TEMP 36.2–36.6; O2SAT 92–100; BMI 23.7
--- NOTE | 2022-02-13 | GASB_PTH ---
PATIENT: JIMMIE WEATHERS LOC: [facility] U#:[id number] AGE/SX: 76/F ROOM: RE02/13/[address]: Dr. Mp Hernandez MD : 1945 BED: DIS: 02/13/2022 SPEC #: [id number] RECD: 02/13/22 13:07 STATUS: RALPH BHAGATFlip #: [id number] ROYA: 02/13/22 00:[address]: Mp Hernandez DEPT: SURGICAL PATHOLOGY RECD BY: Adonis Hook ENTERED: 02/13/22 13:07 SP TYPE: Gastric Bx OTHR DR: Dr. 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 Antrum biopsy for histo and H. pylori, B ? Distal esophagus biopsy MICROSCOPIC DIAGNOSIS A. Antrum, biopsy: Moderate gastritis. See microscopic description and comment. B. 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 Chronic inflammation. Negative for dysplasia. See comment. SJ:rg 02/14/2022 COMMENT A. The results of immunohistochemistry for Helicobacter pylori will be reported separately ([id number]). Alcian blue/PAS stain with matched control is used in the evaluation of the specimen. B. Immunohistochemistry ([id number]) for P53 and Ki-67 will be performed and results will be reported separately. Alcian blue/PAS stain with matched control is used in the evaluation of the specimen. MICROSCOPIC DESCRIPTION Slides are reviewed. The specimen shows fragments of gastric mucosa with chronic inflammatory cell infiltrates in the lamina propria consisting of lymphocytes and plasma cells, consistent with moderate chronic gastritis. Focal intestinal metaplasia (goblet cell metaplasia) is also noted. GROSS DESCRIPTION A - Received in fixative is one container labeled with the patient's name and designated antrum biopsy. The specimen consists of one irregular fragment of light ontiveros soft tissue that measures 0.3 x 0.3 x 0.1 cm. The specimen is totally submitted in one cassette. B - Received in fixative is one container labeled with the patient's name and designated distal esophagus biopsy. The specimen consists of multiple irregular fragments of light ontiveros soft tissue that in aggregate measure 1.5 x 0.7 x 0.1 cm. The specimen is totally submitted in one cassette. / SJ:rg 02/13/2022 TC:3 CPT: 23654 x2, 29568 x2
--- NOTE | 2022-02-13 07:46 | HP.PCM_ITS ---
[facility] - General General Date of Service: 02/13/22 Chief Complaint: History of Archer's esophagus [facility] Narrative JIMMIE WEATHERS, is a 76 F who presents with a history of Archer's esophagus. Most recent upper endoscopy was January 2019. She had a laparoscopic toupet procedure subsequently. She presents for follow-up examination. She presents via a open access program. She states that ever since her reflux surgery January 2019 she has been good. This past summer she states she has had 4 small episodes of some discomfort which was easily treated with Tums. [facility] Medical History Breast cancer (~12/2017) Breast cancer in female GERD (gastroesophageal reflux disease) Hemorrhoids Hiatal hernia with gastroesophageal reflux disease and esophagitis High cholesterol History of squamous cell carcinoma of skin HTN (hypertension) Hypothyroidism Non-smoker Osteoarthritis Restless legs Skin cancer Skin lesion Wears glasses Home Medications cholecalciferol (vitamin D3) 50 mcg (2,000 unit) capsule 2,000 unit PO QDAY 12/03/17 [History Last Taken 05/28/18] hydrochlorothiazide 25 mg tablet 25 mg PO QDAY 12/03/17 [History Last Taken 12/24/17] levothyroxine 88 mcg tablet (Synthroid) 50 mcg PO QDAY 12/03/17 [History Last Taken 01/19/19] multivitamin 1 tab PO QDAY 12/03/17 [History Last Taken 05/28/18] calcium-vitamin D3-vitamin K 500 mg-500 unit-40 mcg chewable tablet 1 ea PO DAILY 12/24/17 [History Last Taken 05/28/18] denosumab 60 mg/mL subcutaneous syringe (Prolia) 60 mg SQ Q6M 01/12/19 [History Last Taken Unknown] aspirin 81 mg chewable tablet 162 mg PO DAILY@0800 02/02/20 [History Last Taken Unknown] inulin 2 gram chewable tablet (Fiber Gummies) 2 g PO DAILY 11/07/20 [History Last Taken Unknown] rosuvastatin 5 mg tablet (Crestor) 5 mg PO QHS 05/10/21 [History Last Taken Unknown] zinc 50 mg tablet 50 mg PO DAILY 09/06/21 [History Last Taken Unknown] anastrozole 1 mg tablet 1 mg PO DAILY Breast CA 02/09/22 [History Last Taken Unknown] Allergy/AdvReac Type Severity Reaction Status Date / Time No Known Allergies Allergy Verified 02/13/22 07:44 Family History Father CAD (coronary artery disease) Hypertension Mother Bleeding disorder Sister Bleeding disorder Surgical History History of lumpectomy History of repair of hiatal hernia S/P breast biopsy S/P breast biopsy S/P colonoscopy S/P dilation and curettage s/p EGD with PH probe (~06/03/18) S/P tubal ligation Status post left hip replacement Status post right hip replacement Social History household members: spouse housing: house Smoking Status: Never smoker second hand exposure: No alcohol intake: never substance use type: does not use well-balanced diet: daily or most days caffeine: No eating out: 1-3 times/week during the past year weight has: remained stable what type of physical activity do you participate in: walking frequency: daily duration: 15-30 minutes/day kori/buddhist: Yazdanism seatbelt use: always do you feel safe at home: Yes ROS Constitutional Constitutional: Reports systems reviewed and no addt'l complaints, except as documented Cardiovascular Cardiovascular: Denies chest pain Respiratory/Chest Respiratory/Chest: Denies shortness of breath at rest Gastrointestinal Gastrointestinal: Denies abdominal pain, change in bowel habits, hematochezia or melena Vital Signs Vital Signs Vital Signs: 02/13/22 07:33 02/13/22 07:33 Temperature 97.9 F Temperature Source Temporal Pulse Rate 63 Respiratory Rate 15 Respiratory Pattern Normal Blood Pressure 136/69 H Blood Pressure Mean 91 Blood Pressure Source Monitor Blood Pressure Position Semi-Fowlers Blood Pressure Location Left Arm Pulse Ox 100 Oxygen Delivery Method Room Air Weight Weight: 133 lb 13.129 oz Body Mass Index (BMI) 23.7 Physical Exam Const alert, oriented x3 and no apparent distress General Appearance: cooperative and comfortable Eyes General Eye: normal appearance of both eyes Neck General: normal visual inspection Chest inspection of chest normal Resp Effort and Inspection: able to speak in complete sentences and symmetric chest movement Auscultation: clear to auscultation bilaterally Cardio regular rate and regular rhythm Cardio Narrative: Soft 1/6 ejection murmur GI soft to palpation, non-tender and non-distended Extremity no calf tenderness Neuro oriented x3 Psych thought process normal Assessment & Plan Assessment/Plan (1) Archer esophagus: PLAN: Plan endoscopic follow-up of previous biopsy-proven Archer's esophagus. As noted she has had treatment January 2019 with a laparoscopic toupet procedure. She essentially is symptom-free. She is not on any chronic medications for reflux currently. She has had an opportunity to ask and have questions answered. We will proceed as noted. Mp Hernandez M.D., F.A.C.S.
--- NOTE | 2022-02-13 08:30 | IMM_PTH ---
PATIENT: JIMMIE WEATHERS LOC: [facility] U#:[id number] AGE/SX: 76/F ROOM: RE02/13/[address]: Dr. Mp Hernandez MD : 1945 BED: DIS: 02/13/2022 SPEC #: [id number] RECD: 02/13/22 14:16 STATUS: RALPH YESSICA #: [id number] ROYA: 02/13/22 08:[address]: Mp Hernandez DEPT: IMMUNOHISTOCHEMISTRY RECD BY: Ijeoma Robb ENTERED: 02/13/22 14:16 SP TYPE: IMMUNO OTHR DR: Dr. Kan Vargas MD Tissues: A - Stomach, NOS B - Esophagus, NOS Procedures: H Pylori (initial) P53 (initial) KI-67 (add) PHYSICIAN & INSTITUTION [place] [id number] SPECIMEN INFORMATION: Tissue Source: A ? Antrum biopsy, B ? Distal esophagus biopsy Clinical Info: Archer?s esophagus Specimen Number: [id number] A & B CPT code: 14881 x2, 58167 METHODOLOGY: Deparaffinized sections of prefer/formalin-fixed tissue or PAP/DQ stained slides are incubated with monoclonal/polyclonal antibodies/oligonucleotide probes. Localization is made via biotin free immunoperoxidase method. Appropriate controls are performed and reacted as expected. Results on target cell population are indicated in the following table: RESULTS: ANTIBODY / CLONE RESULT Block A H Pylori (polyclonal) negative Block B P53 (DO-7) negative Ki-67 (30-9) positive, very low These tests were developed and their performance characteristics determined by [facility]. They may not have been cleared or approved by the U.S. Food and Drug Administration. The FDA has determined that such clearance or approval is not necessary. The above immunohistochemical/dualISH markers are ordered and reviewed by the Pathologist. INTERPRETATION: A. Antrum, biopsy: Negative for Helicobacter pylori organisms. B. Distal esophagus, biopsy: Negative for dysplasia. SJ:bernard 02/14/2022
--- NOTE | 2022-02-13 08:45 | OP.EGD_ITS ---
Patient Name: Brielle Wood Procedure Date: 02/13/2022 8:21 AM Date of : 1945 Age: 76 Procedure: Upper GI endoscopy Indications: Follow-up of Archer's esophagus Providers: Mp Hernandez MD Medicines: See the Anesthesia note for documentation of the administered medications Complications: No immediate complications. Procedure: Pre-Anesthesia Assessment: - Prior to the procedure, a History and Physical was performed, and patient medications and allergies were reviewed. The patient's tolerance of previous anesthesia was also reviewed. The risks and benefits of the procedure and the sedation options and risks were discussed with the patient. All questions were answered, and informed consent was obtained. Prior Anticoagulants: The patient has taken no previous anticoagulant or antiplatelet agents. ASA Grade Assessment: II - A patient with mild systemic disease. After reviewing the risks and benefits, the patient was deemed in satisfactory condition to undergo the procedure. After obtaining informed consent, the endoscope was passed under direct vision. Throughout the procedure, the patient's blood pressure, pulse, and oxygen saturations were monitored continuously. The gastroscope was introduced through the mouth, and advanced to the second part of duodenum. The upper GI endoscopy was accomplished without difficulty. The patient tolerated the procedure well. Scope In: 8:30:31 AM Scope Out: 8:38:55 AM Total Procedure Duration Time 0 hours 8 minutes 24 seconds Findings: There were esophageal mucosal changes secondary to established short-segment Archer's disease present at the gastroesophageal junction. The maximum longitudinal extent of these mucosal changes was 1 cm in length. Mucosa was biopsied with a cold forceps for histology. Evidence of a Toupet fundoplication was found in the cardia. The wrap appeared intact. Diffuse mildly erythematous mucosa without bleeding was found in the gastric antrum. Biopsies were taken with a cold forceps for histology. The examined duodenum was normal. Impression: - Esophageal mucosal changes secondary to established short-segment Archer's disease. Biopsied. - A Toupet fundoplication was found. The wrap appears intact. - Erythematous mucosa in the antrum. Biopsied. - Normal examined duodenum. Recommendation: - Discharge patient to home. - Resume previous diet. - Continue present medications. - Telephone my office for pathology results in 1 week. - Repeat upper endoscopy in 3 years for surveillance. Procedure Code(s): --- Professional --- 13350, Esophagogastroduodenoscopy, flexible, transoral; with biopsy, single or multiple Diagnosis Code(s): --- Professional --- K22.70, Archer's esophagus without dysplasia Z98.890, Other specified postprocedural states K31.89, Other diseases of stomach and duodenum CPT copyright 2017 [employer]. All rights reserved. The codes documented in this report are preliminary and upon audio engineer review may be revised to meet current compliance requirements. Mp Hernandez MD 02/13/2022 8:45:22 AM This report has been signed electronically. Number of Addenda: 0 Note Initiated On: 02/13/2022 8:21 AM
--- NOTE | 2022-02-13 08:46 | OP.CCLET_ITS ---
02/13/2022 Kan Vargas [address] [place] [address] Re : Upper GI endoscopy procedure for Brielle Wood Dear Dr. Vargas This procedure was performed on Sunday, February 13, 2022. My impressions and recommendations are as follows: Impressions : - Esophageal mucosal changes secondary to established short-segment Archer's disease. Biopsied. - A Toupet fundoplication was found. The wrap appears intact. - Erythematous mucosa in the antrum. Biopsied. - Normal examined duodenum. Recommendations : - Discharge patient to home. - Resume previous diet. - Continue present medications. - Telephone my office for pathology results in 1 week. - Repeat upper endoscopy in 3 years for surveillance. My findings are described in the full procedure note, which is enclosed. If I can be of further assistance, please feel free to contact me at Doctor phone number(s): Work: . Sincerely, Mp Hernandez MD 02/13/2022 8:45:22 AM This report has been signed electronically.
== END 2022-02-13 09:30 | disposition home or self-care (01) ==
LOC: EN 07:17 → AC 07:19
PROVIDERS: PCP Family Medicine; Referring Provider Family Medicine; Visit Provider Surgery
PROC: 0DJ08ZZ Inspection of Upper Intestinal Tract, Via Natural or Artificial Opening Endoscopic (ICD-10-PCS; CPT 43235; principal; 2022-02-13 08:25)
DX: K22.70 Barrett's esophagus without dysplasia (principal); K31.89 Other diseases of stomach and duodenum; I10 Essential (primary) hypertension; K21.00 Gastro-esophageal reflux disease with esophagitis, without bleeding; E78.00 Pure hypercholesterolemia, unspecified; E03.9 Hypothyroidism, unspecified; M19.90 Unspecified osteoarthritis, unspecified site; Z79.4 Long term (current) use of insulin; Z79.82 Long term (current) use of aspirin; Z79.890 Hormone replacement therapy; Z79.899 Other long term (current) drug therapy; Z96.643 Presence of artificial hip joint, bilateral
CPT/HCPCS: 43239; 88305; 88313; 88341; 88342; J7120; J2405

== ENCOUNTER → 2023-01-28 | Outpatient (CLI) | payer MEDICARE, SELFPAY ==
--- NOTE | 2023-01-28 10:38 | BI_ITS ---
MAMMOGRAPHY - BILATERAL SCREENING REASON FOR EXAM: Female, 77 years old. Routine annual screening examination. PERTINENT HISTORY: Personal history of breast cancer. History of prior right lumpectomy and radiation therapy. TECHNIQUE: Digital bilateral breast ron (3D mammographic acquisition) in the CC and MLO projections. 2-D mediolateral oblique (MLO) and craniocaudad (CC) views of both breasts were obtained. CAD: Full Field Digital Mammography with Computer Added Detection was performed. COMPARISON: Comparison is made with prior study January 23, 2022 and January 20, 2021. FINDINGS: Breast Composition: There are scattered areas of fibroglandular density. There are no dominant masses or suspicious calcifications. Once again, the patient is status post lumpectomy in the upper deep central portion of the right breast with resultant postoperative scarring and breast deformity. Surgical clips are seen in the right axilla as well. No other significant abnormalities are identified. There has been no significant change since the prior study. BI/SCRN MAMM (CAD)W/RON BILAT IMPRESSION: Stable bilateral screening mammogram. Yearly follow-up mammogram recommended. (A) ASSESSMENT CATEGORY: BIRADS Category 2: Benign. A letter regarding these results will be sent to the patient by the facility within 30 days. Approximately 10% of breast cancers are not detected by mammography. A normal mammogram should not delay biopsy of a clinically suspicious abnormality. [id number] Electronically Signed: Rafael Barry MD at 12:17 EDT ,
== END | disposition home or self-care (01) ==
PROVIDERS: PCP Family Medicine; Referring Provider Internal Medicine Hematology & Oncology; Visit Provider Internal Medicine Hematology & Oncology
DX: Z12.31 Encounter for screening mammogram for malignant neoplasm of breast (principal); Z85.3 Personal history of malignant neoplasm of breast
CPT/HCPCS: 77063; 77067

== ENCOUNTER → 2023-09-26 | Outpatient (CLI) | payer MEDICARE, SELFPAY ==
[2023-09-26 12:10] LABS: Bacteria 0 SEEN /hpf (None Seen); Mucous, Urine 0 SEEN /hpf (<or=2+); Red Blood Cells-Urine 0 SEEN /hpf (0-5); Squamous Epithelial Cells - UA 0 SEEN /hpf (5-10); White Blood Cells 0 SEEN /hpf (0-5)
[2023-09-26 15:14] LABS: Absolute Lymphocyte Count 1.56 X10^3/uL (0.83-4.51); Basophil# 0.03 X10^3/uL; Basophil% 0.4 % (0-1); Eosinophil# 0.29 X10^3/uL; Eosinophils% 3.8 % (0-5); Hematocrit 40.7 % (37-47); Hemoglobin 13.4 g/dL (12.0-15.0); Lymphocyte # 1.56 X10^3/ul (0.83-4.51); Lymphocyte % 20.6 % (19-41); Mean Corp Hgb Conc 32.9 g/dL (32-36); Mean Corpuscular Hgb 31.3 pg (27.0-32.0); Mean Corpuscular Volume 95.1 fL (81-99); Mean Platelet Vol. 11.5 fl (6.2-12.0); Monocyte# 0.71 X10^3/uL; Monocyte% 9.4 % (0-10); NRBC Flagged by Analyzer 0 % (0-5); Neutrophil # 4.98 X10^3/uL (2.7-7.7); Neutrophil % 65.7 % (47-70); Platelet Count 138 K/mm3 (150-450); RBC Distribution Width CV 12.3 % (11.6-14.6); RBC Distribution Width SD 42.3 fl (35.1-43.9); Red Blood Count 4.28 M/mm3 (4.2-5.4); White Blood Count 7.6 K/mm3 (4.4-11.0)
[2023-09-26 15:28] LABS: Color, Urine Yellow (Yellow); Glucose, Dipstick Normal (Normal); Ketone-Dipstick Negative (Negative); Leukocyte Esterase-Dipstick Negative /ul (Negative); Nitrite-Dipstick Negative (Negative); Occult Blood-Urine Negative /ul (Negative); Protein-Dipstick Negative (Negative); Urine Bilirubin Dipstick Negative (Negative); Urine Clarity Clear (Clear); Urine Urobilinogen Normal (Normal); Vitamin D,25 Hydroxy 54.6 ng/mL
[2023-09-26 15:36] LABS: ALB/GLOB Ratio 1.2 RATIO (0.9-2.4); AST(SGOT) 21 U/L (15-37); Alanine Aminotransfer ALT/SGPT 21 U/L (13-56); Albumin, Serum 3.9 g/dL (3.2-5.0); Alkaline Phosphatase 61 U/L (45-117); Anion Gap 6 (5-15); BUN 30 mg/dL (7-18); BUN/Creat Ratio 32.2 RATIO (10-20); Chloride 100 mmol/L (98-107); Cholesterol 141 mg/dL (200); Creatinine, Serum 0.93 mg/dL (0.55-1.02); EST Glomerular Filtration Rate 62 mL/min (>60); Est Glom Filt Rate - Afr Amer 75 mL/min (>60); Globulin 3.2 g/dL (2.2-4.2); Glucose 90 mg/dL (74-106); High Density Lipoprotein 60 mg/dL; Magnesium 2.2 mg/dL (1.6-2.6); Potassium 3.8 mmol/L (3.5-5.1); Protein, Total 7.1 g/dL (6.4-8.2); Sodium Level 140 mmol/L (136-145); T4 Free Direct 1.16 ng/dL (0.76-1.46); Thyroid Stim Hormone (TSH) 2.46 uIU/mL (0.358-3.74); Triglycerides 120 mg/dL; Very Low Density Lipoprotein 24 mg/dL (5-40)
[2023-09-26 16:00] LABS: Creatinine, Urine (random) < 13.00 mg/dL (NO RANGE EST.); Microalbumin,Random Urine < 5.0 mg/L (NO RANGE EST.)
== END | disposition home or self-care (01) ==
LOC: MFPLAB 12:09
PROVIDERS: PCP Family Medicine; Visit Provider Family Medicine
DX: E55.9 Vitamin D deficiency, unspecified (principal); I10 Essential (primary) hypertension; E03.9 Hypothyroidism, unspecified
CPT/HCPCS: 36415; 80053; 80061; 81001; 82043; 82306; 82570; 83735; 84439; 84443; 85025

== ENCOUNTER → 2024-01-30 | Outpatient (CLI) | payer MEDICARE, SELFPAY ==
--- NOTE | 2024-01-30 09:45 | BI_ITS ---
MAMMOGRAPHY - BILATERAL SCREENING REASON FOR EXAM: Female, 78 years old. Routine annual screening examination. PERTINENT HISTORY: Personal history of breast cancer. Prior right lumpectomy and radiation treatment. TECHNIQUE: Digital bilateral breast ron (3D mammographic acquisition) in the CC and MLO projections. 2-D mediolateral oblique (MLO) and craniocaudad (CC) views of both breasts were obtained. CAD: Full Field Digital Mammography with Computer Added Detection was performed. COMPARISON: Comparison is made with prior study dated January 28, 2023 and January 23, 2022. FINDINGS: Breast Composition: There are scattered areas of fibroglandular density. There are no dominant masses or suspicious calcifications. The patient is status post lumpectomy in the upper deep central portion of the right breast with resultant postoperative scarring in the breast deformity with retraction of the areolar complex. Surgical sutures are seen in the right axilla. No other significant abnormalities are identified. There has been no significant change since the prior study. BI/SCRN MAMM (CAD)W/RON BILAT IMPRESSION: Stable bilateral screening mammogram. Yearly follow-up mammogram recommended. (A) ASSESSMENT CATEGORY: BIRADS Category 2: Benign. A letter regarding these results will be sent to the patient by the facility within 30 days. Approximately 10% of breast cancers are not detected by mammography. A normal mammogram should not delay biopsy of a clinically suspicious abnormality. [id number] Electronically Signed: Rafael Barry MD at 13:27 EDT ,
--- NOTE | 2024-01-30 09:45 | BD_ITS ---
STUDY: DUAL ENERGY X-RAY ABSORPTIOMETRY / DXA REASON FOR EXAM: Female, 78 years old. SCREENING TECHNIQUE: Bone Mineral Density (BMD) measurements of lumbar spine and right forearm were obtained. The patient is status post bilateral hip replacement. COMPARISON: Comparison is made with prior study dated January 23, 2022. FINDINGS: Lumbar Spine (L1-L4): g/cm2 (0.834) / T-score (-1.9) / Z-score (0.6) Findings are suggestive of osteopenia with a moderate fracture risk. Right Forearm: g/cm2 (0.468) / T-score (-2.1) / Z-score (0.6) The T-Scores on the most recent prior examination were: Lumbar Spine (L1-L4): There has been improvement of bone density since the previous examination. BD/Dexa Bone Density Study IMPRESSION: The patient is considered osteopenic as outlined below according to World [place] Organization (WHO) criteria with a moderate fracture risk. There has been improvement of bone density since the previous examination. Reference Information: The T-score is the number of standard deviations above or below the standard which is normal for young adults at their peak bone mineral density. The World Health Organization (WHO) interprets the T-scores as follows: Above -1 Normal bone density Between -1 and -2.5 Osteopenia Equal to / or below -2.5 Osteoporosis As a practical clinical guideline, osteopenia may be graded as follows: Mild -1 through -1.5 Moderate -1.6 through -2.0 Severe -2.1 through -2.4 The Z-score is the number of standard deviations above or below age-matched controls. A Z-score of less than -1.5 would be considered abnormal. References: 1. NIH Osteoporosis and Related Bone Diseases www osteo.org 2. International Society for Clinical Densitometry www iscd.org 3. National Osteoporosis Foundation www nof.org Electronically Signed: Rafael Barry MD at 10:39 EDT ,
== END | disposition home or self-care (01) ==
LOC: OPBD 09:45
PROVIDERS: PCP Family Medicine; Referring Provider Internal Medicine Medical Oncology; Visit Provider Internal Medicine Medical Oncology
DX: Z12.31 Encounter for screening mammogram for malignant neoplasm of breast (principal); M85.89 Other specified disorders of bone density and structure, multiple sites; Z85.3 Personal history of malignant neoplasm of breast
CPT/HCPCS: 77063; 77067; 77080

== ENCOUNTER → 2024-05-11 | Outpatient (CLI) | payer MEDICARE, SELFPAY ==
[2024-05-11 10:31] LABS: Bacteria 0 SEEN /hpf (None Seen); Mucous, Urine 0 SEEN /hpf (<or=2+); Red Blood Cells-Urine 0 SEEN /hpf (0-5); Squamous Epithelial Cells - UA 0 SEEN /hpf (5-10)
[2024-05-11 12:20] LABS: Color, Urine Yellow (Yellow); Glucose, Dipstick Normal (Normal); Ketone-Dipstick Negative (Negative); Leukocyte Esterase-Dipstick 25 /ul (Negative); Nitrite-Dipstick Negative (Negative); Occult Blood-Urine Negative /ul (Negative); Protein-Dipstick Negative (Negative); Specific Gravity, Urine 1.005 (1.002-1.030); Urine Bilirubin Dipstick Negative (Negative); Urine Clarity Clear (Clear); Urine Urobilinogen Normal (Normal)
[2024-05-11 12:26] LABS: White Blood Cells 0-5 SEEN /hpf (0-5)
[2024-05-11 12:40] LABS: Absolute Lymphocyte Count 1.14 X10^3/uL (0.83-4.51); Absolute Neutrophil Count 4.5 X10^3/uL (2.0-7.7); Basophil# 0.05 X10^3/uL; Basophil% 0.8 % (0-1); Eosinophil# 0.22 X10^3/uL; Eosinophils% 3.4 % (0-5); Hemoglobin 13.2 g/dL (12.0-15.0); Lymphocyte # 1.14 X10^3/ul (0.83-4.51); Lymphocyte % 17.5 % (19-41); Mean Corpuscular Hgb 31.5 pg (27.0-32.0); Mean Corpuscular Volume 95.5 fL (81-99); Mean Platelet Vol. 10.3 fl (6.2-12.0); Monocyte# 0.62 X10^3/uL; Monocyte% 9.5 % (0-10); NRBC Flagged by Analyzer 0 % (0-5); Neutrophil # 4.45 X10^3/uL (2.7-7.7); Neutrophil % 68.5 % (47-70); Platelet Count 157 K/mm3 (150-450); RBC Distribution Width CV 12.4 % (11.6-14.6); RBC Distribution Width SD 43.5 fl (35.1-43.9); Red Blood Count 4.19 M/mm3 (4.2-5.4); White Blood Count 6.5 K/mm3 (4.4-11.0)
[2024-05-11 13:07] LABS: Vitamin D,25 Hydroxy 51.7 ng/mL
[2024-05-11 13:17] LABS: ALB/GLOB Ratio 1.1 RATIO (0.9-2.4); AST(SGOT) 19 U/L (15-37); Alanine Aminotransfer ALT/SGPT 21 U/L (13-56); Albumin, Serum 3.6 g/dL (3.2-5.0); Alkaline Phosphatase 71 U/L (45-117); Anion Gap 7 (5-15); BUN 16 mg/dL (7-18); BUN/Creat Ratio 22.3 RATIO (10-20); Calcium,Total 9.3 mg/dL (8.5-10.1); Chloride 101 mmol/L (98-107); Cholesterol 122 mg/dL (200); Creatinine, Serum 0.72 mg/dL (0.55-1.02); EST Glomerular Filtration Rate 84 mL/min (>60); Est Glom Filt Rate - Afr Amer 102 mL/min (>60); Globulin 3.3 g/dL (2.2-4.2); Glucose 99 mg/dL (74-106); High Density Lipoprotein 60 mg/dL; Potassium 3.4 mmol/L (3.5-5.1); Protein, Total 6.9 g/dL (6.4-8.2); Sodium Level 137 mmol/L (136-145); T4 Free Direct 1.23 ng/dL (0.76-1.46); Triglycerides 121 mg/dL; Very Low Density Lipoprotein 24 mg/dL (5-40)
== END | disposition home or self-care (01) ==
LOC: MFPLAB 10:24
PROVIDERS: PCP Family Medicine; Visit Provider Family Medicine
DX: I10 Essential (primary) hypertension (principal); E03.9 Hypothyroidism, unspecified; E78.5 Hyperlipidemia, unspecified; E55.9 Vitamin D deficiency, unspecified
CPT/HCPCS: 36415; 80053; 80061; 81001; 82306; 84439; 84443; 85025

== ENCOUNTER → 2024-10-12 | Outpatient (CLI) | payer MEDICARE, SELFPAY ==
[2024-10-12 12:51] LABS: Absolute Lymphocyte Count 1.37 X10^3/uL (0.83-4.51); Absolute Neutrophil Count 4.9 X10^3/uL (2.0-7.7); Basophil# 0.05 X10^3/uL; Basophil% 0.7 % (0-1); Eosinophil# 0.24 X10^3/uL; Eosinophils% 3.3 % (0-5); Hematocrit 41.4 % (37-47); Lymphocyte # 1.37 X10^3/ul (0.83-4.51); Lymphocyte % 19.1 % (19-41); Mean Corp Hgb Conc 33.8 g/dL (32-36); Mean Corpuscular Hgb 31.3 pg (27.0-32.0); Mean Corpuscular Volume 92.6 fL (81-99); Mean Platelet Vol. 9.8 fl (6.2-12.0); Monocyte# 0.66 X10^3/uL; Monocyte% 9.2 % (0-10); NRBC Flagged by Analyzer 0 % (0-5); Neutrophil # 4.85 X10^3/uL (2.7-7.7); Neutrophil % 67.6 % (47-70); Platelet Count 148 K/mm3 (150-450); RBC Distribution Width CV 12.1 % (11.6-14.6); RBC Distribution Width SD 41.4 fl (35.1-43.9); Red Blood Count 4.47 M/mm3 (4.2-5.4); White Blood Count 7.2 K/mm3 (4.4-11.0)
[2024-10-12 13:28] LABS: ALB/GLOB Ratio 1.7 RATIO (0.9-2.4); AST(SGOT) 25 U/L (<=31); Alanine Aminotransfer ALT/SGPT 16 U/L (<=34); Albumin, Serum 4.3 g/dL (3.4-4.8); Alkaline Phosphatase 57 U/L (35-104); Anion Gap 11 (5-15); BUN 16 mg/dL (4-19); BUN/Creat Ratio 21.1 RATIO (10-20); Calcium,Total 9.7 mg/dL (7.6-11.0); Carbon Dioxide 29.3 mmol/L (21.0-32.0); Chloride 98 mmol/L (98-108); Cholesterol 123 mg/dL (<=200); Creatinine, Serum 0.73 mg/dL (0.70-1.20); EST Glomerular Filtration Rate 84 (>60); Globulin 2.6 g/dL (2.2-4.2); Glucose 102 mg/dL (70-99); High Density Lipoprotein 54 mg/dL; Low Density Lipoprotein Calc. 33 mg/dL; Magnesium 2.2 mg/dL (1.5-2.2); Potassium 3.3 mmol/L (3.3-5.1); Protein, Total 6.9 g/dL (5.9-8.4); Sodium Level 138 mmol/L (133-145); Total Bilirubin 0.48 mg/dL (0.00-1.30); Triglycerides 179 mg/dL; Very Low Density Lipoprotein 36 mg/dL (5-40); cholesterol:hdl ratio screen 2.28
[2024-10-12 13:29] LABS: Vitamin D,25 Hydroxy 45.8 ng/mL (30-100)
[2024-10-12 14:08] LABS: Bacteria 0 SEEN /hpf (None Seen); Mucous, Urine 0 SEEN /hpf (<or=2+); Red Blood Cells-Urine 0 SEEN /hpf (0-5); Squamous Epithelial Cells - UA 0 SEEN /hpf (5-10); White Blood Cells 0 SEEN /hpf (0-5)
[2024-10-12 14:11] LABS: Color, Urine Yellow (Yellow); Glucose, Dipstick Normal (Normal); Ketone-Dipstick Negative (Negative); Leukocyte Esterase-Dipstick Negative /ul (Negative); Nitrite-Dipstick Negative (Negative); Occult Blood-Urine Negative /ul (Negative); Protein-Dipstick Negative (Negative); Specific Gravity, Urine 1.005 (1.002-1.030); Urine Bilirubin Dipstick Negative (Negative); Urine Clarity Clear (Clear); Urine Urobilinogen Normal (Normal)
[2024-10-13 20:33] LABS: Hemoglobin A1c 5.4 % (<=5.6)
== END | disposition home or self-care (01) ==
LOC: PAVLAB 12:30
PROVIDERS: PCP Family Medicine; Referring Provider Family Medicine; Visit Provider Family Medicine
DX: R73.09 Other abnormal glucose (principal); E03.9 Hypothyroidism, unspecified; I10 Essential (primary) hypertension; E55.9 Vitamin D deficiency, unspecified
CPT/HCPCS: 36415; 80053; 80061; 81001; 82306; 83036; 83735; 84439; 84443; 85025

== ENCOUNTER → 2025-01-07 | Outpatient (CLI) | payer MEDICARE, SELFPAY ==
[2025-01-07 12:31] LABS: Hematocrit 40.8 % (37-47); Hemoglobin 13.7 g/dL (12.0-15.0); Immature Granulocytes Count 0.020 X10^3/uL (0.0-0.0); Mean Corp Hgb Conc 33.6 g/dL (32-36); Mean Corpuscular Volume 93.4 fL (81-99); Mean Platelet Vol. 10.4 fl (6.2-12.0); NRBC Flagged by Analyzer 0 % (0-5); Platelet Count 152 K/mm3 (150-450); RBC Distribution Width CV 12.5 % (11.6-14.6); RBC Distribution Width SD 42.4 fl (35.1-43.9); Red Blood Count 4.37 M/mm3 (4.2-5.4); White Blood Count 6.2 K/mm3 (4.4-11.0)
[2025-01-07 16:11] LABS: AST(SGOT) 30 U/L (<=31); Alanine Aminotransfer ALT/SGPT 23 U/L (<=34); Albumin, Serum 4.2 g/dL (3.4-4.8); Alkaline Phosphatase 63 U/L (35-104); Anion Gap 10 (5-15); BUN 17 mg/dL (4-19); BUN/Creat Ratio 21.6 RATIO (10-20); Calcium,Total 9.6 mg/dL (7.6-11.0); Carbon Dioxide 28.3 mmol/L (21.0-32.0); Chloride 102 mmol/L (98-108); Globulin 2.6 g/dL (2.2-4.2); Glucose 87 mg/dL (70-99); Potassium 3.9 mmol/L (3.3-5.1)
== END | disposition home or self-care (01) ==
LOC: MTLAB 11:11
PROVIDERS: PCP Family Medicine; Referring Provider Family Medicine; Visit Provider Family Medicine
DX: R41.0 Disorientation, unspecified (principal)
CPT/HCPCS: 36415; 80053; 85025

== ENCOUNTER → 2025-02-01 | Outpatient (CLI) | payer MEDICARE, SELFPAY ==
--- NOTE | 2025-02-01 13:15 | BI_ITS ---
EXAM: SCRN MAMM (CAD)W/RON BILAT DATE: 02/01/2025 CLINICAL HISTORY: F, Age 79 y/o , SCREENING Personal history of breast cancer. Prior right lumpectomy and radiation. TECHNIQUE: SCRN MAMM (CAD)W/RON BILAT COMPARISON: Prior exam(s) dated January 30, 2024.. FINDINGS: TISSUE DENSITY: There are scattered areas of fibroglandular density. Bilateral Breast Mammographic Findings: No significant masses, calcifications or other abnormalities are identified. The patient is status post lumpectomy in the deep upper central portion of the right breast with resultant postoperative scarring and retraction of the right areolar complex. Surgical clips are seen in the right axilla. No suspicious masses, areas of developing architectural distortion, or suspicious calcifications. There has been no significant interval change. BI/SCRN MAMM (CAD)W/RON BILAT IMPRESSION: Stable examination. OVERALL FINAL ASSESSMENT BI-RADS 2: BENIGN RECOMMENDATION: Routine annual follow-up in 1 Year A letter with findings and recommendations will be mailed to the patient. Reading Location: [id number]
== END | disposition home or self-care (01) ==
LOC: OPBI 12:50
PROVIDERS: PCP Family Medicine; Referring Provider Internal Medicine Hematology & Oncology; Visit Provider Internal Medicine Hematology & Oncology
DX: Z12.31 Encounter for screening mammogram for malignant neoplasm of breast (principal); Z85.3 Personal history of malignant neoplasm of breast
CPT/HCPCS: 77063; 77067

== ENCOUNTER 2025-02-05 11:00 | Outpatient (CLI) | payer MEDICARE, SELFPAY ==
[2025-02-05 13:53] LABS: Vitamin B12 1452 pg/mL (180-914)
== END 2025-02-05 23:59 | disposition home or self-care (01) ==
LOC: MFPLAB 11:01
PROVIDERS: PCP Family Medicine; Visit Provider Family Medicine
DX: G62.9 Polyneuropathy, unspecified (principal)
CPT/HCPCS: 36415; 82607; 84207; 84425

== ENCOUNTER → 2025-02-16 | Outpatient (CLI) | payer MEDICARE, SELFPAY ==
--- NOTE | 2025-02-16 13:21 | MRI_ITS ---
PROCEDURE: BRAIN W/WO CONTRAST 02/16/2025 REASON FOR EXAM: CONFUSION. Dizziness, previous falls, low tolerance to medications. History of right breast cancer 2019. TECHNIQUE: BRAIN W/WO CONTRAST Multiplanar and multisequence images were obtained. CONTRAST: Clariscan VOLUME: 12 mL COMPARISON: None. FINDINGS: BRAIN: No restricted diffusion to indicate acute infarction. No intracranial mass or hemorrhage. No abnormal contrast enhancement. No midline shift or extra-axial fluid collection. No sulcal effacement. Patchy high T2/FLAIR signal intensity in the deep white matter, likely microvascular ischemic changes. No cerebellar tonsillar ectopia. The central arterial and venous flow voids are patent. VENTRICLES: No hydrocephalus. ORBITS: Intraocular lens implants bilaterally. The orbits are otherwise unremarkable. SINUSES AND MASTOIDS: The sinuses and mastoid air cells are clear. BONES: No focal osseous lesion. MRI/Brain W/WO Contrast IMPRESSION: 1. No acute intracranial abnormality. 2. Age-related senescent changes. Reading Location: [id number]
== END | disposition home or self-care (01) ==
PROVIDERS: PCP Family Medicine; Referring Provider Family Medicine; Visit Provider Family Medicine
DX: R41.0 Disorientation, unspecified (principal)
CPT/HCPCS: 70553; A9575; A4216

== ENCOUNTER → 2025-04-09 | Outpatient (CLI) | payer MEDICARE, SELFPAY ==
--- NOTE | 2025-04-09 11:29 | RAD_ITS ---
PROCEDURE: KNEE 3 VIEWS 04/09/2025 REASON FOR EXAM: PAIN TECHNIQUE: Procedure Code: RADPAT Modality: DX Procedure: KNEE 3 VIEWS Laterality: Right knee COMPARISON: None FINDINGS: Bones: No fracture. No suspicious bone lesion. Joints: Normal alignment. Mild degenerative changes. Effusion: No effusion. Soft tissues: Soft tissues are unremarkable. Other: RAD/Knee 3 Views IMPRESSION: NO EFFUSION ACUTE FRACTURE OR DISLOCATION. Reading Location: [id number]
== END | disposition home or self-care (01) ==
LOC: MTRAD 11:29
PROVIDERS: PCP Family Medicine; Referring Provider Family Medicine; Visit Provider Family Medicine
DX: M25.561 Pain in right knee (principal)
CPT/HCPCS: 73562

== ENCOUNTER 2025-06-07 07:19 | Day surgery (SDC) | payer MEDICARE, SELFPAY ==
[2025-06-07] VITALS (8 sets, daily range): BP systolic 86–137; BP diastolic 54–88; PULSE 54–71; RESP 12–16; TEMP 36.1–36.3; O2SAT 94–100; BMI 23.5
--- OUTSIDE RECORDS SUMMARY | 2025-06-07 07:23 | XMS RPT_ITS | CCD ---
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 Name Role Phone Alberto Rayo MD Unavailable [phone] CHEUNG, AMARILIS A Unavailable Unavailable CHEUNG, AMARILIS A Unavailable Unavailable CHEUNG, AMARILIS A Unavailable Unavailable CHEUNG, AMARILIS A Unavailable Unavailable PROVIDER, UNKNOWN Unavailable Unavailable PROVIDER, UNKNOWN Unavailable Unavailable PROVIDER, UNKNOWN Unavailable Unavailable URRUTIA, NOREEN J Unavailable Unavailable URRUTIA, NOREEN J Unavailable Unavailable URRUTIA, NOREEN J Unavailable Unavailable CHEUNG, AMARILIS A Unavailable Unavailable PROVIDER, UNKNOWN Unavailable Unavailable PROVIDER, UNKNOWN Unavailable Unavailable PROVIDER, UNKNOWN Unavailable Unavailable CHEUNG, AMARILIS A Unavailable Unavailable URRUTIA, NOREEN J Unavailable Unavailable URRUTIA, NOREEN J Unavailable Unavailable URRUTIA, NOREEN J Unavailable Unavailable PROVIDER, UNKNOWN Unavailable Unavailable PROVIDER, UNKNOWN Unavailable Unavailable PROVIDER, UNKNOWN Unavailable Unavailable Dr. Kan Vargas Primary Care Provider [phone] Dr. Kan Vargas Referring Provider Dr. Man Morgan Attending Provider Dr. Amarilis Hernandez Attending Provider Dr. Amarilis Hernandez Other Provider Dr. Kan Vargas Primary Care Provider Dr. Kan Vargas Referring Provider Dr. Man Morgan Attending Provider Dr. Kan Vargas MD Primary Care Provider Dr. Kan Vargas MD Referring Provider [phone] Dr. Cherelle Patton MD Attending Provider Dr. Amarilis Cheung MD Primary Care Provider Dr. Amarilis Hernandez MD Referring Provider Alicia LYN, Dr. Kan Horvath Attending Provider Alicia LYN, Dr. Kan Horvath Primary Care Provider [phone] Alicia LYN, Dr. Kan Horvath Referring Provider Abdi LYN, Dr. Villarreal Attending Provider Abdi LYN, Dr. Villarreal Referring Provider [phone] Dr. Man Morgan DO Attending Provider Kendall LYN, Dr. Gresham Primary Care Provider David LYN, Dr. Amarilis Randall Referring Provider Alicia LYN, Dr. Kan Horvath Primary Care Provider [phone] Alicia LYN, Dr. Kan Horvath Attending Provider Ailcia LYN, Dr. Kan Horvath Referring Provider Alicia LYN, Dr. Kan Horvath Primary Care Physician Alicia LYN, Dr. Kan Horvath Attending Physician Abdi LYN, Dr. Villarreal Attending Physician Dr. Man Morgan DO Attending Physician Kendall LYN, Dr. Gresham Primary Care Physician [phone] Cherelle Patton Attending Unavailable Amarilis Cheung Primary Care Unavailable Amarilis Hernandez Referring Unavailable Cherelle Patton Attending Unavailable Cherelle Patton Referring Unavailable Kan Vargas Primary Care Unavailable Kan Vargas Primary Care Unavailable Kan Vargas Attending Unavailable Kan Vargas Primary Care Unavailable Kan Vargas Attending Unavailable Kan Vargas Referring Unavailable Marvin Ya Attending Unavailable Kan Vargas Primary Care Unavailable Kan Vargas Attending Unavailable Kan Vargas Referring Unavailable Kan Vargas Primary Care Unavailable Kan Vargas Referring Unavailable Marvin Ya Attending Unavailable Kan Vargas Primary Care Unavailable Cherelle Patton Attending Unavailable Kan Vargas Primary Care Unavailable aKn Vargas Referring Unavailable Kan Vargas Primary Care Unavailable Cherelle Patton Attending Unavailable Kan Vargas Referring Unavailable Kan Vargas Primary Care Unavailable Man Morgan Attending Unavailable Kan Vargas Referring Unavailable Kan Vargas Primary Care Unavailable Kan Vargas Attending Unavailable Kan Vargas Referring Unavailable Kan Vargas Primary Care Unavailable Kan Vargas Attending Unavailable Kan Vargas Referring Unavailable Allergies Allergy Classification Reported Allergen(s) Allergy Type Date of Onset Reaction(s) Facility (1 source) NKA - NO KNOWN ALLERGIES Drug allergy (disorder) [facility] Medications Current Medications Medication Drug Class(es) Dates Sig (Normalized) Sig (Original) aspirin 81 mg chewable tablet (13 sources) Nonsteroidal Anti-inflammatory Drug Start: 02-02-2020 take 2 tablets by mouth once daily Start: 02-02-2020 take 162 mg by mouth once brock y Aspirin Active 162 MG PO DAILY@0800 February 02, 2020 12:00am Start: 10-29-2017 ASPIRIN 325 MG TABS 1 tablet nightly ASPIRIN [id number] Berna Corsaro ASSISTANT PROFESSOR OF BIOCHEMISTRY cholecalciferol 0.05 mg oral capsule (13 sources) Vitamin D Start: 12-03-2017 take 1 capsule by [facility] once daily Start: 10-29-2017 VITAMIN D3 200 0 UNIT CAPS 1 capsule daily CHOLECALCIFEROL [id number] Berna Corsaro ASSISTANT PROFESSOR OF BIOCHEMISTRY 1 ml denosumab 60 mg/ml pref illed syringe (12 sources) RANK Ligand Inhibitor Start: 01-12-2019 Start: 01-12-2019 Denosumab (Pro adonay) 60 MG/ML syringe Active 60 MG SQ Q6M January 12, 2019 12:00am had 11/2018 Start: 01-12-2019 Denosumab Acti ve 60 MG SQ Q6M January 12, 2019 12:00am had 11/2018 hydroCHLOROthiazide 25 mg or al tablet (13 sources) Thiazide Diuretic Start: 12-03-2017 take 1 tablet by mouth once daily Start: 09-20-2016 HYDROCHLOROTHI AZIDE 25 MG TABS 1 tablet daily HYDROCHLOROTHIAZIDE [id number] Berna Corsaro ASSISTANT PROFESSOR OF BIOCHEMISTRY inulin 2000 mg chewable tablet (12 sources) Start: 11-07-2020 take 1 tablet by mouth once daily Multivitamin preparation (4 sources) Start: 12-03-2017 take 1 tablet by mouth once daily Multivitamin Active 1 TABLET PO daily December 03, 2017 12:00am Multivitamin tablet (8 sources) Start: 12-03-2017 Start: 12-03-2017 Multivitamin t ablet Active 1 {tbl} PO daily December 03, 2017 12:00am rosuvastatin calcium 10 mg oral tablet (12 sources) HMG-CoA Reductase Inhibitor Start: 05-11-2022 take 1 tablet by mouth once daily Start: 05-10-2021 take 1 tablet by david th at bedtime Rosuvastatin (Crestor) 5 mg Tablet Active 5 MG PO AT BEDTIME May 10, 2021 12:00am levothyroxine sodium 0.075 m g oral tablet (13 sources) l-Thyroxine Start: 05-11-2022 take 1 tablet by davdi th once daily Start: 12-03-2017 Levothyroxine (Synthroid) 88 mcg tablet Active 50 MCG PO daily December 03, 2017 12:00am Start: 09-20-2016 LEVOTHYROXINE SODIUM 50 MCG TABS 1 tablet daily LEVOTHYROXINE SODIUM [id number] Berna Sandy LPN Zinc (12 sources) Start: 09-06-2021 Start: 09-06-2021 Zinc 50 mg tab let Active 25 mg PO DAILY September 06, 2021 1:00am Start: 09-06-2021 take 25 mg by mouth once daily Zinc Active 25 MG PO DAILY September 06, 2021 1:00am Start: 09-06-2021 take 50 mg by mouth once daily Zinc Active 50 MG PO DAILY September 06, 2021 1:00am Completed/Discontinued Medications Medication Drug Class(es) Dates Sig (Normalized) Sig (Original) acetaminophen 325 mg / HYDROcodone bitartrate 5 mg oral tablet (12 sources) Opioid Agonist Start: 01-19-2019 End: 01-24-2019 Hydrocodone-Acetamino phen 1 TABLET tablet Discontinued 1 {tbl} PO EVERY 6 HOURS NEEDED as needed for Pain 8 3 0 January 19, 2019 January 21, 2019 12:00am January 24, 2019 12:09am Postoperative pain Other acute postprocedural pain Start: 01-19-2019 End: 01-24-2019 take 1 tablet by mouth every six hours as needed Hydrocodone-Acetaminophen Discontinued 1 TABLET PO EVERY 6 HOURS NEEDED 8 3 January 19, 2019 January 24, 2019 12:09am anastrozole 1 mg oral tablet (20 sources) Aromatase Inhibitor Start: 04-08-2019 End: 05-16-2023 take 1 tablet by mouth once daily Anastrozole 1 mg tablet Discontinued 1 mg PO DAILY 90 1 January 14, 2023 1:20pm May 16, 2023 3:07pm Malignant neoplasm of female breast Estrogen receptor positive tumor status Malignant neoplasm of upper-outer quadrant of right female breast Estrogen receptor positive status [ER+] Breast CA Start: 01-14-2018 End: 04-06-2019 take 1 tablet by mouth once daily Anastrozole 1 MG tablet Discontinued 1 mg PO DAILY 90 90 April 10, 2018 10:21am April 04, 2019 12:00am April 06, 2019 12:09am Malignant neoplasm of female breast Estrogen receptor positive tumor status Malignant neoplasm of unspecified site of unspecified female breast Estrogen receptor positive status [ER+] CALCIUM-VITAMIN D-VITAMIN K (1 source) Vitamin D Start: 09-20-2016 VIACTIV 500-500-40 MG-UNT-MCG CHEW 1 chewable daily CALCIUM-VITAMIN D-VITAMIN K [id number] Berna Sandy LPN calcium carbonate 1250 mg / cholecalciferol 500 unt / vitamin k1 0.04 mg chewable tablet (12 sources) Vitamin D, Warfarin Reversal Agent, Vitamin K Start: 12-24-2017 End: 08-17-2024 take 1 tablet by mouth once daily Calcium-Vitamin D3-Vitamin K 1 EACH tablet,chewable Discontinued 1 NMA PO DAILY December 24, 2017 12:00am August 17, 2024 12:03pm Start: 12-24-2017 Calcium-Vitami n D3-Vitamin K Active 1 EACH PO DAILY December 24, 2017 12:00am chromium picolinate 0.1 mg / inulin 2000 mg chewable tablet (12 sources) Start: 04-03-2018 End: 11-07-2020 take 1 tablet by mouth once daily Inulin-Chromium Picolinate 1 EACH tablet,chewable Discontinued 1 NMA PO DAILY April 03, 2018 12:00am November 07, 2020 11:59am Start: 04-03-2018 End: 11-07-2020 Inulin-Chromium Picolinate D iscontinued 1 EACH PO DAILY April 03, 2018 12:00am November 07, 2020 11:59am doxycycline monohydrate 100 mg oral capsule (9 sources) Tetracycline-class Drug Start: 04-30-2023 End: 05-16-2023 take 1 capsule by mouth twice daily Doxycycline Monohydrate 100 mg capsule Discontinued 100 mg PO TWICE A DAY April 30, 2023 12:00am May 16, 2023 3:07pm lansoprazole 15 mg delayed release oral capsule (1 source) Proton Pump Inhibitor Start: 10-29-2017 LANSOPRAZOLE 15 MG CPDR 1 capsule daily as needed LANSOPRAZOLE [id number] Berna Corsaro ASSISTANT PROFESSOR OF BIOCHEMISTRY MULTIPLE VITAMINS-MINERALS (1 source) Start: 09-20-2016 CENTRUM ADULTS TABS 1 tablet daily MULTIPLE VITAMINS-MINERALS [id number] Berna Corsaro ASSISTANT PROFESSOR OF BIOCHEMISTRY omeprazole 20 mg delayed release oral capsule (20 sources) Proton Pump Inhibitor Start: 03-28-2022 End: 03-28-2022 take 2 capsules by mouth once daily Omeprazole 20 mg capsule,delayed release(DR/EC) Discontinued 40 mg PO DAILY March 28, 2022 1:33pm March 28, 2022 3:58pm Start: 03-28-2022 End: 03-28-2022 take 40 mg by mouth once daily Omeprazole Discontinued 40 MG PO DAILY March 28, 2022 1:33pm March 28, 2022 3:58pm Start: 02-16-2022 End: 03-28-2022 take 1 capsule by mouth once daily Omeprazole 20 mg capsule,delayed release(DR/EC) Discontinued 20 mg PO DAILY February 16, 2022 12:00am March 28, 2022 1:33pm sennosides, penitentiary 8.6 mg oral tablet (12 sources) Start: 12-03-2017 End: 09-06-2021 take 1 tablet by mouth twice daily as needed for constipation Sennosides (Senna) 8.6 mg tablet Discontinued 8.6 mg PO TWICE A DAY as needed for Constipation December 03, 2017 12:00am September 06, 2021 4:28pm sertraline 25 mg oral tablet (12 sources) Serotonin Reuptake Inhibitor Start: 03-08-2021 End: 09-06-2021 take 1 tablet by mouth once daily Sertraline (Zoloft) 25 mg tablet Discontinued 25 mg PO DAILY March 08, 2021 12:00am September 06, 2021 4:28pm Problems Active Problems Problem Classification Problem Date Documented Date Episodic/Chronic Abdominal hernia (12 sources) Gastroesophageal reflux disease with hiatal hernia; Translations: [Diaphragmatic hernia without obstruction or gangrene] 10-15-2018 Episodic Administrative/social admission (20 sources) Education and/or schooling finding; Translations: [Problems related to education and literacy, unspecified] Episodic Cancer of breast (20 sources) Malignant neoplasm of female breast; Translations: [Malignant neoplasm of unspecified site of unspecified female breast] Onset: 02-08-2025 Chronic Comment on above: Rt Arm Restriction Cataract (10 sources) Cataract; Translations: [Unspecified cataract] 05-09-2022 Chronic Comment on above: cataract surgery bot h eyes Esophageal disorders (20 sources) Gastroesophageal reflux disease; Translations: [Gastro-esophageal reflux disease without esophagitis] Chronic Osteoarthritis (1 source) Unilateral primary osteoarthritis, right hip; Translations: [Unilateral primary osteoarthritis, right hip] Onset: 09-27-2016 09-27-2016 Chronic Osteoporosis (7 sources) Osteoporosis; Translations: [Age-related osteoporosis without current pathological fracture] 08-17-2024 Chronic Other aftercare (1 source) Aftercare following joint replacement surgery; Translations: [Aftercare following joint replacement surgery] Onset: 11-22-2016 11-22-2016 Chronic Other bone disease and musculoskeletal deformities (20 sources) Osteopenia; Translations: [Other specified disorders of bone density and structure, unspecified site] 03-08-2021 Episodic Other non-epithelial cancer of skin (12 sources) Malignant neoplasm of skin; Translations: [Unspecified malignant neoplasm of skin, unspecified] 02-09-2022 Episodic Comment on above: removal x2 Other non-traumatic joint disorders (1 source) Pain in right knee; Translations: [Pain in right knee] Onset: 04-16-2025 Episodic Other skin disorders (12 sources) Skin lesion; Translations: [Disorder of the skin and subcutaneous tissue, unspecified] 12-03-2018 Episodic Residual codes; unclassified (10 sources) Estrogen receptor positive tumor; Translations: [Estrogen receptor positive status [ER+]] 07-04-2022 Episodic Residual codes; unclassified (1 source) Disorientation, unspecified; Translations: [Disorientation, unspecified] Onset: 02-22-2025 Episodic Superficial injury; contusion (9 sources) Tick bite; Translations: [Insect bite (nonvenomous), right thigh, initial encounter] 04-30-2023 Episodic Past or Other Problems Problem Classification Problem Date Documented Da te Episodic/Chronic Cancer of breast (20 sources) History of malignant neoplasm of breast; Translations: [Personal history of malignant neoplasm of breast] Onset: 02-08-2025 Episodic Diabetes mellitus without complication (1 source) Other abnormal glucose; Translations: [Other abnormal glucose] Onset: 10-15-2024 Episodic Other bone disease and musculoskeletal deformities (4 sources) Other specified disorders of bone density and structure, unspecified site; Translations: [Disorder of bone and cartilage, unspecified] Onset: 02-08-2025 Episodic Other bone disease and musculoskeletal deformities (2 sources) Other specified disorders of bone density and structure, multiple sites; Translations: [Other specified disorders of bone density and structure, multiple sites] Onset: 02-08-2025 Episodic Other screening for suspected conditions (not mental disorders or infectious disease) (1 source) Encounter for screening mammogram for malignant neoplasm of breast; Translations: [Encounter for screening mammogram for malignant neoplasm of breast] Onset: 02-08-2025 Episodic Residual codes; unclassified (1 source) Estrogen receptor positive status [ER+]; Translations: [Estrogen receptor positive status [ER+]] Onset: 02-08-2025 Episodic Unclassified (1 source) Problem Unclassified (11 sources) s/p EGD with PH probe Onset: 05-08-2018 02-04-2022 Results Test Name Value Interpretation Reference Range Facility Surgery Visit Reporton 05-11 Surgery Visit Report [facility] [address] [place] [address] OFFICE VISIT Date of Service: 05/11/25 MR#: [id number] Acct: [id number] Name: JIMMIE WEATHERS Rep #: [id number] : 1945 Provider: Dr. 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 Required: No Is patient in pain?: No Allergies No Known Allergies Allergy (Verified 05/11/25 10:04) Medications ???Medication ???Instructions ???Recorded ???Confirmed ???Type cholecalciferol (vitamin D3) 50 2,000 unit PO QDAY 12/03/17 History mcg (2,000 unit) capsule hydrochlorothiazide 25 mg tablet 25 mg PO QDAY 12/03/17 05/11/25 Hi story multivitamin 1 tab PO QDAY 12/03/17 05/11/25 Hi story denosumab 60 mg/mL subcutaneous 60 mg SQ Q6M 01/12/19 05/11/25 His tory syringe (Prolia) aspirin 81 mg chewable tablet 162 mg PO DAILY@0800 02/02/2010/30 History inulin 2 gram chewable tablet 2 g PO DAILY 11/07/20 05/11/25 His tory (Fiber Gummies) zinc 50 mg tablet 25 mg PO DAILY 09/06/21 05/11/25 H istory levothyroxine 75 mcg tablet 75 mcg PO DAILY 05/11/22 05/11/25 History rosuvastatin 10 mg tablet 10 mg PO DAILY 05/11/22 05/11/25 H istory Have you fallen in the past year?: No PFSH Medical History (Updated 05/11/25 @ 16:[address] Marvin Ya MD) Tick bite of right thigh ER+ (estrogen receptor positive status) Cataract Alcoholism Wears glasses High cholesterol Non-smoker Restless legs History of squamous cell carcinoma of skin Skin cancer Skin lesion Hiatal hernia with gastroesophageal reflux disease and esophagitis GERD (gastroesophageal reflux disease) Breast cancer in female Breast cancer ( 12/2017) Hypothyroidism Hemorrhoids HTN (hypertension) Osteoarthritis Surgical History History of repair of hiatal hernia s/p EGD with PH probe ( 06/03/18) History of lumpectomy S/P breast biopsy S/P colonoscopy S/P dilation and curettage S/P tubal ligation Status post left hip replacement Status post right hip replacement S/P breast biopsy Family History Father CAD (coronary artery disease) Hypertension Myocardial infarction Mother Bleeding disorder Hypertension Sister Bleeding disorder Heart disease Other Alcoholism Arthritis Breast cancer Cancer High cholesterol History of anesthesia problem Osteoporosis Skin cancer Thyroid disorder Social History household members: spouse housing: house Smoking Status: Never smoker second hand exposure: No alcohol intake: never substance use type: does not use well-balanced diet: daily or most days caffeine: No eating out: 1-3 times/week during the past year weight has: remained stable what type of physical activity do you participate in: walking frequency: daily duration: 15-30 minutes/day kori/bahai: [employer] seatbelt use: always do you feel safe at home: Yes HPI HPI HPI: The patient is a 79-year-old female, former patient of Dr. Amarilis Staples, with Archer's esophagus, GERD s/p Toupet fundoplication (2019), and osteoporosis, presenting for surveillance EGD and discussion of colonoscopy. The patient reports recurrence of reflux symptoms after 3 years of relief following her Toupet fundoplication. She describes intermittent epigastric pain that occurs exclusively at night when lying down, with no daytime symptoms. She has been using Tums frequently and recently completed a 14-day course of omeprazole, which provided significant relief. She has previously completed 2 courses of omeprazole for similar symptoms. She has discontinued calcium supplements per prior instruction from Dr. Herman. Her typical diet consists of a protein bar for breakfast, a large midday meal, and light evening snacking, with her last intake usually about 2 hours before bedtime. She sleeps primarily on her stomach with pillows for support due to bilateral hip replacements. She notes that chocolate eaten late at night worsens her symptoms. She has a long-standing history of constipation, previously requiring laxatives when bowel movements were as infrequent as every 2 weeks. She now maintains daily bowel movements with fiber gummies and adequate fluid intake, with minimal straining and no rectal bleeding. She reports occasional dark stools depending on diet, but denies black or maroon stools. She drink (more content not included)... Normal [facility] Knee 3 Viewson 04-09-2025 Knee 3 Views [facility] [address] [place] [id number] Knee 3 Views MR#: [id number] Acct: [id number] Name: JIMMIE WEATHERS Rep #: [id number] : 1945 F 79 From: Rafael horton MD PCP: Dr. Kan Vargas MD Status: REG CLI Study: Knee 3 Views Date of Exam: 04/09/25 Exam# [id number] Ordering Dr: Kan Vargas MD PROCEDURE: KNEE 3 VIEWS 04/09/2025 REASON FOR EXAM: PAIN TECHNIQUE: Procedure Code: RADPAT Modality: DX Procedure: KNEE 3 VIEWS Laterality: Right knee COMPARISON: None FINDINGS: Bones: No fracture. No suspicious bone lesion. Joints: Normal alignment. Mild degenerative changes. Effusion: No effusion. Soft tissues: Soft tissues are unremarkable. Other: RAD/Knee 3 Views IMPRESSION: NO EFFUSION ACUTE FRACTURE OR DISLOCATION. Reading Location: [id number] CC: Dr. Kan Vargas MD Texture Artist: Signed Normal [facility] Brain W/WO Contraston 2024 Brain W/WO Contrast [facility] [address] [place] [address] Brain W/WO Contrast MR#: [id number] Acct: [id number] Name: JIMMIE WEATHERS Rep #: [id number] : 1945 F 79 From: Tammie Patrick MD PCP: Dr. Kan Vargas MD Status: REG CLI Study: Brain W/WO Contrast Date of Exam: 02/16/25 Exam# [id number] Ordering Dr: Kan Vargas MD PROCEDURE: BRAIN W/WO CONTRAST 02/16/2025 REASON FOR EXAM: CONFUSION. Dizziness, previous falls, low tolerance to medications. History of right breast cancer 2019. TECHNIQUE: BRAIN W/WO CONTRAST Multiplanar and multisequence images were obtained. CONTRAST: Clariscan VOLUME: 12 mL COMPARISON: None. FINDINGS: BRAIN: No restricted diffusion to indicate acute infarction. No intracranial mass or hemorrhage. No abnormal contrast enhancement. No midline shift or extra-axial fluid collection. No sulcal effacement. Patchy high T2/FLAIR signal intensity in the deep white matter, likely microvascular ischemic changes. No cerebellar tonsillar ectopia. The central arterial and venous flow voids are patent. VENTRICLES: No hydrocephalus. ORBITS: Intraocular lens implants bilaterally. The orbits are otherwise unremarkable. SINUSES AND MASTOIDS: The sinuses and mastoid air cells are clear. BONES: No focal osseous lesion. MRI/Brain W/WO Contrast IMPRESSION: 1. No acute intracranial abnormality. 2. Age-related senescent changes. Reading Location: [facility] CC: Dr. Kan Vargas MD Texture Artist: Signed Normal [facility] Magnetic resonance imaging r eportOrdered By: Tammie Patrick on 02-16-2025 Study report [facility] [address] [place], [place] [address] Brain W/WO Contrast MR#: [id number] Acct: [id number] Name: JIMMIE WEATHERS Rep #: [id number] : 1945 F 79 From: Raquel Patrick MD PCP: Dr. Kan Vargas MD Status: RE G CLI Study:Brain W/WO Contrast Date of Exam: 02/16/25 Exam# [id number] Ordering Dr: Kan Vargas MD PROCEDURE: BRAIN W/WO CONTRAST 02/16/2025 REASON FOR EXAM: CONFUSION. Dizziness, previous falls, low tolerance to medications. History ofright breast cancer 2019. TECHNIQUE: BRAIN W/WO CONTRAST Multiplanar and multisequence images were obtained. CONTRAST: Clariscan VOLUME: 12 mL COMPARISON: None. FINDINGS: BRAIN: No restricted diffusion to indicate acute infarction. No intracranial mass or hemorrhage. No abnormal contrast enhancement. No midline shift or extra-axial fluid collection. No sulcal effacement. Patchy high T2/FLAIR signal intensity in the deep white matter, likely microvascular ischemic changes. No cerebellar tonsillar ectopia.The central arterial and venous flow voids are patent. VENTRICLES: No hydrocephalus. ORBITS: Intraocular lens implants bilaterally. The orbits are otherwise unremarkable. SINUSES AND MASTOIDS: The sinuses and mastoid air cells are clear. BONES: No focal osseous lesion. MRI/Brain W/WO Contrast IMPRESSION: 1. No acute intracranial abnormality. 2. Age-related senescent changes. Reading Location: [facility] CC: Dr. Kan Vargas MD ~ Texture Artist: Signed [facility] [id number] 02-14-2025 VITAMIN B6 34.4 ug/L Normal 3.4-65.2 [facility] Comment on above: Order Comment: Test( s) [id number] B6was developed and its performance characteristicsdetermined by [email or web address]. It has not been cleared or approvedby the Food and Drug Administration. Result Comment: Defi ciency: <3.4 Marginal: 3.4 - 5.1 Adequate: >5.1 Performed By: #### L 3300.8000, [id number] ####[facility] [id number] [place], [address] Vitamin B1, Thiamineon 02-14 VIT B1 THIAMINE 131.0 nmol/L Normal 66.5-200.0 [facility] Comment on above: Order Comment: Test( s) 866197-Nguehrp B6was developed and its performance characteristicsdetermined by [email or web address]. It has not been cleared or approvedby the Food and Drug Administration. Result Comment: Perf ormed at: [facility] [address] [id number] [employer] Base Blocker: Kaden Gautam MD, Phone: [phone] Performed By: #### L 3300.8000, L3083.4925 ####[facility] [address] [place], [address] Oncology Visit Reporton Oncology Visit Report [facility] [address] [place] [address] OFFICE VISIT Date of Service: 02/08/25 1432 MR#: [id number] Acct: [id number] Name: JIMMIE WEATHERS Rep #: [id number] : 1945 From: Cherelle Patton MD Age/Sex: 79/F Location: [facility] Status: Signed HPI Subjective Date of Service 02/08/25 Chief Complaint Breast cancer on treatment History of Present Illness Patient is a 79-year-old female who presented after an abnormal screening [...] -0.7 cm. Tumor is ER positive (95%), AZ positive (95%) and HER-2 ramón 1-2+ IHC, negative by FISH. Treatment: Right partial mastectomy with sentinel lymph node sampling December 25, 2017 Arimidex January 2018-summer 2022 (5 years) 02/13/18 - 03/06/18: Received adjuvant radiation therapy to the right breast consisting of 4256 cGy in 16 fractions. Bone supportive therapy with Prolia 60 mg/6 months since April 2018. [facility] Medical History Tick bite of right thigh ER+ (estrogen receptor positive status) Cataract Alcoholism Wears glasses High cholesterol Non-smoker Restless legs History of squamous cell carcinoma of skin Skin cancer Skin lesion Hiatal hernia with gastroesophageal reflux disease and esophagitis GERD (gastroesophageal reflux disease) Breast cancer in female Breast cancer ( 12/2017) Hypothyroidism Hemorrhoids HTN (hypertension) Osteoarthritis Surgical History History of repair of hiatal hernia s/p EGD with PH probe ( 06/03/18) History of lumpectomy S/P breast biopsy S/P colonoscopy S/P dilation and curettage S/P tubal ligation Status post left hip replacement Status post right hip replacement S/P breast biopsy Family History Father CAD (coronary artery disease) Hypertension Myocardial infarction Mother Bleeding disorder Hypertension Sister Bleeding disorder Heart disease Other Alcoholism Arthritis Breast cancer Cancer High cholesterol History of anesthesia problem Osteoporosis Skin cancer Thyroid disorder Social History household members: spouse housing: house Smoking Status: Never smoker second hand exposure: No alcohol intake: never substance use type: does not use well-balanced diet: daily or most days caffeine: No eating out: 1-3 times/week during the past year weight has: remained stable what type of physical activity do you participate in: walking How many days of moderate to strenuous exercise, like a brisk walk, did you do in the last 7 days: 7 frequency: daily duration: 15-30 minutes/day kori/bahai: Roman Catholic seatbelt use: always do you feel safe at home: Yes ROS Constitutional Constitutional: Reports systems reviewed and no addt'l complaints, except as documented; Denies anorexia, change in weight, fatigue or fever(s) Eyes Eyes: Reports systems reviewed and no addt'l complaints, except as documented; Denies change in vision ENT HEENT: Reports systems reviewed and no addt'l complaints, except as documented; Denies headache(s) Cardiovascular Cardiovascular: Reports systems reviewed and no addt'l complaints, except as documented; Denies chest pain or edema Respiratory/Chest Respiratory/Chest: Reports systems reviewed and no addt'l complaints, except as documented; Denies cough or dyspnea on exertion Gastrointestinal Gastrointestinal: Reports systems reviewed and no addt'l complaints, except as documented and heartburn; Denies abdominal pain or rectal bleeding Genitourinary Genitourinary: Reports systems reviewed and no addt'l complaints, except as documented; Denies hematuria Musculoskeletal Musculoskeletal: Reports arthralgias, back pain and other Details: Chronic unchanged back pain, follows with pain management Dr. Betancourt Integumentary Integumentary: Reports systems reviewed and no addt'l complaints, except as documented; Denies rash Neurologic Neurologic: Reports systems reviewed and no addt'l complaints, except as documented; Denies focal weakness or paresthesias Psychiatric Psychiatric: Reports systems reviewed and no addt'l complaints, except as documented Endocrine Endocrinology: Reports systems reviewed and no addt'l complaints, except as documented Hematologic/Lymphatic Hematologic/Lym (more content not included)... Normal [facility] Radiation Oncology Visiton 0 02-08-2025 Radiation Oncology Visit [facility] [address] [place] [address] OFFICE VISIT Date of Service: 02/08/25 1409 MR#: [id number] Acct: [id number] Name: JIMMIE WEATHERS Rep #: [id number] : 1945 From: Man Cathy STANTON Age/Sex: 79/F Location: [facility] Status: Signed Intake Vital Signs 08/17/24 12:00 02/08/25 14:13 Height 5 ft 4 in 5 ft 4 in Weight: 132 lb 2 oz BMI 22.6 BP 110/67 Blood Pressure Location Lt brachial Position Sitting Respiration 14 Pulse 62 Pulse Source Monitor Temp 96.8 F L Temperature Source Temporal Artery Pulse Oximetry (%) 98 Oxygen Delivery Method room air Intake Visit Reasons: 1 YR F/U BREAST Is patient in pain?: No Allergies No Known Allergies Allergy (Verified 02/08/25 14:32) Medications ???Medication ???Instructions ???Recorded ???Confirmed ???Type cholecalciferol (vitamin D3) 50 2,000 unit PO QDAY 12/03/17 History mcg (2,000 unit) capsule hydrochlorothiazide 25 mg tablet 25 mg PO QDAY 12/03/17 02/08/25 Hi story multivitamin 1 tab PO QDAY 12/03/17 02/08/25 Hi story denosumab 60 mg/mL subcutaneous 60 mg SQ Q6M 01/12/19 02/08/25 His tory syringe (Prolia) aspirin 81 mg chewable tablet 162 mg PO DAILY@0800 02/02/2010/30 History inulin 2 gram chewable tablet 2 g PO DAILY 11/07/20 02/08/25 His tory (Fiber Gummies) zinc 50 mg tablet 25 mg PO DAILY 09/06/21 02/08/25 H istory levothyroxine 75 mcg tablet 75 mcg PO DAILY 05/11/22 02/08/25 History rosuvastatin 10 mg tablet 10 mg PO DAILY 05/11/22 02/08/25 H istory Have you fallen in the past year?: No PFSH PFSH Medical History Tick bite of right thigh ER+ (estrogen receptor positive status) Cataract Alcoholism Wears glasses High cholesterol Non-smoker Restless legs History of squamous cell carcinoma of skin Skin cancer Skin lesion Hiatal hernia with gastroesophageal reflux disease and esophagitis GERD (gastroesophageal reflux disease) Breast cancer in female Breast cancer ( 12/2017) Hypothyroidism Hemorrhoids HTN (hypertension) Osteoarthritis Home Medications ???Medication ???Instructions ???Recorded ???Last Taken ???Type cholecalciferol (vitamin D3) 50 2,000 unit PO QDAY 12/03/17 History mcg (2,000 unit) capsule hydrochlorothiazide 25 mg tablet 25 mg PO QDAY 12/03/17 12/24/17 Hi story multivitamin 1 tab PO QDAY 12/03/17 05/28/18 Hi story denosumab 60 mg/mL subcutaneous 60 mg SQ Q6M 01/12/19 Unknown Hist ory syringe (Prolia) aspirin 81 mg chewable tablet 162 mg PO DAILY@0800 02/02/20 Unkn own History inulin 2 gram chewable tablet 2 g PO DAILY 11/07/20 Unknown Hist ory (Fiber Gummies) zinc 50 mg tablet 25 mg PO DAILY 09/06/21 Unknown Hi story levothyroxine 75 mcg tablet 75 mcg PO DAILY 05/11/22 Unknown H istory rosuvastatin 10 mg tablet 10 mg PO DAILY 05/11/22 Unknown Hi story Allergy/AdvReac Type Severity Reaction Status Date / Time No Known Allergies Allergy Verified 02/08/25 14:32 Family History Father CAD (coronary artery disease) Hypertension Myocardial infarction Mother Bleeding disorder Hypertension Sister Bleeding disorder Heart disease Other Alcoholism Arthritis Breast cancer Cancer High cholesterol History of anesthesia problem Osteoporosis Skin cancer Thyroid disorder Surgical History History of repair of hiatal hernia s/p EGD with PH probe ( 06/03/18) History of lumpectomy S/P breast biopsy S/P colonoscopy S/P dilation and curettage S/P tubal ligation Status post left hip replacement Status post right hip replacement S/P breast biopsy Social History household members: spouse housing: house Smoking Status: Never smoker second hand exposure: No alcohol intake: never substance use type: does not use well-balanced diet: daily or most days caffeine: No eating out: 1-3 times/week during the past year weight has: remained stable what type of physical activity do you participate in: walking How many days of moderate to strenuous exercise, like a brisk walk, did you do in the last 7 days: 7 frequency: daily duration: 15-30 minutes/day kori/bahai: Roman Catholic seatbelt use: always do you feel safe at home: Yes Diagnosis: Jimmie Weathers is a 79-year-old postmenopausal female diagnosed with pathologic stage I (pT1a pN0 (sn) M0) 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 From 02/13/18 - 03/06/18: Received adjuvant r (more content not included)... Normal [facility] Serum or plasma thiamine bradley surement (mass/volume)Ordered By: Cherelle Patton on 02-08-2025 Thiamine [Mass/Vol] 131.0 nmol/L 66.5-200.0 [facility] Comment on above: Performed at: [facility] [address] [id number] Director: Kaden Gautam MD, Phone: [phone] Vitamin B12on 02-05-2025 Cobalamin (Vitamin B12) [Mass/Vol] 1452 pg/mL High 180-914 [facility] Comment on above: Performed By: #### L 503.0106 #### [facility] Laboratory [address] [place], [address] Vitamin B12 ser/plasOrdered By: Kan Vargas on 02-05-2025 Cobalamin (Vitamin B12) [Mass/Vol] 1452 pg/mL High 180-914 [facility] Breast imaging reportOrdered By: Rafael Barry on 02-01-2025 Study report [facility] Imaging [place] [address] SCRN MAMM (CAD)W/RON BILAT MR#: [id number] Acct: [id number] Name: JIMMIE WEATHERS Rep #: [id number] : 1945 F 79 From: Fabio Barry MD PCP: Dr. Kan Vargas MD Status: RE G CLI Study:SCRN MAMM (CAD)W/RON BILAT Date of Exa m: 02/01/25 Exam# [id number] Ordering Dr: Cherelle Patton MD EXAM: SCRN MAMM (CAD)W/RON BILAT DATE: 02/01/2025 CLINICAL HISTORY: F, Age 79 y/o , SCREENING Personal history of breast cancer. Prior right lumpectomy and radiation. TECHNIQUE: SCRN MAMM (CAD)W/RON BILAT COMPARISON: Prior exam(s) dated January 30, 2024.. FINDINGS: TISSUE DENSITY: There are scattered areas of fibroglandular density. Bilateral Breast Mammographic Findings: No significant masses, calcifications or other abnormalities are identified. The patient is status post lumpectomy in the deep upper central portion of the right breast with resultant postoperative scarring and retraction of the right areolar complex. Surgical clips are seen in the right axilla. No suspicious masses, areas of developing architectural distortion, or suspicious calcifications. There has been no significant interval change. BI/SCRN MAMM (CAD)W/RON BILAT IMPRESSION: Stable examination. OVERALL FINAL ASSESSMENT BI-RADS 2: BENIGN RECOMMENDATION: Routine annual follow-up in 1 Year A letter with findings and recommendations will be mailed to the patient. Reading Location: [id number] CC: Dr. Kan Vargas MD; Dr. Cherelle Patton MD ~ Texture Artist: Signed [facility] SCRN MAMM (CAD)W/RON BILATo n 02-01-2025 SCRN MAMM (CAD)W/RON BILAT [facility] Imaging Services [address] [place], [place] [id number] SCRN MAMM (CAD)W/RON BILAT MR#: [id number] Acct: [id number] Name: JIMMIE WEATHERS Rep #: [id number] : 1945 F 79 From: Rafael horton MD PCP: Dr. Kan Vargas MD Status: REG CLI Study: SCRN MAMM (CAD)W/RON BILAT Date of Exam: 01/06 03/01 Exam# [id number] Ordering Dr: Cherelle Patton MD EXAM: SCRN MAMM (CAD)W/RON BILAT DATE: 02/01/2025 CLINICAL HISTORY: F, Age 79 y/o , SCREENING Personal history of breast cancer. Prior right lumpectomy and radiation. TECHNIQUE: SCRN MAMM (CAD)W/RON BILAT COMPARISON: Prior exam(s) dated January 30, 2024.. FINDINGS: TISSUE DENSITY: There are scattered areas of fibroglandular density. Bilateral Breast Mammographic Findings: No significant masses, calcifications or other abnormalities are identified. The patient is status post lumpectomy in the deep upper central portion of the right breast with resultant postoperative scarring and retraction of the right areolar complex. Surgical clips are seen in the right axilla. No suspicious masses, areas of developing architectural distortion, or suspicious calcifications. There has been no significant interval change. BI/SCRN MAMM (CAD)W/RON BILAT IMPRESSION: Stable examination. OVERALL FINAL ASSESSMENT BI-RADS 2: BENIGN RECOMMENDATION: Routine annual follow-up in 1 Year A letter with findings and recommendations will be mailed to the patient. Reading Location: [id number] CC: Dr. Kan Vargas MD; Dr. Cherelle Patton MD Texture Artist: Signed Normal [facility] Absolute lymphocyte countOrd ered By: Kan Vargas on 01-07-2025 Lymphocytes Auto (Unsp spec) [#/Vol] 1.16 10*3/uL 0.83-4.51 [facility] Absolute neutrophil countOrd ered By: Kan Vargas on 01-07-2025 Neutrophils (Bld) [#/Vol] 4.1 10*3/uL 2.0-7.7 [facility] Anion gap in Serum or Plasma Ordered By: Kan Vargas on 01-07-2025 Anion gap [Moles/Vol] 10 mmol/L 5-15 [facility] Automated lymphocyte count a s percentage of total leukocytesOrdered By: Kan Vargas on 01-07-2025 Lymphocytes/100 WBC Auto (Unsp spec) 18.6 % Low 19-41 [facility] BUN/creatinine ratioOrdered By: Kan Vargas on 01-07-2025 Urea nitrogen/Creatinine [Mass ratio] 21.6 mg/mg High 10-20 [facility] Basophil percentageOrdered B y: Kan Vargas on 01-07-2025 Basophils/100 WBC (Bld) 1.1 % High 0-1 [facility] Bilirubin, totalOrdered By: Kan Vargas on 01-07-2025 Bilirubin [Mass/Vol] 0.59 mg/dL 0.00-1.30 [facility] CBC W/Diff, Automatedon Absolute Lymph 1.16 X10 3/uL Normal 0.83-4.51 [facility] Comment on above: Order Comment: Order Date: 01/07/25Order Info: 0184-1 - CBCD Performed By: #### L 500.4050, L100.0100 ####[facility] [address] [place], [address] Absolute Neut 4.1 X10 3/uL Normal 2.0-7.7 [facility] Comment on above: Order Comment: Order Date: 01/07/25Order Info: 0184-1 - CBCD Performed By: #### L 500.4050, L100.0100 ####[facility] [address] [place], [address] Basophils/100 WBC (Bld) 1.1 % High 0-1 [facility] Comment on above: Order Comment: Order Date: 01/07/25Order Info: 0184-1 - CBCD Performed By: #### L 500.4050, L100.0100 ####[facility] [address] [place], [address] Eosinophils/100 WBC (Bld) 3.5 % Normal 0-5 [facility] Comment on above: Order Comment: Order Date: 01/07/25Order Info: 0184-1 - CBCD Performed By: #### L 500.4050, L100.0100 ####[facility] [address] [place], [address] Erythrocyte distribution width (RBC) [Ratio] 12.5 % Normal 11.6-14.6 [facility] Comment on above: Order Comment: Order Date: 01/07/25Order Info: 0184-1 - CBCD Performed By: #### L 500.4050, L100.0100 ####[facility] [address] [place], [address] Hematocrit (Bld) [Volume fraction] 40.8 % Normal 37-47 [facility] Comment on above: Order Comment: Order Date: 01/07/25Order Info: 0184-1 - CBCD Performed By: #### L 500.4050, L100.0100 ####[facility] [address] [place], [address] Hemoglobin (Bld) [Mass/Vol] 13.7 g/dL Normal 12.0-15.0 [facility] Comment on above: Order Comment: Order Date: 01/07/25Order Info: 0184-1 - CBCD Performed By: #### L 500.4050, L100.0100 ####[facility] [address] [place], [address] IG% 0.300 Normal 0.0-0.9 [facility] Comment on above: Order Comment: Order Date: 01/07/25Order Info: 0184-1 - CBCD Result Comment: IG% - Immature Granulocytes (promyelocytes, myelocytes and metamyelocytes) > 1% indicates that a LEFT SHIFT is Present. Performed By: #### L 500.4050, L100.0100 ####[facility] [address] [place], [address] Lymphocytes/100 WBC (Bld) 18.6 % Low 19-41 [facility] Comment on above: Order Comment: Order Date: 01/07/25Order Info: 0184-1 - CBCD Performed By: #### L 500.4050, L100.0100 ####[facility] [address] [place], [address] MCH (RBC) [Entitic mass] 31.4 pg Normal 27.0-32.0 [facility] Comment on above: Order Comment: Order Date: 01/07/25Order Info: 0184-1 - CBCD Performed By: #### L 500.4050, L100.0100 ####[facility] [address] [place], [address] MCHC (RBC) [Mass/Vol] 33.6 g/dL Normal 32-36 [facility] Comment on above: Order Comment: Order Date: 01/07/25Order Info: 0184-1 - CBCD Performed By: #### L 500.4050, L100.0100 ####[facility] [address] [place], [address] MCV (RBC) [Entitic vol] 93.4 fL Normal 81-99 [facility] Comment on above: Order Comment: Order Date: 01/07/25Order Info: 0184-1 - CBCD Performed By: #### L 500.4050, L100.0100 ####[facility] [address] [place], [address] Monocytes/100 WBC (Bld) 10.1 % High 0-10 [facility] Comment on above: Order Comment: Order Date: 01/07/25Order Info: 0184-1 - CBCD Performed By: #### L 500.4050, L100.0100 ####[facility] [address] [place], [address] Neutrophils/100 WBC (Bld) 66.4 % Normal 47-70 [facility] Comment on above: Order Comment: Order Date: 01/07/25Order Info: 0184-1 - CBCD Performed By: #### L 500.4050, L100.0100 ####[facility] [address] [place], [address] Nucleated RBC (Bld) [#/Vol] 0 10*3/uL Normal 0-5 [facility] Comment on above: Order Comment: Order Date: 01/07/25Order Info: 0184-1 - CBCD Performed By: #### L 500.4050, L100.0100 ####[facility] [address] [place], [address] Platelet mean volume (Bld) [Entitic vol] 10.4 fL Normal 6.2-12.0 [facility] Comment on above: Order Comment: Order Date: 01/07/25Order Info: 0184-1 - CBCD Performed By: #### L 500.4050, L100.0100 ####[facility] [address] [place], [address] Platelets (Bld) [#/Vol] 152 10*3/uL Normal 150-450 [facility] Comment on above: Order Comment: Order Date: 01/07/25Order Info: 0184-1 - CBCD Performed By: #### L 500.4050, L100.0100 ####[facility] [address] [place], [address] RBC (Bld) [#/Vol] 4.37 10*6/uL Normal 4.2-5.4 [facility] Comment on above: Order Comment: Order Date: 01/07/25Order Info: 0184-1 - CBCD Performed By: #### L 500.4050, L100.0100 ####[facility] [address] [place], [address] RDW SD 42.4 fl Normal 35.1-43.9 [facility] Comment on above: Order Comment: Order Date: 01/07/25Order Info: 0184-1 - CBCD Performed By: #### L 500.4050, L100.0100 ####[facility] [address] [place], [address] WBC (Bld) [#/Vol] 6.2 10*3/uL Normal 4.4-11.[address] [facility] Comment on above: Order Comment: Order Date: 01/07/25Order Info: 0184-1 - CBCD Performed By: #### L 500.4050, L100.0100 ####[facility] [address] [place], [address] Carbon dioxide, total [Moles /volume] in Central venous bloodOrdered By: Kan Vargas on 01-07-2025 CO2 [Moles/Vol] 28.3 mmol/L 21.0-32.0 [facility] Chloride assayOrdered By: Delmis Vargas on 01-07-2025 Chloride [Moles/Vol] 102 mmol/L 98-108 [facility] Comprehensive Metabolic Prof ilon 01-07-2025 Albumin [Mass/Vol] 4.2 g/dL Normal 3.4-4.[address] [facility] Comment on above: Order Comment: Order Date: 01/07/25Order Info: 0786-1 - CMP Performed By: #### L 500.4050, L100.0100 ####[facility] [address] [place], [address] Albumin/Globulin [Mass ratio] 1.6 {ratio} Normal 0.9-2.4 [facility] Comment on above: Order Comment: Order Date: 01/07/25Order Info: 0786-1 - CMP Performed By: #### L 500.4050, L100.0100 ####[facility] [address] [place], [address] ALK PHOS 63 U/L Normal 35-104 [facility] Comment on above: Order Comment: Order Date: 01/07/25Order Info: 0786-1 - CMP Performed By: #### L 500.4050, L100.0100 ####[facility] [address] [place], [address] ALT [Catalytic activity/Vol] 23 U/L Normal <=34 [facility] Comment on above: Order Comment: Order Date: 01/07/25Order Info: 0786-1 - CMP Performed By: #### L 500.4050, L100.0100 ####[facility] [address] [place], [address] AST [Catalytic activity/Vol] 30 U/L Normal <=31 [facility] Comment on above: Order Comment: Order Date: 01/07/25Order Info: 0786-1 - CMP Performed By: #### L 500.4050, L100.0100 ####[facility] [address] [place], [address] Bilirubin [Mass/Vol] 0.59 mg/dL Normal 0.00-1.30 [facility] Comment on above: Order Comment: Order Date: 01/07/25Order Info: 0786-1 - CMP Performed By: #### L 500.4050, L100.0100 ####[facility] [address] [place], [address] BUN/CRE 21.6 RATIO High 10-20 [facility] Comment on above: Order Comment: Order Date: 01/07/25Order Info: 0786-1 - CMP Performed By: #### L 500.4050, L100.0100 ####[facility] [address] [place], [address] Calcium [Mass/Vol] 9.6 mg/dL Normal 7.6-11.[address] [facility] Comment on above: Order Comment: Order Date: 01/07/25Order Info: 0786-1 - CMP Performed By: #### L 500.4050, L100.0100 ####[facility] [address] [place], [address] Chloride [Moles/Vol] 102 mmol/L Normal 98-108 [facility] Comment on above: Order Comment: Order Date: 01/07/25Order Info: 0786-1 - CMP Performed By: #### L 500.4050, L100.0100 ####[facility] [address] [place], [address] CO2 [Moles/Vol] 28.3 mmol/L Normal 21.0-32.0 [facility] Comment on above: Order Comment: Order Date: 01/07/25Order Info: 0786-1 - CMP Performed By: #### L 500.4050, L100.0100 ####[facility] [address] [place], [address] Creatinine [Mass/Vol] 0.76 mg/dL Normal 0.70-1.20 [facility] [facility] Comment on above: Order Comment: Order Date: 01/07/25Order Info: 0786-1 - CMP Performed By: #### L 500.4050, L100.0100 ####[facility] [address] [place], [address] GAP 10 Normal 5-15 [facility] Comment on above: Order Comment: Order Date: 01/07/25Order Info: 0786-1 - CMP Performed By: #### L 500.4050, L100.0100 ####[facility] [address] [place], [address] GFR/1.73 sq M.predicted among non-blacks MDRD (S/P/Bld) [Vol rate/Area] 80 mL/min/{1.73_m2} Normal >60 [facility] Comment on above: Order Comment: Order Date: 01/07/25Order Info: 0786-1 - CMP Result Comment: mL/m in/1.73m2 CKD-EPI Creatinine Equation (2020) Performed By: #### L 500.4050, L100.0100 ####[facility] [address] [place], [address] Globulin (S) [Mass/Vol] 2.6 g/dL Normal 2.2-4.2 [facility] Comment on above: Order Comment: Order Date: 01/07/25Order Info: 0786-1 - CMP Performed By: #### L 500.4050, L100.0100 ####[facility] [address] [place], [address] Glucose [Mass/Vol] 87 mg/dL Normal 70-[address] [facility] Comment on above: Order Comment: Order Date: 01/07/25Order Info: 0786-1 - CMP Performed By: #### L 500.4050, L100.0100 ####[facility] [address] [place], [address] Potassium [Moles/Vol] 3.9 mmol/L Normal 3.3-5.1 [facility] Comment on above: Order Comment: Order Date: 01/07/25Order Info: 0786-1 - CMP Performed By: #### L 500.4050, L100.0100 ####[facility] [address] [place], [address] Sodium [Moles/Vol] 140 mmol/L Normal 133-[address] [facility] Comment on above: Order Comment: Order Date: 01/07/25Order Info: 0786-1 - CMP Performed By: #### L 500.4050, L100.0100 ####[facility] [address] [place], [address] T PROT 6.9 g/dL Normal 5.9-8.4 [facility] Comment on above: Order Comment: Order Date: 01/07/25Order Info: 0786-1 - CMP Performed By: #### L 500.4050, L100.0100 ####[facility] [address] [place], [address] Urea nitrogen [Mass/Vol] 17 mg/dL Normal 4-19 [facility] Comment on above: Order Comment: Order Date: 01/07/25Order Info: 0786-1 - CMP Performed By: #### L 500.4050, L100.0100 ####[facility] [address] [place], [address] Eosinophil percentageOrdered By: Kan Vargas on 01-07-2025 Eosinophils/100 WBC (Bld) 3.5 % 0-5 [facility] Erythrocyte distribution wid th ratioOrdered By: Kan Vargas on 01-07-2025 Erythrocyte distribution width (RBC) [Ratio] 12.5 % 11.6-14.6 [facility] Erythrocyte distribution wid th standard deviationOrdered By: Kan Vargas on 01-07-2025 Erythrocyte distribution width (RBC) [Ratio] 42.4 fl 35.1-43.9 [facility] Glomerular filtration rate ( GFR) estimation/1.73 sq m using serum, plasma, or whole bOrdered By: Kan Vargas on 01-07-2025 GFR/1.73 sq M.predicted among non-blacks MDRD (S/P/Bld) [Vol rate/Area] 80 mL/min/{1.73_m2} >60 [facility] Comment on above: mL/min/1.73m2 CKD-EP I Creatinine Equation (2020) Hematocrit Auto (Bld) [Volum e fraction]Ordered By: Kan Vargas on 01-07-2025 Hematocrit (Bld) [Volume fraction] 40.8 % 37-47 [facility] Hemoglobin measurementOrdere d By: Kan Vargas on 07-03-2025 Hemoglobin (Bld) [Mass/Vol] 13.7 g/dL 12.0-15.0 [facility] Immature granulocytes/100 WB C Auto (Bld)Ordered By: Kan Vargas on 01-07-2025 Immature granulocytes/100 WBC (Bld) 0.300 % 0.0-0.9 [facility] Comment on above: IG% - Immature Granu locytes (promyelocytes, myelocytes and metamyelocytes) > 1% indicates that a LEFT SHIFT is Present. Laboratory - Chemistry and C hemistry - challengeOrdered By: Kan Vargas on 01-07-2025 AST [Catalytic activity/Vol] 30 U/L <32 [facility] MCV (mean corpuscular volume ) determinationOrdered By: Kan Vargas on 01-07-2025 MCV (RBC) [Entitic vol] 93.4 fL 81-99 [facility] Mean corpuscular hemoglobin (MCH) determinationOrdered By: Kan Vargas on 01-07-2025 MCH (RBC) [Entitic mass] 31.4 pg 27.0-32.0 [facility] Mean corpuscular hemoglobin concentration (MCHC) determinationOrdered By: Kan Vargas on 01-07-2025 MCHC (RBC) [Mass/Vol] 33.6 g/dL 32-36 [facility] Mean platelet volume determi nationOrdered By: Kan Vargas on 01-07-2025 Platelet mean volume (Bld) [Entitic vol] 10.4 fL 6.2-12.0 [facility] Monocyte percentageOrdered B y: Kan Vargas on 01-07-2025 Monocytes/100 WBC (Bld) 10.1 % High 0-10 [facility] Neutrophil percentageOrdered By: Kan Vargas on 01-07-2025 Neutrophils/100 WBC (Bld) 66.4 % 47-70 [facility] Nucleated red blood cell per centageOrdered By: Kan Vargas on 01-07-2025 Nucleated RBC/100 WBC (Bld) [Ratio] 0 % 0-5 [facility] Platelet countOrdered By: Delmis Vargas on 01-07-2025 Platelets (Bld) [#/Vol] 152 10*3/uL 150-450 [facility] Potassium measurement (mass/ volume)Ordered By: Kan Vargas on 01-07-2025 Potassium (Unsp spec) [Mass/Vol] 3.9 mmol/L 3.3-5.1 [facility] RBC Auto (Bld) [#/Vol]Ordere d By: Kan Vargas on 01-07-2025 RBC (Bld) [#/Vol] 4.37 10*6/uL 4.2-5.4 [facility] Serum creatinine measurement (mass/volume)Ordered By: Kan Vargas on 01-07-2025 Creatinine [Mass/Vol] 0.76 mg/dL 0.70-1.20 [facility] Serum globulin measurementOr dered By: Kan Vargas on 01-07-2025 Globulin (S) [Mass/Vol] 2.6 g/dL 2.2-4.2 [facility] Serum glucose measurement (m ass/volume)Ordered By: Kan Vargas on 01-07-2025 Glucose [Mass/Vol] 87 mg/dL 70-[address] [facility] Serum or plasma alanine juárez otransferase (ALT) measurementOrdered By: Kan Vargas on 01-07-2025 ALT [Catalytic activity/Vol] 23 U/L <35 [facility] Serum or plasma albumin naomi urement (mass/volume)Ordered By: Kan Vargas on 01-07-2025 Albumin [Mass/Vol] 4.2 g/dL 3.4-4.[address] [facility] Serum or plasma albumin/glob ulin mass ratioOrdered By: Kan Vargas on 01-07-2025 Albumin/Globulin [Mass ratio] 1.6 {ratio} 0.9-2.4 [facility] Serum or plasma alkaline justyn sphatase measurementOrdered By: Kan Vargas on 01-07-2025 ALP [Catalytic activity/Vol] 63 U/L 35-104 [facility] Serum or plasma calcium naomi urement (mass/volume)Ordered By: Kan Vargas on 01-07-2025 Calcium [Mass/Vol] 9.6 mg/dL 7.6-11.[address] [facility] Serum or plasma urea nitroge n measurement (mass/volume)Ordered By: Kan Vargas on 01-07-2025 Urea nitrogen [Mass/Vol] 17 mg/dL 4-19 [facility] Sodium levelOrdered By: Kan Vargas on 01-07-2025 Sodium [Moles/Vol] 140 mmol/L 133-[address] [facility] Total proteinOrdered By: Clinton Vargas on 01-07-2025 Protein [Mass/Vol] 6.9 g/dL 5.9-8.[address] [facility] White blood cell (WBC) count Ordered By: Kan Vargas on 01-07-2025 WBC (Bld) [#/Vol] 6.2 10*3/uL 4.4-11.[address] [facility] Hemoglobin A1con 10-13-2024 HbA1c (Bld) [Mass fraction] 5.4 % Low <=5.6 [facility] Comment on above: Order Comment: POLO Horvath ADD A1C TO BLOOD DRAWN 10/12/24 PER Performed By: #### L 501.9985, L400.0001, L506.1001 ####[facility] [address] [place], [address] Absolute lymphocyte countOrd ered By: Kan Vargas on 10-12-2024 Lymphocytes Auto (Unsp spec) [#/Vol] 1.37 10*3/uL 0.83-4.51 [facility] Absolute neutrophil countOrd ered By: Kan Vargas on 10-12-2024 Neutrophils (Bld) [#/Vol] 4.9 10*3/uL 2.0-7.7 [facility] Anion gap in Serum or Plasma Ordered By: Kan Vargas on 10-12-2024 Anion gap [Moles/Vol] 11 mmol/L 5-15 [facility] Automated lymphocyte count a s percentage of total leukocytesOrdered By: Kan Vargas on 10-12-2024 Lymphocytes/100 WBC Auto (Unsp spec) 19.1 % 19-41 [facility] BUN/creatinine ratioOrdered By: Kan Vargas on 10-12-2024 Urea nitrogen/Creatinine [Mass ratio] 21.1 mg/mg High 10-20 [facility] Basophil percentageOrdered B y: Kan Vargas on 10-12-2024 Basophils/100 WBC (Bld) 0.7 % 0-1 [facility] Bilirubin Test strip Ql (U)O rdered By: Kan Vargas on 10-12-2024 Bilirubin Ql (U) Negative Negative [facility] Bilirubin, totalOrdered By: Kan Vargas on 10-12-2024 Bilirubin [Mass/Vol] 0.48 mg/dL 0.00-1.30 [facility] CBC W/Diff, Automatedon Absolute Lymph 1.37 X10 3/uL Normal 0.83-4.51 [facility] Comment on above: Order Comment: Order Date: 10/16/23 Order Info: 0184-1 - CBCD Performed By: #### L 500.4100, L506.0400, L501.9520, L100.0100, L500.4050, L501.5200 #### [facility] [address] [place], [address] Absolute Neut 4.9 X10 3/uL Normal 2.0-7.7 [facility] Comment on above: Order Comment: Order Date: 10/16/23 Order Info: 0184-1 - CBCD Performed By: #### L 500.4100, L506.0400, L501.9520, L100.0100, L500.4050, L501.5200 #### [facility] [address] [place], [address] Basophils/100 WBC (Bld) 0.7 % Normal 0-1 [facility] Comment on above: Order Comment: Order Date: 10/16/23 Order Info: 0184-1 - CBCD Performed By: #### L 500.4100, L506.0400, L501.9520, L100.0100, L500.4050, L501.5200 #### [facility] [address] [place], [address] Eosinophils/100 WBC (Bld) 3.3 % Normal 0-5 [facility] Comment on above: Order Comment: Order Date: 10/16/23 Order Info: 0184-1 - CBCD Performed By: #### L 500.4100, L506.0400, L501.9520, L100.0100, L500.4050, L501.5200 #### [facility] [address] [place], [address] Erythrocyte distribution width (RBC) [Ratio] 12.1 % Normal 11.6-14.6 [facility] Comment on above: Order Comment: Order Date: 10/16/23 Order Info: 0184-1 - CBCD Performed By: #### L 500.4100, L506.0400, L501.9520, L100.0100, L500.4050, L501.5200 #### [facility] [address] [place], [address] Hematocrit (Bld) [Volume fraction] 41.4 % Normal 37-47 [facility] Comment on above: Order Comment: Order Date: 10/16/23 Order Info: 0184-1 - CBCD Performed By: #### L 500.4100, L506.0400, L501.9520, L100.0100, L500.4050, L501.5200 #### [facility] [address] [facility] [place], [address] Hemoglobin (Bld) [Mass/Vol] 14.0 g/dL Normal 12.0-15.0 [facility] Comment on above: Order Comment: Order Date: 10/16/23 Order Info: 0184-1 - CBCD Performed By: #### L 500.4100, L506.0400, L501.9520, L100.0100, L500.4050, L501.5200 #### [facility] [address] [facility] [facility] [place], [address] IG% 0.100 Normal 0.0-0.9 [facility] Comment on above: Order Comment: Order Date: 10/16/23 Order Info: 0184-1 - CBCD Result Comment: IG% - Immature Granulocytes (promyelocytes, myelocytes and metamyelocytes) > 1% indicates that a LEFT SHIFT is Present. Performed By: #### L 500.4100, L506.0400, L501.9520, L100.0100, L500.4050, L501.5200 #### [facility] [address] [place], [address] Lymphocytes/100 WBC (Bld) 19.1 % Normal 19-41 [facility] Comment on above: Order Comment: Order Date: 10/16/23 Order Info: 0184-1 - CBCD Performed By: #### L 500.4100, L506.0400, L501.9520, L100.0100, L500.4050, L501.5200 #### [facility] [address] [place], [address] MCH (RBC) [Entitic mass] 31.3 pg Normal 27.0-32.0 [facility] Comment on above: Order Comment: Order Date: 10/16/23 Order Info: 0184-1 - CBCD Performed By: #### L 500.4100, L506.0400, L501.9520, L100.0100, L500.4050, L501.5200 #### [facility] [address] [place], [address] MCHC (RBC) [Mass/Vol] 33.8 g/dL Normal 32-36 [facility] Comment on above: Order Comment: Order Date: 10/16/23 Order Info: 0184-1 - CBCD Performed By: #### L 500.4100, L506.0400, L501.9520, L100.0100, L500.4050, L501.5200 #### [facility] [address] [place], [address] MCV (RBC) [Entitic vol] 92.6 fL Normal 81-99 [facility] Comment on above: Order Comment: Order Date: 10/16/23 Order Info: 0184-1 - CBCD Performed By: #### L 500.4100, L506.0400, L501.9520, L100.0100, L500.4050, L501.5200 #### [facility] [address] [place], [address] Monocytes/100 WBC (Bld) 9.2 % Normal 0-10 [facility] Comment on above: Order Comment: Order Date: 10/16/23 Order Info: 018- - CBCD Performed By: #### L 500.4100, L506.0400, L501.9520, L100.0100, L500.4050, L501.5200 #### [facility] [address] [facility] [place], [address] Neutrophils/100 WBC (Bld) 67.6 % Normal 47-70 [facility] Comment on above: Order Comment: Order Date: 10/16/23 Order Info: 0184- - CBCD Performed By: #### L 500.4100, L506.0400, L501.9520, L100.0100, L500.4050, L501.5200 #### [facility] [address] [place], [address] Nucleated RBC (Bld) [#/Vol] 0 10*3/uL Normal 0-5 [facility] Comment on above: Order Comment: Order Date: 10/16/23 Order Info: 0184- - CBCD Performed By: #### L 500.4100, L506.0400, L501.9520, L100.0100, L500.4050, L501.5200 #### [facility] [address] [facility] [place], [address] Platelet mean volume (Bld) [Entitic vol] 9.8 fL Normal 6.2-12.0 [facility] Comment on above: Order Comment: Order Date: 10/16/23 Order Info: 0184- - CBCD Performed By: #### L 500.4100, L506.0400, L501.9520, L100.0100, L500.4050, L501.5200 #### [facility] [address] [place], [address] Platelets (Bld) [#/Vol] 148 10*3/uL Low 150-450 [facility] Comment on above: Order Comment: Order Date: 10/16/23 Order Info: 0184- - CBCD Performed By: #### L 500.4100, L506.0400, L501.9520, L100.0100, L500.4050, L501.5200 #### [facility] [address] [place], [address] RBC (Bld) [#/Vol] 4.47 10*6/uL Normal 4.2-5.4 [facility] Comment on above: Order Comment: Order Date: 10/16/23 Order Info: 0184- - CBCD Performed By: #### L 500.4100, L506.0400, L501.9520, L100.0100, L500.4050, L501.5200 #### [facility] [address] [place], [address] RDW SD 41.4 fl Normal 35.1-43.9 [facility] Comment on above: Order Comment: Order Date: 10/16/23 Order Info: 0184- - CBCD Performed By: #### L 500.4100, L506.0400, L501.9520, L100.0100, L500.4050, L501.5200 #### [facility] [address] [place], [address] WBC (Bld) [#/Vol] 7.2 10*3/uL Normal 4.4-11.[address] [facility] Comment on above: Order Comment: Order Date: 10/16/23 Order Info: 0184- - CBCD Performed By: #### L 500.4100, L506.0400, L501.9520, L100.0100, L500.4050, L501.5200 #### [facility] [address] [place], [address] Calculated very low density lipoprotein (VLDL) cholesterol measurementOrdered By: Kan Vargas on 10-12-2024 Calculated very low density lipoprotein (VLDL) cholesterol measurement 36 mg/dL [facility] VLDL Cholesterol 36 mg/dL [facility] Carbon dioxide, total [Moles /volume] in Central venous bloodOrdered By: Kan Vargas on 10-12-2024 CO2 [Moles/Vol] 29.3 mmol/L 21.0-32.0 [facility] Chloride assayOrdered By: Delmis Vargas on 10-12-2024 Chloride [Moles/Vol] 98 mmol/L 98-108 [facility] Comprehensive Metabolic Prof ilon 10-12-2024 Albumin [Mass/Vol] 4.3 g/dL Normal 3.4-4.[address] [facility] Comment on above: Order Comment: Order Date: 10/16/23 Order Info: 0786-1 - CMP Order Info: [id number] - LIPID Order Info: [id number] - MG Order Info: 3 - TSH Order Info: 3024-01 - T4F Performed By: #### L 500.4100, L506.0400, L501.9520, L100.0100, L500.4050, L501.5200 #### [facility] [address] [facility] [place], [address] Albumin/Globulin [Mass ratio] 1.7 {ratio} Normal 0.9-2.4 [facility] Comment on above: Order Comment: Order Date: 10/16/23 Order Info: 0786-1 - CMP Order Info: [id number] - LIPID Order Info: [id number] - MG Order Info: 3016-3 - TSH Order Info: 3024-7 - T4F Performed By: #### L 500.4100, L506.0400, L501.9520, L100.0100, L500.4050, L501.5200 #### [facility] [address] [place], [address] ALK PHOS 57 U/L Normal 35-104 [facility] Comment on above: Order Comment: Order Date: 10/16/23 Order Info: 86-1 - CMP Order Info: [id number] - LIPID Order Info: [id number] - MG Order Info: 3016-3 - TSH Order Info: 3024-7 - T4F Performed By: #### L 500.4100, L506.0400, L501.9520, L100.0100, L500.4050, L501.5200 #### [facility] [address] [place], [address] ALT [Catalytic activity/Vol] 16 U/L Normal <=34 [facility] Comment on above: Order Comment: Order Date: 10/16/23 Order Info: 86-1 - CMP Order Info: [id number] - LIPID Order Info: [id number] - MG Order Info: 3016-3 - TSH Order Info: 3024-7 - T4F Performed By: #### L 500.4100, L506.0400, L501.9520, L100.0100, L500.4050, L501.5200 #### [facility] [address] [place], [address] AST [Catalytic activity/Vol] 25 U/L Normal <=31 [facility] Comment on above: Order Comment: Order Date: 10/16/23 Order Info: 86-1 - CMP Order Info: [id number] - LIPID Order Info: [id number] - MG Order Info: [id number] - TSH Order Info: 3024-7 - T4F Performed By: #### L 500.4100, L506.0400, L501.9520, L100.0100, L500.4050, L501.5200 #### [facility] [address] [place], [address] Bilirubin [Mass/Vol] 0.48 mg/dL Normal 0.00-1.30 [facility] Comment on above: Order Comment: Order Date: 10/16/23 Order Info: 07-1 - CMP Order Info: [id number] - LIPID Order Info: [id number] - MG Order Info: [id number] - TSH Order Info: 3024-7 - T4F Performed By: #### L 500.4100, L506.0400, L501.9520, L100.0100, L500.4050, L501.5200 #### [facility] [address] [place], [address] BUN/CRE 21.1 RATIO High 10-20 [facility] Comment on above: Order Comment: Order Date: 10/16/23 Order Info: [id number] - CMP Order Info: - LIPID Order Info: [id number] - MG Order Info: 3 - TSH Order Info: 3024-7 - T4F Performed By: #### L 500.4100, L506.0400, L501.9520, L100.0100, L500.4050, L501.5200 #### [facility] [address] [place], [address] Calcium [Mass/Vol] 9.7 mg/dL Normal 7.6-11.[address] [facility] Comment on above: Order Comment: Order Date: 10/16/23 Order Info: 86- - CMP Order Info: [id number] - LIPID Order Info: [id number] - MG Order Info: [id number] - TSH Order Info: 3024-7 - T4F Performed By: #### L 500.4100, L506.0400, L501.9520, L100.0100, L500.4050, L501.5200 #### [facility] [address] [place], [address] Chloride [Moles/Vol] 98 mmol/L Normal 98-108 [facility] Comment on above: Order Comment: Order Date: 10/16/23 Order Info: 0786-1 - CMP Order Info: [id number] - LIPID Order Info: [id number] - MG Order Info: 301-3 - TSH Order Info: 302-7 - T4F Performed By: #### L 500.4100, L506.0400, L501.9520, L100.0100, L500.4050, L501.5200 #### [facility] [address] [place], [address] CO2 [Moles/Vol] 29.3 mmol/L Normal 21.0-32.0 [facility] Comment on above: Order Comment: Order Date: 10/16/23 Order Info: 86-1 - CMP Order Info: [id number] - LIPID Order Info: [id number] - MG Order Info: 3 - TSH Order Info: 3024-7 - T4F Performed By: #### L 500.4100, L506.0400, L501.9520, L100.0100, L500.4050, L501.5200 #### [facility] [address] [place], [address] Creatinine [Mass/Vol] 0.73 mg/dL Normal 0.70-1.20 [facility] Comment on above: Order Comment: Order Date: 10/16/23 Order Info: 86-1 - CMP Order Info: [id number] - LIPID Order Info: [id number] - MG Order Info: 301-3 - TSH Order Info: 3024-7 - T4F Performed By: #### L 500.4100, L506.0400, L501.9520, L100.0100, L500.4050, L501.5200 #### [facility] [address] [place], [address] GAP 11 Normal 5-15 [facility] Comment on above: Order Comment: Order Date: 10/16/23 Order Info: 86-1 - CMP Order Info: [id number] - LIPID Order Info: [id number] - MG Order Info: 3016-3 - TSH Order Info: 3024-7 - T4F Performed By: #### L 500.4100, L506.0400, L501.9520, L100.0100, L500.4050, L501.5200 #### [facility] [address] [place], [address] GFR/1.73 sq M.predicted among non-blacks MDRD (S/P/Bld) [Vol rate/Area] 84 mL/min/{1.73_m2} Normal >60 [facility] Comment on above: Order Comment: Order Date: 10/16/23 Order Info: 0786-1 - CMP Order Info: [id number] - LIPID Order Info: [id number] - MG Order Info: [id number] - TSH Order Info: 3024-01 - T4F Result Comment: mL/m in/1.73m2 CKD-EPI Creatinine Equation (2020) Performed By: #### L 500.4100, L506.0400, L501.9520, L100.0100, L500.4050, L501.5200 #### [facility] [address] [place], [address] Globulin (S) [Mass/Vol] 2.6 g/dL Normal 2.2-4.2 [facility] Comment on above: Order Comment: Order Date: 10/16/23 Order Info: 0786-1 - CMP Order Info: [id number] - LIPID Order Info: [id number] - MG Order Info: [id number] - TSH Order Info: 3024-01 - T4F Performed By: #### L 500.4100, L506.0400, L501.9520, L100.0100, L500.4050, L501.5200 #### [facility] [address] [place], [address] Glucose [Mass/Vol] 102 mg/dL High 70-[address] [facility] Comment on above: Order Comment: Order Date: 10/16/23 Order Info: [id number] - CMP Order Info: [id number] - LIPID Order Info: [id number] - MG Order Info: 6-3 - TSH Order Info: 3024-7 - T4F Performed By: #### L 500.4100, L506.0400, L501.9520, L100.0100, L500.4050, L501.5200 #### [facility] [facility] [address] [place], [address] Potassium [Moles/Vol] 3.3 mmol/L Normal 3.3-5.1 [facility] Comment on above: Order Comment: Order Date: 10/16/23 Order Info: 86-1 - CMP Order Info: [id number] - LIPID Order Info: [id number] - MG Order Info: [id number] - TSH Order Info: 3024-7 - T4F Performed By: #### L 500.4100, L506.0400, L501.9520, L100.0100, L500.4050, L501.5200 #### [facility] [address] [place], [address] Sodium [Moles/Vol] 138 mmol/L Normal 133-[address] [facility] Comment on above: Order Comment: Order Date: 10/16/23 Order Info: 86-1 - CMP Order Info: [id number] - LIPID Order Info: [id number] - MG Order Info: [id number] - TSH Order Info: 3024-7 - T4F Performed By: #### L 500.4100, L506.0400, L501.9520, L100.0100, L500.4050, L501.5200 #### [facility] [address] [place], [address] T PROT 6.9 g/dL Normal 5.9-8.4 [facility] Comment on above: Order Comment: Order Date: 10/16/23 Order Info: [id number] - CMP Order Info: [id number] - LIPID Order Info: [id number] - MG Order Info: [id number] - TSH Order Info: 3024-7 - T4F Performed By: #### L 500.4100, L506.0400, L501.9520, L100.0100, L500.4050, L501.5200 #### [facility] [address] [place], [place], [id number] Urea nitrogen [Mass/Vol] 16 mg/dL Normal 4-19 [facility] Comment on above: Order Comment: Order Date: 10/16/23 Order Info: [id number] - CMP Order Info: [id number] - LIPID Order Info: [id number] - MG Order Info: [id number] - TSH Order Info: 3024-7 - T4F Performed By: #### L 500.4100, L506.0400, L501.9520, L100.0100, L500.4050, L501.5200 #### [facility] [address] [place], [place], [id number] Eosinophil percentageOrdered By: Kan Vargas on 10-12-2024 Eosinophils/100 WBC (Bld) 3.3 % 0-5 [facility] Epithelial cells.squamous LM Ql (Urine sed)Ordered By: Kan Vargas on 10-12-2024 Epithelial cells.squamous LM.HPF (Urine sed) [#/Area] 0 /[HPF] 5-10 [facility] Erythrocyte distribution wid th (RBC) [Ratio]Ordered By: Kan Vargas on 10-12-2024 Erythrocyte distribution width (RBC) [Entitic vol] 41.4 fL 35.1-43.9 [facility] Erythrocyte distribution wid th ratioOrdered By: Kan Vargas on 10-12-2024 Erythrocyte distribution width (RBC) [Ratio] 12.1 % 11.6-14.6 [facility] Erythrocyte distribution wid th standard deviationOrdered By: Kan Vargas on 10-12-2024 Erythrocyte distribution width (RBC) [Ratio] 41.4 fl 35.1-43.9 [facility] GFR/1.73 sq M.predicted jaquan g non-blacks MDRD (S/P/Bld) [Vol rate/Area]Ordered By: Kan Vargas on 10-12-2024 Estimated GFR (MDRD) Non-Af Amer 84 >60 [facility] Comment on above: mL/min/1.73m2 CKD-EP I Creatinine Equation (2020) Glomerular filtration rate ( GFR) estimation/1.73 sq m using serum, plasma, or whole bOrdered By: Kan Vargas on 10-12-2024 GFR/1.73 sq M.predicted among non-blacks MDRD (S/P/Bld) [Vol rate/Area] 84 mL/min/{1.73_m2} >60 [facility] Comment on above: mL/min/1.73m2 CKD-EP I Creatinine Equation (2020) Glucose Ql (U)Ordered By: Delmis Vargas on 10-12-2024 Urine Glucose (UA) Normal mg/dl Normal [facility] Hematocrit Auto (Bld) [Volum e fraction]Ordered By: Kan Vargas on 10-12-2024 Hematocrit (Bld) [Volume fraction] 41.4 % 37-47 [facility] Hemoglobin A1c percentageOrd ered By: Kan Vargas on 10-12-2024 HbA1c (Bld) [Mass fraction] 5.4 % Low >5.7 [facility] Hemoglobin measurementOrdere d By: Kan Vargas on 10-12-2024 Hemoglobin (Bld) [Mass/Vol] 14.0 g/dL 12.0-15.0 [facility] Immature granulocytes/100 WB C Auto (Bld)Ordered By: Kan Vargas on 10-12-2024 Immature granulocytes/100 WBC (Bld) 0.100 % 0.0-0.9 [facility] Comment on above: IG% - Immature Granu locytes (promyelocytes, myelocytes and metamyelocytes) > 1% indicates that a LEFT SHIFT is Present. Ketones Test strip Ql (U)Ord ered By: Kan Vargas on 10-12-2024 Ketones Ql (U) Negative Negative [facility] LDL calc ser/plasOrdered By: Kan Vargas on 10-12-2024 Cholesterol in LDL [Mass/Vol] 33 mg/dL [facility] Comment on above: Owcdoqohdw=900-910 m g/dL & Higher Naym=520 mg/dL or greater LDL Cholesterol, Calculated 33 mg/dL [facility] Comment on above: Cedteosdor=234-395 m g/dL & Higher Vjag=054 mg/dL or greater Laboratory - Chemistry and C hemistry - challengeOrdered By: Kan Vargas on 10-12-2024 AST [Catalytic activity/Vol] 25 U/L <32 [facility] Lipid Profileon 10-12-2024 CHOL:HDL 2.28 Normal [facility] Comment on above: Order Comment: Order Date: 10/16/23 Order Info: [id number] - CMP Order Info: [id number] - LIPID Order Info: [id number] - MG Order Info: 3 - TSH Order Info: 7 - T4F Performed By: #### L 500.4100, L506.0400, L501.9520, L100.0100, L500.4050, L501.5200 #### [facility] [address] [place], [address] Cholesterol [Mass/Vol] 123 mg/dL Normal <=200 [facility] Comment on above: Order Comment: Order Date: 10/16/23 Order Info: 07-1 - CMP Order Info: [id number] - LIPID Order Info: [id number] - MG Order Info: 3 - TSH Order Info: 7 - T4F Result Comment: Chol esterol level, Desirable <200 mg/dL Borderline high cholesterol 200-239 mg/dL High cholesterol >=240 mg/dL Recommendations of the NCEP Adult Treatment Panel for the following risk-cutoff thresholds for the [place] population. Performed By: #### L 500.4100, L506.0400, L501.9520, L100.0100, L500.4050, L501.5200 #### [facility] [address] [place], [address] Cholesterol in HDL [Mass/Vol] 54 mg/dL Normal [facility] Comment on above: Order Comment: Order Date: 10/16/23 Order Info: [id number] - CMP Order Info: [id number] - LIPID Order Info: [id number] - MG Order Info: [id number] - TSH Order Info: 3027 - T4F Result Comment: Samira onal Cholesterol Education Program (NCEP) guidelines: <40 mg/dL: Low HDL-cholesterol (major risk factor for CHD) >= 60 mg/dL: High HDL-cholesterol (negative risk factor for CHD) HDL-cholesterol is affected by a number of factors, e.g. smoking, exercise, hormones, sex and age. Performed By: #### L 500.4100, L506.0400, L501.9520, L100.0100, L500.4050, L501.5200 #### [facility] [address] [place], [address] Cholesterol in LDL [Mass/Vol] 33 mg/dL Normal [facility] Comment on above: Order Comment: Order Date: 10/16/23 Order Info: [id number] - CMP Order Info: [id number] - LIPID Order Info: [id number] - MG Order Info: 301-3 - TSH Order Info: 3027 - T4F Result Comment: Bord lkjezw=744-006 mg/dL Higher Ffbh=434 mg/dL or greater Performed By: #### L 500.4100, L506.0400, L501.9520, L100.0100, L500.4050, L501.5200 #### [facility] [address] [place], [address] Cholesterol in VLDL [Mass/Vol] 36 mg/dL Normal 5-40 [facility] Comment on above: Order Comment: Order Date: 10/16/23 Order Info: [id number] - CMP Order Info: [id number] - LIPID Order Info: [id number] - MG Order Info: [id number] - TSH Order Info: 3024-7 - T4F Performed By: #### L 500.4100, L506.0400, L501.9520, L100.0100, L500.4050, L501.5200 #### [facility] [address] [place], [address] Triglyceride [Mass/Vol] 179 mg/dL Normal [facility] Comment on above: Order Comment: Order Date: 10/16/23 Order Info: [id number] - CMP Order Info: [id number] - LIPID Order Info: [id number] - MG Order Info: [id number] - TSH Order Info: 3024-01 T4F Result Comment: The drugs N-Acetylcysteine and Metamizole may falsely depress this assay. Normal range: <150 mg/dL Borderline High: 150-199 mg/dL High: 200-499 mg/dL Very High: >500 mg/dL Performed By: #### L 500.4100, L506.0400, L501.9520, L100.0100, L500.4050, L501.5200 #### [facility] [address] [place], [address] Lymphocytes Auto (Unsp spec) [#/Vol]Ordered By: Kan Vargas on 10-12-2024 Lymphocytes (Bld) [#/Vol] 1.37 10*3/uL 0.83-4.51 [facility] Lymphocytes/100 WBC Auto (Un sp spec)Ordered By: Kan Vargas on 10-12-2024 Lymphocytes/100 WBC (Bld) 19.1 % 19-41 [facility] MCV (mean corpuscular volume ) determinationOrdered By: Kan Vargas on 10-12-2024 MCV (RBC) [Entitic vol] 92.6 fL 81-99 [facility] Magnesiumon 10-12-2024 Magnesium [Mass/Vol] 2.2 mg/dL Normal 1.5-2.2 [facility] Comment on above: Order Comment: Order Date: 10/16/23 Order Info: [id number] - CMP Order Info: [id number] - LIPID Order Info: [id number] - MG Order Info: [id number] - TSH Order Info: 3024-01 T4F Performed By: #### L 500.4100, L506.0400, L501.9520, L100.0100, L500.4050, L501.5200 #### [facility] [address] [place], [place], [id number] Magnesium (Unsp spec) [Mass/ Vol]Ordered By: Kan Vargas on 10-12-2024 Magnesium [Mass/Vol] 2.2 mg/dL 1.5-2.2 [facility] Magnesium measurement (mass/ volume)Ordered By: Kan Vargas on 10-12-2024 Magnesium (Unsp spec) [Mass/Vol] 2.2 mg/dL 1.5-2.2 [facility] Mean corpuscular hemoglobin (MCH) determinationOrdered By: Kan Vargas on 10-12-2024 MCH (RBC) [Entitic mass] 31.3 pg 27.0-32.0 [facility] Mean corpuscular hemoglobin concentration (MCHC) determinationOrdered By: Kan Vargas on 10-12-2024 MCHC (RBC) [Mass/Vol] 33.8 g/dL 32-36 [facility] Mean platelet volume determi nationOrdered By: Kan Vargas on 10-12-2024 Platelet mean volume (Bld) [Entitic vol] 9.8 fL 6.2-12.0 [facility] Microscopic analysis of urin e for red blood cells (RBC)Ordered By: Kan Vargas on 10-12-2024 Microscopic analysis of urine for red blood cells (RBC) 0 SEEN /hpf 0-5 [facility] Urine RBC 0 SEEN /hpf 0-5 [facility] Monocyte percentageOrdered B y: Kan Vargas on 10-12-2024 Monocytes/100 WBC (Bld) 9.2 % 0-10 [facility] Mucus LM Ql (Urine sed)Order ed By: Kan Vargas on 10-12-2024 Mucus Ql (Urine sed) 0 SEEN /hpf [facility] Neutrophil percentageOrdered By: Kan Vargas on 10-12-2024 Neutrophils/100 WBC (Bld) 67.6 % 47-70 [facility] Nitrite Test strip Ql (U)Ord ered By: Kan Vargas on 10-12-2024 Nitrite Ql (U) Negative Negative [facility] Nucleated red blood cell per centageOrdered By: Kan Vargas on 10-12-2024 Nucleated RBC/100 WBC (Bld) [Ratio] 0 % 0-5 [facility] Platelet countOrdered By: Delmis Vargas on 10-12-2024 Platelets (Bld) [#/Vol] 148 10*3/uL Low 150-450 [facility] Potassium (Unsp spec) [Mass/ Vol]Ordered By: Kan Vargas on 10-12-2024 Potassium [Moles/Vol] 3.3 mmol/L 3.3-5.1 [facility] Potassium measurement (mass/ volume)Ordered By: Kan Vargas on 10-12-2024 Potassium (Unsp spec) [Mass/Vol] 3.3 mmol/L 3.3-5.1 [facility] Protein Test strip Ql (U)Ord ered By: Kan Vargas on 10-12-2024 Protein Ql (U) Negative Negative [facility] RBC Auto (Bld) [#/Vol]Ordere d By: Kan Vargas on 10-12-2024 RBC (Bld) [#/Vol] 4.47 10*6/uL 4.2-5.4 [facility] Screening total cholesterol/ high density lipoprotein (HDL) cholesterol ratioOrdered By: Kan Vargas on 10-12-2024 Cholesterol.total/Chol esterol in HDL [Mass ratio] 2.28 {ratio} [facility] Serum creatinine measurement (mass/volume)Ordered By: Kan Vargas on 10-12-2024 Creatinine [Mass/Vol] 0.73 mg/dL 0.70-1.20 [facility] Serum globulin measurementOr dered By: Kan Vargas on 10-12-2024 Globulin (S) [Mass/Vol] 2.6 g/dL 2.2-4.2 [facility] Serum glucose measurement (m ass/volume)Ordered By: Kan Vargas on 10-12-2024 Glucose [Mass/Vol] 102 mg/dL High 70-[address] [facility] Serum or plasma alanine juárez otransferase (ALT) measurementOrdered By: Kan Vargas on 10-12-2024 ALT [Catalytic activity/Vol] 16 U/L <35 [facility] Serum or plasma albumin naomi urement (mass/volume)Ordered By: Kan Vargas on 10-12-2024 Albumin [Mass/Vol] 4.3 g/dL 3.4-4.[address] [facility] Serum or plasma albumin/glob ulin mass ratioOrdered By: Kan Vargas on 10-12-2024 Albumin/Globulin [Mass ratio] 1.7 {ratio} 0.9-2.4 [facility] Serum or plasma alkaline justyn sphatase measurementOrdered By: Kan Vargas on 10-12-2024 ALP [Catalytic activity/Vol] 57 U/L 35-104 [facility] Serum or plasma calcium naomi urement (mass/volume)Ordered By: Kan Vargas on 10-12-2024 Calcium [Mass/Vol] 9.7 mg/dL 7.6-11.[address] [facility] Serum or plasma cholesterol in HDL measurement (mass/volume)Ordered By: Kan Vargas on 10-12-2024 Cholesterol in HDL [Mass/Vol] 54 mg/dL >40 [facility] Comment on above: National Cholesterol Education Program (NCEP) guidelines:<40 mg/dL: Low HDL-cholesterol (major risk factor for CHD)>= 60 mg/dL: High HDL-cholesterol (negative risk factor for CHD)HDL-cholesterol is affected by a number of factors, e.g. smoking, exercise, hormones, sex and age. Serum or plasma cholesterol measurement (mass/volume)Ordered By: Kan Vargas on 10-12-2024 Cholesterol [Mass/Vol] 123 mg/dL <201 [facility] Comment on above: Cholesterol level, D esirable <200 mg/dLBorderline high cholesterol 200-239 mg/dLHigh cholesterol >=240 mg/dLRecommendations of the NCEP Adult Treatment Panel for the following risk-cutoff thresholds for the [place] population. Serum or plasma urea nitroge n measurement (mass/volume)Ordered By: Kan Vargas on 10-12-2024 Urea nitrogen [Mass/Vol] 16 mg/dL 4-19 [facility] Sodium levelOrdered By: Kan Vargas on 10-12-2024 Sodium [Moles/Vol] 138 mmol/L 133-[address] [facility] Squamous epithelial cells de tection in urine sediment by light microscopyOrdered By: Kan Vargas on 10-12-2024 Epithelial cells.squamous LM Ql (Urine sed) 0 SEEN /hpf 5-10 [facility] T4 Free Directon 10-12-2024 T4 FREE DIRECT 1.50 ng/dL High 0.76-1.46 [facility] Comment on above: Order Comment: Order Date: 10/16/23Order Info: [id number] - CMPOrder Info: [id number] - LIPIDOrder Info: [id number] - MGOrder Info: 3 - TSHOrder Info: 7 - T4F Performed By: #### L 500.4100, L506.0400, L501.9520, L100.0100, L500.4050, L501.5200 ####[facility] [address] [place], [place], [id number] T4 freeOrdered By: Kan kowalski on 10-12-2024 Free T4 [Mass/Vol] 1.50 ng/dL High 0.76-1.[address] [facility] TSH DL <= 0.005 mIU/L QnOrde red By: Kan Vargas on 10-12-2024 Thyroid Stimulating Hormone (TSH) 1.510 uIU/mL 0.300-4.20 0 [facility] TSH Qn 1.510 uIU/mL 0.300-4.20 0 [facility] Thyroid Stim Hormone (TSH)on 10-12-2024 TSH 1.510 uIU/mL Normal 0.300-4.20 0 [facility] Comment on above: Order Comment: Order Date: 10/16/23 Order Info: [id number] - CMP Order Info: [id number] - LIPID Order Info: [id number] - MG Order Info: 3 - TSH Order Info: [id number] - T4F Performed By: #### L 500.4100, L506.0400, L501.9520, L100.0100, L500.4050, L501.5200 #### [facility] [address] [place], [place], [id number] Total proteinOrdered By: Clinton Vargas on 10-12-2024 Protein [Mass/Vol] 6.9 g/dL 5.9-8.[address] [facility] Triglycerides measurementOrd ered By: Kan Vargas on 10-12-2024 Triglyceride [Mass/Vol] 179 mg/dL <199 [facility] Comment on above: The drugs N-Acetylcy steine and Metamizole may falsely depress this assay. Normal range: <150 mg/dLBorderline High: 150-199 mg/dLHigh: 200-499 mg/dLVery High: >500 mg/dL Urinalysis, Completeon 10-12 BACTERIA 0 SEEN Normal None Seen [facility] Comment on above: Order Comment: CLEAN CATCH Performed By: #### L 501.9985, L400.0001, L506.1001 ####[facility] [address] [place], [address] EPI,SQUAMOUS 0 SEEN Normal 5-10 [facility] Comment on above: Order Comment: CLEAN CATCH Performed By: #### L 501.9985, L400.0001, L506.1001 ####[facility] [address] [place], [address] Mucus Ql (Urine sed) 0 SEEN Normal [facility] Comment on above: Order Comment: CLEAN CATCH Performed By: #### L 501.9985, L400.0001, L506.1001 ####[facility] [address] [place], [address] RBC 0 SEEN Normal 0-5 [facility] Comment on above: Order Comment: CLEAN CATCH Performed By: #### L 501.9985, L400.0001, L506.1001 ####[facility] [address] [place], [address] WBC 0 SEEN Normal 0-5 [facility] Comment on above: Order Comment: CLEAN CATCH Performed By: #### L 501.9985, L400.0001, L506.1001 ####[facility] [address] [place], [address] Urine blood detectionOrdered By: Kan Vargas on 10-12-2024 Urine Occult Blood Negative Negative [facility] Urine clarityOrdered By: Clinton Vargas on 10-12-2024 Clarity (U) Clear Clear [facility] Urine color determinationOrd ered By: Kan Vargas on 10-12-2024 Color (U) Yellow Yellow [facility] Urine glucose detectionOrder ed By: Kan Vargas on 10-12-2024 Glucose Ql (U) Normal mg/dl Normal [facility] Urine leukocyte esterase det ection by dipstickOrdered By: Kan Vargas on 10-12-2024 Leukocyte esterase Test strip Ql (U) Negative Negative [facility] Urine pHOrdered By: Kan franks on 10-12-2024 pH (U) 7.0 [pH] 5.0 - 8.0 [facility] Urine sediment bacteria coun t by microscopy (number/high power field)Ordered By: Kan Vargas on 10-12-2024 Bacteria LM.HPF (Urine sed) [#/Area] 0 /[HPF] None Seen [facility] Urine specific gravity measu rementOrdered By: Kan Vargas on 10-12-2024 Specific gravity (U) [Rel density] 1.005 1.002-1.03 0 [facility] Urine urobilinogen measureme ntOrdered By: Kan Vargas on 10-12-2024 Urobilinogen Ql (U) Normal mg/dl Normal [facility] Urobilinogen Ql (U)Ordered B y: Kan Vargas on 10-12-2024 Urine Urobilinogen Normal mg/dl Normal [facility] Vitamin D, 25-hydroxyOrdered By: Kan Vargas on 10-12-2024 Vitamin D 25-Hydroxy 45.8 ng/mL 30-100 [facility] Comment on above: Vitamin D StatusDefi ciency: <20 ng/mL (50nmol/L)Insufficiency: 20-30 ng/mL (50-75 nmol/L)Sufficiency: 30-100 ng/mL (75-250 nmol/L)Toxicity: >100 ng/mL (>250 nmol/L) Vitamin D,25 Hydroxyon 10-12 Vitamin D 25-OH 45.8 ng/mL Normal 30-100 [facility] Comment on above: Order Comment: Order Date: 10/16/23Order Info: [id number] - CMPOrder Info: [id number] - LIPIDOrder Info: [id number] - MGOrder Info: [id number] - TSHOrder Info: 3024-7 - T4F Result Comment: Pauly min D Status Deficiency: <20 ng/mL (50nmol/L) Insufficiency: 20-30 ng/mL (50-75 nmol/L) Sufficiency: 30-100 ng/mL (75-250 nmol/L) Toxicity: >100 ng/mL (>250 nmol/L) Performed By: #### L 501.9985, L400.0001, L506.1001 ####[facility] [address] [place], [address] White blood cell (WBC) count Ordered By: aKn Vargas on 10-12-2024 WBC (Bld) [#/Vol] 7.2 10*3/uL 4.4-11.[address] [facility] White blood cell countOrdere d By: Kan Vargas on 10-12-2024 Urine WBC 0 SEEN /hpf 0-5 [facility] White blood cell count 0 SEEN /hpf 0-5 [facility] Albumin to globulin ratioOrd ered By: Cherelle Patton on 08-17-2024 Albumin/Globulin [Mass ratio] 1.2 {ratio} 0.9-2.4 [facility] Bilirubin, totalOrdered By: Cherelle Patton on 08-17-2024 Bilirubin [Mass/Vol] 0.60 mg/dL 0.20-1.00 [facility] Comment on above: For patients on eltr ombopag therapy, use of [employer] TBIL is not recommended. Blood urea nitrogen (BUN)/cr eatinine ratioOrdered By: Cherelle Patton on 08-17-2024 Urea nitrogen/Creatinine [Mass ratio] 21.4 mg/mg High 10-20 [facility] Carbon dioxide measurementOr dered By: Cherelle Patton on 08-17-2024 CO2 [Moles/Vol] 33.0 mmol/L High 21.0-32.0 [facility] Chloride measurementOrdered By: Cherelle Patton on 08-17-2024 Chloride [Moles/Vol] 105 mmol/L 98-107 [facility] Comprehensive Metabolic Prof ilon 08-17-2024 Albumin [Mass/Vol] 3.8 g/dL Normal 3.2-5.[address] [facility] Comment on above: Performed By: #### L 500.4050 ####[facility] [address] [place], [address] Albumin/Globulin [Mass ratio] 1.2 {ratio} Normal 0.9-2.4 [facility] Comment on above: Performed By: #### L 500.4050 ####[facility] [address] [place], [address] ALK P 56 U/L Normal 45-117 [facility] Comment on above: Performed By: #### L 500.4050 ####[facility] [address] [place], [address] ALT [Catalytic activity/Vol] 25 U/L Normal 13-56 [facility] Comment on above: Performed By: #### L 500.4050 ####[facility] [address] [place], [address] AST [Catalytic activity/Vol] 24 U/L Normal 15-37 [facility] Comment on above: Performed By: #### L 500.4050 ####[facility] [address] [place], [address] Bilirubin [Mass/Vol] 0.60 mg/dL Normal 0.20-1.00 [facility] Comment on above: Result Comment: For patients on eltrombopag therapy, use of [employer] TBIL is not recommended. Performed By: #### L 500.4050 ####[facility] [address] [place], [address] BUN/CRE 21.4 RATIO High 10-20 [facility] Comment on above: Performed By: #### L 500.4050 ####[facility] [address] [place], [address] CA,Total 9.8 mg/dL Normal 8.5-10.1 [facility] Comment on above: Performed By: #### L 500.4050 ####[facility] [address] [place], [address] Chloride [Moles/Vol] 105 mmol/L Normal 98-107 [facility] Comment on above: Performed By: #### L 500.4050 ####[facility] [address] [place], [address] CO2 [Moles/Vol] 33.0 mmol/L High 21.0-32.0 [facility] Comment on above: Performed By: #### L 500.4050 ####[facility] [address] [place], [address] Creatinine [Mass/Vol] 0.79 mg/dL Normal 0.55-1.02 [facility] [facility] Comment on above: Result Comment: The validity of the calculated GFR GFRAA in patients over 70 years has not been determined. Clinical correlation is essential. Performed By: #### L [id number] ####[facility] [id number] [place], [address] ECRCL 50.85 ml/min Normal [facility] Comment on above: Performed By: #### L [id number] ####[facility] [id number] [place], [address] EST GFR - AA 90 mL/min Normal >60 [facility] Comment on above: Result Comment: Afri can Welsh GFR Calc Performed By: #### L [id number] ####[facility] [id number] [place], [address] GAP 5 Normal 5-15 [facility] Comment on above: Performed By: #### L [id number] ####[facility] [id number] [place], [address] GFR/1.73 sq M.predicted among non-blacks MDRD (S/P/Bld) [Vol rate/Area] 74 mL/min/{1.73_m2} Normal >60 [facility] Comment on above: Result Comment: Non- GFR Calc Performed By: #### L [id number] ####[facility] [id number] [place], [address] Globulin (S) [Mass/Vol] 3.1 g/dL Normal 2.2-4.2 [facility] Comment on above: Performed By: #### L [id number] ####[facility] [id number] [place], [address] Glucose [Mass/Vol] 80 mg/dL Normal 74-[address] [facility] Comment on above: Performed By: #### L [id number] ####[facility] [id number] [place], [address] Potassium [Moles/Vol] 3.6 mmol/L Normal 3.5-5.1 [facility] Comment on above: Performed By: #### L [id number] ####[facility] [id number] [place], [address] Sodium [Moles/Vol] 143 mmol/L Normal 136-[address] [facility] Comment on above: Performed By: #### L [id number] ####[facility] [address] [place], [address] T PROT 6.9 g/dL Normal 6.4-8.2 [facility] Comment on above: Performed By: #### L [id number] ####[facility] [id number] [place], [address] Urea nitrogen [Mass/Vol] 17 mg/dL Normal 7-18 [facility] Comment on above: Performed By: #### L [id number] ####[facility] [id number] [place], [address] Estimated glomerular filtrat ion rate (GFR) AmericanOrdered By: Cherelle Patton on 08-17-2024 Estimated GFR (MDRD) Amer 90 mL/min >60 [facility] Comment on above: GFR Calc Estimation of creatinine maite aranceOrdered By: Cherelle Patton on 08-17-2024 Estimated Creatinine Clearance Calc 50.85 ml/min [facility] Glomerular filtration rate ( GFR) estimationOrdered By: Cherelle Patton on 08-17-2024 Estimated GFR (MDRD) Non-Af Amer 74 mL/min >60 [facility] Comment on above: Non- GFR Calc GFR/1.73 sq M.predicted among non-blacks MDRD (S/P/Bld) [Vol rate/Area] 74 mL/min/{1.73_m2} >60 [facility] Comment on above: Non- GFR Calc Glucose measurementOrdered B y: Cherelle Patton on 08-17-2024 Glucose [Mass/Vol] 80 mg/dL 74-[address] [facility] Laboratory - Chemistry and C hemistry - challengeOrdered By: Cherelle Patton on 08-17-2024 AST [Catalytic activity/Vol] 24 U/L 15-37 [facility] Oncology Visit Reporton 08-08 Oncology Visit Report [facility] [address] [place] [address] OFFICE VISIT Date of Service: 08/17/24 1057 MR#: [id number] Acct: [id number] Name: JIMMIE WEATHERS Rep #: [id number] : 1945 From: Cherelle Patton MD Age/Sex: 78/F Location: [facility] Status: Signed HPI Subjective Date of Service 08/17/24 Chief Complaint Breast cancer on treatment History of Present Illness Patient is a 77-year-old female who presented after an abnormal screening [...] -0.7 cm. Tumor is ER positive (95%), [place] positive (95%) and HER-2 ramón 1-2+ IHC, negative by FISH. Treatment: Right partial mastectomy with sentinel lymph node sampling December 25, 2017 Arimidex January 2018-summer 2022 (5 years) 02/13/18 - 03/06/18: Received adjuvant radiation therapy to the right breast consisting of 4256 cGy in 16 fractions. Bone supportive therapy with Prolia 60 mg/6 months since April 2018. [facility] Medical History Tick bite of right thigh ER+ (estrogen receptor positive status) Cataract Alcoholism Wears glasses High cholesterol Non-smoker Restless legs History of squamous cell carcinoma of skin Skin cancer Skin lesion Hiatal hernia with gastroesophageal reflux disease and esophagitis GERD (gastroesophageal reflux disease) Breast cancer in female Breast cancer ( 12/2017) Hypothyroidism Hemorrhoids HTN (hypertension) Osteoarthritis Surgical History History of repair of hiatal hernia s/p EGD with PH probe ( 06/03/18) History of lumpectomy S/P breast biopsy S/P colonoscopy S/P dilation and curettage S/P tubal ligation Status post left hip replacement Status post right hip replacement S/P breast biopsy Family History Father CAD (coronary artery disease) Hypertension Myocardial infarction Mother Bleeding disorder Hypertension Sister Bleeding disorder Heart disease Other Alcoholism Arthritis Breast cancer Cancer High cholesterol History of anesthesia problem Osteoporosis Skin cancer Thyroid disorder Social History household members: spouse housing: house Smoking Status: Never smoker second hand exposure: No alcohol intake: never substance use type: does not use well-balanced diet: daily or most days caffeine: No eating out: 1-3 times/week during the past year weight has: remained stable what type of physical activity do you participate in: walking How many days of moderate to strenuous exercise, like a brisk walk, did you do in the last 7 days: 7 frequency: daily duration: 15-30 minutes/day kori/bahai: [employer] seatbelt use: always do you feel safe at home: Yes ROS Constitutional Constitutional: Reports systems reviewed and no addt'l complaints, except as documented; Denies anorexia, change in weight, fatigue or fever(s) Eyes Eyes: Reports systems reviewed and no addt'l complaints, except as documented; Denies change in vision ENT HEENT: Reports systems reviewed and no addt'l complaints, except as documented; Denies headache(s) Cardiovascular Cardiovascular: Reports systems reviewed and no addt'l complaints, except as documented; Denies chest pain or edema Respiratory/Chest Respiratory/Chest: Reports systems reviewed and no addt'l complaints, except as documented; Denies cough or dyspnea on exertion Gastrointestinal Gastrointestinal: Reports systems reviewed and no addt'l complaints, except as documented and heartburn; Denies abdominal pain or rectal bleeding Genitourinary Genitourinary: Reports systems reviewed and no addt'l complaints, except as documented; Denies hematuria Musculoskeletal Musculoskeletal: Reports arthralgias, back pain and other Details: Chronic unchanged back pain, follows with pain management Dr. Betancourt Integumentary Integumentary: Reports systems reviewed and no addt'l complaints, except as documented; Denies rash Neurologic Neurologic: Reports systems reviewed and no addt'l complaints, except as documented; Denies focal weakness or paresthesias Psychiatric Psychiatric: Reports systems reviewed and no addt'l complaints, except as documented Endocrine Endocrinology: Reports systems reviewed and no addt'l complaints, except as documented Hematologic/Lymphatic Hematologic/Lymphatic: Repo (more content not included)... Normal [facility] Potassium measurementOrdered By: Cherelle Patton on 08-17-2024 Potassium [Moles/Vol] 3.6 mmol/L 3.5-5.1 [facility] Serum anion gap measurementO rdered By: Cherelle Patton on 08-17-2024 Anion gap [Moles/Vol] 5 mmol/L 5-15 [facility] Serum globulin measurementOr dered By: Cherelle Patton on 08-17-2024 Globulin (S) [Mass/Vol] 3.1 g/dL 2.2-4.2 [facility] Serum or plasma alanine juárez otransferase (ALT) measurementOrdered By: Cherelle Patton on 08-17-2024 ALT [Catalytic activity/Vol] 25 U/L 13-56 [facility] Serum or plasma albumin naomi urement (mass/volume)Ordered By: Cherelle Patton on 08-17-2024 Albumin [Mass/Vol] 3.8 g/dL 3.2-5.[address] [facility] Serum or plasma alkaline justyn sphatase measurementOrdered By: Cherelle Patton on 08-17-2024 ALP [Catalytic activity/Vol] 56 U/L 45-117 [facility] Serum or plasma calcium naomi urement (mass/volume)Ordered By: Cherelle Patton on 08-17-2024 Calcium [Mass/Vol] 9.8 mg/dL 8.5-10.[address] [facility] Serum or plasma creatinine m easurement (mass/volume)Ordered By: Cherelle Patton on 08-17-2024 Creatinine [Mass/Vol] 0.79 mg/dL 0.55-1.02 [facility] Comment on above: The validity of the calculated GFR & GFRAA in patients over 70 years has not been determined. Clinical correlation is essential. Serum or plasma urea nitroge n measurement (mass/volume)Ordered By: Cherelle Patton on 08-17-2024 Urea nitrogen [Mass/Vol] 17 mg/dL 7-18 [facility] Sodium levelOrdered By: Bryant Patton on 08-17-2024 Sodium [Moles/Vol] 143 mmol/L 136-[address] [facility] Total proteinOrdered By: Ac Patton on 08-17-2024 Protein [Mass/Vol] 6.9 g/dL 6.4-8.[address] [facility] Absolute lymphocyte countOrd ered By: Cherelle Patton on 02-06-2024 Lymphocytes Auto (Unsp spec) [#/Vol] 1.54 10*3/uL 0.83-4.51 [facility] Absolute neutrophil countOrd ered By: Cherelle Patton on 02-06-2024 Neutrophils (Bld) [#/Vol] 4.6 10*3/uL 2.0-7.7 [facility] Automated lymphocyte count a s percentage of total leukocytesOrdered By: Cherelle Patton on 02-06-2024 Lymphocytes/100 WBC Auto (Unsp spec) 21.8 % 19-41 [facility] Basophil percentageOrdered B y: Cherelle Patton on 02-06-2024 Basophils/100 WBC (Bld) 0.8 % 0-1 [facility] Eosinophil percentageOrdered By: Cherelle Patton on 02-06-2024 Eosinophils/100 WBC (Bld) 2.7 % 0-5 [facility] Erythrocyte distribution wid th (RBC) [Ratio]Ordered By: Cherelle Patton on 02-06-2024 Erythrocyte distribution width (RBC) [Entitic vol] 41.5 fL 35.1-43.9 [facility] Erythrocyte distribution wid th ratioOrdered By: Cherelle Patton on 02-06-2024 Erythrocyte distribution width (RBC) [Ratio] 12.1 % 11.6-14.6 [facility] Erythrocyte distribution wid th standard deviationOrdered By: [facility] on 02-06-2024 Erythrocyte distribution width (RBC) [Ratio] 41.5 fl 35.1-43.9 [facility] Hematocrit Auto (Bld) [Volum e fraction]Ordered By: Cherelle Patton on 02-06-2024 Hematocrit (Bld) [Volume fraction] 40.3 % 37-47 [facility] Hemoglobin measurementOrdere d By: Cherelle Patton on 02-06-2024 Hemoglobin (Bld) [Mass/Vol] 13.2 g/dL 12.0-15.0 [facility] Immature granulocytes/100 WB C Auto (Bld)Ordered By: Cherelle Patton on 02-06-2024 Immature granulocytes/100 WBC (Bld) 0.300 % 0.0-0.9 [facility] Comment on above: IG% - Immature Granu locytes (promyelocytes, myelocytes and metamyelocytes) > 1% indicates that a LEFT SHIFT is Present. Lymphocytes Auto (Unsp spec) [#/Vol]Ordered By: Cherelle Patton on 02-06-2024 Lymphocytes (Bld) [#/Vol] 1.54 10*3/uL 0.83-4.51 [facility] Lymphocytes/100 WBC Auto (Un sp spec)Ordered By: Cherelle Patton on 02-06-2024 Lymphocytes/100 WBC (Bld) 21.8 % 19-41 [facility] MCV (mean corpuscular volume ) determinationOrdered By: Cherelle Patton on 02-06-2024 MCV (RBC) [Entitic vol] 94.6 fL 81-99 [facility] Mean corpuscular hemoglobin (MCH) determinationOrdered By: Cherelle Patton on 02-06-2024 MCH (RBC) [Entitic mass] 31.0 pg 27.0-32.0 [facility] Mean corpuscular hemoglobin concentration (MCHC) determinationOrdered By: Cherelle Patton on 02-06-2024 MCHC (RBC) [Mass/Vol] 32.8 g/dL 32-36 [facility] Mean platelet volume determi nationOrdered By: Cherelle Patton on 02-06-2024 Platelet mean volume (Bld) [Entitic vol] 10.7 fL 6.2-12.0 [facility] Monocyte percentageOrdered B y: Cherelle Patton on 02-06-2024 Monocytes/100 WBC (Bld) 9.8 % 0-10 [facility] Neutrophil percentageOrdered By: Cherelle Patton on 02-06-2024 Neutrophils/100 WBC (Bld) 64.6 % 47-70 [facility] Nucleated red blood cell per centageOrdered By: Cherelle Patton on 02-06-2024 Nucleated RBC/100 WBC (Bld) [Ratio] 0 % 0-5 [facility] Platelet countOrdered By: Yeison Patton on 02-06-2024 Platelets (Bld) [#/Vol] 161 10*3/uL 150-450 [facility] RBC Auto (Bld) [#/Vol]Ordere d By: Cherelle Patton on 02-06-2024 RBC (Bld) [#/Vol] 4.26 10*6/uL 4.2-5.4 [facility] White blood cell (WBC) count Ordered By: Cherelle Patton on 02-06-2024 WBC (Bld) [#/Vol] 7.1 10*3/uL 4.4-11.[address] [facility] Absolute lymphocyte countOrd ered By: Kan Vargas on 09-26-2023 Lymphocytes Auto (Unsp spec) [#/Vol] 1.56 10*3/uL 0.83-4.51 [facility] Automated lymphocyte count a s percentage of total leukocytesOrdered By: Kan Vargas on 09-26-2023 Lymphocytes/100 WBC Auto (Unsp spec) 20.6 % 19-41 [facility] Basophil percentageOrdered B y: Kan Vargas on 09-26-2023 Basophil percentage 0 SEEN /hpf 0-5 [facility] Basophils/100 WBC (Bld) 0.4 % 0-1 [facility] Bilirubin [Mass/Vol] 0.40 mg/dL 0.20-1.00 [facility] Comment on above: For patients on eltr ombopag therapy, use of [employer] TBIL is not recommended. Chloride [Moles/Vol] 100 mmol/L 98-107 [facility] Cholesterol [Mass/Vol] 141 mg/dL <200 [facility] Comment on above: <200 mg/dL Desirable 200-240 mg/dL Borderline >240 mg/dL High Risk Eosinophils/100 WBC (Bld) 3.8 % 0-5 [facility] Glucose [Mass/Vol] 90 mg/dL 74-[address] [facility] Hemoglobin (Bld) [Mass/Vol] 13.4 g/dL 12.0-15.0 [facility] Monocytes/100 WBC (Bld) 9.4 % 0-10 [facility] Neutrophils (Bld) [#/Vol] 5.0 10*3/uL 2.0-7.7 [facility] Neutrophils/100 WBC (Bld) 65.7 % 47-70 [facility] Potassium [Moles/Vol] 3.8 mmol/L 3.5-5.1 [facility] Protein [Mass/Vol] 7.1 g/dL 6.4-8.[address] [facility] Sodium [Moles/Vol] 140 mmol/L 136-[address] [facility] Triglyceride [Mass/Vol] 120 mg/dL <199 [facility] Comment on above: The drugs N-Acetylcy steine and Metamizole may falsely depress this assay.Serum Triglycerides Reference Interval Normal <150 mg/dL Borderline high 150 - 199 mg/dL High 200 - 499 mg/dL Very High > or = 500 mg/dL WBC (Bld) [#/Vol] 7.6 10*3/uL 4.4-11.[address] [facility] Bilirubin Test strip Ql (U)O rdered By: Kan Vargas on 09-26-2023 Bilirubin Ql (U) Negative Negative [facility] Determination of erythrocyte mean corpuscular volume (MCV)Ordered By: Kan Vargas on 09-26-2023 MCV (RBC) [Entitic vol] 95.1 fL 81-99 [facility] Erythrocyte distribution wid th ratioOrdered By: Kan Vargas on 09-26-2023 Erythrocyte distribution width (RBC) [Ratio] 12.3 % 11.6-14.6 [facility] Erythrocyte distribution wid th standard deviationOrdered By: Kan Vargas on 09-26-2023 Erythrocyte distribution width (RBC) [Entitic vol] 42.3 fL 35.1-43.9 [facility] Hematocrit Auto (Bld) [Volum e fraction]Ordered By: Kan Vargas on 09-26-2023 Hematocrit (Bld) [Volume fraction] 40.7 % 37-47 [facility] Immature granulocytes/100 WB C Auto (Bld)Ordered By: Kan Vargas on 09-26-2023 Immature granulocytes/100 WBC (Bld) 0.100 % 0.0-0.9 [facility] Comment on above: IG% - Immature Granu locytes (promyelocytes, myelocytes and metamyelocytes) > 1% indicates that a LEFT SHIFT is Present. Ketones Test strip Ql (U)Ord ered By: Kan Vargas on 09-26-2023 Ketones Ql (U) Negative Negative [facility] Laboratory - Chemistry and C hemistry - challengeOrdered By: Kan Vargas on 09-26-2023 Albumin/Globulin [Mass ratio] 1.2 {ratio} 0.9-2.4 [facility] ALP [Catalytic activity/Vol] 61 U/L 45-117 [facility] ALT [Catalytic activity/Vol] 21 U/L 13-56 [facility] Cholesterol in HDL [Mass/Vol] 60 mg/dL >40 [facility] Comment on above: The drugs N-Acetylcy steine and Metamizole may falsely depress this assay. Reference Range HDL <40 mg/dL Low HDL Cholesterol HDL >or= 60 mg/dL High HDL Cholesterol Cholesterol in LDL [Mass/Vol] 57 mg/dL 0-130 [facility] CO2 [Moles/Vol] 34.0 mmol/L 21.0-32.0 [facility] Globulin (S) [Mass/Vol] 3.2 g/dL 2.2-4.2 [facility] Magnesium [Mass/Vol] 2.2 mg/dL 1.6-2.6 [facility] Urea nitrogen/Creatinine [Mass ratio] 32.2 mg/mg 10-20 [facility] Laboratory - Hematology and Cell countsOrdered By: Kan Vargas on 09-26-2023 MCH (RBC) [Entitic mass] 31.3 pg 27.0-32.0 [facility] MCHC (RBC) [Mass/Vol] 32.9 g/dL 32-36 [facility] Nucleated RBC/100 WBC (Bld) [Ratio] 0 % 0-5 [facility] Platelet mean volume (Bld) [Entitic vol] 11.5 fL 6.2-12.0 [facility] Platelets (Bld) [#/Vol] 138 10*3/uL 150-450 [facility] Mucus LM Ql (Urine sed)Order ed By: Kan Vargas on 09-26-2023 Mucus Ql (Urine sed) 0 SEEN /hpf [facility] Nitrite Test strip Ql (U)Ord ered By: Kan Vargas on 09-26-2023 Nitrite Ql (U) Negative Negative [facility] No Panel InformationOrdered By: Kan Vargas on 09-26-2023 Estimated GFR (MDRD) Amer 75 mL/min >60 [facility] Comment on above: GFR Calc Estimated GFR (MDRD) Non-Af Amer 62 mL/min >60 [facility] Comment on above: Non- GFR Calc Urine Microalbumin/Creatinin e Ratio TNP [facility] Comment on above: Test not performed Urine RBC 0 SEEN /hpf 0-5 [facility] Vitamin D 25-Hydroxy 54.6 ng/mL [facility] Comment on above: Vitamin D 25(OH) Sta tus Range Deficiency <20 ng/mL (50nmol/L) Insufficiency 20 - 30 ng/mL (50 - 75 nmol/L) Sufficiency 30 - 100 ng/mL (75 - 250 nmol/L) Toxicity >100 ng/mL (>250 nmol/L) VLDL Cholesterol 24 mg/dL 5-40 [facility] Protein Test strip Ql (U)Ord ered By: Kan Vargas on 09-26-2023 Protein Ql (U) Negative Negative [facility] RBC Auto (Bld) [#/Vol]Ordere d By: Kan Vargas on 09-26-2023 RBC (Bld) [#/Vol] 4.28 10*6/uL 4.2-5.4 [facility] Serum or plasma calcium naomi urement (mass/volume)Ordered By: Kan Vargas on 09-26-2023 Calcium [Mass/Vol] 10.0 mg/dL 8.5-10.[address] [facility] Serum or plasma creatinine m easurement (mass/volume)Ordered By: Kan Vargas on 09-26-2023 Creatinine [Mass/Vol] 0.93 mg/dL 0.55-1.02 [facility] Comment on above: The validity of the calculated GFR & GFRAA in patients over 70 years has not been determined. Clinical correlation is essential. Serum or plasma thyroid stim ulating hormone (TSH) measurement (units/volume)Ordered By: Kan Vargas on 09-26-2023 TSH Qn 2.46 uIU/mL 0.358-3.74 [facility] Serum or plasma urea nitroge n measurement (mass/volume)Ordered By: Kan Vargas on 09-26-2023 Urea nitrogen [Mass/Vol] 30 mg/dL 7-18 [facility] Squamous epithelial cells de tection in urine sediment by light microscopyOrdered By: Kan Vargas on 09-26-2023 Epithelial cells.squamous LM Ql (Urine sed) 0 SEEN /hpf 5-10 [facility] Thin prep Papanicolaou smear with manual screeningOrdered By: Kan Vargas on 09-26-2023 Thin prep Papanicolaou smear with manual screening 3.9 g/dL 3.2-5.0 [facility] Thin prep Papanicolaou smear with manual screening 21 U/L 15-37 [facility] Thin prep Papanicolaou smear with manual screening 6 5-15 [facility] Thin prep Papanicolaou smear with manual screening < 5.0 mg/L NO RANGE EST. [facility] Thin prep Papanicolaou smear with manual screening 1.16 ng/dL 0.76-1.46 [facility] Urine blood detectionOrdered By: Kan Vargas on 09-26-2023 RBC Ql (U) Negative Negative [facility] Urine clarityOrdered By: Clinton Vargas on 09-26-2023 Clarity (U) Clear Clear [facility] Urine color determinationOrd ered By: Kan Vargas on 09-26-2023 Color (U) Yellow Yellow [facility] Urine creatinine measurement (mass/volume)Ordered By: Kan Vargas on 09-26-2023 Creatinine (U) [Mass/Vol] mg/dL NO RANGE EST. [facility] Urine glucose detectionOrder ed By: Kan Vargas on 09-26-2023 Glucose Ql (U) Normal mg/dl Normal [facility] Urine leukocyte esterase det ection by dipstickOrdered By: Kan Vargas on 09-26-2023 Leukocyte esterase Test strip Ql (U) Negative Negative [facility] Urine pHOrdered By: Kan franks on 09-26-2023 pH (U) 7.0 [pH] 5.0 - 8.0 [facility] Urine sediment bacteria coun t by microscopy (number/high power field)Ordered By: Kan Vargas on 09-26-2023 Bacteria LM.HPF (Urine sed) [#/Area] 0 /[HPF] None Seen [facility] Urine specific gravity measu rementOrdered By: Kan Vargas on 09-26-2023 Specific gravity (U) [Rel density] 1.010 1.002-1.03 0 [facility] Urine urobilinogen measureme ntOrdered By: Kan Vargas on 09-26-2023 Urobilinogen Ql (U) Normal mg/dl Normal [facility] Absolute lymphocyte countOrd ered By: Cherelle Patton on 09-12-2022 Lymphocytes Auto (Unsp spec) [#/Vol] 1.26 10*3/uL 0.83-4.51 [facility] Basophil percentageOrdered B y: Cherelle Patton on 09-12-2022 Basophils/100 WBC (Bld) 1.0 % 0-1 [facility] Bilirubin [Mass/Vol] 0.50 mg/dL 0.20-1.00 [facility] Comment on above: For patients on eltr ombopag therapy, use of [employer] TBIL is not recommended. Chloride [Moles/Vol] 102 mmol/L 98-107 [facility] Eosinophils/100 WBC (Bld) 2.7 % 0-5 [facility] Glucose [Mass/Vol] 100 mg/dL 74-[address] [facility] Comment on above: Fasting Glucose resu lt from 100 to 125 mg/dL suggests IMPAIRED HOMEOSTASIS per A.D.A. criteria. Neutrophils (Bld) [#/Vol] 4.6 10*3/uL 2.0-7.7 [facility] Neutrophils/100 WBC (Bld) 67.9 % 47-70 [facility] Potassium [Moles/Vol] 3.5 mmol/L 3.5-5.1 [facility] Protein [Mass/Vol] 7.1 g/dL 6.4-8.[address] [facility] Sodium [Moles/Vol] 140 mmol/L 136-[address] [facility] WBC (Bld) [#/Vol] 6.7 10*3/uL 4.4-11.[address] [facility] Blood erythrocytes count (nu mber/volume)Ordered By: Cherelle Patton on 09-12-2022 RBC (Bld) [#/Vol] 4.15 10*6/uL 4.2-5.4 [facility] Blood hemoglobin measurement (mass/volume)Ordered By: Cherelle Patton on 09-12-2022 Hemoglobin (Bld) [Mass/Vol] 12.9 g/dL 12.0-15.0 [facility] Blood lymphocytes/100 leukoc ytesOrdered By: Cherelle Patton on 09-12-2022 Lymphocytes/100 WBC (Bld) 18.7 % 19-41 [facility] Blood monocytes/100 leukocyt esOrdered By: Cherelle Patton on 09-12-2022 Monocytes/100 WBC (Bld) 9.4 % 0-10 [facility] Blood platelet mean volumeOr dered By: Cherelle Patton on 09-12-2022 Platelet mean volume (Bld) [Entitic vol] 9.6 fL 6.2-12.0 [facility] Determination of erythrocyte mean corpuscular volume (MCV)Ordered By: Cherelle Patton on 09-12-2022 MCV (RBC) [Entitic vol] 95.2 fL 81-99 [facility] Hematocrit Auto (Bld) [Volum e fraction][facility]22 Hematocrit (Bld) [Volume fraction] 39.5 % 37-47 [facility] Laboratory - Chemistry and C hemistry - challengeOrdered By: [facility] Abdi on 09-12-2022 ALP [Catalytic activity/Vol] 60 U/L 45-117 [facility] ALT [Catalytic activity/Vol] 20 U/L 13-56 [facility] CO2 [Moles/Vol] 34.0 mmol/L 21.0-32.0 [facility] Globulin (S) [Mass/Vol] 3.4 g/dL 2.2-4.2 [facility] Urea nitrogen/Creatinine [Mass ratio] 18.5 mg/mg 10-20 [facility] Laboratory - Hematology and Cell countsOrdered By: [facility] Abdi on 09-12-2022 Erythrocyte distribution width (RBC) [Entitic vol] 42.9 fL 35.1-43.9 [facility] Erythrocyte distribution width (RBC) [Ratio] 12.5 % 11.6-14.6 [facility] Immature granulocytes/100 WBC (Bld) 0.300 % 0.0-0.9 [facility] Comment on above: IG% - Immature Granu locytes (promyelocytes, myelocytes and metamyelocytes) > 1% indicates that a LEFT SHIFT is Present. MCH (RBC) [Entitic mass] 31.1 pg 27.0-32.0 [facility] Nucleated RBC/100 WBC (Bld) [Ratio] 0 % 0-5 [facility] MCHC Auto (RBC) [Mass/Vol]Or dered [facility] on 09-12-2022 MCHC (RBC) [Mass/Vol] 32.7 g/dL 32-36 [facility] No Panel InformationOrdered By: Cherelle Patton on 09-12-2022 Estimated Creatinine Clearance Calc 47.50 ml/min [facility] Estimated GFR (MDRD) Amer 82 mL/min >60 [facility] Comment on above: GFR Calc Estimated GFR (MDRD) Non-Af Amer 68 mL/min >60 [facility] Comment on above: Non- GFR Calc Platelets bldOrdered By: Ac zachary bAdi on 09-12-2022 Platelets (Bld) [#/Vol] 147 10*3/uL 150-450 [facility] Serum or plasma albumin naomi urement (mass/volume)Ordered By: Cherelle Patton on 09-12-2022 Albumin [Mass/Vol] 3.7 g/dL 3.2-5.[address] [facility] Serum or plasma albumin/glob ulin mass ratioOrdered By: Cherelle Patton on 09-12-2022 Albumin/Globulin [Mass ratio] 1.1 {ratio} 0.9-2.4 [facility] Serum or plasma calcium naomi urement (mass/volume)Ordered By: Cherelle Patton on 09-12-2022 Calcium [Mass/Vol] 10.0 mg/dL 8.5-10.[address] [facility] Serum or plasma creatinine m easurement (mass/volume)Ordered By: Cherelle Patton on 09-12-2022 Creatinine [Mass/Vol] 0.87 mg/dL 0.55-1.02 [facility] Comment on above: The validity of the calculated GFR & GFRAA in patients over 70 years has not been determined. Clinical correlation is essential. Serum or plasma urea nitroge n measurement (mass/volume)Ordered By: Cherelle Patton on 09-12-2022 Urea nitrogen [Mass/Vol] 16 mg/dL 7-18 [facility] Thin prep Papanicolaou smear with manual screeningOrdered By: Cherelle Patton on 09-12-2022 Thin prep Papanicolaou smear with manual screening 17 U/L 15-37 [facility] Thin prep Papanicolaou smear with manual screening 4 5-15 [facility] Absolute lymphocyte counton 03-08-2021 Lymphocytes Auto (Unsp spec) [#/Vol] 1.22 10*3/uL 0.83-4.51 [facility] Work Phone: Basophil percentageon 2020 Bilirubin [Mass/Vol] 0.60 mg/dL 0.20-1.00 [facility] Work Phone: Comment on above: For patients on eltr ombopag therapy, use of [employer] TBIL is not recommended. Chloride [Moles/Vol] 105 mmol/L 98-107 [facility] Work Phone: Eosinophils/100 WBC (Bld) 2.2 % 0-5 [facility] Work Phone: Glucose [Mass/Vol] 91 mg/dL 74-[address] [facility] Work Phone: Comment on above: Please note revised GLUCOSE reference range effective 2017. Neutrophils (Bld) [#/Vol] 4.0 10*3/uL 2.0-7.7 [facility] Work Phone: Potassium [Moles/Vol] 3.7 mmol/L 3.5-5.1 [facility] Work Phone: [phone] Protein [Mass/Vol] 7.7 g/dL 6.4-8.[address] [facility] Work Phone: [phone] Sodium [Moles/Vol] 140 mmol/L 136-[address] [facility] Work Phone: WBC (Bld) [#/Vol] 6.0 10*3/uL 4.4-11.[address] [facility] Work Phone: Blood erythrocytes count (nu mber/volume)on 03-08-2021 RBC (Bld) [#/Vol] 4.37 10*6/uL 4.2-5.4 [facility] Work Phone: Blood hemoglobin measurement (mass/volume)on 03-08-2021 Hemoglobin (Bld) [Mass/Vol] 13.7 g/dL 12.0-15.0 [facility] Work Phone: Blood lymphocytes/100 leukoc yteson 03-08-2021 Lymphocytes/100 WBC (Bld) 20.3 % 19-41 [facility] Work Phone: Blood monocytes/100 leukocyt eson 03-08-2021 Monocytes/100 WBC (Bld) 9.3 % 0-10 [facility] Work Phone: Blood platelet mean volumeon 03-08-2021 Platelet mean volume (Bld) [Entitic vol] 9.6 fL 6.2-12.0 [facility] Work Phone: Determination of erythrocyte mean corpuscular volume (MCV)on 03-08-2021 MCV (RBC) [Entitic vol] 95.4 fL 81-99 [facility] Work Phone: Hematocrit Auto (Bld) [Volum e fraction]on 03-08-2021 Hematocrit (Bld) [Volume fraction] 41.7 % 37-47 [facility] Work Phone: Laboratory - Chemistry and C hemistry - challengeon 03-08-2021 ALP [Catalytic activity/Vol] 65 U/L 45-117 [facility] Work Phone: ALT [Catalytic activity/Vol] 19 U/L 13-56 [facility] Work Phone: CO2 [Moles/Vol] 31.0 mmol/L 21.0-32.0 [facility] Work Phone: Globulin (S) [Mass/Vol] 3.7 g/dL 2.2-4.2 [facility] Work Phone: Urea nitrogen/Creatinine [Mass ratio] 19.9 mg/mg 10-20 [facility] Work Phone: Laboratory - Hematology and Cell countson 03-08-2021 Basophils/100 WBC (Unsp spec) 1.0 % 0-1 [facility] Work Phone: Erythrocyte distribution width (RBC) [Entitic vol] 40.5 fL 35.1-43.9 [facility] Work Phone: Erythrocyte distribution width (RBC) [Ratio] 11.7 % 11.6-14.6 [facility] Work Phone: Immature granulocytes/100 WBC (Bld) 0.300 % 0.0-0.9 [facility] Work Phone: [phone] Comment on above: IG% - Immature Granu locytes (promyelocytes, myelocytes and metamyelocytes) > 1% indicates that a LEFT SHIFT is Present. MCH (RBC) [Entitic mass] 31.4 pg 27.0-32.0 [facility] Work Phone: [phone] Neutrophils/100 WBC (Bld) 66.9 % 47-70 [facility] Work Phone: [phone] Nucleated RBC/100 WBC (Bld) [Ratio] 0 % 0-5 [facility] Work Phone: [phone] MCHC Auto (RBC) [Mass/Vol]on 03-08-2021 MCHC (RBC) [Mass/Vol] 32.9 g/dL 32-36 [facility] Work Phone: [phone] Panel Informationon 03-08 Estimated Creatinine Clearance Calc 42.62 ml/min [facility] Work Phone: [phone] Estimated GFR (MDRD) Amer 96 mL/min >60 [facility] Work Phone: [phone] Comment on above: GFR Calc Estimated GFR (MDRD) Non-Af Amer 80 mL/min >60 [facility] Work Phone: [phone] Comment on above: Non- GFR Calc Platelets bldon 03-08-2021 Platelets (Bld) [#/Vol] 164 10*3/uL 150-450 [facility] Work Phone: Serum or plasma albumin naomi urement (mass/volume)on 03-08-2021 Albumin [Mass/Vol] 4.0 g/dL 3.2-5.[address] [facility] Work Phone: [phone] Serum or plasma albumin/glob ulin mass ratioon 03-08-2021 Albumin/Globulin [Mass ratio] 1.1 {ratio} 0.9-2.4 [facility] Work Phone: Serum or plasma calcium naomi urement (mass/volume)on 03-08-2021 Calcium [Mass/Vol] 9.7 mg/dL 8.5-10.[address] [facility] Work Phone: Serum or plasma creatinine m easurement (mass/volume)on 03-08-2021 Creatinine [Mass/Vol] 0.76 mg/dL 0.55-1.02 [facility] Work Phone: Comment on above: The validity of the calculated GFR & GFRAA in patients over 70 years has not been determined. Clinical correlation is essential. Serum or plasma urea nitroge n measurement (mass/volume)on 03-08-2021 Urea nitrogen [Mass/Vol] 15 mg/dL 7-18 [facility] Work Phone: Thin prep Papanicolaou smear with manual screeningon 03-08-2021 Thin prep Papanicolaou smear with manual screening 15 U/L 15-37 [facility] Work Phone: Thin prep Papanicolaou smear with manual screening 4 5-15 [facility] Work Phone: Cells counted [employer] (Bld/Ti ss) [#]on 01-07-2018 Differential Total Cells Counted Not Reportable [facility] Erythrocyte distribution wid th (RBC) [Entitic vol]on 01-07-2018 Red Cell Distribution Width Diff 41.0 fl 35.1-43.9 [facility] Erythrocyte distribution wid th standard deviationon 01-07-2018 Erythrocyte distribution width (RBC) [Entitic vol] 41.0 fL 35.1-43.9 [facility] Laboratory - Hematology and Cell countson 01-07-2018 Erythrocyte distribution width (RBC) [Ratio] 12.1 % 11.6-14.6 [facility] Total cell counton 8 Cells counted [employer] (Bld/Tiss) [#] Not Reportable [facility] US BREAST RT UNILATERAL COMP LETEon 11-21-2017 BREAST RT UNILATERAL COMPLETE [place] [id number] Patient: JIMMIE WEATHERS Phone#: : 1945 Age: 72 Gender: F Pt. Type: Out Account: [id number] Location: 052 Ordering: [facility] Exam Date: 11/21/2017/9:20 Family Phys: AMARILIS CHEUNG Charge Code: [id number] Physician: [place] Order #: [id number] DLP Dose#: PROCEDURE: ULTRASOUND BREAST RT COMPARISON: [facility], BREAST RT COMPLETE, 12/09/2015, 11:57. INDICATIONS: Right [...] Piper Eli MD on 11/21/2017 at 18:08 [facility] MAMM DIGITAL BILAT SCREENon 11-19-2017 MAMM DIGITAL BILAT SCREEN [place] [id number] Patient: JIMMIE WEATHERS Phone#: : 1945 Age: 72 Gender: F Pt. Type: Out Account: [id number] Location: 052 Ordering: [facility] Exam Date: 11/19/2017/14:17 Family Phys: AMARILIS CHEUNG Charge Code: [id number] Physician: [place] Order #: [id number] DLP Dose#: PROCEDURE: MAMM BILAT DIGITAL SCREENING WITH CAD COMPARISON: [facility], BREAST RT COMPLETE, 12/09/2015, 11:57. [facility], BILAT SCREENING, 10/20/2013, 11:46. [facility], BILAT SCREENING, 11/02/2014, 13:56. [facility], BILAT SCREENING, 12/09/2015, 11:05. [facility], RT SPOT/MAG DIGITAL, 12/09/2015, 11:44. INDICATIONS: Screening [...] 72 Gender: F Pt. Type: Out Account: [id number] Location: 2 Ordering: NOREEN URRUTIA Exam Date: 11/19/2017/14:17 Family Phys: AMARILIS CHEUNG Charge Code: [id number] Physician: [place] Order #: [id number] DLP Dose#: Dictated by: Piper Eli MD on 11/19/2017 at 14:41 Approved by: Piper Eli MD on 11/19/2017 at 14:41 [facility] Clinical Summary: HMSPatient IDon 11-14-2017 OOP Invalid Interpretation Code [facility] Work Phone: Office Visit: Postop - subse quent visit, Rm: 3on 11-14-2017 NEGATED: Highlighted rowDocumentation of current medications (procedure) Done Invalid Interpretation Code [facility] Work Phone: NEGATED: Highlighted rowxray history of the pelvis on 02/06/2017 at CC Invalid Interpretation Code [facility] Work Phone: BONE DENSITY STUDYon 017 BONE DENSITY STUDY [place] [address] Patient: JIMMIE WEATHERS Phone#: : 1945 Age: 71 Gender: F Pt. Type: Out Account: [id number] Location: [facility] Ordering: AMARILIS CHEUNG Exam Date: 07/04/2017/13:30 Family Phys: Charge Code: [id number] Physician: [place] Order #: [id number] DLP Dose#: PROCEDURE: BONE DENSITY STUDY TECHNIQUE: Lumbar vertebral and wrist dual-energy X-ray absorptiometry (DXA) was performed on a central Muut device. SPINE ANALYSIS RESULTS: Average lumbar bone [...] 71 Gender: F Pt. Type: Out Account: [id number] Location: [facility] Ordering: AMARILIS CHEUNG Exam Date: 07/04/2017/13:30 Family Phys: Charge Code: [id number] Physician: [place] Order #: [id number] DLP Dose#: ADDITIONAL FINDINGS: No significant additional findings. Dictated by: Ananya Hogan MD on 07/04/2017 at 10:56 Approved by: Ananya Hogan MD on 07/04/2017 at 10:56 [facility] Vital Signs Date Time Vital Sign Value Performing Clinician Facility 02-08-2025 15:34-0400 Body height 162.[address] Kan Vargas MD Work Phone: [facility] 02-08-2025 14:14-0400 Body height 162.[address] Kan Vargas MD Work Phone: [facility] 02-08-2025 14:14-0400 Body mass index (BMI) [Ratio] 22.6 kg/m2 Dr. Kan Vargas MD Work Phone: [facility] 02-08-2025 14:14-0400 Body temperature 96.8 [degF] Dr. Kan Vargas MD Work Phone: [facility] 02-08-2025 14:14-0400 Body weight 59.[address] Kan Vargas MD Work Phone: [facility] 02-08-2025 14:14-0400 Diastolic blood pressure 67 mm[Hg] Dr. Kan Vargas MD Work Phone: [facility] 02-08-2025 14:14-0400 Heart rate 62 /min Dr. Kan Vargas MD Work Phone: [facility] 02-08-2025 14:14-0400 Respiratory rate 14 /min Dr. Kan Vargas MD Work Phone: [facility] 02-08-2025 14:14-0400 SaO2% (BldA) [Mass fraction] 98 % Dr. Kan Vargas MD Work Phone: [facility] 02-08-2025 14:14-0400 Systolic blood pressure 110 mm[Hg] Dr. Kan Vargas MD Work Phone: [phone] [place] [address] 02-08-2025 14:13-0400 Body mass index (BMI) [Ratio] 22.6 kg/m2 Dr. Kan Vargas MD Work Phone: [facility] 02-08-2025 14:13-0400 Body temperature 96.8 [degF] Dr. Kan Vargas MD Work Phone: [facility] 02-08-2025 14:13-0400 Body weight 59.[address] Kan Vargas MD Work Phone: [facility] 02-08-2025 14:13-0400 Diastolic blood pressure 67 mm[Hg] Dr. Kan Vargas MD Work Phone: [facility] 02-08-2025 14:13-0400 Heart rate 62 /min Dr. Kan Vargas MD Work Phone: [facility] 02-08-2025 14:13-0400 Respiratory rate 14 /min Dr. Kan Vargas MD Work Phone: [facility] 02-08-2025 14:13-0400 SaO2% (BldA) [Mass fraction] 98 % Dr. Kan Vargas MD Work Phone: [facility] 02-08-2025 14:13-0400 Systolic blood pressure 110 mm[Hg] Dr. Kan Vargas MD Work Phone: [phone] [place] [address] 08-17-2024 12:00-0500 Body height 162.[address] Kan Vargas MD Work Phone: [phone] [place] [address] 08-17-2024 11:03-0500 Body mass index (BMI) [Ratio] 22.6 kg/m2 Dr. Kan Vargas MD Work Phone: [phone] [place] [address] 08-17-2024 11:03-0500 Body temperature 96.8 [degF] Dr. Kan Vargas MD Work Phone: [phone] [place] [address] 08-17-2024 11:03-0500 Body weight 59.[address] Kan Vargas MD Work Phone: [phone] [place] [address] 08-17-2024 11:03-0500 Diastolic blood pressure 72 mm[Hg] Dr. Kan Vargas MD Work Phone: [phone] [place] [address] 08-17-2024 11:03-0500 Heart rate 64 /min Dr. Kan Vargas MD Work Phone: [phone] [place] [address] 08-17-2024 11:03-0500 Respiratory rate 18 /min Dr. Kan Vargas MD Work Phone: [phone] [place] [address] 08-17-2024 11:03-0500 SaO2% (BldA) [Mass fraction] 96 % Dr. Kan Vargas MD Work Phone: [facility] 08-17-2024 11:03-0500 Systolic blood pressure 125 mm[Hg] Dr. Kan Vargas MD Work Phone: [phone] [place] [address] 02-17-2024 10:44-0400 Body temperature 97.6 [degF] Dr. Kan Vargas MD Work Phone: [phone] [place] [address] 02-17-2024 10:44-0400 Diastolic blood pressure 75 mm[Hg] Dr. Kan Vargas MD Work Phone: [facility] 02-17-2024 10:44-0400 Heart rate 65 /min Dr. Kan Vargas MD Work Phone: [facility] 02-17-2024 10:44-0400 Respiratory rate 16 /min Dr. Kan Vargas MD Work Phone: [facility] 02-17-2024 10:44-0400 SaO2% (BldA) [Mass fraction] 100 % Dr. Kan Vargas MD Work Phone: [facility] 02-17-2024 10:44-0400 Systolic blood pressure 167 mm[Hg] Dr. Kan Vargas MD Work Phone: [facility] 01-31-2023 14:34-0400 Body height 162.[address] Kan Vargas Work Phone: [facility] 01-31-2023 14:34-0400 Body mass index (BMI) [Ratio] 22.4 kg/m2 Dr. Kan Vargas Work Phone: [facility] 01-31-2023 14:34-0400 Body temperature 97.9 [degF] Dr. Kan Vargas Work Phone: [facility] 01-31-2023 14:34-0400 Body weight 59.[address] Kan Vargas Work Phone: [facility] 01-31-2023 14:34-0400 Diastolic blood pressure 76 mm[Hg] Dr. Kan Vargas Work Phone: [facility] 01-31-2023 14:34-0400 Heart rate 62 /min Dr. Kan Vargas Work Phone: [facility] 01-31-2023 14:34-0400 Respiratory rate 16 /min Dr. Kan Vargas Work Phone: [facility] 01-31-2023 14:34-0400 SaO2% (BldA) [Mass fraction] 97 % Dr. Kan Vargas Work Phone: [facility] 01-31-2023 14:34-0400 Systolic blood pressure 156 mm[Hg] Dr. Kan Vargas Work Phone: [facility] 11-13-2022 13:28-0400 Body mass index (BMI) [Ratio] 23 kg/m2 Dr. Kan Vargas Work Phone: [facility] 11-13-2022 13:28-0400 Body temperature 97.6 [degF] Dr. Kan Vargas Work Phone: [facility] 11-13-2022 13:28-0400 Diastolic blood pressure 68 mm[Hg] Dr. Kan Vargas Work Phone: [facility] 11-13-2022 13:28-0400 Heart rate 62 /min Dr. Kan Vargas Work Phone: [facility] 11-13-2022 13:28-0400 Respiratory rate 16 /min Dr. Kan Vargas Work Phone: [facility] 11-13-2022 13:28-0400 SaO2% (BldA) [Mass fraction] 98 % Dr. Kan Vargas Work Phone: [facility] 11-13-2022 13:28-0400 Systolic blood pressure 138 mm[Hg] Dr. Kan Vargas Work Phone: [facility] 02-13-2022 09:02-0400 Body temperature 97.1 [degF] Dr. Kan Vargas Work Phone: [facility] Work Phone: 02-13-2022 09:02-0400 Diastolic blood pressure 76 mm[Hg] Dr. Kan Vargas Work Phone: [facility] Work Phone: 02-13-2022 09:02-0400 Heart rate 74 /min Dr. Kan Vargas Work Phone: [facility] Work Phone: 02-13-2022 09:02-0400 Respiratory rate 16 /min Dr. Kan Vargas Work Phone: [facility] Work Phone: 02-13-2022 09:02-0400 SaO2% (BldA) [Mass fraction] 93 % Dr. Kan Vargas Work Phone: [facility] Work Phone: 02-13-2022 09:02-0400 Systolic blood pressure 122 mm[Hg] Dr. Kan Vargas Work Phone: [facility] Work Phone: 02-13-2022 07:33-0400 Body height 160.[address] Kan Vargas Work Phone: [facility] Work Phone: 02-13-2022 07:33-0400 Body mass index (BMI) [Ratio] 23.7 kg/m2 Dr. Kan Vargas Work Phone: [facility] Work Phone: 02-13-2022 07:33-0400 Body weight 60.[address] Kan Vargas Work Phone: [facility] Work Phone: 01-25-2022 14:35-0400 Body height 162.[address] Kan Vargas Work Phone: [facility] Work Phone: 01-25-2022 14:33-0400 Body mass index (BMI) [Ratio] 23.2 kg/m2 Dr. Kan Vargas Work Phone: [facility] Work Phone: 01-25-2022 14:33-0400 Body temperature 98.1 [degF] Dr. Kan Vargas Work Phone: [facility] Work Phone: 01-25-2022 14:33-0400 Body weight 61.[address] Kan Vargas Work Phone: [facility] Work Phone: 01-25-2022 14:33-0400 Diastolic blood pressure 79 mm[Hg] Dr. Kan Vargas Work Phone: [facility] Work Phone: 01-25-2022 14:33-0400 Heart rate 70 /min Dr. Kan Vargas Work Phone: [facility] Work Phone: 01-25-2022 14:33-0400 Respiratory rate 16 /min Dr. Kna Vargas Work Phone: [facility] Work Phone: 01-25-2022 14:33-0400 SaO2% (BldA) [Mass fraction] 97 % Dr. Kan Vargas Work Phone: [facility] Work Phone: 01-25-2022 14:33-0400 Systolic blood pressure 135 mm[Hg] Dr. Kan Vargas Work Phone: [facility] Work Phone: 11-08-2021 10:03-0400 Body mass index (BMI) [Ratio] 22.3 kg/m2 Dr. Kan Vargas Work Phone: [facility] Work Phone: 11-08-2021 10:03-0400 Body temperature 99.2 [degF] Dr. Kan Vargas Work Phone: [facility] Work Phone: 11-08-2021 10:03-0400 Body weight 58.[address] Kan Vargas Work Phone: [facility] Work Phone: 11-08-2021 10:03-0400 Diastolic blood pressure 60 mm[Hg] Dr. Kan Vargas Work Phone: [facility] Work Phone: 11-08-2021 10:03-0400 Heart rate 70 /min Dr. Kan Vargas Work Phone: [facility] Work Phone: 11-08-2021 10:03-0400 Respiratory rate 12 /min Dr. Kan Vargas Work Phone: [facility] Work Phone: 11-08-2021 10:03-0400 SaO2% (BldA) [Mass fraction] 99 % Dr. Kan Vargas Work Phone: [facility] Work Phone: 11-08-2021 10:03-0400 Systolic blood pressure 140 mm[Hg] Dr. Kan Vargas Work Phone: [facility] Work Phone: NEGATED: Highlighted [id number] 09:35-0400 BMI (Body Mass Index) 23.29 kg/m2 [facility] Work Phone: NEGATED: Highlighted [id number] 09:35-0400 BP Diastolic 65 mm[Hg] [facility] Work Phone: NEGATED: Highlighted [id number] 09:35-0400 BP Systolic 106 mm[Hg] [facility] Work Phone: NEGATED: Highlighted [id number] 09:35-0400 Height 160.02 cm [facility] Work Phone: NEGATED: Highlighted [id number] 09:35-0400 Height 160 cm [facility] Work Phone: NEGATED: Highlighted [id number] 09:35-0400 Pulse (Heart Rate) 60 /min [facility] Work Phone: NEGATED: Highlighted [id number] 09:35-0400 Weight 59.42 kg Yassine Smallwood ASSISTANT PROFESSOR OF BIOCHEMISTRY [facility] Work Phone: NEGATED: Highlighted [id number] 09:35-0400 Weight 60 kg Yassine Smallwood ASSISTANT PROFESSOR OF BIOCHEMISTRY [facility] Work Phone: Encounters Encounter Date Encounter Type Care Provider Facility Start: 06-07-2025 ambulatory Marvin Ya Facility: [facility] Start: 05-11-2025 End: 05-11-2025 ambulatory Kan Vargas Facility:[facility] Start: 04-09-2025 End: 04-09-[address] Kan Vargas MD Work Phone: -[facility] Start: 04-09-2025 End: 04-09-[address] Kan Vargas MD -[facility] Work Phone: Start: 04-09-2025 End: 04-09-2025 ambulatory Kan Vargas Facility:[facility] Start: 02-16-2025 End: 02-16-[address] Kan Vargas MD Work Phone: -[facility] Start: 02-16-2025 End: 02-16-[address] Kan Vargas MD -[facility] Work Phone: Start: 02-16-2025 End: 02-16-2025 ambulatory Kan Vargas Facility:[facility] Start: 02-08-[address] Chris Patton MD -[facility] Start: 02-08-2025 End: 02-08-[address] Man Morgan DO -[facility] Work Phone: Start: 02-08-2025 End: 02-08-[address] Kan Vargas MD Work Phone: -[facility] Start: 02-05-2025 End: 02-05-[address] Kan Vargas MD Work Phone: -Laboratory [facility] Start: 02-05-2025 End: 02-05-[address] Kan Vargas MD -[facility] Start: 02-05-2025 End: 02-05-2025 ambulatory Kan Vargas Facility:[facility] Start: 02-01-2025 End: 02-01-[address] Kan Vargas MD Work Phone: -Outpatient [facility] Start: 02-01-2025 End: 02-01-[address] Cherelle Patton MD -[facility]patient [facility] Work Phone: Start: 02-01-2025 End: 02-01-2025 ambulatory Cherelle Patton Facility:[facility] Start: 01-07-2025 End: 01-07-[address] Kan Vargas MD Work Phone: -[facility] Start: 01-07-2025 End: 01-07-[address] Kan Vargas MD -[facility] Work Phone: Start: 01-07-2025 End: 01-07-2025 ambulatory Kan Vargas Facility:[facility] Start: 10-12-2024 End: 10-12-[address] Kan Vargas MD Work Phone: [facility] Work Phone: Start: 10-12-2024 End: 10-12-[address] Kan Vargas MD -Laboratory[facility] Start: 10-12-2024 End: 10-12-2024 ambulatory Kan Vargas Facility:[facility] Start: 08-17-[address] Chris Patton MD -[facility] Start: 08-17-2024 End: 08-17-[address] Cherelle Patton MD -[facility] Work Phone: Start: 08-17-2024 End: 08-17-2024 ambulatory Cherelle Nyus Facility:[facility] Start: 09-26-2023 End: 09-26-2023 ambulatory [facility] Work Phone: Start: 09-26-2023 End: 09-26-2023 Patient encounter procedure [facility] Start: 01-31-2023 End: 01-31-[address] Kan Vargas Work Phone: [facility] Work Phone: Start: 01-28-2023 End: 01-28-[address] Kan Vargas Work Phone: [facility] Work Phone: Start: 01-28-2023 End: 01-28-[address] Kan Vargas Work Phone: [facility]-Outpatient Breast Imaging Work Phone: Start: 11-13-[address] Kan Vargas Work Phone: [facility] Start: 02-13-2022 Non-patient / Non-visit Dr. Delmis Vargas Work Phone: [facility] Start: 02-13-2022 End: 02-13-2022 Admission to same day surgery center Dr. Kan Vargas Work Phone: [facility]-Endoscopy Start: 01-25-2022 End: 01-25-[address] Kan Vargas Work Phone: [facility] Start: 01-23-2022 End: 01-23-[address] Kan Vargas Work Phone: [facility]-Outpatient Bone Densitometry Start: 11-08-[address] Kan Vargas Work Phone: [facility] Start: 11-21-2017 End: 11-21-2017 Ambulatory [facility] Start: 11-19-2017 End: 11-19-2017 Ambulatory [facility]OREEN [facility]RRUT[facility] Start: 11-14-2017 End: 11-14-2017 Patient encounter procedure Alberto Rayo MD Work Phone: [facility] Work Phone: Start: 07-04-2017 End: 07-04-2017 Ambulatory [facility] Procedures Date Procedure Procedure Detail Performing Clinician Start: 04-09-2025 Radiologic examination knee [address] Kan Vargas MD Work Phone: Start: 02-16-2025 MRI of brain with contrast Dr. Kan kowalski MD Work Phone: Start: 02-08-[address] Kan Vargas MD Work Phone: Comment on above: Deficiency: <3.4 Marginal: 3.4 - 5.1 Cori quate: >5.1 Start: 02-01-[address] Kan Vargas MD Work Phone: Start: 10-12-2024 Urnls dip stick/tablet reagent auto microscopy Dr. Kan Vargas MD Work Phone: Start: 10-12-2024 Vitamin D, 25-hydroxy measurement Dr. Delmis Vargas MD Work Phone: Comment on above: Vitamin D StatusDeficiency: <20 ng/mL (5 0nmol/L)Insufficiency: 20-30 ng/mL (50-75 nmol/L)Sufficiency: 30-100 ng/mL (75-250 nmol/L)Toxicity: >100 ng/mL (>250 nmol/L) Start: 08-17-[address] Kan Vargas MD Work Phone: Start: 08-17-2024 Measurement of renal function Dr. Kan houston MD Work Phone: Comment on above: GFR Calc Start: 01-28-[address] Kan Vargas Work Phone: Start: 02-13-[address] Kan kowalski Work Phone: Start: 01-23-2022 Dual energy X-ray absorptiometry Dr. Clinton Vargas Work Phone: Start: 01-23-[address] Kan Vargas Work Phone: Start: 11-14-2017 End: 11-14-2017 Blood pressure within normal parameters - no follow-up required Alberto Rayo MD Work Phone: Start: 11-14-2017 End: 11-14-2017 BMI documented within normal parameters - no follow-up plan is required Alberto Rayo MD Work Phone: Start: 11-14-2017 End: 11-14-2017 Current medications documented Alberto diana MD Work Phone: Start: 11-14-2017 End: 11-14-2017 Osteoarthritis assess Alberto Rayo MD Work Phone: Start: 11-14-2017 End: 11-14-2017 Pain assessment documented as negative - follow-up not required Alberto Rayo MD Work Phone: Start: 11-14-2017 End: 11-14-2017 Tobacco non-user Alberto Rayo MD Work Phone: Plan of Treatment Date Care Activity Detail Author Start: 02-08-2025 Thiamine measurement [facility] Start: 02-08-2025 Thiamine measurement [facility] Start: 02-08-2025 Vitamin B6 measurement [facility] Start: 02-08-2025 [facility] Start: 02-05-2025 Vitamin B6 measurement [facility] Start: 02-13-2022 Patient discharge [facility] Work Phone: Start: 08-04-2019 MG Breast - bilatera l Screening [facility] Start: 02-03-2018 [facility] Start: 01-14-2018 Referral to occupati onal therapist [facility] Start: 01-14-2018 [facility] Start: 11-14-2017 End: 11-14-2017 Appointment [facility] Work Phone: Start: 11-14-2017 End: 11-14-2017 X-ray exam of pelvis XR PELVIS 1-2 VWS [facility] Work Phone: DXA Bone [Mass/Area] Bone density [facility] Work Phone: DXA Bone [Mass/Area] Bone density [facility] MG Breast - bilatera l Screening [facility] MG Breast - bilatera l Screening [facility] Patient referral [facility] Work Phone: [facility] Immunizations Immunization Date Immunization Notes Care Provider Etelvina vasquez No information available. Yassine Smallwood LPN [facility] Work Phone: Payers Date Payer Category Payer Self-pay [id number] 2018 Medicare [id number] Blue Cross Blue Shield [id number] Unknown [id number] Unknown [id number] 2.16.8 [id number] Unknown [id number] 2.16.8 [id number] Unknown [id number] 2.16.8 [id number] Unknown [id number] 2.16.8 [id number] Unknown [id number] 2.16.8 [id number] Unknown [id number] 2.16.8 [id number] Unknown [id number] 2.16.8 [id number] Unknown [id number] 2.16.8 [id number] Unknown [id number] 2.16.8 [id number] Unknown [id number] 2.16.8 [id number] Unknown [id number] 2.16.8 [id number] Unknown [id number] 2.16.8 [id number] Social History Date Type Detail Facility Start: 07-28-2021 End: 04-30-2023 Assertion Unknown if ever smoked [facility] Work Phone: Start: 08-02-2020 Non-smoker [facility] Start: 1945 Sex Assigned At Female [facility] Start: 04-30-2023 [facility] Start: 10-15-2024 Sex Female (finding) [facility] Sex Female [facility] Medical Equipment Procedure Code Equipment Code Equipment Origin al Text Equipment Identifier Dates Erika fundoplication CLIP,HEMOL OCK InGaugeItCK FDA Start: 01-19-2019 Erika fundoplication CLIP,HEMOL OCK iFlexMe FDA Start: 01-19-2019 Erika fundoplication PLEDGET,SO FT 8x8x1.6mm FDA Start: 01-19-2019 Erika fundoplication PLEDGET,SO FT 8x8x1.6mm FDA Start: 01-19-2019 Erika fundoplication CLIP,HEMOL OCK Easy Ice FDA Start: 01-19-2019 Erika fundoplication CLIP,HEMOL OCK MED K2 Media FDA Start: 01-19-2019 Erika fundoplication PLEDGET,SO FT 8x8x1.6mm FDA Start: 01-19-2019 Erika fundoplication PLEDGET,SO FT 8x8x1.6mm FDA Start: 01-19-2019 Erika fundoplication CLIP,HEMOL OCK LG WECK FDA Start: 01-19-2019 Erika fundoplication CLIP,HEMOL OCK MED WECK FDA Start: 01-19-2019 Erika fundoplication PLEDGET,SO FT 8x8x1.6mm FDA Start: 01-19-2019 Erika fundoplication PLEDGET,SO FT 8x8x1.6mm FDA Start: 01-19-2019 Erika fundoplication CLIP,HEMOL OCK LG WECK FDA Start: 01-19-2019 Erika fundoplication CLIP,HEMOL OCK MED WECK FDA Start: 01-19-2019 Erika fundoplication PLEDGET,SO FT 8x8x1.6mm FDA Start: 01-19-2019 Erika fundoplication PLEDGET,SO FT 8x8x1.6mm FDA Start: 01-19-2019 Erika fundoplication CLIP,HEMOL OCK LG InGaugeIt FDA Start: 01-19-2019 Erika fundoplication CLIP,HEMOL OCK MED InGaugeItCK FDA Start: 01-19-2019 Erika fundoplication PLEDGET,SO FT 8x8x1.6mm FDA Start: 01-19-2019 Erika fundoplication PLEDGET,SO FT 8x8x1.6mm FDA Start: 01-19-2019 Erika fundoplication CLIP,HEMOL OCK LG InGaugeIt FDA Start: 01-19-2019 Erika fundoplication CLIP,HEMOL OCK MED InGaugeIt FDA Start: 01-19-2019 Erika fundoplication PLEDGET,SO FT 8x8x1.6mm FDA Start: 01-19-2019 Erika fundoplication PLEDGET,SO FT 8x8x1.6mm FDA Start: 01-19-2019 Erika fundoplication CLIP,HEMOL OCK LG InGaugeItGIAN FDA Start: 01-19-2019 Erika fundoplication CLIP,HEMOL OCK MED WECK FDA Start: 01-19-2019 Erika fundoplication PLEDGET,SO FT 8x8x1.6mm FDA Start: 01-19-2019 Erika fundoplication PLEDGET,SO FT 8x8x1.6mm FDA Start: 01-19-2019 Erika fundoplication CLIP,HEMOL OCK LG WECK FDA Start: 01-19-2019 Erika fundoplication CLIP,HEMOL OCK MED WECK FDA Start: 01-19-2019 Erika fundoplication PLEDGET,SO FT 8x8x1.6mm FDA Start: 01-19-2019 Erika fundoplication PLEDGET,SO FT 8x8x1.6mm FDA Start: 01-19-2019 Erika fundoplication CLIP,HEMOL OCK LG InGaugeItCK FDA Start: 01-19-2019 Erika fundoplication CLIP,HEMOL OCK MED WECK FDA Start: 01-19-2019 Erika fundoplication PLEDGET,SO FT 8x8x1.6mm FDA Start: 01-19-2019 Erika fundoplication PLEDGET,SO FT 8x8x1.6mm FDA Start: 01-19-2019 Erika fundoplication CLIP,HEMOL OCK LG InGaugeIt FDA Start: 01-19-2019 Erika fundoplication CLIP,HEMOL OCK MED InGaugeItCK FDA Start: 01-19-2019 Erika fundoplication PLEDGET,SO FT 8x8x1.6mm FDA Start: 01-19-2019 Erika fundoplication PLEDGET,SO FT 8x8x1.6mm FDA Start: 01-19-2019 Erika fundoplication CLIP,HEMOL OCK LG InGaugeItCK FDA Start: 01-19-2019 Erika fundoplication CLIP,HEMOL OCK MED InGaugeItCK FDA Start: 01-19-2019 Erika fundoplication PLEDGET,SO FT 8x8x1.6mm FDA Start: 01-19-2019 Erika fundoplication PLEDGET,SO FT 8x8x1.6mm FDA Start: 01-19-2019 Erika fundoplication CLIP,HEMOL OCK LG InGaugeItCK FDA Start: 01-19-2019 Erika fundoplication CLIP,HEMOL OCK MED InGaugeItCK FDA Start: 01-19-2019 Erika fundoplication PLEDGET,SO FT 8x8x1.6mm FDA Start: 01-19-2019 Erika fundoplication PLEDGET,SO FT 8x8x1.6mm FDA Start: 01-19-2019 SEALANT,FLOSEAL HEMOSTATIC 5ML FDA Start: 12-25-2017 SEALANT,FLOSEAL HEMOSTATIC 5ML FDA Start: 12-25-2017 SEALANT,FLOSEAL HEMOSTATIC 5ML FDA Start: 12-25-2017 SEALANT,FLOSEAL HEMOSTATIC 5ML FDA Start: 12-25-2017 SEALANT,FLOSEAL HEMOSTATIC 5ML FDA Start: 12-25-2017 SEALANT,FLOSEAL HEMOSTATIC 5ML FDA Start: 12-25-2017 SEALANT,FLOSEAL HEMOSTATIC 5ML FDA Start: 12-25-2017 SEALANT,FLOSEAL HEMOSTATIC 5ML FDA Start: 12-25-2017 SEALANT,FLOSEAL HEMOSTATIC 5ML FDA Start: 12-25-2017 SEALANT,FLOSEAL HEMOSTATIC 5ML FDA Start: 12-25-2017 SEALANT,FLOSEAL HEMOSTATIC 5ML FDA Start: 12-25-2017 SEALANT,FLOSEAL HEMOSTATIC 5ML FDA Start: 12-25-2017 Goals Date Patient Goal Desired Activity /State Mental Status Date Assessment Result Facility 02-08-2025 Cognitive function Awake;Alert;A ppropriate;Follo Commands [facility] Work Phone: 08-17-2024 Cognitive function Awake;Alert;A ppropriate;Follo ws Commands [facility] Work Phone: 02-17-2024 Cognitive function Arousable To Voice/Nam e [facility] Work Phone: 05-14-2022 Cognitive function Voice/Name [facility] Work Phone: 02-13-2022 Cognitive function Touch/Shaking [facility] Work Phone: 02-13-2022 Cognitive function Patient Orien tation Person;Place;Time [facility] Work Phone: 11-08-2021 Cognitive function Voice/Name [facility] Work Phone: 04-08-2019 Cognitive function Mood Descript ion Appropriate;Calm [facility] Work Phone: Clinical Notes 08-17-2024 to 04-13-2025 Note Date & Type Note Facility 04-13-2025 Radiology Diagnostic study note [facility] Imaging Services [address] [place] [address] Knee 3 Views MR#: [id number] Acct: [id number] Name: JIMMIE WEATHERS Rep #: [id number] : 1945 F 79 From: Fabio Barry MD PCP: Dr. Kan Vargas MD Status: RE G CLI Study:Knee 3 Views Date of Exam: 5 Exam# [id number] Ordering Dr: Kan Vargas MD PROCEDURE: KNEE 3 VIEWS 04/09/2025 REASON FOR EXAM: PAIN TECHNIQUE: Procedure Code: RADPAT Modality: DX Procedure: KNEE 3 VIEWS Laterality: Right knee COMPARISON: None FINDINGS: Bones: No fracture. No suspicious bone lesion. Joints: Normal alignment. Mild degenerative changes. Effusion: No effusion. Soft tissues: Soft tissues are unremarkable. Other: RAD/Knee 3 Views IMPRESSION: NO EFFUSION ACUTE FRACTURE OR DISLOCATION. Reading Location: [facility] CC: Dr. Kan Vargas MD ~ Texture Artist: Signed [facility] 02-08-2025 Progress note [facility] 02-08-2025 Evaluation note Diagnosis Onset Date Resolution History of breast cancer acute February 08, 2025 12:57pm Educational circumstance acute February 08, 2025 3:00pm Breast cancer in female chronic A 2024 3:00pm Osteopenia deleted February 08 3:00pm Osteoporosis deleted February 08, 2025 3:00pm [facility] Work Phone: 1(537) 529-225708-04-2025 Evaluation note* Diagnosis Onset Date Resolution Status Admit Date Breast cancer in female chronic A 2024 12:56pm Osteopenia chronic February 08 12:56pm History of breast cancer acute February 08, 2025 12:57pm Educational circumstance acute February 08, 2025 3:00pm Breast cancer in female chronic A 2024 3:00pm Osteopenia deleted February 08 3:00pm Osteoporosis deleted February 08, 2025 3:00pm [facility] Work Phone: 1(356) 426-522508-04-2025 Progress [facility] [address] [place] [id number] OFFICE VISIT Date of Service: 02/08/25 1409 MR#: [id number] Acct: [id number] Name: JIMMIE WEATHERS Rep #: [id number] : 1945 From: Man Millie garcia DO Age/Sex: 79/F Location[facility] Status: Signed Intake Vital Signs 08/17/24 12:00 02/08/25 14:13 Height 5 ft 4 in 5 ft 4 in Weight: 132 lb 2 oz BMI 22.6 BP 110/67 Blood Pressure Location Lt brachial Position Sitting Respiration 14 Pulse 62 Pulse Source Monitor Temp 96.8 F L Temperature Source Temporal Artery Pulse Oximetry (%) 98 Oxygen Delivery Method room air Intake Visit Reasons: 1 YR F/U BREAST Is patient in pain?: No Allergies No Known Allergies Allergy (Verified 02/08/25 14:32) Medications ?Medication ?Instructions ?Recorded ?Confirmed ?Type cholecalciferol (vitamin D3) 50 2,000 unit PO QDAY 02/08/25 History mcg (2,000 unit) capsule hydrochlorothiazide 25 mg tablet 25 mg PO QDAY 8 02/08/25 History multivitamin 1 tab PO QDAY 12/03/1702/08 History denosumab 60 mg/mL subcutaneous 60 mg SQ Q6M 01/12/19 02/08/25 History syringe (Prolia) aspirin 81 mg chewable tablet 162 mg PO DAILY@0800 02/08/25 History inulin 2 gram chewable tablet 2 g PO DAILY 11/07/20 History (Fiber Gummies) zinc 50 mg tablet 25 mg PO DAILY 09/06/2110/30 History levothyroxine 75 mcg tablet 75 mcg PO DAILY 05/11/22 0 02/08/25 History rosuvastatin 10 mg tablet 10 mg PO DAILY 05/11/2210/30 History Have you fallen in the past year?: No PFSH PFSH Medical History Tick bite of right thigh ER+ (estrogen receptor positive status) Cataract Alcoholism Wears glasses High cholesterol Non-smoker Restless legs History of squamous cell carcinoma of skin Skin cancer Skin lesion Hiatal hernia with gastroesophageal reflux disease and esophagitis GERD (gastroesophageal reflux disease) Breast cancer in female Breast cancer (~12/2017) Hypothyroidism Hemorrhoids HTN (hypertension) Osteoarthritis Home Medications ?Medication ?Instructions ?Recorded ?Last Taken ?Type cholecalciferol (vitamin D3) 50 2,000 unit PO QDAY 05/28/18 History mcg (2,000 unit) capsule hydrochlorothiazide 25 mg tablet 25 mg PO QDAY 8 12/24/17 History multivitamin 1 tab PO QDAY 12/03/1705/28 History denosumab 60 mg/mL subcutaneous 60 mg SQ Q6M 01/12/19 Unknown History syringe (Prolia) aspirin 81 mg chewable tablet 162 mg PO DAILY@0800 Unknown History inulin 2 gram chewable tablet 2 g PO DAILY 11/07/20 Un known History (Fiber Gummies) zinc 50 mg tablet 25 mg PO DAILY 09/06/21 Unkn own History levothyroxine 75 mcg tablet 75 mcg PO DAILY 05/11/22 U nknown History rosuvastatin 10 mg tablet 10 mg PO DAILY 05/11/22 Unkn own History Allergy/AdvReac Type Severity Reaction Status Date / Time No Known Allergies Allergy Verified 02/08/25 14:32 Family History Father CAD (coronary artery disease) Hypertension Myocardial infarction Mother Bleeding disorder Hypertension Sister Bleeding disorder Heart disease Other Alcoholism Arthritis Breast cancer Cancer High cholesterol History of anesthesia problem Osteoporosis Skin cancer Thyroid disorder Surgical History History of repair of hiatal hernia s/p EGD with PH probe (~06/03/18) History of lumpectomy S/P breast biopsy S/P colonoscopy S/P dilation and curettage S/P tubal ligation Status post left hip replacement Status post right hip replacement S/P breast biopsy Social History household members: spouse housing: house Smoking Status: Never smoker second hand exposure: No alcohol intake: never substance use type: does not use well-balanced diet: daily or most days caffeine: No eating out: 1-3 times/week during the past year weight has: remained stable what type of physical activity do you participate in: walking How many days of moderate to strenuous exercise, like a brisk walk, did you do in the last 7 days: 7 frequency: daily duration: 15-30 minutes/day kori/bahai: [employer] seatbelt use: always do you feel safe at home: Yes Diagnosis: Jimmie Weathers is a 79-year-old postmenopausal female diagnosed with pathologic stageI (pT1a pN0 (sn) M0) 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 From 02/13/18 - [...] biopsy marker is noted in the right upperouter quadrant. No significant suspicious findings are noted in the left breast. BI-RADS Category 0recommend ultrasound. 11/21/2017: Ultrasound of the right breast was performed which demonstrated a solid-appearing mass with likely benign morphology at the mid breast depth 11 o'clock position measuring 5.5 mm. Possible spiculations noted on the mammogramare not present on the ultrasound, there is [...] for grade 1 invasive carcinoma (ER >95%, AZ >95%, Her2 1-2+ not amplified on FISH). 12/20/2017: MRI breast was performed. Within the right breast there is an irregular enhancing mass measuring 2.3 x 9 x 7 millimeters at the 11 to 12 o'clock position. There is a tissue clip artifact within the right breast anterior to this mass. There are no abnormal enhancing masses or areas of non- mass enhancement in the left breast and there are no enlarged or abnormal lymph nodes noted. BI-RADS Category 6 12/25/2017: Patient underwent right breast lumpectomy with sentinel lymph node biopsy. Pathology demonstrated 0.5 x 0.5 cm grade 2 invasive ductal carcinoma with focal cribriform features (ER >95%,AZ >95%, Her2 1-2+ not amplified on FISH), LVSI not identified, margins negative (closest is 0.7cm from superior and posterior margin, 0/6 sentinel LNs contained metastatic carcinoma. pT1a pN0(sn) . From 02/13/18 - 03/06/18: Received adjuvant radiation therapy to the right breast consisting of 4256 cGy in 16 fractions. 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 H. Pyloriwas negative. 11/19/2018: bilateral screening mammography was completed and showed previous lumpectomy deformity with surgical clips and no evidence of masses or suspiciouscalcifications. BI-RADS 2. June 2019: shave biopsy of left lower extremity lesion demonstrated evidenceof squamous cell carcinoma in situ. 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 Pathology demonstrated dermal fibrosis and reactive changes consistent with scar, negative for residual carcinoma. 01/20/2020: bilateral screening mammogram was completed which showed no evidence of dominant masses or suspicious calcifications, post right lumpectomy with resultant deformity of the right breast andskin thickening with surgical clips noted. No other abnormalities noted and no significant change when compared to the prior study. BIRADS 2. 01/20/2021: Bilateral screening mammography was performed. This demonstrated no masses or suspiciouscalcifications. There is evidence of prior lumpectomy in the upper slightly outer aspect of the right breast with resultant postoperativescarring and breast deformity, surgical clips are seen in the right axillary region. No new abnormalities are appreciated in either breast. BI-RADS Category 2 01/23/2022: Bilateral screening mammography was completed. This demonstrated no masses or suspiciouscalcifications. Patient is status post lumpectomy in the upper deep central portion of the right breast with resultant postoperative scarring and breast deformity and surgical clips noted in the right axilla. No other significant abnormalities are noted. BI-RADS category 2. 01/28/2023: Bilateral screening mammography was completed. This demonstrated no masses or suspiciouscalcifications. Patient is status post lumpectomy in the upper deep central portion of the right breast with resultant postoperative scarring and breast deformity and surgical clips noted in the right axilla. No other significant abnormalities are noted. BI-RADS category 2. 01/30/2024: Bilateral screening mammography was performed. This demonstrated no dominant masses or suspicious calcifications. Postoperative changes are still noted in the right breast. BI-RADS Category 2. 02/01/2025: Bilateral screening mammography was performed. This demonstrated nodominant masses or suspicious calcifications. Postoperative changes are still noted in the right breast. BI-RADS Category2. Radiation Treatment History: 1) From 02/13/18 - 03/06/18: Received adjuvant radiation therapy to the right breast consisting of 4256 cGy in 16 fractions. Interval History: Patient returns for follow-up approximately 7 years after completing adjuvant radiation therapy to the right breast. She reports doing well overall. She denies having skin irritation or residual pigmentation changes in the right breast. She denies chest wall muscular tightness/pain, breast swelling, arm swelling, reduced arm range of motion, nipple discharge, or new nodularity. Denies breast tenderness. She continues to use skin lotion daily and does dailystretches. She denies shortness of breath, headache, vision changes, bone pain,or unexpected weight loss. She does continue to have fatigueintermittently. Arthritis is stable. She is taking Arimidex and Prolia without much difficulty. Appetite and weight are stable, no excess fatigue. She denies having other problems or concerns at thistime. Review of Systems: A 12-point review of systems was completed and was negative except for what is noted in the HPI/Interval History and by the nurse. Physical Exam: Weight: 132 lbs 2 oz ECO KARNOFSKY SCORE: 90% CONSTITUTIONAL: Well-developed, well-nourished, and in no apparent distress. NECK: Supple, no thyromegaly, and non-tender. Trachea midline. No cervical or supraclavicular adenopathy noted. CARDIAC: Regular rate and rhythm. Normal S1, S2. No murmurs, rubs, or gallops. PULMONARY/CHEST: Lungs are clear to auscultation and percussion bilaterally. No wheezes, rhonchi, or crackles noted. No increased work of breathing. BREAST: Bilateral breasts are examined in the seated and supine position. Thereis a well-healed lumpectomy incision and within the right breast and right axilla. No palpable lesions are appreciated. No residual skin tanning is noted. EXTREMITIES: Full range of motion in all four extremities. No evidence of edema. PSYCHIATRIC: Appropriate mood and affect for the clinical situation. Imaging: As per HPI Laboratory Data: No new labs to review Assessment & Plan Assessment/Plan (1) History of breast cancer: PLAN: Plan Assessment/Plan: Jimmie Weathers is a 79-year-old postmenopausal female diagnosed with pathologic stageI (pT1a pN0 (sn) M0) 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 From 02/13/18 - 03/06/18: Received adjuvant radiation therapy to the right breast consisting of 4256 cGy in 16 fractions. Clinically the patient is doing well overall. She appears to have excellent cosmetic outcome with mild volume loss in the right breast but otherwise no residual toxicity. I again reviewed skin care instructions including continued lotion use once per day over the treated area to keep skin moist andalso recommended sun protection. She is tolerating hormone therapy well. There is no evidence for disease recurrence on exam. Mammography completed 02/01/2025 showed no evidence of disease. I reviewed with the patient my recommendations for disease follow-up which wouldinclude breast examevery 12 months after 5 years and mammography in January 2025. I discussed my recommendation for continuing hormone therapy for 5-10 years as tolerated and she will continue to follow up with med onc regarding hormone therapy. I recommended pursuing a healthy well-balanced plant based diet as well as persistent cardiovascular exercise program to maintain healthy weight and maximally reduce risk of disease recurrence. I will have her return to clinic in 12 months following interval mammogram and I recommend that she follow-up with her PCP for other medical conditions. She was instructed to callwith any further questions or concerns in the interim. Thank you for allowing me to participate in the management and care of your patient. If I may answer any questions in the interim, please do not hesitate tocontact me at any time. Man Morgan DO, MS Pressroom Supervisor, Department of Radiation Oncology [facility] Coding Level of Care Code Off vis,est,level 3 Diagnoses History of breast cancer Z85.3 02/08/25 1434 DO> Date _ Man Morgan DO Cosigner Signature: Date (if applicable) CC: ~ [facility]08-04-2025 Progress note Author Man Morgan [facility] Note Date/Time February 08, 2025 2:3 4pm [facility] [address] [address] OFFICE VISIT Date of Service: 02/08/25 1409 MR#: [id number] Acct: [id number] Name: JIMMIE WEATHERS Rep #: [id number] : 1945 From: Man garcia DO Age/Sex: 79/F Location: [facility] Status: Signed Intake Vital Signs 08/17/24 12:00 02/08/25 14:13 Height 5 ft 4 in 5 ft 4 in Weight: 132 lb 2 oz BMI 22.6 BP 110/67 Blood Pressure Location Lt brachial Position Sitting Respiration 14 Pulse 62 Pulse Source Monitor Temp 96.8 F L Temperature Source Temporal Artery Pulse Oximetry (%) 98 Oxygen Delivery Method room air Intake Visit Reasons: 1 YR F/U BREAST Is patient in pain?: No Allergies No Known Allergies Allergy (Verified 02/08/25 14:32) Medications ?Medication ?Instructions ?Recorded ?Confirmed ?Type cholecalciferol (vitamin D3) 50 2,000 unit PO QDAY 02/08/25 History mcg (2,000 unit) capsule hydrochlorothiazide 25 mg tablet 25 mg PO QDAY 8 02/08/25 History multivitamin 1 tab PO QDAY 12/03/1702/08 History denosumab 60 mg/mL subcutaneous 60 mg SQ Q6M 01/12/19 02/08/25 History syringe (Prolia) aspirin 81 mg chewable tablet 162 mg PO DAILY@0802/08/25 History inulin 2 gram chewable tablet 2 g PO DAILY 11/07/20 History (Fiber Gummies) zinc 50 mg tablet 25 mg PO DAILY 09/06/2110/30 History levothyroxine 75 mcg tablet 75 mcg PO DAILY 05/11/22 0 02/08/25 History rosuvastatin 10 mg tablet 10 mg PO DAILY 05/11/2210/30 History Have you fallen in the past year?: No PFSH PFSH Medical History Tick bite of right thigh ER+ (estrogen receptor positive status) Cataract Alcoholism Wears glasses High cholesterol Non-smoker Restless legs History of squamous cell carcinoma of skin Skin cancer Skin lesion Hiatal hernia with gastroesophageal reflux disease and esophagitis GERD (gastroesophageal reflux disease) Breast cancer in female Breast cancer (~12/2017) Hypothyroidism Hemorrhoids HTN (hypertension) Osteoarthritis Home Medications ?Medication ?Instructions ?Recorded ?Last Taken ?Type cholecalciferol (vitamin D3) 50 2,000 unit PO QDAY 05/28/18 History mcg (2,000 unit) capsule hydrochlorothiazide 25 mg tablet 25 mg PO QDAY 8 12/24/17 History multivitamin 1 tab PO QDAY 12/03/1705/28 History denosumab 60 mg/mL subcutaneous 60 mg SQ Q6M 01/12/19 Unknown History syringe (Prolia) aspirin 81 mg chewable tablet 162 mg PO DAILY@0800 Unknown History inulin 2 gram chewable tablet 2 g PO DAILY 11/07/20 Un known History (Fiber Gummies) zinc 50 mg tablet 25 mg PO DAILY 09/06/21 Unkn own History levothyroxine 75 mcg tablet 75 mcg PO DAILY 05/11/22 U nknown History rosuvastatin 10 mg tablet 10 mg PO DAILY 05/11/22 Unkn own History Allergy/AdvReac Type Severity Reaction Status Date / Time No Known Allergies Allergy Verified 02/08/25 14:32 Family History Father CAD (coronary artery disease) Hypertension Myocardial infarction Mother Bleeding disorder Hypertension Sister Bleeding disorder Heart disease Other Alcoholism Arthritis Breast cancer Cancer High cholesterol History of anesthesia problem Osteoporosis Skin cancer Thyroid disorder Surgical History History of repair of hiatal hernia s/p EGD with PH probe (~06/03/18) History of lumpectomy S/P breast biopsy S/P colonoscopy S/P dilation and curettage S/P tubal ligation Status post left hip replacement Status post right hip replacement S/P breast biopsy Social History household members: spouse housing: house Smoking Status: Never smoker second hand exposure: No alcohol intake: never substance use type: does not use well-balanced diet: daily or most days caffeine: No eating out: 1-3 times/week during the past year weight has: remained stable what type of physical activity do you participate in: walking How many days of moderate to strenuous exercise, like a brisk walk, did you do in the last 7 days: 7 frequency: daily duration: 15-30 minutes/day kori/bahai: [employer] seatbelt use: always do you feel safe at home: Yes Diagnosis: Jimmie Weathers is a 79-year-old postmenopausal female diagnosed with pathologic stageI (pT1a pN0 (sn) M0) 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 From 02/13/18 - [...] 5.5 mm. Possible spiculations noted on the mammogramare not present on the ultrasound, there is [...] for grade 1 invasive carcinoma (ER >95%, AZ >95%, Her2 1-2+ not amplified on FISH). [...] carcinoma with focal cribriform features (ER >95%, AZ >95%, Her2 1-2+ not amplified on FISH), LVSI not identified, margins negative (closest is 0.7 cm from superior and posterior margin, 0/6 sentinel LNs contained metastatic carcinoma. pT1a pN0(sn). From 02/13/18 - 03/06/18: Received adjuvant radiation therapy to the right breast consisting of 4256 cGy in 16 fractions. 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 H. Pylori was negative. 11/19/2018: bilateral screening mammography was completed and showed previous lumpectomy deformity with surgical clips and no evidence of masses or suspiciouscalcifications. BI-RADS 2. June 2019: shave biopsy of left lower extremity lesion demonstrated evidenceof squamous cell carcinoma in situ. 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 Pathology demonstrated dermal fibrosis and reactive changes consistent with scar, negative for residual carcinoma. 01/20/2020: bilateral screening mammogram was completed which showed no evidence of dominant masses or suspicious calcifications, post right lumpectomy with resultant deformity of the right breast and skin thickening with surgical clips noted. No other abnormalities noted and no significant change when compared to the prior study. BIRADS 2. 01/20/2021: Bilateral screening mammography was performed. This demonstrated no masses or suspicious calcifications. There is evidence of prior lumpectomy in the upper slightly outer aspect of the right breast with resultant postoperativescarring and breast deformity, surgical clips are seen in the right axillary region. No new abnormalities are appreciated in either breast. BI-RADS Category 2 01/23/2022: Bilateral screening mammography was completed. This demonstrated no masses or suspicious calcifications. Patient is status post lumpectomy in the upper deep central portion of the right breast with resultant postoperative scarring and breast deformity and surgical clips noted in the right axilla. No other significant abnormalities are noted. BI-RADS category 2. 01/28/2023: Bilateral screening mammography was completed. This demonstrated no masses or suspicious calcifications. Patient is status post lumpectomy in the upper deep central portion of the right breast with resultant postoperative scarring and breast deformity and surgical clips noted in the right axilla. No other significant abnormalities are noted. BI-RADS category 2. 01/30/2024: Bilateral screening mammography was performed. This demonstrated no dominant masses or suspicious calcifications. Postoperative changes are still noted in the right breast. BI-RADS Category 2. 02/01/2025: Bilateral screening mammography was performed. This demonstrated nodominant masses or suspicious calcifications. Postoperative changes are still noted in the right breast. BI-RADS Category 2. Radiation Treatment History: 1) From 02/13/18 - 03/06/18: Received adjuvant radiation therapy to the right breast consisting of 4256 cGy in 16 fractions. Interval History: Patient returns for follow-up approximately 7 years after completing adjuvant radiation therapy to the right breast. She reports doing well overall. She denies having skin irritation or residual pigmentation changes in the right breast. She denies chest wall muscular tightness/pain, breast swelling, arm swelling, reduced arm range of motion, nipple discharge, or new nodularity. Denies breast tenderness. She continues to use skin lotion daily and does dailystretches. She denies shortness of breath, headache, vision changes, bone pain,or unexpected weight loss. She does continue to have fatigue intermittently. Arthritis is stable. She is taking Arimidex and Prolia without much difficulty. Appetite and weight are stable, no excess fatigue. She denies having other problems or concerns at this time. Review of Systems: A 12-point review of systems was completed and was negative except for what is noted in the HPI/Interval History and by the nurse. Physical Exam: Weight: 132 lbs 2 oz ECO KARNOFSKY SCORE: 90% CONSTITUTIONAL: Well-developed, well-nourished, and in no apparent distress. NECK: Supple, no thyromegaly, and non-tender. Trachea midline. No cervical or supraclavicular adenopathy noted. CARDIAC: Regular rate and rhythm. Normal S1, S2. No murmurs, rubs, or gallops. PULMONARY/CHEST: Lungs are clear to auscultation and percussion bilaterally. No wheezes, rhonchi, or crackles noted. No increased work of breathing. BREAST: Bilateral breasts are examined in the seated and supine position. Thereis a well-healed lumpectomy incision and within the right breast and right axilla. No palpable lesions are appreciated. No residual skin tanning is noted. EXTREMITIES: Full range of motion in all four extremities. No evidence of edema. PSYCHIATRIC: Appropriate mood and affect for the clinical situation. Imaging: As per HPI Laboratory Data: No new labs to review Assessment & Plan Assessment/Plan (1) History of breast cancer: PLAN: Plan Assessment/Plan: Jimmie Weathers is a 79-year-old postmenopausal female diagnosed with pathologic stageI (pT1a pN0 (sn) M0) 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 From 02/13/18 - 03/06/18: Received adjuvant radiation therapy to the right breast consisting of 4256 cGy in 16 fractions. Clinically the patient is doing well overall. She appears to have excellent cosmetic outcome with mild volume loss in the right breast but otherwise no residual toxicity. I again reviewed skin care instructions including continued lotion use once per day over the treated area to keep skin moist and also recommended sun protection. She is tolerating hormone therapy well. There is no evidence for disease recurrence on exam. Mammography completed 02/01/2025 showed no evidence of disease. I reviewed with the patient my recommendations for disease follow-up which wouldinclude breast exam every 12 months after 5 years and mammography in January 2025. I discussed my recommendation for continuing hormone therapy for 5-10 years as tolerated and she will continue to follow up with med onc regarding hormone therapy. I recommended pursuing a healthy well-balanced plant based diet as well as persistent cardiovascular exercise program to maintain healthy weight and maximally reduce risk of disease recurrence. I will have her return to clinic in 12 months following interval mammogram and I recommend that she follow-up with her PCP for other medical conditions. She was instructed to callwith any further questions or concerns in the interim. Thank you for allowing me to participate in the management and care of your patient. If I may answer any questions in the interim, please do not hesitate tocontact me at any time. Man Morgan DO, MS Pressroom Supervisor, Department of Radiation Oncology [facility] Coding Level of Care Code Off vis,est,level 3 Diagnoses History of breast cancer Z85.3 02/08/25 1434 <Electronically signed by Man Morgan DO> Date _ Man Morgan DO Cosigner Signature: Date (if applicable) CC: ~ [facility] Work Phone: [phone] 736-385508-04-2025 Progress note Author Cherelle Patton [facility] Note Date/Time February 08, 2025 3:0 8pm [facility] [place] [address] OFFICE VISIT Date of Service: 02/08/25 1432 MR#: [id number] Acct: [id number] Name: JIMMIE WEATHERS Rep #: [id number] : 1945 From: Cherelle mercado MD Age/Sex: 79/F Location: [facility] Status: Signed HPI Subjective Date of Service 02/08/25 Chief Complaint Breast cancer on treatment History of Present Illness Patient is a 79-year-old female who presented after an abnormal screening mammogram and a biopsy confirming an invasive ductal cancer of the right breast. On December 25, 2017 she underwent a right partial mastectomy with sentinel lymph node sampling. Pathologic examination revealed a single focus of invasive ductal cancer 0.5 cm in maximum diameter with an overall grade 2 (score of 6), nolymphovascular invasion was identified, DCIS was present compromising less than 5% of tumor volume and margin was -0.7 cm. Tumor is ER positive (95%), AZ positive (95%) and HER-2 ramón 1-2+ IHC, negative by FISH. Treatment: Right partial mastectomy with sentinel lymph node sampling December 25, 2017 Arimidex January 2018-summer 2022 (5 years) 02/13/18 - 03/06/18: Received adjuvant radiation therapy to the right breast consisting of 4256 cGy in 16 fractions. Bone supportive therapy with Prolia 60 mg/6 months since April 2018. [facility] Medical History Tick bite of right thigh ER+ (estrogen receptor positive status) Cataract Alcoholism Wears glasses High cholesterol Non-smoker Restless legs History of squamous cell carcinoma of skin Skin cancer Skin lesion Hiatal hernia with gastroesophageal reflux disease and esophagitis GERD (gastroesophageal reflux disease) Breast cancer in female Breast cancer (~12/2017) Hypothyroidism Hemorrhoids HTN (hypertension) Osteoarthritis Surgical History History of repair of hiatal hernia s/p EGD with PH probe (~06/03/18) History of lumpectomy S/P breast biopsy S/P colonoscopy S/P dilation and curettage S/P tubal ligation Status post left hip replacement Status post right hip replacement S/P breast biopsy Family History Father CAD (coronary artery disease) Hypertension Myocardial infarction Mother Bleeding disorder Hypertension Sister Bleeding disorder Heart disease Other Alcoholism Arthritis Breast cancer Cancer High cholesterol History of anesthesia problem Osteoporosis Skin cancer Thyroid disorder Social History household members: spouse housing: house Smoking Status: Never smoker second hand exposure: No alcohol intake: never substance use type: does not use well-balanced diet: daily or most days caffeine: No eating out: 1-3 times/week during the past year weight has: remained stable what type of physical activity do you participate in: walking How many days of moderate to strenuous exercise, like a brisk walk, did you do in the last 7 days: 7 frequency: daily duration: 15-30 minutes/day kori/bahai: [employer] seatbelt use: always do you feel safe at home: Yes ROS Constitutional Constitutional: Reports systems reviewed and no addt'l complaints, except as documented; Denies anorexia, change in weight, fatigue or fever(s) Eyes Eyes: Reports systems reviewed and no addt'l complaints, except as documented; Denies change in vision ENT HEENT: Reports systems reviewed and no addt'l complaints, except as documented; Denies headache(s) Cardiovascular Cardiovascular: Reports systems reviewed and no addt'l complaints, except as documented; Denies chest pain or edema Respiratory/Chest Respiratory/Chest: Reports systems reviewed and no addt'l complaints, except as documented; Denies cough or dyspnea on exertion Gastrointestinal Gastrointestinal: Reports systems reviewed and no addt'l complaints, except as documented and heartburn; Denies abdominal pain or rectal bleeding Genitourinary Genitourinary: Reports systems reviewed and no addt'l complaints, except as documented; Denies hematuria Musculoskeletal Musculoskeletal: Reports arthralgias, back pain and other Details: Chronic unchanged back pain, follows with pain management Dr. Betancourt Integumentary Integumentary: Reports systems reviewed and no addt'l complaints, except as documented; Denies rash Neurologic Neurologic: Reports systems reviewed and no addt'l complaints, except as documented; Denies focal weakness or paresthesias Psychiatric Psychiatric: Reports systems reviewed and no addt'l complaints, except as documented Endocrine Endocrinology: Reports systems reviewed and no addt'l complaints, except as documented Hematologic/Lymphatic Hematologic/Lymphatic: Reports systems reviewed and no addt'l complaints, exceptas documented; Denies easy bleeding, easy bruising or lymphadenopathy Allergic/Immunologic Allergic/Immunologic: Reports systems reviewed and no addt'l complaints, except as documented Intake Vital Signs 08/17/24 12:00 02/08/25 14:13 02/08/25 14:14 Height 5 ft 4 in 5 ft 4 in Weight: 59.931 kg 59.931 kg BMI 22.6 BP 110/67 Blood Pressure Location Lt brachial Position Sitting Respiration 14 Pulse 62 Pulse Source Monitor Temp 96.8 F L Temperature Source Temporal Artery Pulse Oximetry (%) 98 Oxygen Delivery Method room air Intake Municipal Engineer Required: No Accompanied by: Self Allergies No Known Allergies Allergy (Verified 02/08/25 14:32) Medications ?Medication ?Instructions ?Recorded ?Confirmed ?Type cholecalciferol (vitamin D3) 50 2,000 unit PO QDAY 02/08/25 History mcg (2,000 unit) capsule hydrochlorothiazide 25 mg tablet 25 mg PO QDAY 8 02/08/25 History multivitamin 1 tab PO QDAY 12/03/1702/08 History denosumab 60 mg/mL subcutaneous 60 mg SQ Q6M 01/12/19 02/08/25 History syringe (Prolia) aspirin 81 mg chewable tablet 162 mg PO DAILY@0800 02/08/25 History inulin 2 gram chewable tablet 2 g PO DAILY 11/07/20 History (Fiber Gummies) zinc 50 mg tablet 25 mg PO DAILY 09/06/2110/30 History levothyroxine 75 mcg tablet 75 mcg PO DAILY 05/11/22 0 02/08/25 History rosuvastatin 10 mg tablet 10 mg PO DAILY 05/11/2210/30 History Have you fallen in the past year?: No Central Venous Access Central Venous Access: No CBC, CMP January 2025 reviewed in EMR Screening mammography January 2025 reviewed in EMR Exam Physical Exam Const alert, oriented x3 and no apparent distress General Appearance: cooperative and comfortable Eyes General Eye: normal appearance of both eyes Neck General: normal visual inspection Chest inspection of chest normal Resp Effort and Inspection: able to speak in complete sentences and symmetric chest movement Auscultation: clear to auscultation bilaterally Cardio regular rate and regular rhythm Cardio Narrative: Soft 1/6 ejection murmur GI soft to palpation, non-tender and non-distended Extremity no calf tenderness Neuro oriented x3 Psych thought process normal Coding Level of Care Code Off vis,est,level 4 Exam Problem Focused Diagnoses Malignant neoplasm of upper-outer quadrant of right breast in female, estrogen receptor positive C50.411; Z17.0 Breast location: upper outer quadrant of breast Estrogen receptor status: positive Laterality: right Osteopenia of multiple sites M85.89 Osteopenia location: multiple sites Assessment and Plan Assessment and Plan (1) Breast cancer in female: Status: Chronic Qualifiers: Breast location: upper outer quadrant of breast Estrogen receptor status: positive Laterality: right Qualified Code(s): C50.411 - Malignant neoplasm of upper-outer quadrant of right female breast; Z17.0 - Estrogen receptor positive status [ER+] Comment: Rt Arm Restriction (2) Osteopenia: Status: Chronic Qualifiers: Osteopenia location: multiple sites Qualified Code(s): M85.89 - Other specified disorders of bone density and structure, multiple sites Plan 78-year-old female with stage I (T1a, N0, M0) 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 Patient is status post partial mastectomy and sentinel lymph node biopsy December 25, 2017. #1-Received systemic adjuvant hormonal therapy with an aromatase inhibitor for 5 years January 2018-2023. Completed adjuvant radiation therapy March 2018. She tolerated treatment well no excessive toxicities. No evidence to suggest cancer recurrence #2- Patient has progressive postmenopausal bone loss with osteoporosis by bone Density January 2018 despite calcium and vitamin D supplementation. She also reported height loss of 2 inches over the course of the past few years despite regularly using vitamin D calcium supplement. Prolia started April of 2018 her bone density in January 2020 shows improvement. However, bone density January 2022 showed worsening osteopenia despite continued treatment, was evaluated by endocrinology consultation and continued treatment with monitoring of calcium and vitamin D supplementation advised. Comorbid conditions: Osteopenia, dyslipidemia, hypertension, hypothyroidism and DJD Plan: 1-completed 5 years of adjuvant hormonal therapy in 2022 2-Bone density January 2024 shows improvement in bone loss but remains osteopenic on Prolia , in addition to vitamin D and calcium oral supplement . Continue long- term Prolia (as per endocrine recommendations). Mild hypercalcemia noted January 2024, advise dose reduction in calcium supplement, hold off calcium containing antacids (Tums) and continue vitamin D; improved. 3-screening mammography up-to-date January 2025. 4-follow-up 12 m. Impression and plan discussed with patient Cherelle Patton MD Pressroom Supervisor, [facility] Divisions of Medical Oncology & Hematology Department of Internal Medicine [place] [id number] This note was generated using a voice recognition system software. Although it was reviewed by the author prior to finalization, it may still contain incorrect words, spelling, and punctuation that were not noted when reviewing prior to saving. If a clinically significant typo or inaccurately typed phrase is noted, please notify the author. Medications: Clinical Quality Measures Falls Risk Screening/Assistive Devices Have you fallen in the past year?: No 02/08/25 1508 <Electronically signed by Cherelle cooney MD> Date _ Cherelle Patton MD Cosigner Signature: Date (if applicable) CC: Dr. Kan Vargas MD ~ [facility] Work Phone: [phone] Evaluation note* Diagnosis Onset Date Resolution Status Admit Date Breast cancer in female chronic F ebruary 2024 10:06am Osteopenia chronic August 17, 2024 10:06am Educational circumstance acute August 17, 2024 10:15am Breast cancer in female chronic F ebruary 2024 10:15am Osteopenia deleted August 17, 2024 10:15am Osteoporosis deleted August 10:15am [facility] Work Phone: Chief complaint+Reason for visit Narrative* Chief Complaint ONC/HEM SCREENING/POST MO FOLLOWUP MAMMOGRAM Reason for Visit Educational circumst ance Breast cancer in female Osteopenia History of breast cancer [facility] Work Phone: Chief complaint+Reason for visit Narrative* Chief Complaint ONC/HEM SCREENING/POST MO FOLLOWUP MAMMOGRAM Reason for Visit Educational circumst ance Breast cancer in female Osteopenia History of breast cancer Archer esophagus [facility] Work Phone: Chief complaint+Reason for visit Narrative* Chief Complaint ONC/HEM SCREENING 1 yr f/u breast Reason for Visit Educational circumst ance Breast cancer in female Osteopenia History of breast cancer [facility] Work Phone: Evaluation note* Diagnosis Onset Date Resolution Status Educational circumstance 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 History of breast cancer acu te [facility] Work Phone: Evaluation note* Diagnosis Onset Date Resolution Status Educational circumstance 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 History of breast cancer acu te Archer esophagus acute [facility] Work Phone: Evaluation noteNo assessment information available [facility] Work Phone[facility] Work Phone: Reason for referral (narrative)No reason for referral information available[facility] Work Phone: Instructions Instruction Description Start Date Completed Advance Directives No Advanced Directives Records Found Advance Directive Response Recorded Date/ Time Advance Directives No July 28, 2021 1:55pm Living Will No July 28 1:55pm Power of Cone Cleaner No July 28, 2021 1:55pm Advance Directive Response Recorded Date/ Time Advance Directives No July 28, 2021 1:55pm Living Will No February 09, 2022 8:18am Power of Cone Cleaner No February 09 8:18am Advance Directive Response Recorded Date/ Time Living Will No February 09, 2022 8:18am Do you have a Healthcare Power of Cone Cleaner? No February 09, 2022 8:18am Living Will No April 08 9 3:04pm Do you have a Healthcare Power of Cone Cleaner? No April 08, 2019 3:04pm Advance Directives No July 28, 2021 1:55pm Advance Directive Response Recorded Date/ Time Advance Directives No July 28, 2021 1:55pm Advance Directive Response Recorded Date/ Time Living Will No April 08 9 3:04pm Do you have a Healthcare Power of Cone Cleaner? No April 08, 2019 3:04pm Advance Directives No July 28, 2021 1:55pm Assessments There may be information available, but it has not been provided by the sender. Review of System There may be information available, but it has not been provided by the sender. Family History No Family History Records Found Relationship Condition Age at Onset Recorded Date/T aya father Coronary artery disease Unknown Hypertension Unknown mother Hemorrhagic disorder Unknown sister Hemorrhagic disorder Unknown Relationship Condition Age at Onset Recorded Date/T yaa Not Specified Malignant neoplasm of skin Unknown Osteoporosis Unknown High blood cholesterol Unknown Alcoholism Unknown Arthritis Unknown History of anesthesia problem Unknown Malignant neoplasm of breast Unknown Malignant neoplasm Unknown Disorder of thyroid Unknown father Coronary artery disease Unknown Hypertension Unknown Myocardial infarction Unknown mother Hemorrhagic disorder Unknown sister Hemorrhagic disorder Unknown Cardiac disease Unknown Summary Purpose Chief Complaint and Reason for Visit Chief Complaint Admit Date 6MO LABS PROLIA August 17, 2024 10:06am ONC/HEM August 17, 2024 10:15am Reason for Visit Admit Date Breast cancer in female August 17 10:06am Osteopenia August 17, 2024 10:06am Educational circumstance August 17, 2024 10:15am Breast cancer in female August 17 10:15am Osteopenia August 17, 2024 10:15am Osteoporosis August 17, 2024 10:15am Chief Complaint Admit Date SCREENING February 01, 2025 12:5 0pm 6MO NO LABS REVIEW MAMMO PROLIA February 082024 12:56pm 1 YR F/U BREAST February 08, 2025 12: 57pm ONC/HEM February 08, 2025 3:0 0pm Reason for Visit Admit Date History of breast cancer February 08 12:57pm Educational circumstance February 08 3:00pm Breast cancer in female February 08, 2025 3:00pm Osteopenia February 08, 2025 3:0 0pm Osteoporosis February 08, 2025 3:0 0pm Reason for Visit Admit Date Breast cancer in female February 08, 2025 12:56pm Osteopenia February 08, 2025 12: 56pm History of breast cancer February 08 12:57pm Educational circumstance February 08 3:00pm Breast cancer in female February 08, 2025 3:00pm Osteopenia February 08, 2025 3:0 0pm Osteoporosis February 08, 2025 3:0 0pm Chief Complaint Admit Date SCREENING February 01, 2025 12:5 0pm 6MO NO LABS REVIEW MAMMO PROLIA February 082024 12:56pm 1 YR F/U BREAST February 08, 2025 12: 57pm ONC/HEM February 08, 2025 3:0 0pm CONFUSION February 16, 2025 1: 11pm Chief Complaint Admit Date SCREENING February 01, 2025 12:5 0pm 6MO NO LABS REVIEW MAMMO PROLIA February 082024 12:56pm 1 YR F/U BREAST February 08, 2025 12: 57pm ONC/HEM February 08, 2025 3:0 0pm CONFUSION February 16, 2025 1: 11pm pain- RIGHT KNEE April 09, 2025 11 :28am Additional Source Comments INFORMATION SOURCE (unrecogn ized section and content) DATE CREATED AUTHOR [facility] DATE CREATED AUTHOR AUTHOR'S ORGANIZ ATION [facility] Teams (unrecognized sec tion and content) Team Status: Active Member Role Status Dates Dr. Amarilis Cheung MD Family Provider Active Dr. Kan Vargas MD Primary Care Provider Active Team Status: Inactive Member Role Status Dates Dr. Kan Vargas MD Primary Care Provider, Referr ing Provider Active Dr. Man Morgan DO Attending Provider Active Team Status: Active Member Role Status Dates Dr. Amarilis Cheung MD Primary Care Provider, Family Pro vider Active Dr. Cherelle Patton MD Attending Provider Active Dr. Amarilis Hernandez MD Referring Provider Active Team Status: Inactive Member Role Status Dates Dr. Kan Vargas MD Primary Care Provider Active Dr. Cherelle Patton MD Attending Provider, Referrin g Provider Active Team Status: Inactive Member Role Status Dates Dr. Kan Vargas MD Primary Care Provider, Attend ing Provider Active Team Status: Active Member Role Status Dates Dr. Kan Vargas MD Primary Care Provider Active Team Status: Inactive Member Role Status Dates Dr. Kan Vargas MD Primary Care Provider Active Start: August 17, 2024 End: August 17, 2024 Dr. Kan Vargas MD Referring Provider Active Start: August 17, 2024 End: August 17, 2024 Dr. Cherelle Patton MD Attending Provider Active Start: August 17, 2024 End: August 17, 2024 Team Status: Active Member Role Status Dates Dr. Amarilis Cheung MD Primary Care Provider Active Start: August 17, 2024 Dr. Amarilis Cheung MD Family Provider Active Star t: August 17, 2024 Dr. Cherelle Patton MD Attending Provider Active Start: August 17, 2024 Dr. Amarilis Hernandez MD Referring Provider Active Start: August 17, 2024 Team Status: Inactive Member Role Status Dates Dr. Kan Vargas MD Primary Care Provider Active Start: October 12, 2024 End: October 12, 2024 Dr. Kan Vargas MD Attending Provider Active Start: October 12, 2024 End: October 12, 2024 Dr. Kan Vargas MD Referring Provider Active Start: October 12, 2024 End: October 12, 2024 Team Status: Active Member Role/Relationship Status Dates Dr. Kan Vargas MD Primary Care Provider Active Team Status: Inactive Member Role/Relationship Status Dates Dr. Kan Vargas MD Primary Care Provider Active Start: October 12, 2024 End: October 12, 2024 Dr. Kan Vargas MD Attending Provider Active Start: October 12, 2024 End: October 12, 2024 Dr. Kan Vargas MD Referring Provider Active Start: October 12, 2024 End: October 12, 2024 Team Status: Inactive Member Role/Relationship Status Dates Dr. Kan Vargas MD Primary Care Provider Active Start: January 07, 2025 End: January 07, 2025 Dr. Kan Vargas MD Attending Provider Active Start: January 07, 2025 End: January 07, 2025 Dr. Kan Vargas MD Referring Provider Active Start: January 07, 2025 End: January 07, 2025 Team Status: Active Member Role/Relationship Status Dates Dr. Kan Vargas MD Primary Care Provider Active Start: February 01, 2025 Dr. Cherelle Patton MD Attending Provider Active Start: February 01, 2025 Dr. Cherelle Patton MD Referring Provider Active Start: February 01, 2025 Team Status: Active Member Role/Relationship Status Dates Dr. Kan Vargas MD Primary Care Provider Active Start: February 05, 2025 Dr. Kan Vargas MD Attending Provider Active Start: February 05, 2025 Team Status: Active Member Role/Relationship Status Dates Dr. Kan Vargas MD Primary Care Provider Active Start: February 08, 2025 Dr. Kan Vargas MD Referring Provider Active Start: February 08, 2025 Dr. Cherelle Patton MD Attending Provider Active Start: February 08, 2025 Team Status: Inactive Member Role/Relationship Status Dates Dr. Kan Vargas MD Primary Care Provider Active Start: February 08, 2025 End: February 08, 2025 Dr. Kan Vargas MD Referring Provider Active Start: February 08, 2025 End: February 08, 2025 Dr. Man Morgan DO Attending Provider Active Start: February 08, 2025 End: February 08, 2025 Team Status: Active Member Role/Relationship Status Dates Dr. Amarilis Cheung MD Primary Care Provider Active Start: February 08, 2025 Dr. Amarilis Cheung MD Family Provider Active Star t: February 08, 2025 Dr. Cherelle Patton MD Attending Provider Active Start: February 08, 2025 Dr. Amarilis Hernandez MD Referring Provider Active Start: February 08, 2025 Team Status: Inactive Member Role/Relationship Status Dates Dr. Kan Vargas MD Primary Care Provider Active Start: February 08, 2025 End: February 08, 2025 Dr. Kan Vargas MD Referring Provider Active Start: February 08, 2025 End: February 08, 2025 Dr. Cherelle Patton MD Attending Provider Active Start: February 08, 2025 End: February 08, 2025 Team Status: Inactive Member Role/Relationship Status Dates Dr. Kan Vargas MD Primary Care Provider Active Start: February 01, 2025 End: February 01, 2025 Dr. Cherelle Patton MD Attending Provider Active Start: February 01, 2025 End: February 01, 2025 Dr. Cherelle Patton MD Referring Provider Active Start: February 01, 2025 End: February 01, 2025 Team Status: Inactive Member Role/Relationship Status Dates Dr. Kan Vargas MD Primary Care Provider Active Start: January 07, 2025 End: January 07, 2025 Dr. Kan Vargas MD Attending Provider Active Start: January 07, 2025 End: January 07, 2025 Dr. Kan Vargas MD Referring Provider Active Start: January 07, 2025 End: January 07, 2025 Team Status: Inactive Member Role/Relationship Status Dates Dr. Kan Vargas MD Primary Care Provider Active Start: February 01, 2025 End: February 01, 2025 Dr. Cherelle Patton MD Attending Provider Active Start: February 01, 2025 End: February 01, 2025 Dr. Cherelle Patton MD Referring Provider Active Start: February 01, 2025 End: February 01, 2025 Team Status: Inactive Member Role/Relationship Status Dates Dr. Kan Vargas MD Primary Care Provider Active Start: February 05, 2025 End: February 05, 2025 Dr. Kan Vargas MD Attending Provider Active Start: February 05, 2025 End: February 05, 2025 Team Status: Inactive Member Role/Relationship Status Dates Dr. Kan Vargas MD Primary Care Provider Active Start: February 08, 2025 End: February 08, 2025 Dr. Kan Vargas MD Referring Provider Active Start: February 08, 2025 End: February 08, 2025 Dr. Cherelle Patton MD Attending Provider Active Start: February 08, 2025 End: February 08, 2025 Team Status: Inactive Member Role/Relationship Status Dates Dr. Kan Vargas MD Primary Care Provider Active Start: February 08, 2025 End: February 08, 2025 Dr. Kan Vargas MD Referring Provider Active Start: February 08, 2025 End: February 08, 2025 Dr. Man Morgan DO Attending Provider Active Start: February 08, 2025 End: February 08, 2025 Team Status: Active Member Role/Relationship Status Dates Dr. Amarilis Cheung MD Primary Care Provider Active Start: February 08, 2025 Dr. Amarilis Cheung MD Family Provider Active Star t: February 08, 2025 Dr. Cherelle Patton MD Attending Provider Active Start: February 08, 2025 Dr. Amarilis Hernandez MD Referring Provider Active Start: February 08, 2025 Team Status: Inactive Member Role/Relationship Status Dates Dr. Kan Vargas MD Primary Care Provider Active Start: February 16, 2025 End: February 16, 2025 Dr. Kan Vargas MD Attending Provider Active Start: February 16, 2025 End: February 16, 2025 Dr. Kan Vargas MD Referring Provider Active Start: February 16, 2025 End: February 16, 2025 Team Status: Active Member Role/Relationship Status Dates Dr. Kan Vargas MD Primary care physician Active Team Status: Inactive Member Role/Relationship Status Dates Dr. Kan Vargas MD Primary care physician Active Start: January 07, 2025 End: January 07, 2025 Dr. Kan Vargas MD Attending physician Active Start: January 07, 2025 End: January 07, 2025 Dr. Kan Vargas MD Referring Provider Active Start: January 07, 2025 End: January 07, 2025 Team Status: Inactive Member Role/Relationship Status Dates Dr. Kan Vargas MD Primary care physician Active Start: February 01, 2025 End: February 01, 2025 Dr. Cherelle Patton MD Attending physician Active Start: February 01, 2025 End: February 01, 2025 Dr. Cherelle Patton MD Referring Provider Active Start: February 01, 2025 End: February 01, 2025 Team Status: Inactive Member Role/Relationship Status Dates Dr. Kan Vargas MD Primary care physician Active Start: February 05, 2025 End: February 05, 2025 Dr. Kan Vargas MD Attending physician Active Start: February 05, 2025 End: February 05, 2025 Team Status: Inactive Member Role/Relationship Status Dates Dr. Kan Vargas MD Primary care physician Active Start: February 08, 2025 End: February 08, 2025 Dr. Kan Vargas MD Referring Provider Active Start: February 08, 2025 End: February 08, 2025 Dr. Cherelle Patton MD Attending physician Active Start: February 08, 2025 End: February 08, 2025 Team Status: Inactive Member Role/Relationship Status Dates Dr. Kan Vargas MD Primary care physician Active Start: February 08, 2025 End: February 08, 2025 Dr. Kan Vargas MD Referring Provider Active Start: February 08, 2025 End: February 08, 2025 Dr. Man Morgan DO Attending physician Active Start: February 08, 2025 End: February 08, 2025 Team Status: Active Member Role/Relationship Status Dates Dr. Amarilis Cheung MD Primary care physician Active Start: February 08, 2025 Dr. Cherelle Patton MD Attending physician Active Start: February 08, 2025 Dr. Amarilis Hernandez MD Referring Provider Active Start: February 08, 2025 Team Status: Inactive Member Role/Relationship Status Dates Dr. Kan Vargas MD Primary care physician Active Start: February 16, 2025 End: February 16, 2025 Dr. Kan Vargas MD Attending physician Active Start: February 16, 2025 End: February 16, 2025 Dr. Kan Vargas MD Referring Provider Active Start: February 16, 2025 End: February 16, 2025 Team Status: Inactive Member Role/Relationship Status Dates Dr. Kan Vargas MD Primary care physician Active Start: April 09, 2025 End: April 09, 2025 Dr. Kan Vargas MD Attending physician Active Start: April 09, 2025 End: April 09, 2025 Dr. Kan Vargas MD Referring Provider Active Start: April 09, 2025 End: April 09, 2025 Goals (unrecognized section and content) Goals may be documented in a n alternate sectionGoals may be documented in an alternate section FOR RECORDS PERTAINING TO PATIENTS WHO ARE OR HAVE BEEN ENROLLED IN A CHEMICAL DEPENDENCY/SUBSTANCEABUSE PROGRAM, SOME INFORMATION MAY BE OMITTED. This clinical summary was aggregated from multiple sources. Caution should be exercised in using it in the provision of clinical care. This summary normalizes information from multiple sources, and as a consequence, information in this document may materially change the coding, format and clinical context of patient data. In addition, data may be omitted in some cases. CLINICAL DECISIONS SHOULD BE BASED ON THE PRIMARY CLINICAL RECORDS. [facility] [facility]. provides no warranty or guarantee of the accuracy or completeness of information in this document.
[2025-06-07] MEDS: Lactated Ringers 1,000 ML 15 ML IV (07:39)
--- NOTE | 2025-06-07 07:51 | PCM.PRE.AN2 ---
ASA Classification* ASA Classification ASA Classification: 2 Assessment & Plan Anesthesia* Anesthesia Assessment Anesthesia Assessment: Discussed sedation and/or anesthesia options, risks, benefits, and alternatives with patient/parents/legal guardian/POA. Questions invited. The patient/parents/legal guardian/POA seems to understand and agrees to proceed with anesthesia plan. Reviewed the physical assessment, medical history, allergy history and patient home medications list prior to surgery/procedure/anesthetic and documented any changes. Performed airway and anesthesia risk assessments. Anesthesia Type Anesthesia Type: MAC History Source History Obtained from:: Patient and Chart Anesthesia Focused Assessment* Temperature: 97.4 F Pulse Rate: 71 Blood Pressure: 137/88 Respiratory Rate: 16 Pulse Ox: 100 Oxygen Delivery Method: Room Air Airway Assessment Mouth opens: >3 cm Mallampati Score: II Teeth Condition: Intact Neck Range of motion (ROM): Full ROM Labs Anesthesia Preop lab: CBC WBC, (4.4-11.0) 6.2 K/mm3 01/07/25, 11:15 RBC, (4.2-5.4) 4.37 M/mm3 01/07/25, 11:15 Hgb, (12.0-15.0) 13.7 g/dL 01/07/25, 11:15 Hct, (37-47) 40.8 % 01/07/25, 11:15 Plt Count, (150-450) 152 K/mm3 01/07/25, 11:15 CHEMISTRY Potassium, (3.3-5.1) 3.9 mmol/L 01/07/25, 11:15 Sodium, (133-145) 140 mmol/L 01/07/25, 11:15 Magnesium, (1.5-2.2) 2.2 mg/dL 10/12/24, 12:37 Phosphorus, (2.5-4.9) 3.1 mg/dL 09/09/19, 09:14 BUN, (4-19) 17 mg/dL 01/07/25, 11:15 Creatinine, (0.70-1.20) 0.76 mg/dL 01/07/25, 11:15 Glucose, (70-99) 87 mg/dL 01/07/25, 11:15 TSH, (0.300-4.200) 1.510 uIU/mL 10/12/24, 12:37 COAG Pre-Assessment Diagnosis/Proposed Procedure Planned Operative Procedure(s): COLONOSCOPY/EGD Anesthesia History 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 When Was Last Pacemaker Check QUESTION #4 FULL TEXT: You/Your Family Experience fever (hyperthermia) with Anesthesia Last Oral Intake Last Oral intake: Last Oral Intake NPO since 23:30 06/07/25 07:39 Meds taken in AM with sips of water? 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 Female Yes 06/04/25 11:00 HX of Motion Sickness No 06/04/25 11:00 HX of N/V After Surgery No 06/04/25 11:00 Non-Smoker Yes 06/04/25 11:00 Duration of Surgery greater No 06/04/25 11:00 than 60 minutes Number of Risk Factors 2 06/04/25 11:00 PONV Score Moderate Risk 06/04/25 11:00 Height & Weight Height & Weight: Anesthesia: Height & Weight Height 5 ft 3 in 06/07/25 07:39 Weight: 60.2 kg 06/07/25 07:39 Body Mass Index (BMI) 23.5 06/07/25 07:39 Respiratory Assessment Respiratory Assessment - sales and in home delivery specialist: Respiratory Tract Infection Hx - sales and in home delivery specialist Hx Respiratory Tract Infection No 06/04/25 11:00 STOP Sleep Apnea STOP Sleep Apnea - sales and in home delivery specialist: STOP Sleep Apnea - sales and in home delivery specialist Hx Hypertension Yes: per pt, controlled on 06/04/25 11:00 meds Hx Sleep Apnea No 06/04/25 11:00 CPAP BIPAP Do you snore loudly (louder No 06/04/25 11:00 than talking or can be heard Do you often feel tired/ No 06/04/25 11:00 fatigued/ sleepy during daytime? Has anyone observed you stop No 06/04/25 11:00 breathing during sleep? STOP Results Negative 06/04/25 11:00 QUESTION #5 FULL TEXT : Do you snore loudly (louder than talking or can be heard through closed doors)? 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 Specify any problems Hx of Preganancy in last 3 No 06/04/25 11:00 Months Nurse Filling Out Transfusion VCHRISTIN 06/04/25 11:00 & Questions: Date: 06/04/25 06/04/25 11:00 Time: 11:01 06/04/25 11:00 Patient unable to answer at this time (ie. confused, unrespo /Reproduction History /Reproductive History - sales and in home delivery specialist: /Reproductive Hx- sales and in home delivery specialist Hx Now No 06/04/25 11:00 Gestational Age (in weeks): EDC: Hx Hx Para Hx Section SAB No 06/04/25 11:00 Does the father of the baby or his family experience fever w Father of the baby Malignant Hypertension history comment Active Medications Active Medications: Current Medications Generic Name Dose Route Start Last Admin Trade Name Freq PRN Reason Stop Dose Admin Lactated Ringer's 1,000 mls @ 15 mls/hr 06/07/25 07:30 06/07/25 07:39 IV 15 mls/hr .Q48H SANAI Administration PFSH Medical History Post-menopausal Anxiety Thyroid disease History of renal disease Back pain History of hiatal hernia Gastric reflux Non-smoker History of echocardiogram Tick bite of right thigh ER+ (estrogen receptor positive status) Cataract Alcoholism Wears glasses High cholesterol Non-smoker Restless legs History of squamous cell carcinoma of skin Skin cancer Skin lesion Hiatal hernia with gastroesophageal reflux disease and esophagitis GERD (gastroesophageal reflux disease) Breast cancer in female Breast cancer (~12/2017) Hypothyroidism Hemorrhoids HTN (hypertension) Osteoarthritis Home Medications ?Medication ?Instructions ?Recorded ?Last Taken ?Type cholecalciferol (vitamin D3) 50 2,000 unit PO QDAY 12/03/17 05/28/18 History mcg (2,000 unit) capsule hydrochlorothiazide 25 mg tablet 25 mg PO QDAY 12/03/17 12/24/17 History multivitamin 1 tab PO QDAY 12/03/17 05/28/18 History denosumab 60 mg/mL subcutaneous 60 mg SQ Q6M 01/12/19 Unknown History syringe (Prolia) aspirin 81 mg chewable tablet 162 mg PO DAILY@0800 02/02/20 Unknown History inulin 2 gram chewable tablet 2 g PO DAILY 11/07/20 Unknown History (Fiber Gummies) zinc 50 mg tablet 25 mg PO DAILY 09/06/21 Unknown History levothyroxine 75 mcg tablet 75 mcg PO DAILY 05/11/22 Unknown History rosuvastatin 10 mg tablet 10 mg PO DAILY 05/11/22 Unknown History Lactobacillus acidophilus 10 100 mmu cells PO BID 06/04/25 Unknown History billion cell capsule (NewFlora) flaxseed oil 1,300 mg capsule 1,300 mg PO DAILY 06/04/25 Unknown History loratadine 10 mg tablet (Allergy 10 mg PO DAILY 06/04/25 Unknown History Relief (loratadine)) omeprazole 20 mg capsule,delayed 20 mg PO DAILY 06/04/25 Unknown History release Allergy/AdvReac Type Severity Reaction Status Date / Time No Known Allergies Allergy Verified 06/07/25 07:37 Family History Father CAD (coronary artery disease) Hypertension Myocardial infarction Mother Bleeding disorder Hypertension Sister Bleeding disorder Heart disease Other Alcoholism Arthritis Breast cancer Cancer High cholesterol History of anesthesia problem Osteoporosis Skin cancer Thyroid disorder Surgical History History of esophagogastroduodenoscopy (EGD) History of repair of hiatal hernia s/p EGD with PH probe (~06/03/18) History of lumpectomy S/P breast biopsy S/P colonoscopy S/P dilation and curettage S/P tubal ligation Status post left hip replacement Status post right hip replacement S/P breast biopsy Social History household members: spouse housing: house Smoking Status: Never smoker second hand exposure: No alcohol intake: never substance use type: does not use well-balanced diet: daily or most days caffeine: No eating out: 1-3 times/week during the past year weight has: remained stable what type of physical activity do you participate in: walking frequency: daily duration: 15-30 minutes/day kori/mandaen: [employer] seatbelt use: always do you feel safe at home: Yes Review of Systems (Anesthesia) ROS Narrative System reviewed and no additional complaints, except as documented.
--- NOTE | 2025-06-07 07:56 | HP.PCM_ITS ---
History and Physical Date of Admission: 06/07/25 Date of Service: 05/11/25 MR#: [id number] Acct: [id number] Name: JIMMIE WEATHERS Rep #: [id number] : 1945 Provider: Dr. 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 Is patient in pain?: No Allergies No Known Allergies Allergy (Verified 05/11/25 10:04) Medications ?Medication ?Instructions ?Recorded ?Confirmed ?Type cholecalciferol (vitamin D3) 50 2,000 unit PO QDAY 12/03/17 05/11/25 His tory mcg (2,000 unit) capsule hydrochlorothiazide 25 mg tablet 25 mg PO QDAY 12/03/17 05/11/25 History multivitamin 1 tab PO QDAY 12/03/17 05/11/25 History denosumab 60 mg/mL subcutaneous 60 mg SQ Q6M 01/12/19 05/11/25 History syringe (Prolia) aspirin 81 mg chewable tablet 162 mg PO DAILY@0800 02/02/20 05/11/25 H istory inulin 2 gram chewable tablet 2 g PO DAILY 11/07/20 05/11/25 History (Fiber Gummies) zinc 50 mg tablet 25 mg PO DAILY 09/06/21 05/11/25 History levothyroxine 75 mcg tablet 75 mcg PO DAILY 05/11/22 05/11/25 Histor y rosuvastatin 10 mg tablet 10 mg PO DAILY 05/11/22 05/11/25 History Have you fallen in the past year?: No PFSH Medical History (Updated 05/11/25 @ 16:[address] Marvin Ya MD) Tick bite of right thigh ER+ (estrogen receptor positive status) Cataract Alcoholism Wears glasses High cholesterol Non-smoker Restless legs History of squamous cell carcinoma of skin Skin cancer Skin lesion Hiatal hernia with gastroesophageal reflux disease and esophagitis GERD (gastroesophageal reflux disease) Breast cancer in female Breast cancer (~12/2017) Hypothyroidism Hemorrhoids HTN (hypertension) Osteoarthritis Surgical History History of repair of hiatal hernia s/p EGD with PH probe (~06/03/18) History of lumpectomy S/P breast biopsy S/P colonoscopy S/P dilation and curettage S/P tubal ligation Status post left hip replacement Status post right hip replacement S/P breast biopsy Family History Father CAD (coronary artery disease) Hypertension Myocardial infarction Mother Bleeding disorder Hypertension Sister Bleeding disorder Heart disease Other Alcoholism Arthritis Breast cancer Cancer High cholesterol History of anesthesia problem Osteoporosis Skin cancer Thyroid disorder Social History household members: spouse housing: house Smoking Status: Never smoker second hand exposure: No alcohol intake: never substance use type: does not use well-balanced diet: daily or most days caffeine: No eating out: 1-3 times/week during the past year weight has: remained stable what type of physical activity do you participate in: walking frequency: daily duration: 15-30 minutes/day kori/amish: Judaism seatbelt use: always do you feel safe at home: Yes HPI HPI HPI: The patient is a 79-year-old female, former patient of Dr. Mp Staples, with Archer's esophagus, GERD s/p Toupet fundoplication (2019), and osteoporosis, presenting for surveillance EGD and discussion of colonoscopy. The patient reports recurrence of reflux symptoms after 3 years of relief following her Toupet fundoplication. She describes intermittent epigastric pain that occurs exclusively at night when lying down, with no daytime symptoms. She has been using Tums frequently and recently completed a 14-day course of omeprazole, which provided significant relief. She has previously completed 2 courses of omeprazole for similar symptoms. She has discontinued calcium supplements per prior instruction from Dr. Herman. Her typical diet consists of a protein bar for breakfast, a large midday meal, and light evening snacking, with her last intake usually about 2 hours before bedtime. She sleeps primarily on her stomach with pillows for support due to bilateral hip replacements. She notes that chocolate eaten late at night worsens her symptoms. She has a long-standing history of constipation, previously requiring laxatives when bowel movements were as infrequent as every 2 weeks. She now maintains daily bowel movements with fiber gummies and adequate fluid intake, with minimal straining and no rectal bleeding. She reports occasional dark stools depending on diet, but denies black or maroon stools. She drinks 6-8 glasses of decaffeinated tea daily. She has no known history of colon polyps, diverticulitis, or Crohn's disease. Her last colonoscopy was 8-10 years ago in [place]. She has a maternal grandmother who developed colon cancer in her early 80s. She reports a low tolerance to anesthesia and many medications. She takes 2 baby aspirin nightly for blood clot prevention. ROS General General: Yes fatigue and breast cancer; No weight change, appetite, colon cancer or weakness HEENT HEENT: Yes eye injury and eye surgery; No difficulty swallowing, swollen glands or hoarseness Endo Endocrine: Yes thyroid disease; No diabetes mellitus, thyroid cancer, Hair loss, heat intolerance or cold intolerance Skin Skin: No rash or changing moles Breast Breast: No left breast lump, right breast lump, nipple discharge, breast pain, abnormal mammogram, abnormal US or breast enlargement Musc Musculoskeletal: Yes back problems and arthritis; No rheumatoid arthritis, gout or joint pain Cardio Cardiovascular: Yes high blood pressure; No murmur, pacemaker, heart disease, atrial fibrillation, heart attack, heart stent, palpitations, shortness of breath with exertion or chest pain Psych Psychiatric: Yes anxiety; No depression or hearing voices Resp Respiratory: No shortness of breath, No sleep apnea, No cough, No COPD, No asthma, No emphysema and No wheezing Gastro Gastrointestinal: No abdominal pain, No nausea or vomiting, No diarrhea, No constipation, No blood in stool, Yes acid reflux, No hemorrhoids, No ulcers, No gallbladder problem and No black,tarry stools Eyad Hematologic: Yes blood thinners, No blood disorders, No bleeding, No anemia and No blood clots Additional Details: ASA 81mg twice daily. Neuro Neurologic: No system reviewed and no additional complaints, except as doc umented, No as per HPI, No abnormal gait, No abnormal hearing, No abnormal movements, No abnormal speech, No behavioral changes, No burning sensations, No confusion, No convulsions, No disequilibrium, No dizziness, No localized weakness, No frequent falls, No headache(s), No lack of coordination, No loss of vision, No memory loss, No numbness, No other visual disturbances, No radicular pain, No restless legs, No sensory deficit, No syncope, No tingling, No tremor(s), No weakness and No other Exam Const General: cooperative and comfortable Orientation: alert, awake and oriented x3 Resp Effort & Inspection: normal respiratory effort GI Other: Soft, nondistended, nontender palpation x 4 quadrants Assessment and Plan Assessment and Plan (1) GERD (gastroesophageal reflux disease): Status: Chronic Qualifiers: Esophagitis presence: esophagitis presence not specified Qualified Code(s): K21.9 - Gastro-esophageal reflux disease without esophagitis Comment: - History of Toupet fundoplication in 2018; most recent EGD in March 2022 showed intact wrap. - Recent recurrence of reflux symptoms; completed 14-day course of omeprazole with good effect. - Advised indefinite continuation of omeprazole 20 mg daily; discussed meta- analysis data supporting chronic PPI use for Archer's esophagus, with risks (opportunistic infections, osteoporosis) not outweighing benefits in this case. - Educated on minimizing Tums use due to risk of hypercalcemia. - Advised to increase water intake, avoid caffeine and chocolate, elevate head of bed, and avoid eating within 3 hours of bedtime. - Surveillance EGD to assess wrap integrity and Archer's segment; biopsies to be obtained. - Discussed risks and benefits of redo fundoplication; referral to high-volume center (e.g., [facility]) for second opinion if wrap is not intact or dysplasia is found. (2) Hiatal hernia with gastroesophageal reflux disease and esophagitis: Status: Chronic Comment: s/p Toupet fundoplication 2019 initially with excellent symptomatic results (3) Archer esophagus: Status: Chronic Comment: Short segment without dysplasia. Requires ongoing surveillance (4) Screening for colon cancer: Status: Acute Comment: - Last colonoscopy 8-10 years ago; no known history of polyps. - Family history of colon cancer (maternal grandmother diagnosed at age 81-82). - Discussed guidelines recommending against routine screening colonoscopy after age 75, but individualized decision based on functional status and life expectancy; patient meets criteria for potential benefit. - Discussed risks of colonoscopy (cardiopulmonary risk under anesthesia, bleeding, perforation) versus benefits (polyp removal, early cancer detection). - Screening colonoscopy to be performed with EGD under single anesthetic; 2-day bowel prep required due to history of constipation. - Advised to reduce aspirin from 2 to 1 daily to minimize bleeding risk. - Instructed on importance of clear bowel prep; results may take variable time to return. Plan: Plan to complete colonoscopy concurrent with EGD. Prep instructions provided. Patient asked to hold aspirin to just 81 mg daily for 7 days prior to scope. (5) Constipation: Status: Chronic Orders: Orders Colonoscopy 06/07/25 EGD 06/07/25 I have examined the patient and the H&P has been reviewed. There are no clinical changes since date of exam. Patient confirms she completed prep for today's procedure and her output is now clear. She mentions that she has hemorrhoids but they do not cause her any trouble. Therefore, I recommended against any intervention at this time but did provide her with instructions should she begin to experience bleeding pain or itching from them. I also clarified that we will plan to proceed with EGD with biopsy first followed by any necessary i ntervention on colonoscopy. All questions have been taken from patient and her . Proceed to the endoscopy suite for procedure as scheduled.
--- NOTE | 2025-06-07 08:30 | COLBX_PTH ---
PATIENT: JIMMIE WEATHERS LOC: [facility] U#:[id number] AGE/SX: 79/F ROOM: RE06/07/[address]: Dr. Marvin Ya MD : 1945 BED: DIS: 06/07/2025 SPEC #: [id number] RECD: 06/07/25 13:02 STATUS: RALPH YESSICA #: [id number] ROYA: 06/07/25 08:[address]: Marvin Ya DEPT: SURGICAL PATHOLOGY RECD BY: Ray Ellis ENTERED: 06/08/25 09:42 SP TYPE: COLON BX OTHR DR: Dr. Kan Vargas MD Tissues: A - Gastric mucous membrane B - Esophagus, NOS C - Esophagus, NOS D - Ascending colon E - Sigmoid colon biopsy Procedures: Special Stain Group I Surgery Specimen Level IV GMS Stain (control) HEADER OPERATION: Colonoscopy with polypectomy, EGD with biopsies PRE-OP DIAGNOSIS: Hiatal hernia with gastroesophageal reflux disease and esophagitis, Archer's esophagus, screening for colon cancer TISSUE SUBMITTED: A- Gastric cardia polyps, B- Distal esophagus biopsy, C- Mid esophageal plaque biopsy, D- Ascending colon polyp, E- Sigmoid mucosa biopsy MICROSCOPIC DIAGNOSIS A. Stomach, cardia, polyps, biopsy: - Fragments of oxyntic gastric mucosa with focal polypoid foveolar hyperplasia. B. Esophagus, distal, biopsy: - Columnar mucosa with goblet cell metaplasia - see note. - Negative for dysplasia. - No squamous mucosa seen. Note: In the appropriate clinical and endoscopic setting the findings are suggestive of Archer esophagus; please correlate. C. Esophagus, mid, plaque, biopsy: - Benign squamous mucosa with rare eosinophil. - A PASD stain is PENDING and will be reported in an addendum. D. Colon, ascending, polyp, polypectomy: - Inflammatory polyp. E. Colon, sigmoid, biopsy: - Tubular adenoma. MICROSCOPIC DESCRIPTION Slides are reviewed. GROSS DESCRIPTION A. Received in fixative is one container labeled with the patient's name and designated Gastric cardia polyps. The specimen consists of three irregular fragments of ontiveros tissue that measure 0.2 to 1 cm. The specimen is totally submitted in one cassette. B. Received in fixative is one container labeled with the patient's name and designated Distal esophagus biopsy. The specimen consists of three irregular fragments of ontiveros tissue that measure 0.2 to 0.4 cm. The specimen is totally submitted in one cassette. C. Received in fixative is one container labeled with the patient's name and designated Mid esophageal plaque biopsy. The specimen consists of two irregular fragments of ontiveros tissue, each measuring 0.3 cm. The specimen is totally submitted in one cassette. D. Received in fixative is one container labeled with the patient's name and designated Ascending colon polyp. The specimen consists of one irregular fragment of ontiveros tissue that measures 0.4 cm. The specimen is totally submitted in one cassette. E. Received in fixative is one container labeled with the patient's name and designated sigmoid mucosa. The specimen consists of two irregular fragments of ontiveros tissue that measure 0.2 and 0.4 cm. The specimen is totally submitted in one cassette. OK 06/07/2025 CPT: [id number] ADDENDUM ADDENDUM ADDENDUM ADDENDUM ADDENDUM ADDENDUM ADDENDUM ADDENDUM ADDENDUM ADDENDUM ADDENDUM ADDENDUM 06/09/2025 10:38 ADDENDUM 06/09/2025 10:38 ADDENDUM 06/09/2025 10:38 ADDENDUM 06/09/2025 10:38 ADDENDUM 06/09/2025 10:38 This addendum is to report the PASD stain on part C: C. The PASD special stain is negative for fungal organisms. All matched controls reacted appropriately. These tests were developed and their performance characteristics determined by [facility]. They may not have been cleared or approved by the U.S. Food and Drug Administration. The FDA has determined that such clearance or approval is not necessary. The above immunohistochemical markers and/or special?stains have been reviewed by the Pathologist.
--- NOTE | 2025-06-07 09:18 | PCM.POST.ANE ---
Anesthesia: Postop Eval I Current Vital Signs Temperature: 97 F Pulse Rate: 57 Blood Pressure: 87/54 Respiratory Rate: 16 Pulse Ox: 94 Oxygen Delivery Method: Room Air Assessment Airway patent: Yes Spontaneous unlabored respirations: Yes Mental status: Asleep nausea: No Vomiting: No Anesthesia Complication: No Fluid Hydration Crystalloid volume administer (ml): 700 Total IV fluid infused: 700 Progress Note Anesthesia document: Postop Eval 1 completed: Yes
--- NOTE | 2025-06-07 09:19 | OP.EGD_ITS ---
Patient Name: Brielle Wood Procedure Date: 06/07/2025 7:41 AM Date of : 1945 Age: 79 Procedure: Upper GI endoscopy Indications: Gastro-esophageal reflux disease, Follow-up of Archer's esophagus Providers: Marvin Ya MD Medicines: See the Anesthesia note for documentation of the administered medications Patient Profile: Refer to note in patient chart for documentation of history and physical. Patient has symptoms. Complications: No immediate complications. Estimated blood loss: Minimal. Procedure: Pre-Anesthesia Assessment: - The heart rate, respiratory rate, oxygen saturations, blood pressure, adequacy of pulmonary ventilation, and response to care were monitored throughout the procedure. After obtaining informed consent, the endoscope was passed under direct vision. Throughout the procedure, the patient's blood pressure, pulse, and oxygen saturations were monitored continuously. The Colonoscope was introduced through the mouth, and advanced to the second part of duodenum. The upper GI endoscopy was somewhat difficult due to the patient's oxygen desaturation. Successful completion of the procedure was aided by performing chin lift. The patient tolerated the procedure fairly well. Scope In: 8:23:40 AM Scope Out: 8:38:46 AM Total Procedure Duration Time 0 hours 15 minutes 6 seconds Findings: The examined duodenum was normal. No biopsies or other specimens were collected for this exam. Multiple 2 to 4 mm semi-sessile polyps with no bleeding and no stigmata of recent bleeding were found in the cardia. Biopsies were taken with a cold forceps for histology. Estimated blood loss was minimal. Evidence of a Toupet fundoplication was found in the gastric antrum. The wrap appeared loose. This was traversed. No biopsies or other specimens were collected for this exam. The Z-line was irregular and was found 32 cm from the incisors. Biopsies were taken with a cold forceps for histology. Estimated blood loss was minimal. Multiple 3 to 5 mm plaques were found in the middle third of the esophagus. Biopsies were taken with a cold forceps for histology. Estimated blood loss was minimal. Impression: - Normal examined duodenum. No specimens collected. - Multiple gastric polyps. Biopsied. - A Toupet fundoplication was found. The wrap appears loose. No specimens collected. - Z-line irregular, 32 cm from the incisors. Biopsied. - Multiple plaques in the middle third of the esophagus. Biopsied. Recommendation: - Discharge patient to home (via wheelchair). - Soft diet today. - No aspirin, ibuprofen, naproxen, or other non-steroidal anti-inflammatory drugs for 2 days after biopsy. - Await pathology results. - Telephone my office for pathology results in 1 week. Procedure Code(s): --- Professional --- 53143, Esophagogastroduodenoscopy, flexible, transoral; with biopsy, single or multiple Diagnosis Code(s): --- Professional --- K22.70, Archer's esophagus without dysplasia K31.7, Polyp of stomach and duodenum Z98.890, Other specified postprocedural states K22.89, Other specified disease of esophagus K21.9, Gastro-esophageal reflux disease without esophagitis CPT copyright 2021 [employer]. All rights reserved. The codes documented in this report are preliminary and upon harness tier review may be revised to meet current compliance requirements. Marvin Ya MD 06/07/2025 9:19:06 AM This report has been signed electronically. Number of Addenda: 0 Note Initiated On: 06/07/2025 7:41 AM
--- NOTE | 2025-06-07 09:20 | OP.PROVAT_ITS ---
06/07/2025 Kan Vargas [address] [place] [address] Re : Upper GI endoscopy procedure for Brielle Wood Dear Dr. Vargas This procedure was performed on Saturday, June 07, 2025. My impressions and recommendations are as follows: Impressions : - Normal examined duodenum. No specimens collected. - Multiple gastric polyps. Biopsied. - A Toupet fundoplication was found. The wrap appears loose. No specimens collected. - Z-line irregular, 32 cm from the incisors. Biopsied. - Multiple plaques in the middle third of the esophagus. Biopsied. Recommendations : - Discharge patient to home (via wheelchair). - Soft diet today. - No aspirin, ibuprofen, naproxen, or other non-steroidal anti-inflammatory drugs for 2 days after biopsy. - Await pathology results. - Telephone my office for pathology results in 1 week. My findings are described in the full procedure note, which is enclosed. If I can be of further assistance, please feel free to contact me at Doctor phone number(s): , Work: . Sincerely, Marvin Ya MD 06/07/2025 9:19:06 AM This report has been signed electronically.
--- NOTE | 2025-06-07 09:26 | OP.COLON_ITS ---
Patient Name: Brielle Wood Procedure Date: 06/07/2025 8:38 AM Date of : 1945 Age: 79 Procedure: Colonoscopy Indications: Constipation Providers: Marvin Ya MD Medicines: See the Anesthesia note for documentation of the administered medications Patient Profile: Refer to note in patient chart for documentation of history and physical. Patient has symptoms. Last Colonoscopy: 10 years ago. Complications: No immediate complications. Estimated blood loss: Minimal. Procedure: Pre-Anesthesia Assessment: - The heart rate, respiratory rate, oxygen saturations, blood pressure, adequacy of pulmonary ventilation, and response to care were monitored throughout the procedure. - The heart rate, respiratory rate, oxygen saturations, blood pressure, adequacy of pulmonary ventilation, and response to care were monitored throughout the procedure. After I obtained informed consent, the scope was passed under direct vision. Throughout the procedure, the patient's blood pressure, pulse, and oxygen saturations were monitored continuously. The Colonoscope was introduced through the anus and advanced to the cecum, identified by appendiceal orifice and ileocecal valve. The colonoscopy was technically difficult and complex due to a tortuous colon. Successful completion of the procedure was aided by using manual pressure. The patient tolerated the procedure well. The quality of the bowel preparation was adequate to identify polyps greater than 5 mm in size. Scope In: 8:40:13 AM Scope Withdrawal Time 0 hours 12 minutes 44 seconds Scope Out: 9:05:36 AM Total Procedure Duration Time 0 hours 25 minutes 23 seconds Findings: Hemorrhoids were found on perianal exam. A 4 mm polyp was found in the ascending colon. The polyp was semi-pedunculated. The polyp was removed with a hot snare. Resection and retrieval were complete. Estimated blood loss: none. The ascending colon and left colon were moderately tortuous. No biopsies or other specimens were collected for this exam. Localized pseudopolyps were found in the sigmoid colon. Biopsies were taken with a cold forceps for histology. Estimated blood loss was minimal. Internal hemorrhoids were found during retroflexion. The hemorrhoids were mild and Grade I (internal hemorrhoids that do not prolapse). No biopsies or other specimens were collected for this exam. Anal papilla(e) were hypertrophied. No biopsies or other specimens were collected for this exam. The exam was otherwise without abnormality. Impression: - Hemorrhoids found on perianal exam. - One 4 mm polyp in the ascending colon, removed with a hot snare. Resected and retrieved. - Tortuous colon. No specimens collected. - Pseudopolyps in the sigmoid colon. Biopsied. - Internal hemorrhoids. No specimens collected. - Anal papilla(e) were hypertrophied. No specimens collected. - The examination was otherwise normal. Recommendation: - Discharge patient to home (via wheelchair). - Resume previous diet today. - No aspirin, ibuprofen, naproxen, or other non-steroidal anti-inflammatory drugs for 2 days after biopsy. - Await pathology results. - Telephone my office for pathology results in 1 week. - Repeat colonoscopy date to be determined after pending pathology results are reviewed for surveillance based on pathology results. Procedure Code(s): --- Professional --- 09334, Colonoscopy, flexible; with removal of tumor(s), polyp(s), or other lesion(s) by snare technique 77106, 59, Colonoscopy, flexible; with biopsy, single or multiple Diagnosis Code(s): --- Professional --- K64.0, First degree hemorrhoids D12.2, Benign neoplasm of ascending colon K51.40, Inflammatory polyps of colon without complications K62.89, Other specified diseases of anus and rectum K59.00, Constipation, unspecified Q43.8, Other specified congenital malformations of intestine CPT copyright 2021 [employer]. All rights reserved. The codes documented in this report are preliminary and upon weaving professor review may be revised to meet current compliance requirements. Marvin Ya MD 06/07/2025 9:26:29 AM This report has been signed electronically. Number of Addenda: 0 Note Initiated On: 06/07/2025 8:38 AM
--- NOTE | 2025-06-07 09:27 | OP.PROVAT_ITS ---
06/07/2025 Kan Vargas [address] [place] [address] Re : Colonoscopy procedure for Brielle Wood Dear Dr. Vargas This procedure was performed on Saturday, June 07, 2025. My impressions and recommendations are as follows: Impressions : - Hemorrhoids found on perianal exam. - One 4 mm polyp in the ascending colon, removed with a hot snare. Resected and retrieved. - Tortuous colon. No specimens collected. - Pseudopolyps in the sigmoid colon. Biopsied. - Internal hemorrhoids. No specimens collected. - Anal papilla(e) were hypertrophied. No specimens collected. - The examination was otherwise normal. Recommendations : - Discharge patient to home (via wheelchair). - Resume previous diet today. - No aspirin, ibuprofen, naproxen, or other non-steroidal anti-inflammatory drugs for 2 days after biopsy. - Await pathology results. - Telephone my office for pathology results in 1 week. - Repeat colonoscopy date to be determined after pending pathology results are reviewed for surveillance based on pathology results. My findings are described in the full procedure note, which is enclosed. If I can be of further assistance, please feel free to contact me at Doctor phone number(s): , Work: . Sincerely, Marvin Ya MD 06/07/2025 9:26:29 AM This report has been signed electronically.
--- NOTE | 2025-06-07 12:21 | PCM.POSTANE2 ---
Anesthesia Postop Eval I Sum Postop Eval Completion status Anesthesia document: Postop Eval 1 completed: Yes Anesthesia Postop Eval I Summary Anesthesia Postop Eval I Summary: Anesthesia Postop Eval I: Assessment Summary Airway patent Yes 06/07/25 09:19 [email or web address] Spontaneous unlabored Yes 06/07/25 09:19 [email or web address] respirations Mental status Asleep 06/07/25 09:19 [email or web address] nausea No 06/07/25 09:19 [email or web address] Vomiting No 06/07/25 09:19 [email or web address] Anesthesia Postop Eval I: Fluid Summary Crystalloid volume administer 700 06/07/25 09:19 [email or web address] (ml) Colloids volume administered ( ml) Blood Product volume administered (ml) Total IV fluid infused 700 06/07/25 09:19 [email or web address] Anesthesia Postop Eval I: Summary Notes Anesthesia Complication No 06/07/25 09:19 [email or web address] Anesthesia Complication Comment: Post-operative progress note Anesthesia: Postop Eval II Evaluation Mental status: Awake and Calm Pain Level: 1 nausea: No Vomiting: No Complications Anesthesia Complication: No
== END 2025-06-07 10:42 | disposition home or self-care (01) ==
LOC: EN 07:20 → AC 07:21
PROVIDERS: PCP Family Medicine; Referring Provider Surgery; Visit Provider Surgery
PROC: 0DJD8ZZ Inspection of Lower Intestinal Tract, Via Natural or Artificial Opening Endoscopic (ICD-10-PCS; CPT 45378; principal; 2025-06-07 08:25)
DX: Z12.11 Encounter for screening for malignant neoplasm of colon (principal); K21.9 Gastro-esophageal reflux disease without esophagitis; K64.0 First degree hemorrhoids; K22.70 Barrett's esophagus without dysplasia; E78.00 Pure hypercholesterolemia, unspecified; I10 Essential (primary) hypertension; K44.9 Diaphragmatic hernia without obstruction or gangrene; Z96.643 Presence of artificial hip joint, bilateral; K59.00 Constipation, unspecified; K31.7 Polyp of stomach and duodenum; K64.4 Residual hemorrhoidal skin tags; K62.89 Other specified diseases of anus and rectum; D12.5 Benign neoplasm of sigmoid colon; K63.5 Polyp of colon; Z79.899 Other long term (current) drug therapy
CPT/HCPCS: 45380; 43239; 45385; 88305; 88312; J2405